=== PATIENT | female | born 1955 | race Caucasian/White ===

== ENCOUNTER 2018-02-01 06:46 | Inpatient (IN) ==
--- NOTE | 2018-02-01 07:13 | ED ---
HPI General Chief complaint: Respiratory Symptoms Stated complaint: Diff breathing, EVAC Time Seen by Provider: 02/01/18 07:00 History of Present Illness HPI narrative: Patient is a 62-year-old largely bedbound woman presents to the emergency department for evaluation of shortness of breath acute on chronic sudden onset this morning. Patient states that she was in the hospital and [place] about a month ago for pneumonia, she went to [facility] for her rehabilitation after hospitalization. She states she has not been on any blood thinners, no blood thinner injections either. States she also has a history of COPD. EMS reported that room air saturation of 88% prior to coming into the hospital, was given DuoNeb in route. No fevers, mild chest discomfort on left side of her chest. No abdominal pain no nausea no vomiting. Onset (ago): minute(s) Location: chest Radiation: non-radiation Severity: mild Pain Consistency: constant Relieving factors: none Exacerbating factors: none Associated symptoms: shortness of breath Treatments prior to arrival: other (DuoNeb per EMS) Related Data Home Medications Medication Instructions Recorded Confirmed Novolog U-100 Insulin aspart 1 unit SUB-Q ACHS 02/01/18 02/01/18 alum-mag hydroxide-simeth [Maalox 1 mg PO Q6H 02/01/18 02/01/18 Advanced] aspirin 81 mg PO DAILY 02/01/18 02/01/18 baclofen 10 mg PO HS 02/01/18 02/01/18 bupropion HCl [Wellbutrin SR] 150 mg PO DAILY 02/01/18 02/01/18 clopidogrel [Plavix] 75 mg PO DAILY 02/01/18 02/01/18 fexofenadine-pseudoephedrine 1 tab PO Q12H PRN 02/01/18 02/01/18 fluoxetine [Prozac] 40 mg PO DAILY 02/01/18 02/01/18 fluticasone 2 spray INTRANASAL DAILY 02/01/18 02/01/18 glimepiride 1 mg PO QAM 02/01/18 02/01/18 hydrocodone-acetaminophen [[place]] 1 tab PO Q4-6H PRN 02/01/18 02/01/18 ipratropium-albuterol 3 ml INHALATION Q6-8H PRN 02/01/18 02/01/18 lidocaine [Lidocaine Pain Relief] 1 patch TOPICAL Q8H 02/01/18 02/01/18 lisinopril 10 mg PO DAILY 02/01/18 02/01/18 melatonin 6 mg PO HS PRN 02/01/18 02/01/18 metformin 1,000 mg PO BID 02/01/18 02/01/18 nabumetone 500 mg PO BID 02/01/18 02/01/18 ondansetron [Zofran ODT] 4 mg PO Q6-8H PRN 02/01/18 02/01/18 pantoprazole [Protonix] 40 mg PO BID 02/01/18 02/01/18 pregabalin 300 mg PO BID 02/01/18 02/01/18 risperidone [Risperdal] 0.5 mg PO DAILY 02/01/18 02/01/18 ropinirole [Requip] 0.25 mg PO HS 02/01/18 02/01/18 tiotropium bromide 1 cap INHALATION DAILY 02/01/18 02/01/18 Allergies Allergy/AdvReac Type Severity Reaction Status Date / Time budesonide [From Pulmicort] Allergy Hives Verified 02/01/18 09:53 duloxetine [From Cymbalta] Allergy Hives Verified 02/01/18 09:53 gabapentin [From Neurontin] Allergy Hives Verified 02/01/18 09:53 nickel Allergy Hives Verified 02/01/18 09:53 Penicillins Allergy Hives Verified 02/01/18 09:53 prednisone Allergy Hives Verified 02/01/18 06:49 sulfacetamide Allergy Hives Verified 02/01/18 09:53 [From Sulfacet-R] sulfur [From Sulfacet-R] Allergy Hives Verified 02/01/18 09:53 Review of Systems Except as stated in HPI: all other systems reviewed are negative PMFSH Social History Social History Substance History: No History of Abuse Second Hand Smoke Exposure: No Smoking Status: Former smoker Tobacco Type: Cigarettes How Often Do You Have a Drink Containing Alcohol: Monthly or less Recent Travel in [facility] within the Last 8 Weeks: No Recent Out of Country Travel within the Last 8 Weeks: No Exam Narrative Exam Narrative: GENERAL: Well-developed well-nourished obese female, tachycardic and tachypneic. SKIN: Focused skin assessment warm/dry. HEAD: Atraumatic. Normocephalic. EYES: Pupils equal and round. No scleral icterus. No injection or drainage. ENT: No nasal bleeding or discharge. Mucous membranes pink and moist. NECK: Trachea midline. No JVD. CARDIOVASCULAR: Regular rhythm with tachycardia, left-sided systolic murmur peer. No murmur appreciated. 2+ bilateral equal pulses in all 4 extremity RESPIRATORY: No accessory muscle use. Clear to auscultation. Breath sounds equal bilaterally. GASTROINTESTINAL: Abdomen soft, non-tender, nondistended. Hepatic and splenic margins not palpable. MUSCULOSKELETAL: No obvious deformities. No clubbing. No cyanosis. No edema. NEUROLOGICAL: Awake and alert. No obvious cranial nerve deficits. Motor grossly within normal limits. Normal speech. PSYCHIATRIC: Appropriate mood and affect; insight and judgment normal. Course Initial Documented Vital Signs Pulse Rate 109 H 02/01/18 06:54 Blood Pressure 179/112 H 02/01/18 06:54 Pulse Oximetry 92 L 02/01/18 06:54 Last Documented Vital Signs Temperature 97.8 F 02/02/18 08:00 Pulse Rate 101 H 02/02/18 16:00 Respiratory Rate 14 02/02/18 15:22 Blood Pressure 139/63 02/02/18 08:00 Pulse Oximetry 93 L 02/02/18 08:00 Medical Decision Making MDM Narrative Medical decision making narrative: patient mostly bedridden, has need for CT PE protocol. negative for PE but does show evidence of multifocal pneumonia. Started on broad spectrum for HCAP. Discussed with patient for admission and she is agreeable. Differential Diagnosis Differential Diagnosis: Pneumonia, PE, Bronchitis, cough, congestion, hypoxia. Lab Data Result diagrams: 02/02/18 03:37 02/02/18 03:37 Lab Results 02/01/18 02/01/18 02/01/18 Range/Units 07:00 07:00 07:00 WBC 6.0 (4.0-11.0) th/mm3 RBC 3.28 L (4.00-5.30) mil/mm3 Hgb 10.0 L (11.6-15.3) gm/dL Hct 32.3 L (35.0-46.0) % MCV 98.2 (80.0-100.0) fL MCH 30.3 (27.0-34.0) pg MCHC 30.9 L (32.0-36.0) % RDW 13.9 (11.6-17.2) % Plt Count 152 (150-450) th/mm3 MPV 9.2 (7.0-11.0) fL Neut % (Auto) 82.6 H (16.0-70.0) % Lymph % (Auto) 7.8 L (9.0-44.0) % Clark % (Auto) 8.1 H (0.0-8.0) % Eos % (Auto) 1.3 (0.0-4.0) % Baso % (Auto) 0.2 (0.0-2.0) % Neut # (Auto) 5.0 (1.8-7.7) th/mm3 Lymph # (Auto) 0.5 L (1.0-4.8) th/mm3 Clark # (Auto) 0.5 (0.0-0.9) th/mm3 Eos # (Auto) 0.1 (0.0-0.4) th/mm3 Baso # (Auto) 0.0 (0.0-0.2) th/mm3 WBC Differential . Differential Comment Auto diff final PT 10.2 (9.8-11.6) sec INR 1.0 Ratio APTT 24.9 (24.3-30.1) sec Sodium 141 (136-145) meq/L Potassium 5.6 H (3.5-5.1) meq/L Chloride 104 (98-107) meq/L Carbon Dioxide 30.3 (21.0-32.0) meq/L Anion Gap 7 (5-15) meq/L BUN 23 H (7-18) mg/dL Creatinine 1.01 H (0.50-1.00) mg/dL Estimated GFR 56 L (>89) mL/min POC Glucose (68-110) mg/dl Random Glucose 131 H (74-106) mg/dL Lactic Acid (0.4-2.0) mmol/L Calcium 8.5 (8.5-10.1) mg/dL Magnesium 2.1 (1.5-2.5) mg/dL Total Bilirubin 0.4 (0.2-1.0) mg/dL AST 18 (15-37) U/L ALT 22 (10-53) U/L Alkaline Phosphatase 87 (45-117) U/L Total Creatine Kinase 35 (26-192) U/L Troponin I Less than 0.02 L (0.02-0.05) ng/mL B-Natriuretic Peptide (0-100) pg/mL Total Protein 6.5 (6.4-8.2) g/dL Albumin 3.5 (3.4-5.0) g/dL Urine Color (Yellw/Straw) Urine Clarity (Clear) Urine pH (5.0-8.5) Ur Specific [place] (1.002-1.035) Urine Protein (Neg-Trace) mg/dL Urine Glucose (UA) (Negative) mg/dL Urine Ketones (Negative) mg/dL Urine Occult Blood (Negative) Urine Nitrate (Negative) Urine Bilirubin (Negative) Urine Urobilinogen (Less than 2) mg/dL Ur Leukocyte Esterase (Negative) Urine WBC (0-5) /hpf Ur Squamous Epith Cells (0-5) /hpf Urine Bacteria (None) /hpf 02/01/18 02/01/18 02/01/18 Range/Units 07:00 09:40 17:30 WBC (4.0-11.0) th/mm3 RBC (4.00-5.30) mil/mm3 Hgb (11.6-15.3) gm/dL Hct (35.0-46.0) % MCV (80.0-100.0) fL MCH (27.0-34.0) pg MCHC (32.0-36.0) % RDW (11.6-17.2) % Plt Count (150-450) th/mm3 MPV (7.0-11.0) fL Neut % (Auto) (16.0-70.0) % Lymph % (Auto) (9.0-44.0) % Clark % (Auto) (0.0-8.0) % Eos % (Auto) (0.0-4.0) % Baso % (Auto) (0.0-2.0) % Neut # (Auto) (1.8-7.7) th/mm3 Lymph # (Auto) (1.0-4.8) th/mm3 [place] # (Auto) (0.0-0.9) th/mm3 Eos # (Auto) (0.0-0.4) th/mm3 Baso # (Auto) (0.0-0.2) th/mm3 WBC Differential Differential Comment PT (9.8-11.6) sec INR Ratio APTT (24.3-30.1) sec Sodium (136-145) meq/L Potassium (3.5-5.1) meq/L Chloride (98-107) meq/L Carbon Dioxide (21.0-32.0) meq/L Anion Gap (5-15) meq/L BUN (7-18) mg/dL Creatinine (0.50-1.00) mg/dL Estimated GFR (>89) mL/min POC Glucose 97 (68-110) mg/dl Random Glucose (74-106) mg/dL Lactic Acid 0.9 (0.4-2.0) mmol/L Calcium (8.5-10.1) mg/dL Magnesium (1.5-2.5) mg/dL Total Bilirubin (0.2-1.0) mg/dL AST (15-37) U/L ALT (10-53) U/L Alkaline Phosphatase (45-117) U/L Total Creatine Kinase (26-192) U/L Troponin I (0.02-0.05) ng/mL B-Natriuretic Peptide 214 H (0-100) pg/mL Total Protein (6.4-8.2) g/dL Albumin (3.4-5.0) g/dL Urine Color (Yellw/Straw) Urine Clarity (Clear) Urine pH (5.0-8.5) Ur Specific [place] (1.002-1.035) Urine Protein (Neg-Trace) mg/dL Urine Glucose (UA) (Negative) mg/dL Urine Ketones (Negative) mg/dL Urine Occult Blood (Negative) Urine Nitrate (Negative) Urine Bilirubin (Negative) Urine Urobilinogen (Less than 2) mg/dL Ur Leukocyte Esterase (Negative) Urine WBC (0-5) /hpf Ur Squamous Epith Cells (0-5) /hpf Urine Bacteria (None) /hpf 02/01/18 02/01/18 02/02/18 Range/Units 18:57 20:21 03:37 WBC 3.6 L (4.0-11.0) th/mm3 RBC 2.92 L (4.00-5.30) mil/mm3 Hgb 9.0 L (11.6-15.3) gm/dL Hct 28.7 L (35.0-46.0) % MCV 98.4 (80.0-100.0) fL MCH 30.9 (27.0-34.0) pg MCHC 31.4 L (32.0-36.0) % RDW 13.3 (11.6-17.2) % Plt Count 143 L (150-450) th/mm3 MPV 9.2 (7.0-11.0) fL Neut % (Auto) (16.0-70.0) % Lymph % (Auto) (9.0-44.0) % Clark % (Auto) (0.0-8.0) % Eos % (Auto) (0.0-4.0) % Baso % (Auto) (0.0-2.0) % Neut # (Auto) (1.8-7.7) th/mm3 Lymph # (Auto) (1.0-4.8) th/mm3 [place] # (Auto) (0.0-0.9) th/mm3 Eos # (Auto) (0.0-0.4) th/mm3 Baso # (Auto) (0.0-0.2) th/mm3 WBC Differential Differential Comment PT (9.8-11.6) sec INR Ratio APTT (24.3-30.1) sec Sodium 140 (136-145) meq/L Potassium 5.4 H (3.5-5.1) meq/L Chloride 101 (98-107) meq/L Carbon Dioxide 29.5 (21.0-32.0) meq/L Anion Gap 10 (5-15) meq/L BUN 22 H (7-18) mg/dL Creatinine 1.05 H (0.50-1.00) mg/dL Estimated GFR 53 L (>89) mL/min POC Glucose 151 H (68-110) mg/dl Random Glucose 85 (74-106) mg/dL Lactic Acid (0.4-2.0) mmol/L Calcium 8.9 (8.5-10.1) mg/dL Magnesium (1.5-2.5) mg/dL Total Bilirubin (0.2-1.0) mg/dL AST (15-37) U/L ALT (10-53) U/L Alkaline Phosphatase (45-117) U/L Total Creatine Kinase (26-192) U/L Troponin I (0.02-0.05) ng/mL B-Natriuretic Peptide (0-100) pg/mL Total Protein (6.4-8.2) g/dL Albumin (3.4-5.0) g/dL Urine Color (Yellw/Straw) Urine Clarity (Clear) Urine pH (5.0-8.5) Ur Specific [place] (1.002-1.035) Urine Protein (Neg-Trace) mg/dL Urine Glucose (UA) (Negative) mg/dL Urine Ketones (Negative) mg/dL Urine Occult Blood (Negative) Urine Nitrate (Negative) Urine Bilirubin (Negative) Urine Urobilinogen (Less than 2) mg/dL Ur Leukocyte Esterase (Negative) Urine WBC (0-5) /hpf Ur Squamous Epith Cells (0-5) /hpf Urine Bacteria (None) /hpf 02/02/18 02/02/18 02/02/18 Range/Units 03:37 03:37 04:15 WBC (4.0-11.0) th/mm3 RBC (4.00-5.30) mil/mm3 Hgb (11.6-15.3) gm/dL Hct (35.0-46.0) % MCV (80.0-100.0) fL MCH (27.0-34.0) pg MCHC (32.0-36.0) % RDW (11.6-17.2) % Plt Count (150-450) th/mm3 MPV (7.0-11.0) fL Neut % (Auto) (16.0-70.0) % Lymph % (Auto) (9.0-44.0) % [place] % (Auto) (0.0-8.0) % Eos % (Auto) (0.0-4.0) % Baso % (Auto) (0.0-2.0) % Neut # (Auto) (1.8-7.7) th/mm3 Lymph # (Auto) (1.0-4.8) th/mm3 [place] # (Auto) (0.0-0.9) th/mm3 Eos # (Auto) (0.0-0.4) th/mm3 Baso # (Auto) (0.0-0.2) th/mm3 WBC Differential Differential Comment PT (9.8-11.6) sec INR Ratio APTT (24.3-30.1) sec Sodium 141 (136-145) meq/L Potassium 5.5 H (3.5-5.1) meq/L Chloride 103 (98-107) meq/L Carbon Dioxide 32.1 H (21.0-32.0) meq/L Anion Gap 6 (5-15) meq/L BUN 24 H (7-18) mg/dL Creatinine 1.46 H (0.50-1.00) mg/dL Estimated GFR 36 L (>89) mL/min POC Glucose (68-110) mg/dl Random Glucose 114 H (74-106) mg/dL Lactic Acid (0.4-2.0) mmol/L Calcium 8.7 (8.5-10.1) mg/dL Magnesium (1.5-2.5) mg/dL Total Bilirubin (0.2-1.0) mg/dL AST (15-37) U/L ALT (10-53) U/L Alkaline Phosphatase (45-117) U/L Total Creatine Kinase (26-192) U/L Troponin I Less than 0.02 L (0.02-0.05) ng/mL B-Natriuretic Peptide (0-100) pg/mL Total Protein (6.4-8.2) g/dL Albumin (3.4-5.0) g/dL Urine Color Yellow (Yellw/Straw) Urine Clarity Clear (Clear) Urine pH 5.0 (5.0-8.5) Ur Specific [place] 1.019 (1.002-1.035) Urine Protein Negative (Neg-Trace) mg/dL Urine Glucose (UA) Negative (Negative) mg/dL Urine Ketones Negative (Negative) mg/dL Urine Occult Blood Negative (Negative) Urine Nitrate Negative (Negative) Urine Bilirubin Negative (Negative) Urine Urobilinogen Less than 2 (Less than 2) mg/dL Ur Leukocyte Esterase Negative (Negative) Urine WBC Less than 1 (0-5) /hpf Ur Squamous Epith Cells 1 (0-5) /hpf Urine Bacteria Rare H (None) /hpf 02/02/18 02/02/18 Range/Units 08:48 13:32 WBC (4.0-11.0) th/mm3 RBC (4.00-5.30) mil/mm3 Hgb (11.6-15.3) gm/dL Hct (35.0-46.0) % MCV (80.0-100.0) fL MCH (27.0-34.0) pg MCHC (32.0-36.0) % RDW (11.6-17.2) % Plt Count (150-450) th/mm3 MPV (7.0-11.0) fL Neut % (Auto) (16.0-70.0) % Lymph % (Auto) (9.0-44.0) % [place] % (Auto) (0.0-8.0) % Eos % (Auto) (0.0-4.0) % Baso % (Auto) (0.0-2.0) % Neut # (Auto) (1.8-7.7) th/mm3 Lymph # (Auto) (1.0-4.8) th/mm3 [place] # (Auto) (0.0-0.9) th/mm3 Eos # (Auto) (0.0-0.4) th/mm3 Baso # (Auto) (0.0-0.2) th/mm3 WBC Differential Differential Comment PT (9.8-11.6) sec INR Ratio APTT (24.3-30.1) sec Sodium (136-145) meq/L Potassium (3.5-5.1) meq/L Chloride (98-107) meq/L Carbon Dioxide (21.0-32.0) meq/L Anion Gap (5-15) meq/L BUN (7-18) mg/dL Creatinine (0.50-1.00) mg/dL Estimated GFR (>89) mL/min POC Glucose 145 H 139 H (68-110) mg/dl Random Glucose (74-106) mg/dL Lactic Acid (0.4-2.0) mmol/L Calcium (8.5-10.1) mg/dL Magnesium (1.5-2.5) mg/dL Total Bilirubin (0.2-1.0) mg/dL AST (15-37) U/L ALT (10-53) U/L Alkaline Phosphatase (45-117) U/L Total Creatine Kinase (26-192) U/L Troponin I (0.02-0.05) ng/mL B-Natriuretic Peptide (0-100) pg/mL Total Protein (6.4-8.2) g/dL Albumin (3.4-5.0) g/dL Urine Color (Yellw/Straw) Urine Clarity (Clear) Urine pH (5.0-8.5) Ur Specific [place] (1.002-1.035) Urine Protein (Neg-Trace) mg/dL Urine Glucose (UA) (Negative) mg/dL Urine Ketones (Negative) mg/dL Urine Occult Blood (Negative) Urine Nitrate (Negative) Urine Bilirubin (Negative) Urine Urobilinogen (Less than 2) mg/dL Ur Leukocyte Esterase (Negative) Urine WBC (0-5) /hpf Ur Squamous Epith Cells (0-5) /hpf Urine Bacteria (None) /hpf Imaging Data Radiologist's impression: Chest CTA 02/01/18 07:09 CONCLUSION: 1. No evidence of PE. 2. Bilateral pleural effusions and pericardial effusion. Patchy areas of groundglass opacity identified within the right and left lower lobes as well as the lingula and right middle lobe. This may reflect a multifocal infectious process. Chest X-Ray 02/01/18 07:09 CONCLUSION: Negative examination. Discharge Plan Discharge Disposition Patient Disposition: 30 Still Patient Discharge Details Diagnosis: HCAP (healthcare-associated pneumonia) Physicians Team ED Provider: Yimi Aparicio Primary Care Provider: UNKNOWN, Attending Provider: Radha Hinojosa Discharge Interventions Interventions: ED Discharge Assessment Last Done: 02/01/18 14:27 Vital Signs Last Done: 02/01/18 06:54 Status ED Status: Left Department Discharge Information Discharge Date/Time: 02/01/18 14:35
--- NOTE | 2018-02-01 07:35 | XR ---
EXAM DATE: 02/01/2018 7:26 AM EDT AGE/SEX: 62 years / Female INDICATIONS: Short of breath, chest pain. CLINICAL DATA: This is the patient's initial encounter. Patient reports that signs and symptoms have been present for 2 days and indicates a pain score of 3/10. MEDICAL/SURGICAL HISTORY: Chronic obstructive pulmonary disease. Diabetes mellitus type II. H ypertension. CAD. Myocardial infarction. Coronary artery stent. Hysterectomy. COMPARISON: No prior exams available for comparison. FINDINGS: A single AP view of the chest demonstrates the lungs to be symmetrically aerated without evidence of mass, infiltrate or effusion. The cardiomediastinal contours are unremarkable. Osseous structures a re intact. CONCLUSION: Negative examination. Electronically signed by: Bryanna Plaza MD 02/01/2018 7:34 AM EDT
[2018-02-01 07:45] LABS: Baso % (Auto) 0.2 % (0.0-2.0); Eos # (Auto) 0.1 th/mm3 (0.0-0.4); Eos % (Auto) 1.3 % (0.0-4.0); Hematocrit 32.3 % (35.0-46.0); Lymph # (Auto) 0.5 th/mm3 (1.0-4.8); Lymph % (Auto) 7.8 % (9.0-44.0); Mean Corpuscular Hemoglobin 30.3 pg (27.0-34.0); Mean Corpuscular Volume 98.2 fL (80.0-100.0); Mean Platelet Volume 9.2 fL (7.0-11.0); Mono # (Auto) 0.5 th/mm3 (0.0-0.9); Mono % (Auto) 8.1 % (0.0-8.0); Neut % (Auto) 82.6 % (16.0-70.0); Platelet Count 152 th/mm3 (150-450); Red Blood Count 3.28 mil/mm3 (4.00-5.30); Red Cell Distribution Width 13.9 % (11.6-17.2)
[2018-02-01 07:49] LABS: Mean Corpuscular HGB Conc 30.9 % (32.0-36.0)
[2018-02-01 07:56] LABS: Activated Partial Thrombo Time 24.9 sec (24.3-30.1); Prothrombin Time 10.2 sec (9.8-11.6)
[2018-02-01 07:58] LABS: Alanine Aminotransferase 22 U/L (10-53); Albumin 3.5 g/dL (3.4-5.0); Anion Gap 7 meq/L (5-15); Aspartate Aminotransferase 18 U/L (15-37); Blood Urea Nitrogen 23 mg/dL (7-18); Calcium 8.5 mg/dL (8.5-10.1); Carbon Dioxide 30.3 meq/L (21.0-32.0); Chloride 104 meq/L (98-107); Glomerular Filtration Rate 56 mL/min (>89); Glucose,Random 131 mg/dL (74-106); Magnesium 2.1 mg/dL (1.5-2.5); Potassium 5.6 meq/L (3.5-5.1); Sodium 141 meq/L (136-145)
[2018-02-01 08:02] LABS: Alkaline Phosphatase 87 U/L (45-117); Total Protein 6.5 g/dL (6.4-8.2)
[2018-02-01 08:06] LABS: Creatine Kinase 35 U/L (26-192)
--- NOTE | 2018-02-01 08:45 | ECG ---
Date Performed: 02/01/2018 Time Performed: 06:48:46 PTAGE: 62 years EKG: SINUS TACHYCARDIA LOW QRS VOLTAGE IN PRECORDIAL LEADS ABNORMAL RHYTHM ECG NO PREVIOUS TRACING DOCTOR: Cristian Bronson Interpretating Date/Time 02/01/2018 08:44:01
--- NOTE | 2018-02-01 09:32 | CT ---
EXAM DATE: 02/01/2018 9:24 AM EDT AGE/SEX: 62 years / Female INDICATIONS: Shortness of breath, mild left side chest discomfort. CLINICAL DATA: This is the patient's initial encounter. Patient reports that signs and symptoms have been present for 1 day and indicates a pain score of 3/10. MEDICAL/SURGICAL HISTORY: Chronic obstructive pulmonary disease. Cardiovascular disease. Hyperten yeni. Diabetes, myocardial infarction. Coronary artery stent. RADIATION DOSE: 10.79 CTDI (mGy) COMPARISON: C, CHEST 1V SINGLE AP, 02/01/2018. . TECHNIQUE: Volumetric scanning was performed using a multi-row detector CT scanner during bolus infu yeni of 83 ml Omnipaque 350 (iohexol) nonionic water-soluble contrast as a single exam dose. The nicole a was post processed with a variety of visualization algorithms including full volume maximum intensi ty projection and sliding thin slab reformation. Using automated exposure control and adjustment of t he mA and/or kV according to patient size, radiation dose was kept as low as reasonably achievable to obtain optimal diagnostic quality images. DICOM format image data is available electronically for r eview and comparison. FINDINGS: Pulmonary Arteries: No filling defects are seen in the pulmonary arteries out to the subsegmental ve ssels. The left and right pulmonary arteries are normal in diameter. Lung: There are patchy areas of airspace round glass opacity involving the secondary lobules of the lingula, right middle lobe right and left lower lobes.. Effusion: Bilateral pleural effusions, moderate on the right and small on the left. Mediastinum: The heart size is normal. There is a small pericardial effusion present. Other: The axilla is unremarkable. CONCLUSION: 1. No evidence of PE. 2. Bilateral pleural effusions and pericardial effusion. Patchy areas of groundglass opacity identif ied within the right and left lower lobes as well as the lingula and right middle lobe. This may refl ect a multifocal infectious process. Electronically signed by: Bryanna Plaza MD 02/01/2018 9:31 AM EDT
[2018-02-01] MEDS ORDERED: Piperacil/Tazo 4.5 GM Premix 4.5 GM/100 ML BAG IV.SIG ONE (09:39)
[2018-02-01] MEDS ORDERED: Vancomycin Inj 1 GM/200 ML PIGGYBACK IV.SIG ONE (09:39)
[2018-02-01] MEDS ORDERED: Vancomycin Inj 1,000 MG in Sodium Chlor 0.9% Inj 250 ML IV.SIG ONE (09:45)
--- NOTE | 2018-02-01 11:38 | P.HPFP ---
History of Present Illness Primary Care Physician: UNKNOWN <Radha Hinojosa - 02/02/18 06:59> UNKNOWN <Anneliese Marr - 02/01/18 11:38> Chief Complaint: shortness of breath <Anneliese Marr - 02/02/18 01:44> History of Present Illness: Ms. Baldwin is a 62-year-old white female with a past medical history of diabetes mellitus, hypertension, CHF, COPD presenting to the ED due to chest pain or shortness of breath over the past week. She was recently hospitalized in December and discharged to rehab for pneumonia, CHF, and COPD exacerbation. She states that while she was at rehab she has been short of breath, but has gotten worse the past few days. She is normally on 3 L nasal cannula but she could not catch her breath. She states that she could not breathe to talk. The rehab conducted a CXR on Saturday,a week ago, but it was normal. She started to cough on Saturday and described it as dry and nonproductive. She states that she could hear crackles/wheezes when she would cough, but nothing will come up. She describes her chest pain as a 8/10 heaviness, feeling like "a bunch of arms or squeezing around her," and 20 elephants are sitting on her. Her left chest feels like someone hit her there with a baseball, radiates to her left jaw and arm. She does have a history of 2 stents being placed but she states that this does not feel the same as her previous MIs. This pain feels better when she uses her inhaler, but is temporary. Worse with sitting up (makes her feel like she is squished). She also says that a week ago she was having migraines really bad with photophobia. She states that the headache was so bad that she was flailing about which caused her to "wrench" her neck. She describes her neck pain is going down the left side and down to her left arm. It is better with lifting her left shoulder and bending her neck to the right. PMH: fibromyalgia DM neuropathy HTN CAD CHF GERD MDD Gastritis COPD Raynaud's phenomenon Sjogren's syndrome PSH: 2 stents Cardiac cathx5 CS tubal ligation hemorrhoid removal pilondial cyst removal on tailbone FH: HTN and DM in mother and father mother- lung cancer father, siblings- raynauds, heart dz sister- heart dz SH: lives in [place] with son and daughter in law in a house Disability- for lungs and heart alcohol- occasional, 1x/week, beer tobacco- quit 12 yrs ago, smoked for 40 yrs Illicit- none <Anneliese Marr 02/02/18 01:12> - Diagnosis (1) Sepsis (2) Healthcare-associated pneumonia (3) Hyperkalemia (4) COPD (chronic obstructive pulmonary disease) (5) Chest pain (6) Fibromyalgia (7) Diabetes mellitus (8) Hypertension (9) Coronary artery disease (10) Major depressive disorder (11) Nutrition, metabolism, and development symptoms (12) DVT prophylaxis <KelsieRadha clark 02/02/18 06:59> (1) Sepsis (2) Healthcare-associated pneumonia (3) Hyperkalemia (4) COPD (chronic obstructive pulmonary disease) (5) Chest pain (6) Fibromyalgia (7) Diabetes mellitus (8) Hypertension (9) Coronary artery disease (10) Major depressive disorder (11) Nutrition, metabolism, and development symptoms (12) DVT prophylaxis <Silviano Marrin Rosa 02/02/18 03:56> Inpatient Certification: I certify that the inpatient services were ordered in accordance with Medicare regulations governing the order. This includes certification that hospital inpatient services are reasonable and necessary and in the case of services not specified as inpatient-only under 42 CFR 419.22(n), that they are appropriately provided as inpatient services in accordance to with the 2-midnight benchmark under 43 CFR 412.3(e) <Radha Hinojosa 02/02/18 06:59> I certify that the inpatient services were ordered in accordance with Medicare regulations governing the order. This includes certification that hospital inpatient services are reasonable and necessary and in the case of services not specified as inpatient-only under 42 CFR 419.22(n), that they are appropriately provided as inpatient services in accordance to with the 2-midnight benchmark under 43 CFR 412.3(e) <TejinderAnneliese G 02/01/18 11:38> Review of Systems Constitutional: Reports headache(s), Reports night sweats (2 weeks), Denies chills, Denies fever(s) <Anneliese Marr 02/01/18 11:38> Eyes: Reports blurry vision, Reports requires corrective lenses (worsened in last week) <Anneliese Marr 02/01/18 11:38> Ears, Nose, Mouth, and Throat: Reports nasal congestion <Anneliese Marr 11:38> Cardiovascular: Reports chest pain, Reports chest pain at rest, Reports chest pain with activity (use of arms, does not walk), Reports leg swelling (some), Reports rapid, pounding, or irregular heartbeat, Reports shortness of breath when lying down (sleeps with a lot pillows), Reports shortness of breath causing sudden awakening <Anneliese Marr 02/01/18 11:38> Respiratory: Reports cough, Reports pain on inspiration, Denies coughing up blood <Anneliese Marr 02/01/18 11:38> Gastrointestinal: Reports abdominal pain (diffuse, hx of ulcers), Reports constipation <Anneliese Marr 02/01/18 11:38> Genitourinary: Denies difficulty starting urination <Anneliese Marr 02/01/18 11:38> Musculoskeletal: Reports muscle weakness, Reports neck pain <Anneliese Marr 11:38> Skin/Breast: Denies rash <Anneliese Marr 02/01/18 11:38> Neurologic: Denies tingling/numbness/burning sensations <Anneliese Marr 11:38> PMFSH - History History Provided By: Patient, Exhaust And Muffler Fitter / EMT <Anneliese Marr 02/01/18 11:38> - Medical History Medical History: Medical History (Last Updated 02/01/18 @ 07:11 by Jessica Ohara) CAD (coronary artery disease) COPD (chronic obstructive pulmonary disease) Depression Diabetes GERD (gastroesophageal reflux disease) H/O: hysterectomy HTN (hypertension) Heart attack Hemorrhoids <Radha Hinojosa - 02/02/18 06:59> Medical History (Last Updated 02/01/18 @ 07:11 by Jessica Ohara) CAD (coronary artery disease) COPD (chronic obstructive pulmonary disease) Depression Diabetes GERD (gastroesophageal reflux disease) H/O: hysterectomy HTN (hypertension) Heart attack Hemorrhoids <TejinderAnneliese Lee 02/01/18 11:38> - Surgical History Surgical History: Surgical History (Last Updated 02/01/18 @ 07:11 by Jessica Ohara) H/O heart artery stent <Radha Hinojosa - 02/02/18 06:59> Surgical History (Last Updated 02/01/18 @ 07:11 by Jessica Ohara) H/O heart artery stent <Anneliese Marr 02/01/18 11:38> - Tobacco History Second Hand Smoke Exposure: No <Anneliese Marr 02/01/18 11:38> Tobacco Use In Past 30 Days: No <Anneliese Marr 02/01/18 11:38> Smoking Status: Former smoker <Anneliese Marr 02/01/18 11:38> Tobacco Type: Cigarettes <Anneliese Marr 02/01/18 11:38> - Alcohol History How Often Do You Have a Drink Containing Alcohol: Monthly or less <Anneliese Marr 02/01/18 11:38> - Substance Use History Substance History: No History of Abuse <Anneliese Marr 02/01/18 11:38> - Travel History [facility] Within the Last 8 Weeks: No <Anneliese Marr 02/01/18 11:38> Recent Travel Out of the Country Within the Last 8 Weeks: No <Anneliese Marr 02/01/18 11:38> - Immunization History Tetanus Immunization: <5 Years <Anneliese Marr 02/01/18 11:38> Hx Influenza Vaccine This Season: Yes <Anneliese Marr 02/01/18 11:38> Medications and Allergies Allergies Allergy/AdvReac Type Severity Reaction Status Date / Time budesonide [From Pulmicort] Allergy Hives Verified 02/01/18 09:53 duloxetine [From Cymbalta] Allergy Hives Verified 02/01/18 09:53 gabapentin [From Neurontin] Allergy Hives Verified 02/01/18 09:53 nickel Allergy Hives Verified 02/01/18 09:53 Penicillins Allergy Hives Verified 02/01/18 09:53 prednisone Allergy Hives Verified 02/01/18 06:49 sulfacetamide Allergy Hives Verified 02/01/18 09:53 [From Sulfacet-R] sulfur [From Sulfacet-R] Allergy Hives Verified 02/01/18 09:53 <Vey,Radha - 02/02/18 06:59> Home Medications Medication Instructions Recorded Confirmed Type Novolog U-100 Insulin aspart 1 unit SUB-Q ACHS 02/01/18 02/01/18 History alum-mag hydroxide-simeth [Maalox 1 mg PO Q6H 02/01/18 02/01/18 History Advanced] aspirin 81 mg PO DAILY 02/01/18 02/01/18 History baclofen 10 mg PO HS 02/01/18 02/01/18 History bupropion HCl [Wellbutrin SR] 150 mg PO DAILY 02/01/18 02/01/18 History clopidogrel [Plavix] 75 mg PO DAILY 02/01/18 02/01/18 History fexofenadine-pseudoephedrine 1 tab PO Q12H PRN 02/01/18 02/01/18 History fluoxetine [Prozac] 40 mg PO DAILY 02/01/18 02/01/18 History fluticasone 2 spray INTRANASAL DAILY 02/01/18 02/01/18 History glimepiride 1 mg PO QAM 02/01/18 02/01/18 History hydrocodone-acetaminophen [[place]] 1 tab PO Q4-6H PRN 02/01/18 02/01/18 History ipratropium-albuterol 3 ml INHALATION Q6-8H PRN 02/01/18 02/01/18 History lidocaine [Lidocaine Pain Relief] 1 patch TOPICAL Q8H 02/01/18 02/01/18 History lisinopril 10 mg PO DAILY 02/01/18 02/01/18 History melatonin 6 mg PO HS PRN 02/01/18 02/01/18 History metformin 1,000 mg PO BID 02/01/18 02/01/18 History nabumetone 500 mg PO BID 02/01/18 02/01/18 History ondansetron [Zofran ODT] 4 mg PO Q6-8H PRN 02/01/18 02/01/18 History pantoprazole [Protonix] 40 mg PO BID 02/01/18 02/01/18 History pregabalin 300 mg PO BID 02/01/18 02/01/18 History risperidone [Risperdal] 0.5 mg PO DAILY 02/01/18 02/01/18 History ropinirole [Requip] 0.25 mg PO HS 02/01/18 02/01/18 History tiotropium bromide 1 cap INHALATION DAILY 02/01/18 02/01/18 History <Radha Hinojosa - 02/02/18 06:59> Active Medications: Active Medications Hydrocodone Bitart/Acetaminophen ([place] 5/325) 1 tab PO Q6H PRN PRN Reason: PAIN SCALE 6 TO 10 Last Admin: 02/02/18 04:40 Dose: 1 tab Albuterol (Duoneb Neb ([facility])) 1 ampul NEB Q4HR NEB [facility] Last Admin: 02/02/18 04:48 Dose: 1 ampul Bupropion HCl (Wellbutrin Sr) 150 mg PO DAILY [facility] Clopidogrel Bisulfate (Plavix) 75 mg PO DAILY [facility] Last Admin: 02/01/18 13:37 Dose: 75 mg Dextrose (D50w Vial) 50 ml IV.PUSH UNSCH PRN PRN Reason: PER HYPOGLYCEMIA PROTOCOL Diphenhydramine HCl (Benadryl Inj) 50 mg IV.PUSH Q6H PRN PRN Reason: RASH Enoxaparin Sodium (Lovenox Inj) 40 mg SQ Q24H [facility] Fluoxetine HCl (Prozac) 40 mg PO DAILY [facility] Last Admin: 02/01/18 13:37 Dose: 40 mg Fluticasone Propionate (Flonase Nasal [place]) 2 spray EACH NARE DAILY [facility] Glucagon (Glucagon Inj) 1 mg OTHER UNSCH PRN PRN Reason: for Hypoglycemia Protocol Ciprofloxacin/Dextrose (Cipro 400 Mg/200 Ml Inj) 400 mg in 200 mls @ 200 mls/ hr IV.SIG Q8H [facility] Last Admin: 02/02/18 06:25 Dose: 400 mls/hr Pharmacy Profile Note (Vancomycin Consult Pharmacy) 0 mls @ 0 mls/hr OTHER UNSCH [facility] Vancomycin HCl 1,500 mg/ (Sodium Chloride) 515 mls @ 250 mls/hr IV.SIG Q12H [facility] Last Admin: 02/01/18 22:43 Dose: 250 mls/hr Piperacillin/Tazobactam/Dextrose (Zosyn 4.5 Gm Premix) 4.5 gm in 100 mls @ 200 mls/hr IV.SIG Q6H [facility] Last Admin: 02/02/18 04:43 Dose: 200 mls/hr Sodium Chloride (Ns Inj) 1,000 mls @ 42 mls/hr IV.CONT .[id number] [facility] Stop: 02/03/18 04:03 Last Admin: 02/02/18 05:24 Dose: 42 mls/hr Insulin Aspart (Novolog Insulin Suppl Scale Inj) 0 unit SQ ACHS [facility]; Protocol Last Admin: 02/02/18 05:10 Dose: Not Given Lactobacillus Acidophilus (Lactinex) 1 tab PO TID [facility] Last Admin: 02/02/18 06:50 Dose: Not Given Lisinopril (Prinivil) 10 mg PO DAILY [facility] Last Admin: 02/01/18 13:37 Dose: 10 mg Melatonin (Melatonin) 5 mg PO HS [facility] Last Admin: 02/01/18 22:33 Dose: 5 mg Miscellaneous Information ([facility] Ordered Lab Info) 0 each OTHER ONCE ONE Stop: 02/03/18 08:46 Pantoprazole Sodium (Protonix) 40 mg PO BID [facility] Last Admin: 02/01/18 20:53 Dose: 40 mg Pregabalin (Lyrica) 300 mg PO BID [facility] Last Admin: 02/01/18 20:51 Dose: 300 mg Risperidone (Risperdal) 0.5 mg PO DAILY [facility] Last Admin: 02/01/18 15:18 Dose: 0.5 mg Ropinirole HCl (Requip) 0.25 mg PO HS [facility] Last Admin: 02/01/18 20:51 Dose: 0.25 mg Sodium Chloride (Ns Flush) 2 ml IV.FLUSH UNSCH PRN PRN Reason: FLUSH AFTER USING IV ACCESS <Radha Hinojosa - 02/02/18 06:59> Active Medications Sodium Chloride (Ns Flush) 2 ml IV.FLUSH UNSCH PRN PRN Reason: FLUSH AFTER USING IV ACCESS <Anneliese Marr - 02/01/18 11:38> Exam Vital signs: Vital Signs 02/01/18 07:21 02/01/18 07:47 02/01/18 09:53 Temperature Pulse Rate 105 H 99 H Respiratory Rate 15 22 Blood Pressure 129/61 Pulse Oximetry 92 L 93 L 96 02/01/18 12:27 02/01/18 13:41 02/01/18 16:00 Temperature 98.8 F 97.8 F Pulse Rate 84 88 Respiratory Rate 22 22 18 Blood Pressure 126/56 L 126/60 Pulse Oximetry 98 93 L 02/01/18 16:04 02/01/18 20:00 02/01/18 20:05 Temperature 98.3 F Pulse Rate 77 91 H 89 Respiratory Rate 14 20 Blood Pressure 115/57 L Pulse Oximetry 97 96 02/01/18 20:46 02/01/18 23:45 02/02/18 00:00 Temperature 98.4 F Pulse Rate 84 76 Respiratory Rate 18 Blood Pressure 133/60 Pulse Oximetry 92 L 94 L 02/02/18 04:00 02/02/18 04:50 Temperature 97.6 F Pulse Rate 88 82 Respiratory Rate 18 16 Blood Pressure 146/63 H Pulse Oximetry 95 Intake & Output 02/01/18 02/01/18 02/02/18 06:59 18:59 06:59 Intake Total 650 / 650 300 / 300 Balance 650 / 650 300 / 300 Weight 99.79 kg 111.5 kg 110.9 kg Intake: IV 650 / 650 300 / 300 Cipro 400 MG/200 ML Inj 400 mg 200 / 200 200 / 200 In 200 ml @ 200 mls/hr IV.SIG Q8H [facility] Rx#:[id number] Zosyn 4.5 GM Premix 4.5 gm In 200 / 200 100 / 100 100 ml @ 200 mls/hr IV.SIG Q6H [facility] Rx#:[id number] Vancomycin Inj 1,000 MG In NS 250 / 250 Inj 250 ML @ 200 mls/hr IV.SIG ONCE ONE Rx#:[id number] Other: Weight On Admission 111.5 kg <Radha Hinojosa - 02/02/18 06:59> Vital Signs 02/01/18 06:54 02/01/18 07:21 02/01/18 07:47 Pulse Rate 109 H 105 H Respiratory Rate 15 Blood Pressure 179/112 H Pulse Oximetry 92 L 92 L 93 L 02/01/18 09:53 Pulse Rate 99 H Respiratory Rate 22 Blood Pressure 129/61 Pulse Oximetry 96 Intake & Output 01/31/18 02/01/18 02/01/18 18:59 06:59 18:59 Weight 99.79 kg <Anneliese Marr - 02/01/18 11:38> Narrative: GENERAL: Obese white female sitting up in bed speaking in complete sentences, sitting comfortably, in no acute distress SKIN: Warm and dry. Dry, flaky HEAD: Atraumatic. Normocephalic. EYES: No scleral icterus. No injection or drainage. ENT: No nasal bleeding or discharge. Mucous membranes pink and moist. NECK: Trachea midline. No JVD. CARDIOVASCULAR: Heart sounds distant. Regular rate and rhythm. RESPIRATORY: No accessory muscle use. Decreased air movement. Soft expiratory wheezes. Breath sounds equal bilaterally. GASTROINTESTINAL: Abdomen soft, tenderness of LUQ, distended. MUSCULOSKELETAL: Extremities without clubbing, cyanosis, or edema. No obvious deformities. NEUROLOGICAL: Awake and alert. No obvious cranial nerve deficits. Motor grossly within normal limits. Normal speech. <Anneliese Marr - 02/02/18 01:44> Results - Labs Result diagrams: 02/02/18 03:37 02/02/18 03:37 <KelsieYuliana clarke - 02/02/18 06:59> Abnormal lab results 02/01/18 02/01/18 02/01/18 Range/Units 07:00 07:00 07:00 WBC (4.0-11.0) th/mm3 RBC 3.28 L (4.00-5.30) mil/mm3 Hgb 10.0 L (11.6-15.3) gm/dL Hct 32.3 L (35.0-46.0) % MCHC 30.9 L (32.0-36.0) % Plt Count (150-450) th/mm3 Neut % (Auto) 82.6 H (16.0-70.0) % Lymph % (Auto) 7.8 L (9.0-44.0) % [place] % (Auto) 8.1 H (0.0-8.0) % Lymph # (Auto) 0.5 L (1.0-4.8) th/mm3 Potassium 5.6 H (3.5-5.1) meq/L Carbon Dioxide (21.0-32.0) meq/L BUN 23 H (7-18) mg/dL Creatinine 1.01 H (0.50-1.00) mg/dL Estimated GFR 56 L (>89) mL/min POC Glucose (68-110) mg/dl Random Glucose 131 H (74-106) mg/dL Troponin I Less than 0.02 L (0.02-0.05) ng/mL B-Natriuretic Peptide 214 H (0-100) pg/mL Urine Bacteria (None) /hpf 02/01/18 02/01/18 02/02/18 Range/Units 18:57 20:21 03:37 WBC 3.6 L (4.0-11.0) th/mm3 RBC 2.92 L (4.00-5.30) mil/mm3 Hgb 9.0 L (11.6-15.3) gm/dL Hct 28.7 L (35.0-46.0) % MCHC 31.4 L (32.0-36.0) % Plt Count 143 L (150-450) th/mm3 Neut % (Auto) (16.0-70.0) % Lymph % (Auto) (9.0-44.0) % [place] % (Auto) (0.0-8.0) % Lymph # (Auto) (1.0-4.8) th/mm3 Potassium 5.4 H (3.5-5.1) meq/L Carbon Dioxide (21.0-32.0) meq/L BUN 22 H (7-18) mg/dL Creatinine 1.05 H (0.50-1.00) mg/dL Estimated GFR 53 L (>89) mL/min POC Glucose 151 H (68-110) mg/dl Random Glucose (74-106) mg/dL Troponin I (0.02-0.05) ng/mL B-Natriuretic Peptide (0-100) pg/mL Urine Bacteria (None) /hpf 02/02/18 02/02/18 02/02/18 Range/Units 03:37 03:37 04:15 WBC (4.0-11.0) th/mm3 RBC (4.00-5.30) mil/mm3 Hgb (11.6-15.3) gm/dL Hct (35.0-46.0) % MCHC (32.0-36.0) % Plt Count (150-450) th/mm3 Neut % (Auto) (16.0-70.0) % Lymph % (Auto) (9.0-44.0) % [place] % (Auto) (0.0-8.0) % Lymph # (Auto) (1.0-4.8) th/mm3 Potassium 5.5 H (3.5-5.1) meq/L Carbon Dioxide 32.1 H (21.0-32.0) meq/L BUN 24 H (7-18) mg/dL Creatinine 1.46 H (0.50-1.00) mg/dL Estimated GFR 36 L (>89) mL/min POC Glucose (68-110) mg/dl Random Glucose 114 H (74-106) mg/dL Troponin I Less than 0.02 L (0.02-0.05) ng/mL B-Natriuretic Peptide (0-100) pg/mL Urine Bacteria Rare H (None) /hpf Short CBC 02/01/18 02/02/18 Range/Units 07:00 03:37 WBC 6.0 3.6 L (4.0-11.0) th/mm3 Hgb 10.0 L 9.0 L (11.6-15.3) gm/dL Hct 32.3 L 28.7 L (35.0-46.0) % Plt Count 152 143 L (150-450) th/mm3 BMP 02/01/18 02/01/18 02/02/18 07:00 18:57 03:37 Sodium 141 140 141 Potassium 5.6 H 5.4 H 5.5 H Chloride 104 101 103 Carbon Dioxide 30.3 29.5 32.1 H BUN 23 H 22 H 24 H Creatinine 1.01 H 1.05 H 1.46 H Calcium 8.5 8.9 8.7 Cardiac Enzymes 02/01/18 02/02/18 Range/Units 07:00 03:37 Total Creatine Kinase 35 (26-192) U/L Troponin I Less than 0.02 L Less than 0.02 L (0.02-0.05) ng/mL Liver Function 02/01/18 Range/Units 07:00 Total Bilirubin 0.4 (0.2-1.0) mg/dL AST 18 (15-37) U/L ALT 22 (10-53) U/L Alkaline Phosphatase 87 (45-117) U/L Albumin 3.5 (3.4-5.0) g/dL Urine 02/02/18 Range/Units 04:15 Urine Color Yellow (Yellw/Straw) Urine Clarity Clear (Clear) Urine pH 5.0 (5.0-8.5) Ur Specific [place] 1.019 (1.002-1.035) Urine Protein Negative (Neg-Trace) mg/dL Urine Glucose (UA) Negative (Negative) mg/dL <Radha Hinojosa - 02/02/18 06:59> Abnormal lab results 02/01/18 02/01/18 02/01/18 Range/Units 07:00 07:00 07:00 RBC 3.28 L (4.00-5.30) mil/mm3 Hgb 10.0 L (11.6-15.3) gm/dL Hct 32.3 L (35.0-46.0) % MCHC 30.9 L (32.0-36.0) % Neut % (Auto) 82.6 H (16.0-70.0) % Lymph % (Auto) 7.8 L (9.0-44.0) % [place] % (Auto) 8.1 H (0.0-8.0) % Lymph # (Auto) 0.5 L (1.0-4.8) th/mm3 Potassium 5.6 H (3.5-5.1) meq/L BUN 23 H (7-18) mg/dL Creatinine 1.01 H (0.50-1.00) mg/dL Estimated GFR 56 L (>89) mL/min Random Glucose 131 H (74-106) mg/dL Troponin I Less than 0.02 L (0.02-0.05) ng/mL B-Natriuretic Peptide 214 H (0-100) pg/mL Short CBC 02/01/18 Range/Units 07:00 WBC 6.0 (4.0-11.0) th/mm3 Hgb 10.0 L (11.6-15.3) gm/dL Hct 32.3 L (35.0-46.0) % Plt Count 152 (150-450) th/mm3 BMP 02/01/18 07:00 Sodium 141 Potassium 5.6 H Chloride 104 Carbon Dioxide 30.3 BUN 23 H Creatinine 1.01 H Calcium 8.5 Cardiac Enzymes 02/01/18 Range/Units 07:00 Total Creatine Kinase 35 (26-192) U/L Troponin I Less than 0.02 L (0.02-0.05) ng/mL Liver Function 02/01/18 Range/Units 07:00 Total Bilirubin 0.4 (0.2-1.0) mg/dL AST 18 (15-37) U/L ALT 22 (10-53) U/L Alkaline Phosphatase 87 (45-117) U/L Albumin 3.5 (3.4-5.0) g/dL <Silviano Marrcierra Lee - 02/01/18 11:38> - Imaging Impressions Chest CTA 02/01/18 07:09 CONCLUSION: 1. No evidence of PE. 2. Bilateral pleural effusions and pericardial effusion. Patchy areas of groundglass opacity identified within the right and left lower lobes as well as the lingula and right middle lobe. This may reflect a multifocal infectious process. Chest X-Ray 02/01/18 07:09 CONCLUSION: Negative examination. <Radha Hinojosa - 02/02/18 06:59> Impressions Chest CTA 02/01/18 07:09 CONCLUSION: 1. No evidence of PE. 2. Bilateral pleural effusions and pericardial effusion. Patchy areas of groundglass opacity identified within the right and left lower lobes as well as the lingula and right middle lobe. This may reflect a multifocal infectious process. Chest X-Ray 02/01/18 07:09 CONCLUSION: Negative examination. <Anneliese Marr - 02/01/18 11:38> Caprini VTE Risk Assessment Caprini VTE Risk Assessment: Moderate/High Risk (score >= 2) <Anneliese Marr - 02/02/18 01:44> Caprini Risk Assessment Model: Point Value = 1 Point Value = 2 Point Value = 3 Point Value = 5 Age 41-60 Minor surgery BMI > 25 kg/m2 Swollen legs Varicose veins or History of unexplained or recurrent spontaneous Oral contraceptives or hormone replacement Sepsis (< 1 month) Serious lung disease, including pneumonia (< 1 month) Abnormal pulmonary function Acute myocardial infarction Congestive heart failure (< 1 month) History of inflammatory bowel disease Medical patient at bed rest Age 61-74 Arthroscopic surgery Major open surgery (> 45 min) Laparoscopic surgery (> 45 min) Malignancy Confined to bed (> 72 hours) Immobilizing plaster cast Central venous access Age >= 75 History of VTE Family history of VTE Factor V Leiden Prothrombin [id number] Lupus anticoagulant Anticardiolipin antibodies Elevated serum homocysteine Heparin-induced thrombocytopenia Other congenital or acquired thrombophilia Stroke (< 1 month) Elective arthroplasty Hip, pelvis, or leg fracture Acute spinal cord injury (< 1 month) <Radha Hinojosa - 02/02/18 06:59> Point Value = 1 Point Value = 2 Point Value = 3 Point Value = 5 Age 41-60 Minor surgery BMI > 25 kg/m2 Swollen legs Varicose veins or History of unexplained or recurrent spontaneous Oral contraceptives or hormone replacement Sepsis (< 1 month) Serious lung disease, including pneumonia (< 1 month) Abnormal pulmonary function Acute myocardial infarction Congestive heart failure (< 1 month) History of inflammatory bowel disease Medical patient at bed rest Age 61-74 Arthroscopic surgery Major open surgery (> 45 min) Laparoscopic surgery (> 45 min) Malignancy Confined to bed (> 72 hours) Immobilizing plaster cast Central venous access Age >= 75 History of VTE Family history of VTE Factor V Leiden Prothrombin [id number] Lupus anticoagulant Anticardiolipin antibodies Elevated serum homocysteine Heparin-induced thrombocytopenia Other congenital or acquired thrombophilia Stroke (< 1 month) Elective arthroplasty Hip, pelvis, or leg fracture Acute spinal cord injury (< 1 month) <Anneliese Marr - 02/01/18 11:38> Prophylaxis Regimen: Total Risk Factor Score Risk Level Prophylaxis Regimen 0-1 Low Early ambulation 2 Moderate Order ONE of the following: *Sequential Compression Device (SCD) *Heparin 5000 units SQ BID 3-4 Higher Order ONE of the following medications: *Heparin 5000 units SQ TID *Enoxaparin/Lovenox 40 mg SQ daily (WT < 150 kg, CrCl > 30 mL/min) *Enoxaparin/Lovenox 30 mg SQ daily (WT < 150 kg, CrCl > 10-29 mL/min) *Enoxaparin/Lovenox 30 mg SQ BID (WT < 150 kg, CrCl > 30 mL/min) AND/OR *Sequential Compression Device (SCD) 5 or more Highest Order ONE of the following medications: *Heparin 5000 units SQ TID (Preferred with Epidurals) *Enoxaparin/Lovenox 40 mg SQ daily (WT < 150 kg, CrCl > 30 mL/min) *Enoxaparin/Lovenox 30 mg SQ daily (WT < 150 kg, CrCl > 10-29 mL/min) *Enoxaparin/Lovenox 30 mg SQ BID (WT < 150 kg, CrCl > 30 mL/min) AND *Sequential Compression Device (SCD) <Radha Hinojosa - 02/02/18 06:59> Total Risk Factor Score Risk Level Prophylaxis Regimen 0-1 Low Early ambulation 2 Moderate Order ONE of the following: *Sequential Compression Device (SCD) *Heparin 5000 units SQ BID 3-4 Higher Order ONE of the following medications: *Heparin 5000 units SQ TID *Enoxaparin/Lovenox 40 mg SQ daily (WT < 150 kg, CrCl > 30 mL/min) *Enoxaparin/Lovenox 30 mg SQ daily (WT < 150 kg, CrCl > 10-29 mL/min) *Enoxaparin/Lovenox 30 mg SQ BID (WT < 150 kg, CrCl > 30 mL/min) AND/OR *Sequential Compression Device (SCD) 5 or more Highest Order ONE of the following medications: *Heparin 5000 units SQ TID (Preferred with Epidurals) *Enoxaparin/Lovenox 40 mg SQ daily (WT < 150 kg, CrCl > 30 mL/min) *Enoxaparin/Lovenox 30 mg SQ daily (WT < 150 kg, CrCl > 10-29 mL/min) *Enoxaparin/Lovenox 30 mg SQ BID (WT < 150 kg, CrCl > 30 mL/min) AND *Sequential Compression Device (SCD) <Anneliese Marr - 02/01/18 11:38> Assessment and Plan - Assessment (1) Sepsis Code(s): A41.9 - Sepsis, unspecified organism Status: Acute (2) Healthcare-associated pneumonia Code(s): J18.9 - Pneumonia, unspecified organism Status: Acute (3) Hyperkalemia Code(s): E87.5 - Hyperkalemia Status: Acute (4) COPD (chronic obstructive pulmonary disease) Code(s): J44.9 - Chronic obstructive pulmonary disease, unspecified Status: Chronic (5) Chest pain Code(s): R07.9 - Chest pain, unspecified Status: Acute (6) Fibromyalgia Code(s): M79.7 - Fibromyalgia Status: Chronic (7) Diabetes mellitus Code(s): E11.9 - Type 2 diabetes mellitus without complications Status: Chronic (8) Hypertension Code(s): I10 - Essential (primary) hypertension Status: Chronic (9) Coronary artery disease Code(s): I25.10 - Atherosclerotic heart disease of [place] coronary artery without angina pectoris Status: Chronic (10) Major depressive disorder Code(s): F32.9 - Major depressive disorder, single episode, unspecified Status : Chronic (11) Nutrition, metabolism, and development symptoms Code(s): R63.8 - Other symptoms and signs concerning food and fluid intake Status: Acute (12) DVT prophylaxis Status: Acute <Radha Hinojosa - 02/02/18 06:59> (1) Sepsis Code(s): A41.9 - Sepsis, unspecified organism Status: Acute Plan: Patient met sepsis criteria upon admission due to tachycardia and tachypnea. Source of infection was pneumonia. See plan below (2) Healthcare-associated pneumonia Code(s): J18.9 - Pneumonia, unspecified organism Status: Acute Plan: Patient was recently discharged and sent to rehab for pneumonia. CBC on admission shows no leukocytosis. Chest CTA shows bilateral pleural effusions and pericardial effusion. Patchy areas of groundglass opacity identified within the right and left lower lobes as well as the lingula and right middle lobe. This may reflect a multifocal infectious process. Vancomycin 1000 mg IV given in ED Zosyn 4.5 g IV given in ED Will cover patient for healthcare acquired pneumonia -Vancomycin 1500 mg IV every 12 hours -Zosyn 4.5 g IV every 6 hours -Ciprofloxacin 400 mg IV every 8 hours -Legionella urine antigen pending -Strep pneumoniae urine antigen pending -Influenza panel pending (3) Hyperkalemia Code(s): E87.5 - Hyperkalemia Status: Acute Plan: Hyperkalemia noted on admission. BMP reveals potassium of 5.6. EKG shows peaked T waves -Continue to monitor (4) COPD (chronic obstructive pulmonary disease) Code(s): J44.9 - Chronic obstructive pulmonary disease, unspecified Status: Chronic Plan: Patient states that she initially felt like she was having a COPD exacerbation. On examination patient was not short of breath and was resting comfortably. -Will defer steroid treatment at this time -Patient given 1 DuoNeb treatment in the ED, will continue DuoNeb's every 4 hours scheduled -Incentive spirometry -Oxygen by NC as needed -Acapella (5) Chest pain Code(s): R07.9 - Chest pain, unspecified Status: Acute Plan: Patient with squeezing pressure-like chest pain upon admission. Has a history of CAD with 2 stents placed. Troponin on admission was negative. EKG showed sinus tachycardia with peaked T waves reflecting hyperkalemia. Will continue to monitor -Troponin pending (6) Fibromyalgia Code(s): M79.7 - Fibromyalgia Status: Chronic Plan: Patient on several different pain medications at home for her fibromyalgia -Will continue Lyrica 300 mg p.o. twice daily -K thermia patch (7) Diabetes mellitus Code(s): E11.9 - Type 2 diabetes mellitus without complications Status: Chronic Plan: Will hold patient's oral medications -NovoLog low-dose sliding scale insulin -Hypoglycemia protocol -Bedside glucose monitoring (8) Hypertension Code(s): I10 - Essential (primary) hypertension Status: Chronic Plan: Continue at home lisinopril 10 mg p.o. daily (9) Coronary artery disease Code(s): I25.10 - Atherosclerotic heart disease of [place] coronary artery without angina pectoris Status: Chronic Plan: Continue at home clopidogrel 75 mg p.o. daily (10) Major depressive disorder Code(s): F32.9 - Major depressive disorder, single episode, unspecified Status : Chronic Plan: -Continue at home fluoxetine 40 mg p.o. daily -Continue bupropion 150 mg p.o. daily (11) Nutrition, metabolism, and development symptoms Code(s): R63.8 - Other symptoms and signs concerning food and fluid intake Status: Acute Plan: Fluids: tolerating PO Electrolytes: Hyperkalemia noted as above Nutrition: heart-healthy, diabetic diet GI Prophylaxis: Pantoprazole 40 mg p.o. twice daily (12) DVT prophylaxis Status: Acute Plan: DVT Prophylaxis: Early ambulation. Lovenox 40mg subQ q24hr/bilateral SCDs <Anneliese Marr 02/02/18 03:56> - Assessment and Plan 62-year-old female with PMH of DM, HTN, CHF, COPD presenting with chest pain and shortness of breath. Admitted to our inpatient service for pneumonia. <Anneliese Marr 02/02/18 01:44> Discussed Condition With: Dr. Magallanes, Dr. Hinojosa <Anneliese Marr 02/02/18 01:44> Discharge Planning: Case management consulted. Likely discharge back to rehab. <Anneliese Marr - 02/02/18 01:44> - Attending Attestation Patient seen and examined on 02/01/18, discussed with resident team. I agree with assessment and management as documented and discussed with me. Sue Baldwin is a 62yo lady with COPD and recent hospitalization at [facility] for pneumonia admitted from her SNF for worsening SOB over the last 2 weeks, which became acutely worse around 4AM yesterday morning. For further details, please see resident H&P. At the time of my interview / exam (around 1630), pt reports she still feels badly but is breathing better than when she came in. She is requesting to increase her lyrica above the "max dose" due to neck pain, which is chronic in nature. I reviewed with patient that she is actually taking the maximum dose of lyrica and that increasing any of her other sedating medications she is already taking could worsen her respiratory drive. Pt reports a h/o COPD, for which she has been oxygen-dependent on 2lpm for years. However, she moved a few years ago and could not find her concentrator, leaving her without oxygen for roughly 2 years, until recent admission. Since her admission for pneumonia at the outside hospital, she has remained on 3lpm by nasal cannula. Anticipate discharge back to SNF in 2-3 days, once stabilized from a HCAP / sepsis perspective. <Radha Hinojosa - 02/02/18 06:59> <Anneliese Marr - Last Filed: 02/02/18 03:56> (7) Diabetes mellitus Qualifiers: Diabetes mellitus type: type 2 <Radha Hinojosa - Last Filed: 02/02/18 06:59> (7) Diabetes mellitus Qualifiers: Diabetes mellitus type: type 2 <Anneliese Marr - Last Filed: 02/02/18 03:56> (7) Diabetes mellitus Qualifiers: Diabetes mellitus type: type 2 <Radha Hinojosa - Crow Filed: 02/02/18 06:59> (7) Diabetes mellitus Qualifiers: Diabetes mellitus type: type 2
[2018-02-01] MEDS ORDERED: Dextrose 50% in Water 50 ML Vial IV.PUSH PRN (12:05)
[2018-02-01] MEDS ORDERED: Vancomycin Consult Pharmacy 1 EACH OTHER SCH (12:15)
[2018-02-01] MEDS: Ciprofloxacin 400 MG/200 ML 400 MG/200 ML PIGGYBACK IV.SIG SCH ×2 (13:36→21:32)
[2018-02-01] MEDS: FLUoxetine 20 MG Capsule PO SCH (13:37)
[2018-02-01] MEDS: Lisinopril 10 MG Tablet PO SCH (13:37)
[2018-02-01] MEDS ORDERED: Pregabalin 300 MG Capsule PO SCH ×2 (14:00→21:00)
[2018-02-01] MEDS: Piperacil/Tazo 4.5 GM Premix 4.5 GM/100 ML BAG IV.SIG SCH (17:29)
[2018-02-01] MEDS: Insulin NovoLOG Aspart Correctional Sugar Inj SQ SCH (17:30)
[2018-02-01 19:55] LABS: Calcium 8.9 mg/dL (8.5-10.1); Carbon Dioxide 29.5 meq/L (21.0-32.0); Potassium 5.4 meq/L (3.5-5.1)
[2018-02-01] MEDS: Melatonin 5 MG Tablet PO SCH (22:33)
[2018-02-01] MEDS: Vancomycin Inj 1,500 MG in Sodium Chlor 0.9% Inj 500 ML IV.SIG SCH (22:43)
[2018-02-02] MEDS ORDERED: Sod Chloride 0.9% Inj 1,000 ML IV.CONT SCH (04:15)
[2018-02-02] MEDS: Piperacil/Tazo 4.5 GM Premix 4.5 GM/100 ML BAG IV.SIG SCH ×5 (04:41→23:57)
[2018-02-02 04:56] LABS: Bacteria,Urine Rare /hpf; Bilirubin,Urine Negative (Negative); Clarity,Urine Clear (Clear); Color,Urine Yellow (Yellw/Straw); Glucose,Urine (UA) Negative (Negative); Leukocyte Esterase,Urine Negative (Negative); Nitrite,Urine Negative (Negative); Specific Gravity,Urine 1.019 (1.002-1.035); Squamous Epithelial Cell,Urine 1 /hpf (0-5)
[2018-02-02] MEDS: Insulin NovoLOG Aspart Correctional Sugar Inj SQ SCH ×5 (05:10→21:36)
[2018-02-02 05:43] LABS: Hematocrit 28.7 % (35.0-46.0); Mean Corpuscular HGB Conc 31.4 % (32.0-36.0); Mean Corpuscular Hemoglobin 30.9 pg (27.0-34.0); Mean Corpuscular Volume 98.4 fL (80.0-100.0); Mean Platelet Volume 9.2 fL (7.0-11.0); Platelet Count 143 th/mm3 (150-450); Red Blood Count 2.92 mil/mm3 (4.00-5.30); Red Cell Distribution Width 13.3 % (11.6-17.2); White Blood Count 3.6 th/mm3 (4.0-11.0)
[2018-02-02 06:03] LABS: Calcium 8.7 mg/dL (8.5-10.1); Carbon Dioxide 32.1 meq/L (21.0-32.0); Potassium 5.5 meq/L (3.5-5.1)
[2018-02-02] MEDS: Ciprofloxacin 400 MG/200 ML 400 MG/200 ML PIGGYBACK IV.SIG SCH ×3 (06:25→21:37)
[2018-02-02] MEDS: Lactobacillus Acidophilus/L. Spores Tablet PO SCH ×4 (06:50→18:29)
[2018-02-02] MEDS: Enoxaparin Inj 40 MG/0.4 ML Syringe SQ SCH (08:42)
[2018-02-02] MEDS: Vancomycin Inj 1,500 MG in Sodium Chlor 0.9% Inj 500 ML IV.SIG SCH (08:42)
[2018-02-02] MEDS: Lisinopril 10 MG Tablet PO SCH (08:43)
[2018-02-02] MEDS: FLUoxetine 20 MG Capsule PO SCH (08:43)
[2018-02-02] MEDS: buPROPion 150 MG 12 HR Tablet PO SCH (08:44)
--- NOTE | 2018-02-02 12:32 | P.PNFP ---
Subjective Interval history: Patient seen and examined. Patient complains on continued shortness of breath and trouble taking a deep breath while on 3L of nasal cannula, her O2 sats overnight have been stable overnight. She is normally on 3L NC at home. She also continues to note chest pressure as if "twenty pairs of arms are hugging her chest and squeezing the air out of her". Patient also admits to continued, but less frequent dry cough since her admission and is unable to bring anything up. She believes that the nebulized breathing treatments have helped her breathing significantly. She notes that she woke up about 3 times last night gasping for air, which she admits usually occurs 1-2 times a week at home. She sleeps with her head elevated on multiple pillows at home. She also complains of left arm and neck pain, which she has had for the past couple of weeks after straining her neck. Denies nausea, vomiting, abdominal pain, or leg pain. <Pricila Magallanes - 02/02/18 13:16> Results - Labs Result diagrams: 02/02/18 03:37 02/02/18 03:37 <Radha Hinojosa - 02/02/18 21:03> Abnormal lab results 02/02/18 02/02/18 02/02/18 Range/Units 03:37 03:37 03:37 WBC 3.6 L (4.0-11.0) th/mm3 RBC 2.92 L (4.00-5.30) mil/mm3 Hgb 9.0 L (11.6-15.3) gm/dL Hct 28.7 L (35.0-46.0) % MCHC 31.4 L (32.0-36.0) % Plt Count 143 L (150-450) th/mm3 Potassium 5.5 H (3.5-5.1) meq/L Carbon Dioxide 32.1 H (21.0-32.0) meq/L BUN 24 H (7-18) mg/dL Creatinine 1.46 H (0.50-1.00) mg/dL Estimated GFR 36 L (>89) mL/min POC Glucose (68-110) mg/dl Random Glucose 114 H (74-106) mg/dL Troponin I Less than 0.02 L (0.02-0.05) ng/mL Urine Bacteria (None) /hpf 02/02/18 02/02/18 02/02/18 Range/Units 04:15 08:48 13:32 WBC (4.0-11.0) th/mm3 RBC (4.00-5.30) mil/mm3 Hgb (11.6-15.3) gm/dL Hct (35.0-46.0) % MCHC (32.0-36.0) % Plt Count (150-450) th/mm3 Potassium (3.5-5.1) meq/L Carbon Dioxide (21.0-32.0) meq/L BUN (7-18) mg/dL Creatinine (0.50-1.00) mg/dL Estimated GFR (>89) mL/min POC Glucose 145 H 139 H (68-110) mg/dl Random Glucose (74-106) mg/dL Troponin I (0.02-0.05) ng/mL Urine Bacteria Rare H (None) /hpf 02/02/18 Range/Units 18:34 WBC (4.0-11.0) th/mm3 RBC (4.00-5.30) mil/mm3 Hgb (11.6-15.3) gm/dL Hct (35.0-46.0) % MCHC (32.0-36.0) % Plt Count (150-450) th/mm3 Potassium (3.5-5.1) meq/L Carbon Dioxide (21.0-32.0) meq/L BUN (7-18) mg/dL Creatinine (0.50-1.00) mg/dL Estimated GFR (>89) mL/min POC Glucose 129 H (68-110) mg/dl Random Glucose (74-106) mg/dL Troponin I (0.02-0.05) ng/mL Urine Bacteria (None) /hpf Short CBC 02/02/18 Range/Units 03:37 WBC 3.6 L (4.0-11.0) th/mm3 Hgb 9.0 L (11.6-15.3) gm/dL Hct 28.7 L (35.0-46.0) % Plt Count 143 L (150-450) th/mm3 BMP 02/02/18 03:37 Sodium 141 Potassium 5.5 H Chloride 103 Carbon Dioxide 32.1 H BUN 24 H Creatinine 1.46 H Calcium 8.7 Cardiac Enzymes 02/02/18 Range/Units 03:37 Troponin I Less than 0.02 L (0.02-0.05) ng/mL Urine 02/02/18 Range/Units 04:15 Urine Color Yellow (Yellw/Straw) Urine Clarity Clear (Clear) Urine pH 5.0 (5.0-8.5) Ur Specific [place] 1.019 (1.002-1.035) Urine Protein Negative (Neg-Trace) mg/dL Urine Glucose (UA) Negative (Negative) mg/dL <Radha Hinojosa - 02/02/18 21:03> Abnormal lab results 02/01/18 02/01/18 02/02/18 Range/Units 18:57 20:21 03:37 WBC 3.6 L (4.0-11.0) th/mm3 RBC 2.92 L (4.00-5.30) mil/mm3 Hgb 9.0 L (11.6-15.3) gm/dL Hct 28.7 L (35.0-46.0) % MCHC 31.4 L (32.0-36.0) % Plt Count 143 L (150-450) th/mm3 Potassium 5.4 H (3.5-5.1) meq/L Carbon Dioxide (21.0-32.0) meq/L BUN 22 H (7-18) mg/dL Creatinine 1.05 H (0.50-1.00) mg/dL Estimated GFR 53 L (>89) mL/min POC Glucose 151 H (68-110) mg/dl Random Glucose (74-106) mg/dL Troponin I (0.02-0.05) ng/mL Urine Bacteria (None) /hpf 02/02/18 02/02/18 02/02/18 Range/Units 03:37 03:37 04:15 WBC (4.0-11.0) th/mm3 RBC (4.00-5.30) mil/mm3 Hgb (11.6-15.3) gm/dL Hct (35.0-46.0) % MCHC (32.0-36.0) % Plt Count (150-450) th/mm3 Potassium 5.5 H (3.5-5.1) meq/L Carbon Dioxide 32.1 H (21.0-32.0) meq/L BUN 24 H (7-18) mg/dL Creatinine 1.46 H (0.50-1.00) mg/dL Estimated GFR 36 L (>89) mL/min POC Glucose (68-110) mg/dl Random Glucose 114 H (74-106) mg/dL Troponin I Less than 0.02 L (0.02-0.05) ng/mL Urine Bacteria Rare H (None) /hpf 02/02/18 Range/Units 08:48 WBC (4.0-11.0) th/mm3 RBC (4.00-5.30) mil/mm3 Hgb (11.6-15.3) gm/dL Hct (35.0-46.0) % MCHC (32.0-36.0) % Plt Count (150-450) th/mm3 Potassium (3.5-5.1) meq/L Carbon Dioxide (21.0-32.0) meq/L BUN (7-18) mg/dL Creatinine (0.50-1.00) mg/dL Estimated GFR (>89) mL/min POC Glucose 145 H (68-110) mg/dl Random Glucose (74-106) mg/dL Troponin I (0.02-0.05) ng/mL Urine Bacteria (None) /hpf Short CBC 02/02/18 Range/Units 03:37 WBC 3.6 L (4.0-11.0) th/mm3 Hgb 9.0 L (11.6-15.3) gm/dL Hct 28.7 L (35.0-46.0) % Plt Count 143 L (150-450) th/mm3 BMP 02/01/18 02/02/18 18:57 03:37 Sodium 140 141 Potassium 5.4 H 5.5 H Chloride 101 103 Carbon Dioxide 29.5 32.1 H BUN 22 H 24 H Creatinine 1.05 H 1.46 H Calcium 8.9 8.7 Cardiac Enzymes 02/02/18 Range/Units 03:37 Troponin I Less than 0.02 L (0.02-0.05) ng/mL Urine 02/02/18 Range/Units 04:15 Urine Color Yellow (Yellw/Straw) Urine Clarity Clear (Clear) Urine pH 5.0 (5.0-8.5) Ur Specific [place] 1.019 (1.002-1.035) Urine Protein Negative (Neg-Trace) mg/dL Urine Glucose (UA) Negative (Negative) mg/dL <ElpidioPricila Rosas - 02/02/18 12:32> Physical Exam Vital signs: Vital Signs 02/01/18 23:45 02/02/18 00:00 02/02/18 04:00 Temperature 98.4 F 97.6 F Pulse Rate 84 76 88 Respiratory Rate 18 18 Blood Pressure 133/60 146/63 H Pulse Oximetry 94 L 95 02/02/18 04:50 02/02/18 07:00 02/02/18 07:57 Temperature Pulse Rate 82 83 Respiratory Rate 16 14 Blood Pressure Pulse Oximetry 97 02/02/18 08:00 02/02/18 11:26 02/02/18 12:00 Temperature 97.8 F 97.8 F Pulse Rate 86 87 86 Respiratory Rate 20 14 20 Blood Pressure 139/63 148/66 H Pulse Oximetry 93 L 96 02/02/18 15:22 02/02/18 16:00 02/02/18 18:12 Temperature Pulse Rate 97 H 101 H Respiratory Rate 14 Blood Pressure Pulse Oximetry 98 02/02/18 19:55 02/02/18 19:57 02/02/18 20:05 Temperature Pulse Rate 102 H Respiratory Rate 19 Blood Pressure Pulse Oximetry 98 97 Intake & Output 02/02/18 02/02/18 02/03/18 06:59 18:59 06:59 Intake Total 1355 / 1355 815 / 815 Output Total 800 / 800 Balance 555 / 555 815 / 815 Weight 110.9 kg Intake: IV 1115 / 1115 815 / 815 Cipro 400 MG/200 ML Inj 400 mg 400 / 400 200 / 200 In 200 ml @ 200 mls/hr IV.SIG Q8H [facility] Rx#:[id number] Zosyn 4.5 GM Premix 4.5 gm In 200 / 200 100 / 100 100 ml @ 200 mls/hr IV.SIG Q6H [facility] Rx#:[id number] Vancomycin Inj 1,500 MG In NS 515 / 515 Inj 500 ML @ 250 mls/hr IV.SIG Q12H [facility] Rx#:[id number] Oral 240 / 240 Output: Urine 800 / 800 Other: # Bowel Movements 0 <Radha Hinojosa - 02/02/18 21:03> Vital Signs 02/01/18 13:41 02/01/18 16:00 02/01/18 16:04 Temperature 98.8 F 97.8 F Pulse Rate 84 88 77 Respiratory Rate 22 18 14 Blood Pressure 126/56 L 126/60 Pulse Oximetry 98 93 L 97 02/01/18 20:00 02/01/18 20:05 02/01/18 20:46 Temperature 98.3 F Pulse Rate 91 H 89 Respiratory Rate 20 Blood Pressure 115/57 L Pulse Oximetry 96 92 L 02/01/18 23:45 02/02/18 00:00 02/02/18 04:00 Temperature 98.4 F 97.6 F Pulse Rate 84 76 88 Respiratory Rate 18 18 Blood Pressure 133/60 146/63 H Pulse Oximetry 94 L 95 02/02/18 04:50 02/02/18 07:00 02/02/18 07:57 Temperature Pulse Rate 82 83 Respiratory Rate 16 14 Blood Pressure Pulse Oximetry 97 02/02/18 08:00 02/02/18 11:26 Temperature Pulse Rate 81 87 Respiratory Rate 14 Blood Pressure Pulse Oximetry Intake & Output 02/01/18 02/02/18 02/02/18 18:59 06:59 18:59 Intake Total 650 / 650 1155 / 1155 615 / 615 Output Total 800 / 800 Balance 650 / 650 355 / 355 615 / 615 Weight 111.5 kg 110.9 kg Intake: IV 650 / 650 915 / 915 615 / 615 Cipro 400 MG/200 ML Inj 400 mg 200 / 200 200 / 200 In 200 ml @ 200 mls/hr IV.SIG Q8H [facility] Rx#:[id number] Zosyn 4.5 GM Premix 4.5 gm In 200 / 200 200 / 200 100 / 100 100 ml @ 200 mls/hr IV.SIG Q6H [facility] Rx#:[id number] Vancomycin Inj 1,000 MG In NS 250 / 250 Inj 250 ML @ 200 mls/hr IV.SIG ONCE ONE Rx#:[id number] Vancomycin Inj 1,500 MG In NS 515 / 515 Inj 500 ML @ 250 mls/hr IV.SIG Q12H [facility] Rx#:[id number] Oral 240 / 240 Output: Urine 800 / 800 Other: # Bowel Movements 0 Weight On Admission 111.5 kg <Pricila Magallanes - 02/02/18 12:32> Narrative: Narrative: GENERAL: Obese white female sitting up in bed speaking in complete sentences while on 3L NC, sitting comfortably, in no acute distress SKIN: Warm and dry. Dry, flaky. Lidocaine patch on posterior left shoulder, place a couple of days ago. HEAD: Atraumatic. Normocephalic. EYES: No scleral icterus. No injection or drainage. ENT: No nasal bleeding or discharge. Mucous membranes pink and moist. NECK: Trachea midline. No JVD. CARDIOVASCULAR: Heart sounds distant, possible 1/6 murmur. Regular rate and rhythm. RESPIRATORY: No accessory muscle use. Decreased air movement with soft expiratory wheezes, improved from admission. Breath sounds equal bilaterally. GASTROINTESTINAL: Abdomen soft, tenderness of LUQ, mild distension. MUSCULOSKELETAL: Extremities without clubbing, cyanosis, or edema. No obvious splinter hemorrhage or petechiae. No obvious deformities. NEUROLOGICAL: Awake and alert. No obvious cranial nerve deficits. Motor grossly within normal limits. Normal speech. <Pricila Magallanes Alison - 02/02/18 13:16> Assessment and Plan - Assessment (1) Sepsis Code(s): A41.9 - Sepsis, unspecified organism Status: Acute (2) Healthcare-associated pneumonia Code(s): J18.9 - Pneumonia, unspecified organism Status: Acute (3) COPD (chronic obstructive pulmonary disease) Code(s): J44.9 - Chronic obstructive pulmonary disease, unspecified Status: Chronic (4) Hyperkalemia Code(s): E87.5 - Hyperkalemia Status: Acute (5) Chest pain Code(s): R07.9 - Chest pain, unspecified Status: Acute (6) Fibromyalgia Code(s): M79.7 - Fibromyalgia Status: Chronic (7) Diabetes mellitus Code(s): E11.9 - Type 2 diabetes mellitus without complications Status: Chronic (8) Hypertension Code(s): I10 - Essential (primary) hypertension Status: Chronic (9) Coronary artery disease Code(s): I25.10 - Atherosclerotic heart disease of [place] coronary artery without angina pectoris Status: Chronic (10) Major depressive disorder Code(s): F32.9 - Major depressive disorder, single episode, unspecified Status : Chronic (11) Nutrition, metabolism, and development symptoms Code(s): R63.8 - Other symptoms and signs concerning food and fluid intake Status: Acute (12) DVT prophylaxis Status: Acute <Radha Hinojosa - 02/02/18 21:03> (1) Sepsis Code(s): A41.9 - Sepsis, unspecified organism Status: Acute Plan: Patient met sepsis criteria upon admission due to tachycardia and tachypnea. Source of infection was pneumonia. See plan below (2) Healthcare-associated pneumonia Code(s): J18.9 - Pneumonia, unspecified organism Status: Acute Plan: Patient was recently discharged and sent to rehab for pneumonia. CBC on admission shows no leukocytosis. Chest CTA shows bilateral pleural effusions and pericardial effusion. Patchy areas of groundglass opacity identified within the right and left lower lobes as well as the lingula and right middle lobe which may reflect a multifocal infectious process. Vancomycin 1000 mg IV given in ED Zosyn 4.5 g IV given in ED Currently covering patient for healthcare acquired pneumonia -Day 2 of Vancomycin 1500 mg IV every 12 hours -Day 2 of Zosyn 4.5 g IV every 6 hours -Day 2 of Ciprofloxacin 400 mg IV every 8 hours -Lactobacillus 1 tab PO TID -Legionella urine antigen, Strep pneumoniae urine antigen and Influenza panel negative (3) COPD (chronic obstructive pulmonary disease) Code(s): J44.9 - Chronic obstructive pulmonary disease, unspecified Status: Chronic Plan: Patient states that she initially felt like she was having a COPD exacerbation. On examination patient was not short of breath and was resting comfortably, able to speak in full sentences. -Will defer steroid treatment at this time due to allergy profile -Will continue DuoNeb's every 4 hours scheduled -Incentive spirometry and acapella ordered -Oxygen by NC as needed, currently on 3L NC with O2 sat between 93-98% (4) Hyperkalemia Code(s): E87.5 - Hyperkalemia Status: Acute Plan: Hyperkalemia noted on admission. BMP reveals potassium of 5.6. EKG shows mildly peaked T waves -Patient receiving albuterol nebulizer treatments for COPD exacerbation and insulin for diabetes, which as a side effect decreased the serum potassium level. Will continue to monitor (5) Chest pain Code(s): R07.9 - Chest pain, unspecified Status: Acute Plan: Patient with squeezing pressure-like chest pain upon admission. Has a history of CAD with 2 stents placed. Troponin on admission was negative. EKG showed sinus tachycardia with peaked T waves reflecting hyperkalemia. ACS rule out with negative Troponin I and CKMB. EKG showed sinus tachycardia with peaked T waves reflecting hyperkalemia. CTA Chest showed no evidence of PE, but showed bilateral pleural effusions and pericardial effusion and Patchy areas of groundglass opacity identified within the right and left lower lobes as well as the lingula and right middle lobe. 1/6 murmur noted on cardiac exam today. Patient also has a history of CHF. -Will order echocardiogram. (6) Fibromyalgia Code(s): M79.7 - Fibromyalgia Status: Chronic Plan: Patient on several different pain medications at home for her fibromyalgia -Will continue Lyrica 300 mg p.o. twice daily -K thermia patch (7) Diabetes mellitus Code(s): E11.9 - Type 2 diabetes mellitus without complications Status: Chronic Plan: Will hold patient's oral medications -NovoLog low-dose sliding scale insulin -Hypoglycemia protocol -Bedside glucose monitoring (8) Hypertension Code(s): I10 - Essential (primary) hypertension Status: Chronic Plan: Continue at home lisinopril 10 mg p.o. daily (9) Coronary artery disease Code(s): I25.10 - Atherosclerotic heart disease of [place] coronary artery without angina pectoris Status: Chronic Plan: Continue at home clopidogrel 75 mg p.o. daily (10) Major depressive disorder Code(s): F32.9 - Major depressive disorder, single episode, unspecified Status : Chronic Plan: -Continue at home fluoxetine 40 mg p.o. daily -Continue bupropion 150 mg p.o. daily (11) Nutrition, metabolism, and development symptoms Code(s): R63.8 - Other symptoms and signs concerning food and fluid intake Status: Acute Plan: Fluids: tolerating PO Electrolytes: Hyperkalemia noted as above Nutrition: heart-healthy, diabetic diet GI Prophylaxis: Pantoprazole 40 mg p.o. twice daily. (12) DVT prophylaxis Status: Acute Plan: DVT Prophylaxis: Early ambulation. Lovenox 40mg subQ q24hr/bilateral SCDs <Pricila Magallanes - 02/02/18 12:50> - Assessment and Plan 62-year-old female with PMH of DM, HTN, CHF, COPD presenting with chest pain and shortness of breath. Admitted to our inpatient service for pneumonia. <Pricila Magallanes - 02/02/18 12:32> - Attending Attestation Patient seen, examined, and discussed with resident team this morning on rounds. I agree with assessment and management as documented and discussed with me. Pt continues to require 3lpm by nasal cannula. Continue IV antibiotics. Given 1/6 heart murmur and multifocal infectious process seen on CTA, will check echo. <Radha Hinojosa - 02/02/18 21:03> <Pricila Magallanes - Last Filed: 02/02/18 12:50> (7) Diabetes mellitus Qualifiers: Diabetes mellitus type: type 2 <Radha Hinojosa - Last Filed: 02/02/18 21:03> (7) Diabetes mellitus Qualifiers: Diabetes mellitus type: type 2 <Pricila Magallanes - Last Filed: 02/02/18 12:50> (7) Diabetes mellitus Qualifiers: Diabetes mellitus type: type 2 <Radha Hinojosa - Last Filed: 02/02/18 21:03> (7) Diabetes mellitus Qualifiers: Diabetes mellitus type: type 2
[2018-02-02] MEDS: Melatonin 5 MG Tablet PO SCH (20:44)
[2018-02-02 21:02] LABS: ABG Base Excess 5.8 mmol/L (-2-2); ABG PCO2 85 mmHg (38-42); ABG PO2 176 mmHg (61-120)
--- NOTE | 2018-02-02 21:13 | XR ---
EXAM DATE: 02/02/2018 8:44 PM EDT AGE/SEX: 62 years / Female INDICATIONS: Chest tightness, shortness of breath, and chest pain bilaterally. CLINICAL DATA: This is the patient's subsequent encounter. Patient reports that signs and symptoms h ave been present for 1 week and indicates a pain score of 5/10. MEDICAL/SURGICAL HISTORY: Congestive heart failure. Chronic obstructive pulmonary disease. Hy pertension. Coronary artery disease. . Cardiac stents. COMPARISON: [facility] [place], CHEST 1V SINGLE AP, 02/01/2018. . FINDINGS: The heart size is within normal limits. This increased density at the bases bilaterally. The mid and upper lungs are clear. CONCLUSION: Bibasilar areas of consolidation or atelectasis. Electronically signed by: Aryan Frias MD 02/02/2018 9:12 PM EDT
[2018-02-02] MEDS ORDERED: Furosemide 40 MG Tablet PO ONE (22:00)
[2018-02-02 22:21] LABS: Calcium 8.6 mg/dL (8.5-10.1); Carbon Dioxide 31.3 meq/L (21.0-32.0); Potassium 5.4 meq/L (3.5-5.1)
[2018-02-02 22:28] LABS: Creatine Kinase 32 U/L (26-192)
--- NOTE | 2018-02-02 23:04 | P.PNADD ---
Addendum to Inpatient Note Reason for Addendum: Additional Documentation Additional information: S: Called from nursing around 8pm for patient requiring more oxygen therapy after seen by respiratory therapy. Was increased from 3L NC to 10 L mask and then down to 6L. The staff reported she did not complain of increasing shortness of breath at this time but did complain of nasal congestion. Was reported to have received Flonase and scheduled DuoNeb. Was called by nursing about 30 min later that patient had SOB and had not improved after DuoNeb. Now patient was requiring mask 7L. Ordered stat chest x-ray and went to assess patient Patient sitting comfortably in bed. Not complaining of shortness of breath but some chest tightness which had been present during the morning. Said she felt improved from this morning. Insisted that she could not go to nasal canula because of congestion. She reports pain in her left jaw and shoulder, that has been present since admission with no significant change. She endorsed light headedness, present since admission. Denies nausea, vomiting, difficulty urinating, changes in vision. O: VS RR 10 O2 98% Vitals from EMR T 98.0 F HR 99 (lower on exam) BP 133/61 GENERAL: anxious appearing, otherwise no acute distress SKIN: Warm and dry. HEAD: Atraumatic. Normocephalic. CARDIOVASCULAR: Regular rate and rhythm. RESPIRATORY: No accessory muscle use. Decreased air movement bilaterally especially right lower lobe, no crackles or wheezes, low resting respiratory rate NEUROLOGICAL: Awake and alert LAB: 02/02/18 20:44 ABG pH 7.22 L* ABG pCO2 85 H* ABG pO2 176 H ABG HCO3 33 H ABG O2 Content 12.9 ABG Base Excess 5.8 H ABG Methemoglobin 1.4 IMAGING: Chest xray wet read: some right lower lobe changes concerning for consolidation vs effusion. Official CXR: "Bibasilar areas of consolidation or atelectasis." A/P: 62 year old female PMH DM, HTN, CHF, COPD complaining of worsening shortness of breath. Admitted for sepsis and treatment of HAP. Found to have respiratory acidosis, likely from decreased respiratory drive secondary to acute O2 saturation increase in a COPD patient. SOB likely due to COPD and possibly secondary to fluid overload (receiving fluids for elevated Cr and ABX for HAP) with underlying CHF as well as anxiety. DDx panic attack, PE, worsening pneumonia. ND unlikely. Troponins during day (-)X2 -Transitioned to 4L NC, with goal of increased respiratory drive, decreasing CO2 -Lasix once 40mg PO -Gave home Zyrtec 10mg once PO to help relieve patients concern about congestion impacting her ability to tolerate NC -Repeat ABG -Third troponin pending -Can consider positive pressure ventilation if continued or worsening SOB
[2018-02-03] MEDS: Piperacil/Tazo 4.5 GM Premix 4.5 GM/100 ML BAG IV.SIG SCH ×4 (04:15→21:57)
[2018-02-03] MEDS: Ciprofloxacin 400 MG/200 ML 400 MG/200 ML PIGGYBACK IV.SIG SCH ×3 (05:10→21:57)
[2018-02-03 06:15] LABS: ABG Base Excess 7.4 mmol/L (-2-2); ABG PCO2 81 mmHg (38-42); ABG PO2 100 mmHg (61-120)
[2018-02-03] MEDS ORDERED: Pharmacy Ordered Lab Info OTHER ONE (08:45)
[2018-02-03] MEDS: Insulin NovoLOG Aspart Correctional Sugar Inj SQ SCH ×4 (08:50→21:52)
[2018-02-03] MEDS: Lisinopril 10 MG Tablet PO SCH (09:21)
[2018-02-03] MEDS: buPROPion 150 MG 12 HR Tablet PO SCH (09:21)
[2018-02-03] MEDS: Lactobacillus Acidophilus/L. Spores Tablet PO SCH ×3 (09:21→17:18)
[2018-02-03] MEDS: FLUoxetine 20 MG Capsule PO SCH (09:21)
[2018-02-03] MEDS: Enoxaparin Inj 40 MG/0.4 ML Syringe SQ SCH (09:22)
[2018-02-03 11:21] LABS: ABG Base Excess 8.1 mmol/L (-2-2); ABG PCO2 68 mmHg (38-42); ABG PO2 71 mmHG (61-120)
--- NOTE | 2018-02-03 12:06 | ECG ---
Date Performed: 02/02/2018 Time Performed: 07:14:20 PTAGE: 62 years EKG: Sinus rhythm LOW QRS VOLTAGE IN PRECORDIAL LEADS BORDERLINE ECG PREVIOUS TRACING : 02/01/2018 06.48 DOCTOR: Cristian Bronson Interpretating Date/Time 02/03/2018 12:02:37
--- NOTE | 2018-02-03 12:17 | P.PNFP ---
Subjective Interval history: Patient seen and examined this morning. Patient is now on BiPAP after increasing shortness of breath last night, despite O2 saturation in mid 90s. She was originally placed on an 10 L O2 face mask and titrated this morning down to 4L NC, however, her ABG showed severe retention of CO2 and patient was placed on BiPAP and transferred to the step-down unit. She states that is felt like she couldn't catch her breath and that she was unable to take a deep breath. She now states that she "feels like she is in heaven" with the pressure from the BiPAP and that she is breathing much easier now. She admits to continued squeezing chest pressure throughout her entire, which is similar to admission, but denies any acute changes. Denies nausea, vomiting, headache, dizziness, problems urinating and swelling or pain in her lower extremities. She admits to mild lower abdominal pain and diffuse distention, but states she has been experiencing it prior to admission and notes that she has not had a bowel movement in a couple of days. She also complains of continued left neck and arm pain, for which the Moody, Lyrica, Baclofen and K-thermia patch are not resolving with this pain regiment. Patient continues to ask for her Lyrica dosage to increased though she currently on the maximum recommended dose. <Pricila Magallanes - 02/03/18 16:09> Results - Labs Result diagrams: 02/04/18 04:41 02/04/18 04:41 <Radha Hinojosa - 02/04/18 07:16> Abnormal lab results 02/03/18 02/03/18 02/03/18 Range/Units 07:38 11:15 11:46 WBC 3.6 L (4.0-11.0) th/mm3 RBC 2.72 L (4.00-5.30) mil/mm3 Hgb 8.5 L (11.6-15.3) gm/dL Hct 26.4 L (35.0-46.0) % Plt Count 144 L (150-450) th/mm3 ABG pH 7.32 L (7.380-7.420) ABG pCO2 68 H* (38-42) mmHg ABG HCO3 34 H (22-26) mmol/L ABG O2 Content 11.1 L (12.0-20.0) Vol % ABG Base Excess 8.1 H (-2-2) mmol/L Hemoglobin 8.6 L (12.0-16.0) G/DL Carbon Dioxide (21.0-32.0) meq/L Creatinine (0.50-1.00) mg/dL Estimated GFR (>89) mL/min POC Glucose 119 H (68-110) mg/dl Calcium (8.5-10.1) mg/dL B-Natriuretic Peptide (0-100) pg/mL 02/03/18 02/04/18 02/04/18 Range/Units 11:46 04:41 04:41 WBC 3.6 L (4.0-11.0) th/mm3 RBC 2.83 L (4.00-5.30) mil/mm3 Hgb 8.9 L (11.6-15.3) gm/dL Hct 27.4 L (35.0-46.0) % Plt Count 144 L (150-450) th/mm3 ABG pH (7.380-7.420) ABG pCO2 (38-42) mmHg ABG HCO3 (22-26) mmol/L ABG O2 Content (12.0-20.0) Vol % ABG Base Excess (-2-2) mmol/L Hemoglobin (12.0-16.0) G/DL Carbon Dioxide 32.5 H 34.2 H (21.0-32.0) meq/L Creatinine 1.15 H 1.17 H (0.50-1.00) mg/dL Estimated GFR 48 L 47 L (>89) mL/min POC Glucose (68-110) mg/dl Calcium 8.4 L (8.5-10.1) mg/dL B-Natriuretic Peptide (0-100) pg/mL 02/04/18 Range/Units 04:41 WBC (4.0-11.0) th/mm3 RBC (4.00-5.30) mil/mm3 Hgb (11.6-15.3) gm/dL Hct (35.0-46.0) % Plt Count (150-450) th/mm3 ABG pH (7.380-7.420) ABG pCO2 (38-42) mmHg ABG HCO3 (22-26) mmol/L ABG O2 Content (12.0-20.0) Vol % ABG Base Excess (-2-2) mmol/L Hemoglobin (12.0-16.0) G/DL Carbon Dioxide (21.0-32.0) meq/L Creatinine (0.50-1.00) mg/dL Estimated GFR (>89) mL/min POC Glucose (68-110) mg/dl Calcium (8.5-10.1) mg/dL B-Natriuretic Peptide 201 H (0-100) pg/mL Short CBC 02/03/18 02/04/18 Range/Units 11:46 04:41 WBC 3.6 L 3.6 L (4.0-11.0) th/mm3 Hgb 8.5 L 8.9 L (11.6-15.3) gm/dL Hct 26.4 L 27.4 L (35.0-46.0) % Plt Count 144 L 144 L (150-450) th/mm3 BMP 02/03/18 02/04/18 11:46 04:41 Sodium 142 142 Potassium 4.8 4.5 Chloride 102 100 Carbon Dioxide 32.5 H 34.2 H BUN 18 18 Creatinine 1.15 H 1.17 H Calcium 8.4 L 8.9 <MicaelaRadha - 02/04/18 07:16> Abnormal lab results 02/02/18 02/02/18 02/02/18 Range/Units 13:32 18:34 20:44 ABG pH 7.22 L* (7.380-7.420) ABG pCO2 85 H* (38-42) mmHg ABG pO2 176 H (61-120) mmHg ABG HCO3 33 H (22-26) mmol/L ABG O2 Content (12.0-20.0) Vol % ABG Base Excess 5.8 H (-2-2) mmol/L Hemoglobin 9.3 L (12.0-16.0) G/DL Potassium (3.5-5.1) meq/L BUN (7-18) mg/dL Creatinine (0.50-1.00) mg/dL Estimated GFR (>89) mL/min POC Glucose 139 H 129 H (68-110) mg/dl Random Glucose (74-106) mg/dL Troponin I (0.02-0.05) ng/mL 02/02/18 02/02/1818 Range/Units 21:11 21:11 21:34 ABG pH (7.380-7.420) ABG pCO2 (38-42) mmHg ABG pO2 (61-120) mmHg ABG HCO3 (22-26) mmol/L ABG O2 Content (12.0-20.0) Vol % ABG Base Excess (-2-2) mmol/L Hemoglobin (12.0-16.0) G/DL Potassium 5.4 H (3.5-5.1) meq/L BUN 20 H (7-18) mg/dL Creatinine 1.20 H (0.50-1.00) mg/dL Estimated GFR 46 L (>89) mL/min POC Glucose 142 H (68-110) mg/dl Random Glucose 132 H (74-106) mg/dL Troponin I Less than 0.02 L (0.02-0.05) ng/mL 02/03/18 02/03/18 02/03/18 Range/Units 06:00 07:38 11:15 ABG pH 7.25 L* 7.32 L (7.380-7.420) ABG pCO2 81 H* 68 H* (38-42) mmHg ABG pO2 (61-120) mmHg ABG HCO3 34 H 34 H (22-26) mmol/L ABG O2 Content 11.7 L 11.1 L (12.0-20.0) Vol % ABG Base Excess 7.4 H 8.1 H (-2-2) mmol/L Hemoglobin 8.6 L 8.6 L (12.0-16.0) G/DL Potassium (3.5-5.1) meq/L BUN (7-18) mg/dL Creatinine (0.50-1.00) mg/dL Estimated GFR (>89) mL/min POC Glucose 119 H (68-110) mg/dl Random Glucose (74-106) mg/dL Troponin I (0.02-0.05) ng/mL BMP 02/02/18 21:11 Sodium 143 Potassium 5.4 H Chloride 105 Carbon Dioxide 31.3 BUN 20 H Creatinine 1.20 H Calcium 8.6 Cardiac Enzymes 02/02/18 Range/Units 21:11 Total Creatine Kinase 32 (26-192) U/L Troponin I Less than 0.02 L (0.02-0.05) ng/mL <Pricila Magallanes Alison - 02/03/18 12:17> - Imaging Impressions Chest X-Ray 02/02/18 20:19 CONCLUSION: Bibasilar areas of consolidation or atelectasis. <Pricila Magallanes Alison - 02/03/18 12:17> Physical Exam Vital signs: Vital Signs 02/03/18 07:34 02/03/18 08:00 02/03/18 08:20 Temperature 97.8 F Pulse Rate 80 78 Respiratory Rate 17 16 Blood Pressure 156/81 H Pulse Oximetry 98 94 L 94 L 02/03/18 11:21 02/03/18 11:34 02/03/18 12:00 Temperature 98.3 F Pulse Rate 78 75 Respiratory Rate 16 13 Blood Pressure 114/56 L Pulse Oximetry 97 02/03/18 15:40 02/03/18 16:00 02/03/18 16:20 Temperature 98.6 F Pulse Rate 82 76 Respiratory Rate 20 18 Blood Pressure 136/57 L Pulse Oximetry 99 97 02/03/18 17:19 02/03/18 18:11 02/03/18 20:00 Temperature Pulse Rate 89 Respiratory Rate 15 Blood Pressure Pulse Oximetry 95 02/03/18 20:17 02/03/18 20:31 02/03/18 21:53 Temperature 98.8 F Pulse Rate 89 86 Respiratory Rate 20 24 Blood Pressure 142/68 H Pulse Oximetry 98 92 L 95 02/03/18 22:44 02/03/18 23:30 02/03/18 23:39 Temperature Pulse Rate 93 H Respiratory Rate 18 Blood Pressure Pulse Oximetry 94 L 02/03/18 23:44 02/04/18 00:17 02/04/18 00:19 Temperature Pulse Rate 93 H 82 Respiratory Rate 16 14 Blood Pressure Pulse Oximetry 98 02/04/18 00:21 02/04/18 03:22 02/04/18 03:57 Temperature 98.5 F Pulse Rate 82 79 78 Respiratory Rate 20 12 Blood Pressure 144/86 H Pulse Oximetry 99 96 02/04/18 04:00 Temperature Pulse Rate 78 Respiratory Rate 18 Blood Pressure 148/68 H Pulse Oximetry 96 Intake & Output 02/03/18 02/04/18 02/04/18 18:59 06:59 18:59 Intake Total 2722.5 / 2722.5 621 / 621 Output Total 1550 / 1550 1400 / 1400 Balance 1172.5 / 1172.5 -779 / -779 Intake: IV 1762.5 / 1762.5 371 / 371 NS Inj 1,000 ML @ 42 mls/hr IV. 800 / 800 CONT .[id number] [facility] Rx#:[id number] Cipro 400 MG/200 ML Inj 400 mg 400 / 400 186 / 186 In 200 ml @ 200 mls/hr IV.SIG Q8H [facility] Rx#:[id number] Zosyn 4.5 GM Premix 4.5 gm In 300 / 300 185 / 185 100 ml @ 200 mls/hr IV.SIG Q6H [facility] Rx#:[id number] Vancomycin Inj 1,250 MG In NS 262.5 / 262.5 Inj 250 ML @ 250 mls/hr IV.SIG Q24H [facility] Rx#:[id number] Oral 960 / 960 250 / 250 Output: Urine 1550 / 1550 Urine Amount (Catheter) 1400 / 1400 Female External 1400 / 1400 Other: Date of Last Bowel Movement 01/29/18 # Bowel Movements 0 <Radha Hinojosa - 02/04/18 07:16> Vital Signs 02/02/18 12:00 02/02/18 15:22 02/02/18 16:00 Temperature 97.8 F 98.4 F Pulse Rate 86 97 H 108 H Respiratory Rate 20 14 20 Blood Pressure 148/66 H 137/76 Pulse Oximetry 96 98 02/02/18 18:12 02/02/18 19:55 02/02/18 19:57 Temperature Pulse Rate 102 H Respiratory Rate 19 Blood Pressure Pulse Oximetry 98 98 02/02/18 20:00 02/02/18 20:05 02/02/18 21:29 Temperature 98.0 F Pulse Rate 102 H Respiratory Rate 20 Blood Pressure 133/61 Pulse Oximetry 94 L 97 97 02/03/18 00:00 02/03/18 00:58 02/03/18 04:00 Temperature 97.7 F 97.2 F L Pulse Rate 88 82 86 Respiratory Rate 18 20 20 Blood Pressure 150/67 H 132/60 Pulse Oximetry 94 L 96 02/03/18 04:33 02/03/18 07:34 02/03/18 08:00 Temperature 97.8 F Pulse Rate 82 80 78 Respiratory Rate 20 17 16 Blood Pressure 156/81 H Pulse Oximetry 98 94 L 02/03/18 08:20 02/03/18 11:21 02/03/18 11:34 Temperature Pulse Rate 78 Respiratory Rate 16 Blood Pressure Pulse Oximetry 94 L Intake & Output 02/02/18 02/03/18 02/03/18 18:59 06:59 18:59 Intake Total 935 / 935 400 / 400 1100 / 1100 Output Total 700 / 700 500 / 500 Balance 235 / 235 -100 / -100 1100 / 1100 Weight 113.5 kg Intake: IV 815 / 815 400 / 400 1100 / 1100 NS Inj 1,000 ML @ 42 mls/hr IV. 800 / 800 CONT .[id number] [facility] Rx#:[id number] Cipro 400 MG/200 ML Inj 400 mg 200 / 200 200 / 200 200 / 200 In 200 ml @ 200 mls/hr IV.SIG Q8H [facility] Rx#:[id number] Zosyn 4.5 GM Premix 4.5 gm In 100 / 100 200 / 200 100 / 100 100 ml @ 200 mls/hr IV.SIG Q6H [facility] Rx#:[id number] Oral 120 / 120 Output: Urine 700 / 700 500 / 500 Stool 0 / 0 Other: # Voids 1 <Pricila Magallanes - 02/03/18 12:17> Narrative: GENERAL: Obese white female sitting up in bed on BiPAP, mild distress SKIN: Warm and dry. Dry, flaky. Lidocaine patch on posterior left shoulder, placed a couple of days ago. HEAD: Atraumatic. Normocephalic. EYES: No scleral icterus. No injection or drainage. ENT: No nasal bleeding or discharge. Unable to NECK: Trachea midline. No JVD. CARDIOVASCULAR: Heart sounds distant, possible 1/6 murmur. Regular rate and rhythm. RESPIRATORY: No accessory muscle use. Mild tachypnea. Breath sounds equal bilaterally. on BiPAP. GASTROINTESTINAL: Abdomen soft, tenderness of LUQ, mild distension. MUSCULOSKELETAL: Extremities without clubbing, cyanosis, or edema. No obvious splinter hemorrhage or petechiae. No obvious deformities. NEUROLOGICAL: Awake and alert. No obvious cranial nerve deficits. Motor grossly within normal limits. Normal speech. <Pricila Magallanes - 02/03/18 16:09> - Urinary Catheter Management Female External Cath placed during this visit: no <Radha Hinojosa - 02/04/18 07:16> no <Pricila Magallanes Alison - 02/04/18 06:27> Assessment and Plan - Assessment (1) Shortness of breath Code(s): R06.02 - Shortness of breath Status: Acute (2) Sepsis Code(s): A41.9 - Sepsis, unspecified organism Status: Acute (3) Healthcare-associated pneumonia Code(s): J18.9 - Pneumonia, unspecified organism Status: Acute (4) COPD (chronic obstructive pulmonary disease) Code(s): J44.9 - Chronic obstructive pulmonary disease, unspecified Status: Chronic (5) Hyperkalemia Code(s): E87.5 - Hyperkalemia Status: Acute (6) Chest pain Code(s): R07.9 - Chest pain, unspecified Status: Acute (7) Fibromyalgia Code(s): M79.7 - Fibromyalgia Status: Chronic (8) Diabetes mellitus Code(s): E11.9 - Type 2 diabetes mellitus without complications Status: Chronic (9) Hypertension Code(s): I10 - Essential (primary) hypertension Status: Chronic (10) Coronary artery disease Code(s): I25.10 - Atherosclerotic heart disease of [place] coronary artery without angina pectoris Status: Chronic (11) Major depressive disorder Code(s): F32.9 - Major depressive disorder, single episode, unspecified Status : Chronic (12) Nutrition, metabolism, and development symptoms Code(s): R63.8 - Other symptoms and signs concerning food and fluid intake Status: Acute (13) DVT prophylaxis Status: Acute <Radha Hinojosa - 02/04/18 07:16> (1) Shortness of breath Code(s): R06.02 - Shortness of breath Status: Acute Plan: Patient seen by overnight team at 8PM for increased shortness of breath and increased oxygen requirement, despite oxygen saturations in mid-90s. Patient placed on 10L mask and titrated down to 4L NC by mobile sales expert today. ABG this morning showed pH 7.25, pCO2 81 and HCO3 34, due to hx of COPD patient likely has chronic CO2 retention, but with lack of compensation, this is most likely an acute exacerbation. CXR showed possible increased consolidation vs. pulmonary edema in left lower lobe. Currently on Vanco, Zosyn and Cipro for HAP. Patient also given 40mg PO Lasix. Patient placed on BiPAP this morning due to continued shortness of breath and transferred to step down unit this morning. -Continue BiPAP, attempt to wean as tolerated -Will repeat ABG at 11 am -Awaiting AM labs, CBC & BMP (2) Sepsis Code(s): A41.9 - Sepsis, unspecified organism Status: Acute Plan: Patient met sepsis criteria upon admission due to tachycardia and tachypnea. Source of infection was pneumonia. See plan below (3) Healthcare-associated pneumonia Code(s): J18.9 - Pneumonia, unspecified organism Status: Acute Plan: Patient was recently discharged and sent to rehab for pneumonia. CBC on admission shows no leukocytosis. Chest CTA shows bilateral pleural effusions and pericardial effusion. Patchy areas of groundglass opacity identified within the right and left lower lobes as well as the lingula and right middle lobe which may reflect a multifocal infectious process. Vancomycin 1000 mg IV given in ED Zosyn 4.5 g IV given in ED Currently covering patient for healthcare acquired pneumonia -Day 3 of Vancomycin 1500 mg IV every 12 hours, trough per pharmacy consult -Day 3 of Zosyn 4.5 g IV every 6 hours -Day 3 of Ciprofloxacin 400 mg IV every 8 hours -Lactobacillus 1 tab PO TID -Legionella urine antigen, Strep pneumoniae urine antigen and Influenza panel negative (4) COPD (chronic obstructive pulmonary disease) Code(s): J44.9 - Chronic obstructive pulmonary disease, unspecified Status: Chronic Plan: Patient states that she initially felt like she was having a COPD exacerbation. On examination patient was not short of breath and was resting comfortably, able to speak in full sentences. -Will defer steroid treatment at this time due to allergy profile -Will continue DuoNeb's every 4 hours scheduled -Unable to give steroids due to allergy profile -Incentive spirometry and acapella ordered -On BiPAP, plan to wean as tolerated (5) Hyperkalemia Code(s): E87.5 - Hyperkalemia Status: Acute Plan: Hyperkalemia noted on admission. BMP reveals potassium of 5.6. EKG shows mildly peaked T waves -Patient receiving albuterol nebulizer treatments for COPD exacerbation and insulin for diabetes, which as a side effect decreased the serum potassium level. Will continue to monitor (6) Chest pain Code(s): R07.9 - Chest pain, unspecified Status: Acute Plan: Patient with squeezing pressure-like chest pain upon admission. Has a history of CAD with 2 stents placed. Troponin on admission was negative. EKG showed sinus tachycardia with peaked T waves reflecting hyperkalemia. ACS rule out with negative Troponin I and CKMB. EKG showed sinus tachycardia with peaked T waves reflecting hyperkalemia. CTA Chest showed no evidence of PE, but showed bilateral pleural effusions and pericardial effusion and Patchy areas of groundglass opacity identified within the right and left lower lobes as well as the lingula and right middle lobe. 1/6 murmur noted on cardiac exam yesterday. Patient also has a history of CHF. -Echocardiogram pending -Troponin I x3 negative (7) Fibromyalgia Code(s): M79.7 - Fibromyalgia Status: Chronic Plan: Patient on several different pain medications at home for her fibromyalgia -Will continue Lyrica 300 mg p.o. twice daily -K thermia patch (8) Diabetes mellitus Code(s): E11.9 - Type 2 diabetes mellitus without complications Status: Chronic Plan: Will hold patient's oral medications -NovoLog low-dose sliding scale insulin -Hypoglycemia protocol -Bedside glucose monitoring (9) Hypertension Code(s): I10 - Essential (primary) hypertension Status: Chronic Plan: Continue at home lisinopril 10 mg p.o. daily (10) Coronary artery disease Code(s): I25.10 - Atherosclerotic heart disease of [place] coronary artery without angina pectoris Status: Chronic Plan: Continue at home clopidogrel 75 mg p.o. daily (11) Major depressive disorder Code(s): F32.9 - Major depressive disorder, single episode, unspecified Status : Chronic Plan: -Continue at home fluoxetine 40 mg p.o. daily -Continue bupropion 150 mg p.o. daily (12) Nutrition, metabolism, and development symptoms Code(s): R63.8 - Other symptoms and signs concerning food and fluid intake Status: Acute Plan: Fluids: tolerating PO Electrolytes: Hyperkalemia noted as above, trending down Nutrition: heart-healthy, diabetic diet GI Prophylaxis: Pantoprazole 40 mg p.o. twice daily. (13) DVT prophylaxis Status: Acute Plan: DVT Prophylaxis: Early ambulation. Lovenox 40mg subQ q24hr/bilateral SCDs <Pricila Magallanes - 02/04/18 06:27> - Assessment and Plan 62-year-old female with PMH of DM, HTN, CHF, COPD presenting with chest pain and shortness of breath. Admitted to our inpatient service for pneumonia. <Pricila Magallanes - 02/03/18 12:17> - Attending Attestation Patient seen and examined in the morning of 02/03/2018. I agree with assessment and management as documented and discussed with me. Pt with acute worsening of SOB overnight, requiring transfer to step-down unit and administration of BiPAP. She describes BiPAP as "heaven". Continue BiPAP for now and wean as tolerated. Continue antibiotics, current treatment for COPD. Pt has allergy to prednisone. Echo ordered and is pending. <Radha Hinojosa - 02/04/18 07:16> <Pricila Magallanes - Last Filed: 02/04/18 06:27> (8) Diabetes mellitus Qualifiers: Diabetes mellitus type: type 2 <Radha Hinojosa - Last Filed: 02/04/18 07:16> (8) Diabetes mellitus Qualifiers: Diabetes mellitus type: type 2 <Pricila Magallanes - Last Filed: 02/04/18 06:27> (8) Diabetes mellitus Qualifiers: Diabetes mellitus type: type 2 <Radha Hinojosa - Last Filed: 02/04/18 07:16> (8) Diabetes mellitus Qualifiers: Diabetes mellitus type: type 2
[2018-02-03 12:31] LABS: Hematocrit 26.4 % (35.0-46.0); Hemoglobin 8.5 gm/dL (11.6-15.3); Mean Corpuscular HGB Conc 32.1 % (32.0-36.0); Mean Corpuscular Hemoglobin 31.1 pg (27.0-34.0); Mean Corpuscular Volume 96.8 fL (80.0-100.0); Platelet Count 144 th/mm3 (150-450); Red Blood Count 2.72 mil/mm3 (4.00-5.30); Red Cell Distribution Width 13.3 % (11.6-17.2); White Blood Count 3.6 th/mm3 (4.0-11.0)
[2018-02-03 12:58] LABS: Calcium 8.4 mg/dL (8.5-10.1); Carbon Dioxide 32.5 meq/L (21.0-32.0); Potassium 4.8 meq/L (3.5-5.1)
[2018-02-03 13:01] LABS: Vancomycin,Random 14.9 Comment
[2018-02-03] MEDS: Vancomycin Inj 1,250 MG in Sodium Chlor 0.9% Inj 250 ML IV.SIG SCH (15:53)
[2018-02-03] MEDS: Melatonin 5 MG Tablet PO SCH (21:51)
[2018-02-04] MEDS: Piperacil/Tazo 4.5 GM Premix 4.5 GM/100 ML BAG IV.SIG SCH ×4 (04:03→22:29)
[2018-02-04 05:42] LABS: Hematocrit 27.4 % (35.0-46.0); Hemoglobin 8.9 gm/dL (11.6-15.3); Mean Corpuscular HGB Conc 32.4 % (32.0-36.0); Mean Corpuscular Hemoglobin 31.4 pg (27.0-34.0); Mean Corpuscular Volume 96.8 fL (80.0-100.0); Mean Platelet Volume 9.1 fL (7.0-11.0); Platelet Count 144 th/mm3 (150-450); Red Blood Count 2.83 mil/mm3 (4.00-5.30); Red Cell Distribution Width 13.1 % (11.6-17.2); White Blood Count 3.6 th/mm3 (4.0-11.0)
[2018-02-04 05:56] LABS: Calcium 8.9 mg/dL (8.5-10.1); Carbon Dioxide 34.2 meq/L (21.0-32.0); Potassium 4.5 meq/L (3.5-5.1)
[2018-02-04] MEDS: Ciprofloxacin 400 MG/200 ML 400 MG/200 ML PIGGYBACK IV.SIG SCH ×3 (06:20→22:29)
[2018-02-04] MEDS: Insulin NovoLOG Aspart Correctional Sugar Inj SQ SCH ×4 (08:10→20:48)
[2018-02-04] MEDS: Enoxaparin Inj 40 MG/0.4 ML Syringe SQ SCH (09:07)
[2018-02-04] MEDS: Lactobacillus Acidophilus/L. Spores Tablet PO SCH ×3 (09:07→17:42)
[2018-02-04] MEDS: Lisinopril 10 MG Tablet PO SCH (09:07)
[2018-02-04] MEDS: FLUoxetine 20 MG Capsule PO SCH (09:07)
[2018-02-04] MEDS: buPROPion 150 MG 12 HR Tablet PO SCH (09:08)
--- NOTE | 2018-02-04 11:52 | P.PNFP ---
Subjective Interval history: Patient seen an examined this morning. Patient was in the midst of receiving a nebulizer breathing treatment during interview. Patient has been on BiPAP since yesterday morning and states that she is breathing much for comfortably on it. She states that she continues to have trouble taking a deep breath, also noting that she is experiencing nasal congestion that makes it tough for her to breath through the nasal cannula during the breathing treatment. Prior to hospital admission she was experiencing shortness of breath , even on minimal exertion, like moving to a sitting position, or moving her arms. She states that PT is exerting her too much at the rehab facility and that is why she is in the hospital, short of breath now. At home, patient has been too weak to walk for at least the past couple of weeks. She also has a non- productive cough. She also has continued squeezing chest pressure. She has never had any pulmonary rehab and is agreeable to continued PT and pulmonary rehab while in the hospital. Denies nausea, vomiting, headache, dizziness, problems urinating and swelling or pain in her lower extremities. <Pricila Magallanes - 02/04/18 16:49> Results - Labs Result diagrams: 02/04/18 04:41 02/04/18 04:41 <Radha Hinojosa - 02/04/18 21:05> Abnormal lab results 02/04/18 02/04/18 02/04/18 Range/Units 04:41 04:41 04:41 WBC 3.6 L (4.0-11.0) th/mm3 RBC 2.83 L (4.00-5.30) mil/mm3 Hgb 8.9 L (11.6-15.3) gm/dL Hct 27.4 L (35.0-46.0) % Plt Count 144 L (150-450) th/mm3 Carbon Dioxide 34.2 H (21.0-32.0) meq/L Creatinine 1.17 H (0.50-1.00) mg/dL Estimated GFR 47 L (>89) mL/min POC Glucose (68-110) mg/dl B-Natriuretic Peptide 201 H (0-100) pg/mL 02/04/18 Range/Units 20:36 WBC (4.0-11.0) th/mm3 RBC (4.00-5.30) mil/mm3 Hgb (11.6-15.3) gm/dL Hct (35.0-46.0) % Plt Count (150-450) th/mm3 Carbon Dioxide (21.0-32.0) meq/L Creatinine (0.50-1.00) mg/dL Estimated GFR (>89) mL/min POC Glucose 231 H (68-110) mg/dl B-Natriuretic Peptide (0-100) pg/mL Short CBC 02/04/18 Range/Units 04:41 WBC 3.6 L (4.0-11.0) th/mm3 Hgb 8.9 L (11.6-15.3) gm/dL Hct 27.4 L (35.0-46.0) % Plt Count 144 L (150-450) th/mm3 BMP 02/04/18 04:41 Sodium 142 Potassium 4.5 Chloride 100 Carbon Dioxide 34.2 H BUN 18 Creatinine 1.17 H Calcium 8.9 <Radha iHnojosa - 02/04/18 21:05> Abnormal lab results 02/03/18 02/03/18 02/04/18 Range/Units 11:46 11:46 04:41 WBC 3.6 L 3.6 L (4.0-11.0) th/mm3 RBC 2.72 L 2.83 L (4.00-5.30) mil/mm3 Hgb 8.5 L 8.9 L (11.6-15.3) gm/dL Hct 26.4 L 27.4 L (35.0-46.0) % Plt Count 144 L 144 L (150-450) th/mm3 Carbon Dioxide 32.5 H (21.0-32.0) meq/L Creatinine 1.15 H (0.50-1.00) mg/dL Estimated GFR 48 L (>89) mL/min Calcium 8.4 L (8.5-10.1) mg/dL B-Natriuretic Peptide (0-100) pg/mL 02/04/18 02/04/18 Range/Units 04:41 04:41 WBC (4.0-11.0) th/mm3 RBC (4.00-5.30) mil/mm3 Hgb (11.6-15.3) gm/dL Hct (35.0-46.0) % Plt Count (150-450) th/mm3 Carbon Dioxide 34.2 H (21.0-32.0) meq/L Creatinine 1.17 H (0.50-1.00) mg/dL Estimated GFR 47 L (>89) mL/min Calcium (8.5-10.1) mg/dL B-Natriuretic Peptide 201 H (0-100) pg/mL Short CBC 02/03/18 02/04/18 Range/Units 11:46 04:41 WBC 3.6 L 3.6 L (4.0-11.0) th/mm3 Hgb 8.5 L 8.9 L (11.6-15.3) gm/dL Hct 26.4 L 27.4 L (35.0-46.0) % Plt Count 144 L 144 L (150-450) th/mm3 BMP 02/03/18 02/04/18 11:46 04:41 Sodium 142 142 Potassium 4.8 4.5 Chloride 102 100 Carbon Dioxide 32.5 H 34.2 H BUN 18 18 Creatinine 1.15 H 1.17 H Calcium 8.4 L 8.9 <Pricila Magallanes B - 02/04/18 11:52> Physical Exam Vital signs: Vital Signs 02/03/18 21:53 02/03/18 22:44 02/03/18 23:30 Temperature Pulse Rate 86 Respiratory Rate 24 18 Blood Pressure Pulse Oximetry 95 94 L 02/03/18 23:39 02/03/18 23:44 02/04/18 00:17 Temperature Pulse Rate 93 H 93 H Respiratory Rate 16 Blood Pressure Pulse Oximetry 98 02/04/18 00:19 02/04/18 00:21 02/04/18 03:22 Temperature 98.5 F Pulse Rate 82 82 79 Respiratory Rate 14 20 Blood Pressure 144/86 H Pulse Oximetry 99 02/04/18 03:57 02/04/18 04:00 02/04/18 07:58 Temperature Pulse Rate 78 78 90 Respiratory Rate 12 18 Blood Pressure 148/68 H Pulse Oximetry 96 96 02/04/18 08:00 02/04/18 08:34 02/04/18 09:04 Temperature 98.5 F Pulse Rate 81 91 H Respiratory Rate 18 20 Blood Pressure 151/92 H Pulse Oximetry 94 L 94 L 02/04/18 11:31 02/04/18 11:33 02/04/18 11:34 Temperature 98.6 F Pulse Rate 92 H 87 Respiratory Rate 18 18 Blood Pressure 129/58 L Pulse Oximetry 95 95 02/04/18 14:19 02/04/18 14:20 02/04/18 15:42 Temperature Pulse Rate 91 H Respiratory Rate 18 Blood Pressure Pulse Oximetry 94 L 96 02/04/18 15:43 02/04/18 16:00 02/04/18 16:38 Temperature 98.6 F Pulse Rate 90 84 Respiratory Rate 20 20 22 Blood Pressure 152/73 H Pulse Oximetry 95 02/04/18 20:46 Temperature Pulse Rate 100 H Respiratory Rate 18 Blood Pressure Pulse Oximetry 94 L Intake & Output 02/04/18 02/04/18 02/05/18 06:59 18:59 06:59 Intake Total 621 / 621 1462.5 / 1462.5 Output Total 1400 / 1400 1900 / 1900 Balance -779 / -779 -437.5 / -437.5 Intake: IV 371 / 371 862.5 / 862.5 Cipro 400 MG/200 ML Inj 400 mg 186 / 186 400 / 400 In 200 ml @ 200 mls/hr IV.SIG Q8H [facility] Rx#:[id number] Zosyn 4.5 GM Premix 4.5 gm In 185 / 185 200 / 200 100 ml @ 200 mls/hr IV.SIG Q6H [facility] Rx#:[id number] Vancomycin Inj 1,250 MG In NS 262.5 / 262.5 Inj 250 ML @ 250 mls/hr IV.SIG Q24H [facility] Rx#:[id number] Oral 250 / 250 600 / 600 Output: Urine Amount (Catheter) 1400 / 1400 1899 / 1900 Female External 1400 / 1400 190 / 190 Other: Date of Last Bowel Movement 01/29/18 01/29/18 # Bowel Movements 0 <Vey,Radha - 02/04/18 21:05> Vital Signs 02/03/18 12:00 02/03/18 15:40 02/03/18 16:00 Temperature 98.3 F 98.6 F Pulse Rate 75 82 76 Respiratory Rate 13 20 18 Blood Pressure 114/56 L 136/57 L Pulse Oximetry 97 99 02/03/18 16:20 02/03/18 17:19 02/03/18 18:11 Temperature Pulse Rate Respiratory Rate 15 Blood Pressure Pulse Oximetry 97 95 02/03/18 20:00 02/03/18 20:17 02/03/18 20:31 Temperature 98.8 F Pulse Rate 89 89 Respiratory Rate 20 Blood Pressure 142/68 H Pulse Oximetry 98 92 L 02/03/18 21:53 02/03/18 22:44 02/03/18 23:30 Temperature Pulse Rate 86 Respiratory Rate 24 18 Blood Pressure Pulse Oximetry 95 94 L 02/03/18 23:39 02/03/18 23:44 02/04/18 00:17 Temperature Pulse Rate 93 H 93 H Respiratory Rate 16 Blood Pressure Pulse Oximetry 98 02/04/18 00:19 02/04/18 00:21 02/04/18 03:22 Temperature 98.5 F Pulse Rate 82 82 79 Respiratory Rate 14 20 Blood Pressure 144/86 H Pulse Oximetry 99 02/04/18 03:57 02/04/18 04:00 02/04/18 07:58 Temperature Pulse Rate 78 78 90 Respiratory Rate 12 18 Blood Pressure 148/68 H Pulse Oximetry 96 96 02/04/18 08:00 02/04/18 08:34 02/04/18 09:04 Temperature 98.5 F Pulse Rate 81 91 H Respiratory Rate 18 20 Blood Pressure 151/92 H Pulse Oximetry 94 L 94 L 02/04/18 11:31 02/04/18 11:33 02/04/18 11:34 Temperature 98.6 F Pulse Rate 92 H 87 Respiratory Rate 18 18 Blood Pressure 129/58 L Pulse Oximetry 95 95 Intake & Output 02/03/18 02/04/18 02/04/18 18:59 06:59 18:59 Intake Total 2722.5 / 2722.5 621 / 621 300 / 300 Output Total 1550 / 1550 1400 / 1400 Balance 1172.5 / 1172.5 -779 / -779 300 / 300 Intake: IV 1762.5 / 1762.5 371 / 371 300 / 300 NS Inj 1,000 ML @ 42 mls/hr IV. 800 / 800 CONT .[id number] [facility] Rx#:[id number] Cipro 400 MG/200 ML Inj 400 mg 400 / 400 186 / 186 200 / 200 In 200 ml @ 200 mls/hr IV.SIG Q8H [facility] Rx#:[id number] Zosyn 4.5 GM Premix 4.5 gm In 300 / 300 185 / 185 100 / 100 100 ml @ 200 mls/hr IV.SIG Q6H [facility] Rx#:[id number] Vancomycin Inj 1,250 MG In NS 262.5 / 262.5 Inj 250 ML @ 250 mls/hr IV.SIG Q24H [facility] Rx#:[id number] Oral 960 / 960 250 / 250 Output: Urine 1550 / 1550 Urine Amount (Catheter) 1400 / 1400 Female External 1400 / 1400 Other: Date of Last Bowel Movement 01/29/18 01/29/18 # Bowel Movements 0 <Pricila Magallanes - 02/04/18 11:52> Narrative: GENERAL: Obese white female laying comfortable on side while receiving breathing treatment during exam, no acute distress SKIN: Warm and dry. Dry, flaky. HEAD: Atraumatic. Normocephalic. EYES: No scleral icterus. No injection or drainage. ENT: No nasal bleeding or discharge. Unable to NECK: Trachea midline. No JVD. CARDIOVASCULAR: Heart sounds distant, possible 1/6 murmur. Regular rate and rhythm. RESPIRATORY: No accessory muscle use. Decreased air movement in all lung meyer. Breath sounds equal bilaterally. No wheezing, rales or ronchi. GASTROINTESTINAL: Abdomen soft, tenderness of LUQ, mild distension. MUSCULOSKELETAL: Extremities without clubbing, cyanosis, or edema. No obvious splinter hemorrhage or petechiae. No obvious deformities. NEUROLOGICAL: Awake and alert. No obvious cranial nerve deficits. Motor grossly within normal limits. Normal speech. <Pricila Magallanes - 02/04/18 16:49> - Urinary Catheter Management Female External Cath placed during this visit: no <Radha Hinojosa - 02/04/18 21:05> no <Pricila Magallanes - 02/04/18 17:56> Reason for continuing: Not indwelling catheter <Pricila Magallanes 02/04/18 11: 52> Assessment and Plan - Assessment (1) Shortness of breath Code(s): R06.02 - Shortness of breath Status: Acute (2) Sepsis Code(s): A41.9 - Sepsis, unspecified organism Status: Acute (3) Healthcare-associated pneumonia Code(s): J18.9 - Pneumonia, unspecified organism Status: Acute (4) COPD (chronic obstructive pulmonary disease) Code(s): J44.9 - Chronic obstructive pulmonary disease, unspecified Status: Chronic (5) Hyperkalemia Code(s): E87.5 - Hyperkalemia Status: Acute (6) Chest pain Code(s): R07.9 - Chest pain, unspecified Status: Acute (7) Fibromyalgia Code(s): M79.7 - Fibromyalgia Status: Chronic (8) Diabetes mellitus Code(s): E11.9 - Type 2 diabetes mellitus without complications Status: Chronic (9) Hypertension Code(s): I10 - Essential (primary) hypertension Status: Chronic (10) Coronary artery disease Code(s): I25.10 - Atherosclerotic heart disease of [place] coronary artery without angina pectoris Status: Chronic (11) Major depressive disorder Code(s): F32.9 - Major depressive disorder, single episode, unspecified Status : Chronic (12) Nutrition, metabolism, and development symptoms Code(s): R63.8 - Other symptoms and signs concerning food and fluid intake Status: Acute (13) DVT prophylaxis Status: Acute <Radha Hinojosa - 02/04/18 21:05> (1) Shortness of breath Code(s): R06.02 - Shortness of breath Status: Acute Plan: Patient seen for increased shortness of breath and increased oxygen requirement , despite oxygen saturations in mid-90s on 02/02. Patient placed on 10L mask and titrated down to 4L NC by sorter operator 02/03. ABG this morning showed pH 7.25, pCO2 81 and HCO3 34, due to hx of COPD patient likely has chronic CO2 retention , but with lack of compensation, this is most likely an acute exacerbation. CXR showed possible increased consolidation vs. pulmonary edema in left lower lobe. Currently on Vanco, Zosyn and Cipro for HAP. Patient also given 40mg PO Lasix. Patient placed on BiPAP due to continued shortness of breath and transferred to step down unit on 02/03. -Continue BiPAP, attempt to wean as tolerated -Albuterol nebulizer treatments q4h -Will add dexamethasone 4mg q12h, due to patient's allergy to prednisone. Epi- pen PRN for anaphylaxis. -Zyrtec 10mg PO added for nasal congestion (2) Sepsis Code(s): A41.9 - Sepsis, unspecified organism Status: Acute Plan: Patient met sepsis criteria upon admission due to tachycardia and tachypnea. Source of infection was pneumonia. See plan below (3) Healthcare-associated pneumonia Code(s): J18.9 - Pneumonia, unspecified organism Status: Acute Plan: Patient was recently discharged and sent to rehab for pneumonia. CBC on admission shows no leukocytosis. Chest CTA shows bilateral pleural effusions and pericardial effusion. Patchy areas of groundglass opacity identified within the right and left lower lobes as well as the lingula and right middle lobe which may reflect a multifocal infectious process. Currently covering patient for healthcare acquired pneumonia -Day 4 of Vancomycin 1500 mg IV every 12 hours, trough per pharmacy consult -Day 4 of Zosyn 4.5 g IV every 6 hours -Day 4 of Ciprofloxacin 400 mg IV every 8 hours -Lactobacillus 1 tab PO TID -Legionella urine antigen, Strep pneumoniae urine antigen and Influenza panel negative (4) COPD (chronic obstructive pulmonary disease) Code(s): J44.9 - Chronic obstructive pulmonary disease, unspecified Status: Chronic Plan: Patient states that she initially felt like she was having a COPD exacerbation. On examination patient was not short of breath and was resting comfortably, able to speak in full sentences. -Will continue DuoNeb's every 4 hours scheduled -Incentive spirometry and acapella ordered -On BiPAP, plan to wean as tolerated -Started patient on low dose of Dexamethasone 4mg PO q12h, due to patient's history of hive-like reaction to prednisone in the past. Order Epi-pen PRN for anaphylaxis. (5) Hyperkalemia Code(s): E87.5 - Hyperkalemia Status: Acute Plan: Hyperkalemia noted on admission, now resolved. EKG showed mildly peaked T waves on admission. -Patient receiving albuterol nebulizer treatments for COPD exacerbation and insulin for diabetes, which as a side effect decreased the serum potassium level. Will continue to monitor (6) Chest pain Code(s): R07.9 - Chest pain, unspecified Status: Acute Plan: Patient with squeezing pressure-like chest pain upon admission. Has a history of CAD with 2 stents placed. Troponin on admission was negative. EKG showed sinus tachycardia with peaked T waves reflecting hyperkalemia. ACS rule out with negative Troponin I and CKMB. EKG showed sinus tachycardia with peaked T waves reflecting hyperkalemia. CTA Chest showed no evidence of PE, but showed bilateral pleural effusions and pericardial effusion and Patchy areas of groundglass opacity identified within the right and left lower lobes as well as the lingula and right middle lobe. 1/6 murmur noted on cardiac exam yesterday. Patient also has a history of CHF. -Echocardiogram shows EF 50-55% with trace mitral regurg, but not change in size of the atria or ventricles, and no pericardial effusion -Troponin I x3 negative (7) Fibromyalgia Code(s): M79.7 - Fibromyalgia Status: Chronic Plan: Patient on several different pain medications at home for her fibromyalgia -Will continue Lyrica 300 mg p.o. twice daily -K thermia patch (8) Diabetes mellitus Code(s): E11.9 - Type 2 diabetes mellitus without complications Status: Chronic Plan: Will hold patient's oral medications -NovoLog low-dose sliding scale insulin -Hypoglycemia protocol -Bedside glucose monitoring (9) Hypertension Code(s): I10 - Essential (primary) hypertension Status: Chronic Plan: Continue at home lisinopril 10 mg p.o. daily (10) Coronary artery disease Code(s): I25.10 - Atherosclerotic heart disease of [place] coronary artery without angina pectoris Status: Chronic Plan: Continue at home clopidogrel 75 mg p.o. daily (11) Major depressive disorder Code(s): F32.9 - Major depressive disorder, single episode, unspecified Status : Chronic Plan: -Continue at home fluoxetine 40 mg p.o. daily -Continue bupropion 150 mg p.o. daily (12) Nutrition, metabolism, and development symptoms Code(s): R63.8 - Other symptoms and signs concerning food and fluid intake Status: Acute Plan: Fluids: tolerating PO Electrolytes: Hyperkalemia resovled, will continue to monitor and replete as needed. Nutrition: heart-healthy, diabetic diet GI Prophylaxis: Pantoprazole 40 mg p.o. twice daily. (13) DVT prophylaxis Status: Acute Plan: DVT Prophylaxis: Early ambulation. Lovenox 40mg subQ q24hr/bilateral SCDs <Pricila Magallanes - 02/04/18 17:51> - Assessment and Plan 62-year-old female with PMH of DM, HTN, CHF, COPD presenting with chest pain and shortness of breath. Admitted to our inpatient service for pneumonia. <Pricila Magallanes - 02/04/18 11:52> - Attending Attestation Patient seen and examined, discussed with resident team this morning. I agree with assessment and management as documented with me. Pt reports continued SOB, although improved with BiPAP yesterday. Currently on 5lpm by nasal cannula at the time of my exam. Pt continues to request increase in pain medication; resp therapist and I discussed the risk of increasing pain medication and decreasing respiratory drive. Encouraged pt to sit up in bed and work with PT, in order to prevent atelectasis and deconditioning. <Radha Hinojosa - 02/04/18 21:05> <Pricila Magallanes - Last Filed: 02/04/18 17:51> (8) Diabetes mellitus Qualifiers: Diabetes mellitus type: type 2 <Radha Hinojosa - Last Filed: 02/04/18 21:05> (8) Diabetes mellitus Qualifiers: Diabetes mellitus type: type 2 <Pricila Magallanes - Last Filed: 02/04/18 17:51> (8) Diabetes mellitus Qualifiers: Diabetes mellitus type: type 2 <Radha Hinojosa - Last Filed: 02/04/18 21:05> (8) Diabetes mellitus Qualifiers: Diabetes mellitus type: type 2
--- NOTE | 2018-02-04 16:19 | ECHRPT ---
Indication: CHEST PAIN CONCLUSIONS The left ventricular systolic function is low normal with an estimated ejection fraction in the rang e of 50- 55%. Normal left ventricular size. Wall thickness is normal. No regional wall motion abnormalities are present. Trace mitral valve regurgitation. The pulmonary valve is not well visualized. BP: / HR: Rhythm: Sinus MEASUREMENTS (Male / Female) Normal Values Technical Quality:Technically difficult study 2D ECHO LV Diastolic Diameter PLAX 4.8 cm 4.2 - 5.9 / 3.9 - 5.3 cm LV Systolic Diameter PLAX 3.7 cm IVS Diastolic Thickness 1.0 cm 0.6 - 1.0 / 0.6 - 0.9 cm LVPW Diastolic Thickness 1.1 cm 0.6 - 1.0 / 0.6 - 0.9 cm LV Relative Wall Thickness 0.4 RV Internal Dim ED PLAX 2.8 cm LVOT Diameter 1.9 cm LA Systolic Diameter LX 4.0 cm 3.0 - 4.0 / 2.7 - 3.8 cm M-MODE LV Diastolic Diameter MM 7.8 cm 4.2 - 5.9 / 3.9 - 5.3 cm LV Systolic Diameter MM 6.1 cm LV Ejection Fraction MM Teich 43.4 % IVS Diastolic Thickness MM 1.1 cm 0.6 - 1.0 / 0.6 - 0.9 cm LVPW Diastolic Thickness MM 1.1 cm 0.6 - 1.0 / 0.6 - 0.9 cm LV Relative Wall Thickness MM 0.3 0.24 - 0.42 / 0.22 - 0.42 Aortic Root Diameter MM 1.8 cm LA Systolic Diameter MM 4.0 cm LA Ao Ratio MM 2.2 AV Cusp Separation MM 1.8 cm DOPPLER AV Peak Velocity 155.0 cm/s AV Peak Gradient 9.6 mmHg LVOT Peak Velocity 96.3 cm/s LVOT Peak Gradient 3.7 mmHg AV Area Cont Eq pk 1.8 cm MV Area PHT 4.2 cm Mitral E Point Velocity 124.0 cm/s Mitral A Point Velocity 108.0 cm/s Mitral E to A Ratio 1.1 LV E' Lateral Velocity 8.2 cm/s Mitral E to LV E' Lateral Ratio 15.1 LV E' Septal Velocity 5.2 cm/s Mitral E to LV E' Septal Ratio 24.0 PV Peak Velocity 128.0 cm/s PV Peak Gradient 6.6 mmHg FINDINGS LEFT VENTRICLE The left ventricular systolic function is low normal with an estimated ejection fraction in the rang e of 50- 55%. Normal left ventricular size. Wall thickness is normal. No regional wall motion abnormalities are present. RIGHT VENTRICLE Normal right ventricular size and systolic function. LEFT ATRIUM The left atrial size is normal. RIGHT ATRIUM The right atrial size is normal. ATRIAL SEPTUM Normal atrial septal thickness without atrial level shunting by limited color doppler interrogation. AORTA The aortic root and proximal ascending aorta are normal in size on limited imaging. MITRAL VALVE Structurally normal mitral valve. Trace mitral valve regurgitation. AORTIC VALVE Trileaflet aortic valve. No aortic valve stenosis or regurgitation. TRICUSPID VALVE Structurally normal tricuspid valve. No tricuspid valve stenosis or regurgitation. PULMONARY VALVE The pulmonary valve is not well visualized. VESSELS The inferior vena cava is normal in size. PERICARDIUM No pericardial effusion. Sravan Frank MD, FACC, FSCAI (Electronically Signed) Final Date:04 February 2018 16:18
[2018-02-04] MEDS: Vancomycin Inj 1,250 MG in Sodium Chlor 0.9% Inj 250 ML IV.SIG SCH (16:25)
[2018-02-04] MEDS: Melatonin 5 MG Tablet PO SCH (20:28)
[2018-02-05] MEDS: Piperacil/Tazo 4.5 GM Premix 4.5 GM/100 ML BAG IV.SIG SCH ×3 (05:03→17:49)
[2018-02-05] MEDS: Ciprofloxacin 400 MG/200 ML 400 MG/200 ML PIGGYBACK IV.SIG SCH ×2 (06:13→13:36)
[2018-02-05] MEDS: Insulin NovoLOG Aspart Correctional Sugar Inj SQ SCH ×3 (08:41→17:49)
[2018-02-05] MEDS: Enoxaparin Inj 40 MG/0.4 ML Syringe SQ SCH (08:56)
[2018-02-05] MEDS: Lactobacillus Acidophilus/L. Spores Tablet PO SCH ×3 (08:56→17:49)
[2018-02-05] MEDS: Lisinopril 10 MG Tablet PO SCH (08:56)
[2018-02-05] MEDS: buPROPion 150 MG 12 HR Tablet PO SCH (08:57)
[2018-02-05] MEDS: FLUoxetine 20 MG Capsule PO SCH (08:57)
[2018-02-05 09:40] LABS: Hematocrit 28.2 % (35.0-46.0); Mean Corpuscular HGB Conc 31.9 % (32.0-36.0); Mean Corpuscular Hemoglobin 30.6 pg (27.0-34.0); Platelet Count 148 th/mm3 (150-450); Red Blood Count 2.94 mil/mm3 (4.00-5.30); Red Cell Distribution Width 13.1 % (11.6-17.2); White Blood Count 3.5 th/mm3 (4.0-11.0)
[2018-02-05 09:48] LABS: Calcium 8.9 mg/dL (8.5-10.1); Carbon Dioxide 33.4 meq/L (21.0-32.0); Potassium 4.4 meq/L (3.5-5.1)
--- NOTE | 2018-02-05 11:45 | P.PNFP ---
Subjective Interval history: Patient seen and examined. Patient states that she is having an easier time breathing today. She was taken off BiPAP last night, because the mask was making her feel claustrophobic and overheated. She states that she has been tolerating 3-4 L on nasal cannula well since. After receiving Zyrtec, she no longer has trouble with nasal congestion. She states that she has not been able to get out of bed with physical therapy, but they have been working on breathing exercises with her. She still complains of mild squeezing pressure and shortness of breath with minimal exertion, like sitting up or moving her arms, but states she feels much improved from admission. Discussed plan for discharge back to rehab tomorrow and patient notes that she thought that the reason she was in the hospital in the first place was because the physical therapist there "pushed her too hard". Notes mild abdominal distension without pain and admits that she has not yet had a bowel movement while in the hospital , but states that she normally has bowel movements once every couple of days. Denies nausea, vomiting, abdominal pain, leg swelling or pain in her legs. Spoke to case management who stated that they will call [facility] today to confirm placement. <Pricila Magallanes - 02/05/18 11:44> Results - Labs Result diagrams: 02/05/18 08:56 02/05/18 08:56 <Radha Hinojosa - 02/05/18 21:01> Abnormal lab results 02/05/18 02/05/18 02/05/18 Range/Units 08:56 08:56 11:21 WBC 3.5 L (4.0-11.0) th/mm3 RBC 2.94 L (4.00-5.30) mil/mm3 Hgb 9.0 L (11.6-15.3) gm/dL Hct 28.2 L (35.0-46.0) % MCHC 31.9 L (32.0-36.0) % Plt Count 148 L (150-450) th/mm3 Carbon Dioxide 33.4 H (21.0-32.0) meq/L Creatinine 1.01 H (0.50-1.00) mg/dL Estimated GFR 56 L (>89) mL/min POC Glucose 173 H (68-110) mg/dl Random Glucose 141 H (74-106) mg/dL 02/05/18 Range/Units 17:09 WBC (4.0-11.0) th/mm3 RBC (4.00-5.30) mil/mm3 Hgb (11.6-15.3) gm/dL Hct (35.0-46.0) % MCHC (32.0-36.0) % Plt Count (150-450) th/mm3 Carbon Dioxide (21.0-32.0) meq/L Creatinine (0.50-1.00) mg/dL Estimated GFR (>89) mL/min POC Glucose 188 H (68-110) mg/dl Random Glucose (74-106) mg/dL Short CBC 02/05/18 Range/Units 08:56 WBC 3.5 L (4.0-11.0) th/mm3 Hgb 9.0 L (11.6-15.3) gm/dL Hct 28.2 L (35.0-46.0) % Plt Count 148 L (150-450) th/mm3 BMP 02/05/18 08:56 Sodium 142 Potassium 4.4 Chloride 102 Carbon Dioxide 33.4 H BUN 15 Creatinine 1.01 H Calcium 8.9 <Radha Hinojosa - 02/05/18 21:01> Abnormal lab results 02/04/18 02/05/18 02/05/18 Range/Units 20:36 08:56 08:56 WBC 3.5 L (4.0-11.0) th/mm3 RBC 2.94 L (4.00-5.30) mil/mm3 Hgb 9.0 L (11.6-15.3) gm/dL Hct 28.2 L (35.0-46.0) % MCHC 31.9 L (32.0-36.0) % Plt Count 148 L (150-450) th/mm3 Carbon Dioxide 33.4 H (21.0-32.0) meq/L Creatinine 1.01 H (0.50-1.00) mg/dL Estimated GFR 56 L (>89) mL/min POC Glucose 231 H (68-110) mg/dl Random Glucose 141 H (74-106) mg/dL Short CBC 02/05/18 Range/Units 08:56 WBC 3.5 L (4.0-11.0) th/mm3 Hgb 9.0 L (11.6-15.3) gm/dL Hct 28.2 L (35.0-46.0) % Plt Count 148 L (150-450) th/mm3 BMP 02/05/18 08:56 Sodium 142 Potassium 4.4 Chloride 102 Carbon Dioxide 33.4 H BUN 15 Creatinine 1.01 H Calcium 8.9 <Pricila Magallanes B - 02/05/18 11:44> Physical Exam Vital signs: Vital Signs 02/04/18 22:53 02/04/18 23:00 02/04/18 23:34 Temperature 98.4 F Pulse Rate 80 75 Respiratory Rate 24 15 Blood Pressure 155/72 H Pulse Oximetry 96 95 02/05/18 00:00 02/05/18 01:00 02/05/18 03:00 Temperature Pulse Rate 83 Respiratory Rate 22 Blood Pressure Pulse Oximetry 95 95 02/05/18 04:00 02/05/18 04:18 02/05/18 07:00 Temperature 98.5 F Pulse Rate 78 79 Respiratory Rate 24 20 20 Blood Pressure 150/64 H Pulse Oximetry 94 L 96 02/05/18 07:23 02/05/18 07:26 02/05/18 07:36 Temperature Pulse Rate 75 Respiratory Rate 20 12 Blood Pressure Pulse Oximetry 98 98 02/05/18 10:00 02/05/18 10:53 02/05/18 10:59 Temperature 98.7 F Pulse Rate 90 91 H 76 Respiratory Rate 20 Blood Pressure 146/68 H Pulse Oximetry 96 02/05/18 11:01 02/05/18 11:53 02/05/18 12:00 Temperature Pulse Rate 98 H 105 H Respiratory Rate Blood Pressure Pulse Oximetry 96 02/05/18 13:00 02/05/18 13:10 02/05/18 14:00 Temperature Pulse Rate 97 H 94 H 92 H Respiratory Rate 20 Blood Pressure Pulse Oximetry 91 L 02/05/18 15:00 02/05/18 15:57 02/05/18 16:00 Temperature 98.7 F Pulse Rate 100 H 92 H 98 H Respiratory Rate 20 17 Blood Pressure 156/66 H Pulse Oximetry 95 95 02/05/18 17:00 02/05/18 18:00 02/05/18 19:38 Temperature Pulse Rate 92 H 114 H Respiratory Rate Blood Pressure Pulse Oximetry 97 Intake & Output 02/05/18 02/05/18 02/06/18 06:59 18:59 06:59 Intake Total 540 / 540 1220 / 1220 362.5 / 362.5 Output Total 600 / 600 700 / 700 Balance -60 / -60 520 / 520 362.5 / 362.5 Weight 110 kg Intake: IV 300 / 300 600 / 600 362.5 / 362.5 Cipro 400 MG/200 ML Inj 400 mg 200 / 200 400 / 400 In 200 ml @ 200 mls/hr IV.SIG Q8H [facility] Rx#:[id number] Zosyn 4.5 GM Premix 4.5 gm In 100 / 100 200 / 200 100 / 100 100 ml @ 200 mls/hr IV.SIG Q6H [facility] Rx#:[id number] Vancomycin Inj 1,250 MG In NS 262.5 / 262.5 Inj 250 ML @ 250 mls/hr IV.SIG Q24H [facility] Rx#:[id number] Oral 240 / 240 620 / 620 Output: Urine 700 / 700 Urine Amount (Catheter) 600 / 600 Female External 600 / 600 Other: Date of Last Bowel Movement 01/29/18 01/29/18 # Bowel Movements 0 <Radha Hinojosa - 02/05/18 21:01> Vital Signs 02/04/18 11:31 02/04/18 11:33 02/04/18 11:34 Temperature 98.6 F Pulse Rate 92 H 87 Respiratory Rate 18 18 Blood Pressure 129/58 L Pulse Oximetry 95 95 02/04/18 14:19 02/04/18 14:20 02/04/18 15:42 Temperature Pulse Rate 91 H Respiratory Rate 18 Blood Pressure Pulse Oximetry 94 L 96 02/04/18 15:43 02/04/18 16:00 02/04/18 16:38 Temperature 98.6 F Pulse Rate 90 84 Respiratory Rate 20 20 22 Blood Pressure 152/73 H Pulse Oximetry 95 02/04/18 19:00 02/04/18 20:46 02/04/18 22:53 Temperature 98.4 F Pulse Rate 101 H 100 H Respiratory Rate 24 18 Blood Pressure 157/73 H Pulse Oximetry 95 94 L 96 02/04/18 23:00 02/04/18 23:34 02/05/18 00:00 Temperature 98.4 F Pulse Rate 80 75 Respiratory Rate 24 15 22 Blood Pressure 155/72 H Pulse Oximetry 95 95 02/05/18 01:00 02/05/18 03:00 02/05/18 04:00 Temperature Pulse Rate 83 Respiratory Rate 24 Blood Pressure Pulse Oximetry 95 94 L 02/05/18 04:18 02/05/18 07:00 02/05/18 07:23 Temperature 98.5 F Pulse Rate 78 79 Respiratory Rate 20 20 20 Blood Pressure 150/64 H Pulse Oximetry 96 02/05/18 07:26 02/05/18 07:36 02/05/18 10:00 Temperature Pulse Rate 75 90 Respiratory Rate 12 Blood Pressure Pulse Oximetry 98 98 02/05/18 10:53 02/05/18 10:59 02/05/18 11:01 Temperature 98.7 F Pulse Rate 91 H 76 Respiratory Rate 20 Blood Pressure 146/68 H Pulse Oximetry 96 96 Intake & Output 02/04/18 02/05/18 02/05/18 18:59 06:59 18:59 Intake Total 1462.5 / 1462.5 540 / 540 300 / 300 Output Total 1900 / 1900 600 / 600 Balance -437.5 / -437.5 -60 / -60 300 / 300 Weight 110 kg Intake: IV 862.5 / 862.5 300 / 300 300 / 300 Cipro 400 MG/200 ML Inj 400 mg 400 / 400 200 / 200 200 / 200 In 200 ml @ 200 mls/hr IV.SIG Q8H [facility] Rx#:[id number] Zosyn 4.5 GM Premix 4.5 gm In 200 / 200 100 / 100 100 / 100 100 ml @ 200 mls/hr IV.SIG Q6H [facility] Rx#:[id number] Vancomycin Inj 1,250 MG In NS 262.5 / 262.5 Inj 250 ML @ 250 mls/hr IV.SIG Q24H [facility] Rx#:[id number] Oral 600 / 600 240 / 240 Output: Urine Amount (Catheter) 0 / 0 600 / 600 Female External 1900 / 1900 600 / 600 Other: Date of Last Bowel Movement 01/29/18 01/29/18 01/29/18 <Pricila Magallanes - 02/05/18 11:44> Narrative: GENERAL: Obese white female laying comfortably in bed on 3L NC, no acute distress. Patient able to speak full sentences without running out of breath. SKIN: Warm and dry. Dry, flaky. HEAD: Atraumatic. Normocephalic. EYES: No scleral icterus. No injection or drainage. ENT: No nasal bleeding or discharge. Unable to NECK: Trachea midline. No JVD. CARDIOVASCULAR: Heart sounds distant, possible 1/6 murmur. Regular rate and rhythm. RESPIRATORY: No accessory muscle use. Breath sounds equal bilaterally. Decreased are movement. No obvious wheezing or crackles on auscultation. GASTROINTESTINAL: Abdomen soft, tenderness of LUQ, mild distension. MUSCULOSKELETAL: Extremities without clubbing, cyanosis, or edema. No obvious splinter hemorrhage or petechiae. No obvious deformities. NEUROLOGICAL: Awake and alert. No obvious cranial nerve deficits. Motor grossly within normal limits. Normal speech. <Pricila Magallanes 02/05/18 11:44> - Urinary Catheter Management Female External Cath placed during this visit: no <Radha Hinojosa - 02/05/18 21:01> no <Pricila Magallanes 02/05/18 11:44> Reason for continuing: Not indwelling catheter <Pricila Magallanes 02/05/18 11: 44> Assessment and Plan - Assessment (1) Shortness of breath Code(s): R06.02 - Shortness of breath Status: Acute (2) COPD (chronic obstructive pulmonary disease) Code(s): J44.9 - Chronic obstructive pulmonary disease, unspecified Status: Chronic (3) Sepsis Code(s): A41.9 - Sepsis, unspecified organism Status: Acute (4) Healthcare-associated pneumonia Code(s): J18.9 - Pneumonia, unspecified organism Status: Acute (5) Hyperkalemia Code(s): E87.5 - Hyperkalemia Status: Resolved (6) Chest pain Code(s): R07.9 - Chest pain, unspecified Status: Acute (7) Fibromyalgia Code(s): M79.7 - Fibromyalgia Status: Chronic (8) Diabetes mellitus Code(s): E11.9 - Type 2 diabetes mellitus without complications Status: Chronic (9) Hypertension Code(s): I10 - Essential (primary) hypertension Status: Chronic (10) Coronary artery disease Code(s): I25.10 - Atherosclerotic heart disease of beaver coronary artery without angina pectoris Status: Chronic (11) Major depressive disorder Code(s): F32.9 - Major depressive disorder, single episode, unspecified Status : Chronic (12) Nutrition, metabolism, and development symptoms Code(s): R63.8 - Other symptoms and signs concerning food and fluid intake Status: Acute (13) DVT prophylaxis Status: Acute <Radha Hinojosa - 02/05/18 21:01> (1) Shortness of breath Code(s): R06.02 - Shortness of breath Status: Acute Plan: Patient seen for increased shortness of breath and increased oxygen requirement , despite oxygen saturations in mid-90s on 02/02. Patient placed on 10L mask and titrated down to 4L NC by puncher and fastener 02/03. ABG this morning showed pH 7.25, pCO2 81 and HCO3 34, due to hx of COPD patient likely has chronic CO2 retention , but with lack of compensation, this is most likely an acute exacerbation. CXR showed possible increased consolidation vs. pulmonary edema in left lower lobe. Currently on Vanco, Zosyn and Cipro for HAP. Patient also given 40mg PO Lasix. Patient placed on BiPAP due to continued shortness of breath and transferred to step down unit on 02/03. Today patient states that her breathing is much improved from admission. Patient comfortably on O2, 3L NC, which she is on at home. -Albuterol nebulizer treatments q4h -Day 2 dexamethasone 4mg q12h, due to patient's allergy to prednisone. Epi-pen PRN for anaphylaxis. -Zyrtec 10mg PO added for nasal congestion (2) COPD (chronic obstructive pulmonary disease) Code(s): J44.9 - Chronic obstructive pulmonary disease, unspecified Status: Chronic Plan: Patient states that she initially felt like she was having a COPD exacerbation. On examination patient was not short of breath and was resting comfortably, able to speak in full sentences. Patient states that her shortness of breath is much improved compared to admission. -Will continue DuoNeb's every 4 hours scheduled -Incentive spirometry and acapella ordered -Started patient on low dose of Dexamethasone 4mg PO q12h (3) Sepsis Code(s): A41.9 - Sepsis, unspecified organism Status: Acute Plan: Patient met sepsis criteria upon admission due to tachycardia and tachypnea. Source of infection was pneumonia. See plan below (4) Healthcare-associated pneumonia Code(s): J18.9 - Pneumonia, unspecified organism Status: Acute Plan: Patient was recently discharged and sent to rehab for pneumonia. CBC on admission shows no leukocytosis. Legionella urine antigen, Strep pneumoniae urine antigen and Influenza panel negative Chest CTA shows bilateral pleural effusions and pericardial effusion. Patchy areas of groundglass opacity identified within the right and left lower lobes as well as the lingula and right middle lobe which may reflect a multifocal infectious process. Currently covering patient for healthcare acquired pneumonia -Day 5 of Vancomycin 1500 mg IV every 12 hours, trough per pharmacy consult -Day 5 of Zosyn 4.5 g IV every 6 hours -Day 5 of Ciprofloxacin 400 mg IV every 8 hours -Lactobacillus 1 tab PO TID (5) Hyperkalemia Code(s): E87.5 - Hyperkalemia Status: Resolved Plan: Hyperkalemia noted on admission, now resolved. EKG showed mildly peaked T waves on admission. Currently resolved. -Patient receiving albuterol nebulizer treatments for COPD exacerbation and insulin for diabetes, which as a side effect decreased the serum potassium level. Will continue to monitor (6) Chest pain Code(s): R07.9 - Chest pain, unspecified Status: Acute Plan: Patient with squeezing pressure-like chest pain upon admission. Has a history of CAD with 2 stents placed. Troponin on admission was negative. EKG showed sinus tachycardia with peaked T waves reflecting hyperkalemia. ACS rule out with negative Troponin I and CKMB. EKG showed sinus tachycardia with peaked T waves reflecting hyperkalemia. CTA Chest showed no evidence of PE, but showed bilateral pleural effusions and pericardial effusion and Patchy areas of groundglass opacity identified within the right and left lower lobes as well as the lingula and right middle lobe. 1/6 murmur noted on cardiac exam yesterday. Patient also states that she has history of CHF. -Echocardiogram shows EF 50-55% with trace mitral regurg, but not change in size of the atria or ventricles, and no pericardial effusion -Troponin I x3 negative (7) Fibromyalgia Code(s): M79.7 - Fibromyalgia Status: Chronic Plan: Patient on several different pain medications at home for her fibromyalgia -Will continue Lyrica 300 mg p.o. twice daily -K thermia patch (8) Diabetes mellitus Code(s): E11.9 - Type 2 diabetes mellitus without complications Status: Chronic Plan: Will hold patient's oral medications -NovoLog low-dose sliding scale insulin -Hypoglycemia protocol -Bedside glucose monitoring (9) Hypertension Code(s): I10 - Essential (primary) hypertension Status: Chronic Plan: Continue at home lisinopril 10 mg p.o. daily (10) Coronary artery disease Code(s): I25.10 - Atherosclerotic heart disease of beaver coronary artery without angina pectoris Status: Chronic Plan: Continue at home clopidogrel 75 mg p.o. daily (11) Major depressive disorder Code(s): F32.9 - Major depressive disorder, single episode, unspecified Status : Chronic Plan: -Continue at home fluoxetine 40 mg p.o. daily -Continue bupropion 150 mg p.o. daily (12) Nutrition, metabolism, and development symptoms Code(s): R63.8 - Other symptoms and signs concerning food and fluid intake Status: Acute Plan: Fluids: tolerating PO Electrolytes: Hyperkalemia resovled, will continue to monitor and replete as needed. Nutrition: heart-healthy, diabetic diet GI Prophylaxis: Pantoprazole 40 mg p.o. twice daily. (13) DVT prophylaxis Status: Acute Plan: DVT Prophylaxis: Early ambulation. Lovenox 40mg subQ q24hr/bilateral SCDs <Pricila Magallanes - 02/05/18 11:19> - Assessment and Plan 62-year-old female with PMH of DM, HTN, CHF, COPD presenting with chest pain and shortness of breath. Patient arrived from [facility]. Admitted to our inpatient service for pneumonia. Plan for discharge tomorrow pending placement per . <Pricila Magallanes - 02/05/18 11:44> - Attending Attestation Patient seen and examined, and discussed with resident team this morning. I agree with assessment and management as documented and discussed with me. Pt reports breathing is much improved. She is amenable to going back to rehab tomorrow. <Radha Hinojosa - 02/05/18 21:01> <Elpidio,Pricila B - Last Filed: 02/05/18 11:19> (8) Diabetes mellitus Qualifiers: Diabetes mellitus type: type 2 <Radha Hinojosa - Last Filed: 02/05/18 21:01> (8) Diabetes mellitus Qualifiers: Diabetes mellitus type: type 2 <ElpidioPricila B - Last Filed: 02/05/18 11:19> (8) Diabetes mellitus Qualifiers: Diabetes mellitus type: type 2 <Yuliana Hinojosae - Last Filed: 02/05/18 21:01> (8) Diabetes mellitus Qualifiers: Diabetes mellitus type: type 2
[2018-02-05] MEDS: Vancomycin Inj 1,250 MG in Sodium Chlor 0.9% Inj 250 ML IV.SIG SCH (16:12)
[2018-02-06] MEDS: Melatonin 5 MG Tablet PO SCH ×2 (02:05→21:20)
[2018-02-06] MEDS: Insulin NovoLOG Aspart Correctional Sugar Inj SQ SCH ×5 (02:05→21:27)
[2018-02-06] MEDS: Piperacil/Tazo 4.5 GM Premix 4.5 GM/100 ML BAG IV.SIG SCH ×5 (02:06→21:18)
[2018-02-06] MEDS: Ciprofloxacin 400 MG/200 ML 400 MG/200 ML PIGGYBACK IV.SIG SCH ×4 (02:06→21:18)
[2018-02-06] MEDS ORDERED: Metoprolol Inj 5 MG/5 ML Vial IV.PUSH ONE (03:42)
[2018-02-06] MEDS ORDERED: hydrALAZINE HCl Inj 20 MG/ML Vial IV.PUSH PRN (04:16)
--- NOTE | 2018-02-06 04:19 | P.PNADD ---
Addendum to Inpatient Note Reason for Addendum: Additional Documentation Additional information: S: Medical team saturation diver paged by nursing staff for oxygen desaturation. Patient placed on BiPAP by respiratory therapy, however per report has been "fighting" to breathe throughout the night. Per report patient's blood pressure is now on the 200s systolics with tachycardia to the 120s while on the BiPAP machine. Medical team to assess patient. Upon arriving to the room patient appears to be in respiratory distress, however patient appears anxious writhing and gripping her bed in order to set up. She is asking for medications to "help her." She denies any new chest pain at this time but does endorse shortness of breath. O: Vitals: Afebrile per report, patient currently on BiPAP with oxygen saturation of 100%, sinus tachycardia on telemetry up to 122, blood pressure 212/111 GENERAL: Elderly female lying in bed appearing very anxious and discomfort from BiPAP machine. Patient does not appear lethargic, diaphoretic, or septic at this time. SKIN: Warm and dry. No rash. EYES: No scleral icterus. No injection or drainage. PERRLA. EOMI. HENT: Normocephalic. Atraumatic. MMM. NECK: No visible JVD or lymphadenopathy. CARDIOVASCULAR: Tachycardic rate with regular rhythm. No MGR appreciated. RESPIRATORY: Clear to auscultation bilaterally without any obvious CRW. Patient currently on BiPAP. Patient able to communicate through BiPAP and short sentences. GASTROINTESTINAL: Abdomen nondistended. MUSCULOSKELETAL: Patient moves all 4 extremities spontaneously against gravity. NEURO/PSYCH: Afocal. Awake, alert, and oriented x3. A/P: Ms. Baldwin is a 62-year-old female admitted for HCAP presenting with an episode of anxiety likely related to BiPAP. -Patient with elevated blood pressure, tachycardia, and shortness of breath likely due to episode of anxiety. Patient has had similar episodes this week when related to her BiPAP machine. -Discussed with respiratory therapy will attempt to wean BiPAP to make patient is tolerable as possible -Ativan 1 mg ordered to assist with anxiety -Lopressor 2.5 mg IV ordered to assist with tachycardia and hypertension -Standing order for hydralazine 10 mg IV push every 6 hours as needed for blood pressure greater than 180/110
[2018-02-06 05:22] LABS: Hematocrit 33.2 % (35.0-46.0); Hemoglobin 10.7 gm/dL (11.6-15.3); Mean Corpuscular HGB Conc 32.3 % (32.0-36.0); Mean Platelet Volume 8.6 fL (7.0-11.0); Platelet Count 172 th/mm3 (150-450); Red Blood Count 3.46 mil/mm3 (4.00-5.30); Red Cell Distribution Width 13.2 % (11.6-17.2); White Blood Count 6.6 th/mm3 (4.0-11.0)
[2018-02-06 05:34] LABS: Calcium 8.7 mg/dL (8.5-10.1); Carbon Dioxide 36.1 meq/L (21.0-32.0); Potassium 4.5 meq/L (3.5-5.1)
[2018-02-06] MEDS: Lactobacillus Acidophilus/L. Spores Tablet PO SCH ×3 (09:38→17:05)
[2018-02-06] MEDS: Enoxaparin Inj 40 MG/0.4 ML Syringe SQ SCH (09:38)
[2018-02-06] MEDS: Lisinopril 10 MG Tablet PO SCH (09:39)
[2018-02-06] MEDS: buPROPion 150 MG 12 HR Tablet PO SCH (09:39)
[2018-02-06] MEDS: FLUoxetine 20 MG Capsule PO SCH (09:39)
--- NOTE | 2018-02-06 12:15 | P.PNFP ---
Subjective Interval history: Patient seen and examined this morning. When asked about events overnight she states that she did not feel like she was getting an air from the BiPAP. She stated that the mask was fogging up and she felt like it was taking away air instead of giving it. This caused her much anxiety. It resolved after she received the Ativan. Otherwise, no fever/chills, no chest pain, no abdominal pain, she is urinating and stooling well. <Anneliese Marr - 02/06/18 16:37> Results - Labs Result diagrams: 02/06/18 04:13 02/06/18 04:13 <Radha Hinojosa - 02/06/18 20:31> Abnormal lab results 02/06/18 02/06/18 02/06/18 Range/Units 04:13 04:13 09:37 RBC 3.46 L (4.00-5.30) mil/mm3 Hgb 10.7 L (11.6-15.3) gm/dL Hct 33.2 L (35.0-46.0) % Carbon Dioxide 36.1 H (21.0-32.0) meq/L Anion Gap 3 L (5-15) meq/L BUN 19 H (7-18) mg/dL Creatinine 1.18 H (0.50-1.00) mg/dL Estimated GFR 46 L (>89) mL/min POC Glucose 124 H (68-110) mg/dl Random Glucose 201 H (74-106) mg/dL 02/06/18 02/06/18 Range/Units 11:31 16:31 RBC (4.00-5.30) mil/mm3 Hgb (11.6-15.3) gm/dL Hct (35.0-46.0) % Carbon Dioxide (21.0-32.0) meq/L Anion Gap (5-15) meq/L BUN (7-18) mg/dL Creatinine (0.50-1.00) mg/dL Estimated GFR (>89) mL/min POC Glucose 122 H 198 H (68-110) mg/dl Random Glucose (74-106) mg/dL Short CBC 02/06/18 Range/Units 04:13 WBC 6.6 D (4.0-11.0) th/mm3 Hgb 10.7 L (11.6-15.3) gm/dL Hct 33.2 L (35.0-46.0) % Plt Count 172 (150-450) th/mm3 [facility] 02/06/18 04:13 Sodium 140 Potassium 4.5 Chloride 101 Carbon Dioxide 36.1 H BUN 19 H Creatinine 1.18 H Calcium 8.7 <Radha Hinojosa - 02/06/18 20:31> Abnormal lab results 02/05/18 02/06/18 02/06/18 Range/Units 17:09 04:13 04:13 RBC 3.46 L (4.00-5.30) mil/mm3 Hgb 10.7 L (11.6-15.3) gm/dL Hct 33.2 L (35.0-46.0) % Carbon Dioxide 36.1 H (21.0-32.0) meq/L Anion Gap 3 L (5-15) meq/L BUN 19 H (7-18) mg/dL Creatinine 1.18 H (0.50-1.00) mg/dL Estimated GFR 46 L (>89) mL/min POC Glucose 188 H (68-110) mg/dl Random Glucose 201 H (74-106) mg/dL 02/06/18 02/06/18 Range/Units 09:37 11:31 RBC (4.00-5.30) mil/mm3 Hgb (11.6-15.3) gm/dL Hct (35.0-46.0) % Carbon Dioxide (21.0-32.0) meq/L Anion Gap (5-15) meq/L BUN (7-18) mg/dL Creatinine (0.50-1.00) mg/dL Estimated GFR (>89) mL/min POC Glucose 124 H 122 H (68-110) mg/dl Random Glucose (74-106) mg/dL Short CBC 02/06/18 Range/Units 04:13 WBC 6.6 D (4.0-11.0) th/mm3 Hgb 10.7 L (11.6-15.3) gm/dL Hct 33.2 L (35.0-46.0) % Plt Count 172 (150-450) th/mm3 [facility] 02/06/18 04:13 Sodium 140 Potassium 4.5 Chloride 101 Carbon Dioxide 36.1 H BUN 19 H Creatinine 1.18 H Calcium 8.7 <Anneliese Marr G - 02/06/18 12:15> Physical Exam Vital signs: Vital Signs 02/05/18 21:00 02/05/18 22:00 02/05/18 23:00 Temperature Pulse Rate 86 88 86 Respiratory Rate Blood Pressure Pulse Oximetry 02/06/18 00:00 02/06/18 00:25 02/06/18 01:00 Temperature 98.7 F Pulse Rate 90 88 Respiratory Rate 18 Blood Pressure 167/75 H Pulse Oximetry 96 93 L 02/06/18 01:19 02/06/18 02:00 02/06/18 02:01 Temperature Pulse Rate 88 Respiratory Rate 16 Blood Pressure Pulse Oximetry 96 02/06/18 03:00 02/06/18 03:23 02/06/18 04:00 Temperature 98.7 F Pulse Rate 96 H 118 H Respiratory Rate 18 Blood Pressure 164/70 H Pulse Oximetry 96 93 L 02/06/18 05:00 02/06/18 06:00 02/06/18 07:00 Temperature 98.5 F Pulse Rate 104 H 80 80 Respiratory Rate 20 Blood Pressure 152/91 H Pulse Oximetry 92 L 02/06/18 07:45 02/06/18 07:48 02/06/18 08:00 Temperature Pulse Rate 78 Respiratory Rate Blood Pressure Pulse Oximetry 100 92 L 91 L 02/06/18 09:00 02/06/18 10:00 02/06/18 11:00 Temperature 98.2 F Pulse Rate 78 78 88 Respiratory Rate 18 Blood Pressure 140/64 Pulse Oximetry 99 02/06/18 12:00 02/06/18 13:00 02/06/18 13:56 Temperature Pulse Rate 92 H 87 85 Respiratory Rate Blood Pressure Pulse Oximetry 02/06/18 14:22 02/06/18 15:00 02/06/18 16:00 Temperature 97.8 F Pulse Rate 83 82 77 Respiratory Rate 16 18 Blood Pressure 126/61 Pulse Oximetry 98 94 L 02/06/18 16:01 02/06/18 16:05 02/06/18 17:00 Temperature Pulse Rate 75 75 Respiratory Rate 16 Blood Pressure Pulse Oximetry 94 L 02/06/18 17:26 02/06/18 19:00 02/06/18 20:07 Temperature Pulse Rate 72 83 83 Respiratory Rate 18 Blood Pressure Pulse Oximetry 98 Intake & Output 02/06/18 02/06/18 02/07/18 06:59 18:59 06:59 Intake Total 902.5 / 902.5 1442.5 / 1442.5 Output Total 900 / 900 500 / 500 Balance 2.5 / 2.5 942.5 / 942.5 Weight 110 kg Intake: IV 662.5 / 662.5 962.5 / 962.5 Cipro 400 MG/200 ML Inj 400 mg 200 / 200 400 / 400 In 200 ml @ 200 mls/hr IV.SIG Q8H [facility] Rx#:[id number] Zosyn 4.5 GM Premix 4.5 gm In 200 / 200 300 / 300 100 ml @ 200 mls/hr IV.SIG Q6H [facility] Rx#:[id number] Vancomycin Inj 1,250 MG In NS 262.5 / 262.5 262.5 / 262.5 Inj 250 ML @ 250 mls/hr IV.SIG Q24H [facility] Rx#:[id number] Oral 240 / 240 480 / 480 Output: Urine 900 / 900 500 / 500 Other: Date of Last Bowel Movement 01/29/18 02/06/18 # Bowel Movements 1 <Radha Hinojosa - 02/06/18 20:31> Vital Signs 02/05/18 13:00 02/05/18 13:10 02/05/18 14:00 Temperature Pulse Rate 97 H 94 H 92 H Respiratory Rate 20 Blood Pressure Pulse Oximetry 91 L 02/05/18 15:00 02/05/18 15:57 02/05/18 16:00 Temperature 98.7 F Pulse Rate 100 H 92 H 98 H Respiratory Rate 20 17 Blood Pressure 156/66 H Pulse Oximetry 95 95 02/05/18 17:00 02/05/18 18:00 02/05/18 19:00 Temperature Pulse Rate 92 H 114 H 90 Respiratory Rate Blood Pressure Pulse Oximetry 02/05/18 19:38 02/05/18 20:00 02/05/18 21:00 Temperature 98.7 F Pulse Rate 96 H 86 Respiratory Rate 18 Blood Pressure 148/67 H Pulse Oximetry 97 97 02/05/18 22:00 02/05/18 23:00 02/06/18 00:00 Temperature 98.7 F Pulse Rate 88 86 90 Respiratory Rate 18 Blood Pressure 167/75 H Pulse Oximetry 96 02/06/18 00:25 02/06/18 01:00 02/06/18 01:19 Temperature Pulse Rate 88 Respiratory Rate Blood Pressure Pulse Oximetry 93 L 96 02/06/18 02:00 02/06/18 02:01 02/06/18 03:00 Temperature Pulse Rate 88 96 H Respiratory Rate 16 Blood Pressure Pulse Oximetry 02/06/18 03:23 02/06/18 04:00 02/06/18 05:00 Temperature 98.7 F Pulse Rate 118 H 104 H Respiratory Rate 18 Blood Pressure 164/70 H Pulse Oximetry 96 93 L 02/06/18 06:00 02/06/18 07:00 02/06/18 07:45 Temperature 98.5 F Pulse Rate 80 80 Respiratory Rate 20 Blood Pressure 152/91 H Pulse Oximetry 92 L 100 02/06/18 07:48 02/06/18 08:00 02/06/18 09:00 Temperature Pulse Rate 78 78 Respiratory Rate Blood Pressure Pulse Oximetry 92 L 91 L 02/06/18 10:00 Temperature Pulse Rate 78 Respiratory Rate Blood Pressure Pulse Oximetry Intake & Output 02/05/18 02/06/18 02/06/18 18:59 06:59 18:59 Intake Total 1220 / 1220 902.5 / 902.5 400 / 400 Output Total 700 / 700 900 / 900 Balance 520 / 520 2.5 / 2.5 400 / 400 Weight 110 kg Intake: IV 600 / 600 662.5 / 662.5 400 / 400 Cipro 400 MG/200 ML Inj 400 mg 400 / 400 200 / 200 200 / 200 In 200 ml @ 200 mls/hr IV.SIG Q8H [facility] Rx#:[id number] Zosyn 4.5 GM Premix 4.5 gm In 200 / 200 200 / 200 200 / 200 100 ml @ 200 mls/hr IV.SIG Q6H [facility] Rx#:[id number] Vancomycin Inj 1,250 MG In NS 262.5 / 262.5 Inj 250 ML @ 250 mls/hr IV.SIG Q24H [facility] Rx#:[id number] Oral 620 / 620 240 / 240 Output: Urine 700 / 700 900 / 900 Other: Date of Last Bowel Movement 01/29/18 01/29/18 # Bowel Movements 0 <Tejinder,Anneliese G - 02/06/18 12:15> Narrative: GENERAL: Obese white female sitting in chair on 3L NC, no acute distress. SKIN: Warm and dry. Dry, flaky. HEAD: Atraumatic. Normocephalic. EYES: No scleral icterus. No injection or drainage. ENT: No nasal bleeding or discharge. Unable to NECK: Trachea midline. No JVD. CARDIOVASCULAR: Heart sounds distant, no murmurs detected. Regular rate and rhythm. RESPIRATORY: No accessory muscle use. Breath sounds equal bilaterally. Decreased air movement. No obvious wheezing or crackles on auscultation. GASTROINTESTINAL: Abdomen soft, nontender, mild distension. MUSCULOSKELETAL: Extremities without clubbing, cyanosis, or edema. No obvious splinter hemorrhage or petechiae. No obvious deformities. NEUROLOGICAL: Awake and alert. No obvious cranial nerve deficits. Motor grossly within normal limits. Normal speech. <Anneliese Marr - 02/06/18 16:37> - Urinary Catheter Management Female External Cath placed during this visit: no <Radha Hinojosa - 02/06/18 20:31> no <Anneliese Marr - 02/06/18 16:37> Reason for continuing: Not indwelling catheter <Anneliese Marr - 02/06/18 12:15> Assessment and Plan - Assessment (1) Shortness of breath Code(s): R06.02 - Shortness of breath Status: Acute (2) COPD (chronic obstructive pulmonary disease) Code(s): J44.9 - Chronic obstructive pulmonary disease, unspecified Status: Chronic (3) Sepsis Code(s): A41.9 - Sepsis, unspecified organism Status: Acute (4) Healthcare-associated pneumonia Code(s): J18.9 - Pneumonia, unspecified organism Status: Acute (5) Hyperkalemia Code(s): E87.5 - Hyperkalemia Status: Resolved (6) Chest pain Code(s): R07.9 - Chest pain, unspecified Status: Acute (7) Fibromyalgia Code(s): M79.7 - Fibromyalgia Status: Chronic (8) Diabetes mellitus Code(s): E11.9 - Type 2 diabetes mellitus without complications Status: Chronic (9) Hypertension Code(s): I10 - Essential (primary) hypertension Status: Chronic (10) Coronary artery disease Code(s): I25.10 - Atherosclerotic heart disease of [place] coronary artery without angina pectoris Status: Chronic (11) Major depressive disorder Code(s): F32.9 - Major depressive disorder, single episode, unspecified Status : Chronic (12) Nutrition, metabolism, and development symptoms Code(s): R63.8 - Other symptoms and signs concerning food and fluid intake Status: Acute (13) DVT prophylaxis Status: Acute <Radha Hinojosa - 02/06/18 20:31> (1) Shortness of breath Code(s): R06.02 - Shortness of breath Status: Acute Plan: Patient seen for increased shortness of breath and increased oxygen requirement , despite oxygen saturations in mid-90s on 02/02. Patient placed on 10L mask and titrated down to 4L NC by event av operator 02/03. ABG this morning showed pH 7.25, pCO2 81 and HCO3 34, due to hx of COPD patient likely has chronic CO2 retention , but with lack of compensation, this is most likely an acute exacerbation. CXR showed possible increased consolidation vs. pulmonary edema in left lower lobe. Currently on Vanco, Zosyn and Cipro for HAP. Patient also given 40mg PO Lasix. Patient placed on BiPAP due to continued shortness of breath and transferred to step down unit on 02/03. Experienced shortness of breath and anxiety overnight. Symptoms resolved after Ativan was given. -Albuterol nebulizer treatments q4h -Dexamethasone 4mg q12h (02/04- ), due to patient's allergy to prednisone. Epi- pen PRN for anaphylaxis. -Zyrtec 10mg PO added for nasal congestion -DC BiPAP -Restoril as needed at bedtime -Ativan PRN for anxiety (2) COPD (chronic obstructive pulmonary disease) Code(s): J44.9 - Chronic obstructive pulmonary disease, unspecified Status: Chronic Plan: Patient states that she initially felt like she was having a COPD exacerbation. On admission patient was not short of breath and was resting comfortably, able to speak in full sentences. . -Will continue DuoNeb's every 4 hours scheduled -Incentive spirometry and acapella ordered -Started patient on low dose of Dexamethasone 4mg PO q12h as above (3) Sepsis Code(s): A41.9 - Sepsis, unspecified organism Status: Acute Plan: Patient met sepsis criteria upon admission due to tachycardia and tachypnea. Source of infection was pneumonia. See plan below (4) Healthcare-associated pneumonia Code(s): J18.9 - Pneumonia, unspecified organism Status: Acute Plan: Patient was recently discharged and sent to rehab for pneumonia. CBC on admission shows no leukocytosis. Legionella urine antigen, Strep pneumoniae urine antigen and Influenza panel negative Chest CTA shows bilateral pleural effusions and pericardial effusion. Patchy areas of groundglass opacity identified within the right and left lower lobes as well as the lingula and right middle lobe which may reflect a multifocal infectious process. Currently covering patient for healthcare acquired pneumonia -Vancomycin 1500 mg IV every 12 hours, trough per pharmacy consult (02/01- ) -Zosyn 4.5 g IV every 6 hours (02/01- ) -Ciprofloxacin 400 mg IV every 8 hours (02/01- ) -Lactobacillus 1 tab PO TID (5) Hyperkalemia Code(s): E87.5 - Hyperkalemia Status: Resolved Plan: Hyperkalemia noted on admission, now resolved. EKG showed mildly peaked T waves on admission. Currently resolved. -Patient receiving albuterol nebulizer treatments for COPD exacerbation and insulin for diabetes, which as a side effect decreased the serum potassium level. Will continue to monitor (6) Chest pain Code(s): R07.9 - Chest pain, unspecified Status: Acute Plan: Patient with squeezing pressure-like chest pain upon admission. Has a history of CAD with 2 stents placed. Troponin on admission was negative. EKG showed sinus tachycardia with peaked T waves reflecting hyperkalemia. ACS rule out with negative Troponin I and CKMB. EKG showed sinus tachycardia with peaked T waves reflecting hyperkalemia. CTA Chest showed no evidence of PE, but showed bilateral pleural effusions and pericardial effusion and Patchy areas of groundglass opacity identified within the right and left lower lobes as well as the lingula and right middle lobe. 1/6 murmur noted on cardiac exam yesterday. Patient also states that she has history of CHF. -Echocardiogram shows EF 50-55% with trace mitral regurg, but not change in size of the atria or ventricles, and no pericardial effusion -Troponin I x3 negative (7) Fibromyalgia Code(s): M79.7 - Fibromyalgia Status: Chronic Plan: Patient on several different pain medications at home for her fibromyalgia -Will continue Lyrica 300 mg p.o. twice daily -K thermia patch (8) Diabetes mellitus Code(s): E11.9 - Type 2 diabetes mellitus without complications Status: Chronic Plan: Will hold patient's oral medications -NovoLog low-dose sliding scale insulin -Hypoglycemia protocol -Bedside glucose monitoring (9) Hypertension Code(s): I10 - Essential (primary) hypertension Status: Chronic Plan: Continue at home lisinopril 10 mg p.o. daily (10) Coronary artery disease Code(s): I25.10 - Atherosclerotic heart disease of [place] coronary artery without angina pectoris Status: Chronic Plan: Continue at home clopidogrel 75 mg p.o. daily (11) Major depressive disorder Code(s): F32.9 - Major depressive disorder, single episode, unspecified Status : Chronic Plan: -Continue at home fluoxetine 40 mg p.o. daily -Continue bupropion 150 mg p.o. daily (12) Nutrition, metabolism, and development symptoms Code(s): R63.8 - Other symptoms and signs concerning food and fluid intake Status: Acute Plan: Fluids: tolerating PO Electrolytes: Hyperkalemia resovled, will continue to monitor and replete as needed. Nutrition: heart-healthy, diabetic diet GI Prophylaxis: Pantoprazole 40 mg p.o. twice daily. (13) DVT prophylaxis Status: Acute Plan: DVT Prophylaxis: Early ambulation. Lovenox 40mg subQ q24hr/bilateral SCDs <Anneliese Marr - 02/06/18 16:21> - Assessment and Plan 62-year-old female with PMH of DM, HTN, CHF, COPD presenting with chest pain and shortness of breath. Patient arrived from [facility]. Admitted to our inpatient service for pneumonia. Plan for discharge tomorrow pending placement per CM. <Anneliese Marr - 02/06/18 12:15> Discussed Condition With: Dr. Hinojosa <Anneliese Marr - 02/06/18 16:37> Discharge Planning: Case management consulted. Likely discharge back to rehab. <Anneliese Marr - 02/06/18 12:15> - Attending Attestation Patient seen and examined, discussed with resident team. I agree with assessment and management as documented and discussed with me. Anticipate discharge to SNF tomorrow, if pt is stable overnight. <Radha Hinojosa - 02/06/18 20:31> <Silviano Marrin G - Last Filed: 02/06/18 16:21> (8) Diabetes mellitus Qualifiers: Diabetes mellitus type: type 2 <Radha Hinojosa - Last Filed: 02/06/18 20:31> (8) Diabetes mellitus Qualifiers: Diabetes mellitus type: type 2 <Anneliese Marr G - Last Filed: 02/06/18 16:21> (8) Diabetes mellitus Qualifiers: Diabetes mellitus type: type 2 <Radha Hinojosa - Crow Filed: 02/06/18 20:31> (8) Diabetes mellitus Qualifiers: Diabetes mellitus type: type 2
[2018-02-06] MEDS ORDERED: Pharmacy Ordered Lab Info OTHER ONE (15:45)
[2018-02-06] MEDS: Vancomycin Inj 1,250 MG in Sodium Chlor 0.9% Inj 250 ML IV.SIG SCH (16:21)
[2018-02-06] MEDS ORDERED: Temazepam 15 MG Capsule PO PRN (21:00)
[2018-02-07] MEDS: LORazepam 1 MG Tablet PO PRN ×2 (00:46→11:06)
[2018-02-07] MEDS: Piperacil/Tazo 4.5 GM Premix 4.5 GM/100 ML BAG IV.SIG SCH (04:32)
[2018-02-07] MEDS: Ciprofloxacin 400 MG/200 ML 400 MG/200 ML PIGGYBACK IV.SIG SCH (07:23)
--- NOTE | 2018-02-07 09:09 | P.PNFP ---
Subjective Interval history: Patient seen and examined this morning. She states that she is doing well. She rested well last night. No chest pain, no shortness of breath currently, no abdominal pain, no fevers or chills, urinating and stooling well. <Anneliese Marr - 02/07/18 09:09> Results - Labs Result diagrams: 02/06/18 04:13 02/07/18 04:15 <Radha Hinojosa - 02/07/18 20:51> Abnormal lab results 02/06/18 02/07/18 02/07/18 Range/Units 21:26 04:15 08:12 Creatinine 1.24 H (0.50-1.00) mg/dL Estimated GFR 44 L (>89) mL/min POC Glucose 174 H 129 H (68-110) mg/dl [facility] 02/07/18 04:15 Creatinine 1.24 H <Radha Hinojosa - 02/07/18 20:51> Abnormal lab results 02/06/18 02/06/18 02/06/18 Range/Units 09:37 11:31 16:31 Creatinine (0.50-1.00) mg/dL Estimated GFR (>89) mL/min POC Glucose 124 H 122 H 198 H (68-110) mg/dl 02/06/18 02/07/18 02/07/18 Range/Units 21:26 04:15 08:12 Creatinine 1.24 H (0.50-1.00) mg/dL Estimated GFR 44 L (>89) mL/min POC Glucose 174 H 129 H (68-110) mg/dl [facility] 02/07/18 04:15 Creatinine 1.24 H <Anneliese Marr - 02/07/18 09:09> Physical Exam Vital signs: Vital Signs 02/06/18 21:00 02/06/18 22:00 02/06/18 23:00 Temperature Pulse Rate 72 78 78 Respiratory Rate 16 16 Blood Pressure Pulse Oximetry 96 02/07/18 00:00 02/07/18 00:05 02/07/18 00:08 Temperature 98.2 F Pulse Rate 86 78 79 Respiratory Rate 16 16 Blood Pressure 133/60 Pulse Oximetry 100 02/07/18 01:00 02/07/18 02:00 02/07/18 03:00 Temperature 97.1 F L Pulse Rate 76 76 82 Respiratory Rate 16 Blood Pressure 135/63 Pulse Oximetry 98 02/07/18 03:51 02/07/18 04:00 02/07/18 05:00 Temperature Pulse Rate 78 78 78 Respiratory Rate 14 Blood Pressure Pulse Oximetry 02/07/18 07:00 02/07/18 08:00 02/07/18 09:20 Temperature 98.1 F Pulse Rate 85 73 88 Respiratory Rate 16 20 Blood Pressure Pulse Oximetry 97 92 L 02/07/18 11:00 02/07/18 12:00 02/07/18 13:00 Temperature 98.6 F Pulse Rate 89 89 89 Respiratory Rate 16 Blood Pressure 120/55 L Pulse Oximetry 99 02/07/18 14:00 02/07/18 15:00 02/07/18 15:04 Temperature 98.5 F Pulse Rate 88 89 92 H Respiratory Rate 16 20 Blood Pressure 120/65 Pulse Oximetry 99 Intake & Output 02/07/18 02/07/18 02/08/18 06:59 18:59 06:59 Intake Total 300 / 300 Balance 300 / 300 Weight 111 kg Intake: IV 300 / 300 Cipro 400 MG/200 ML Inj 400 mg 200 / 200 In 200 ml @ 200 mls/hr IV.SIG Q8H [facility] Rx#:[id number] Zosyn 4.5 GM Premix 4.5 gm In 100 / 100 100 ml @ 200 mls/hr IV.SIG Q6H [facility] Rx#:[id number] Other: Date of Last Bowel Movement 02/06/18 02/06/18 <MicaelaRadha - 02/07/18 20:51> Vital Signs 02/06/18 09:00 02/06/18 10:00 02/06/18 11:00 Temperature 98.2 F Pulse Rate 78 78 88 Respiratory Rate 18 Blood Pressure 140/64 Pulse Oximetry 99 02/06/18 12:00 02/06/18 13:00 02/06/18 13:56 Temperature Pulse Rate 92 H 87 85 Respiratory Rate Blood Pressure Pulse Oximetry 02/06/18 14:22 02/06/18 15:00 02/06/18 16:00 Temperature 97.8 F Pulse Rate 83 82 77 Respiratory Rate 16 18 Blood Pressure 126/61 Pulse Oximetry 98 94 L 02/06/18 16:01 02/06/18 16:05 02/06/18 17:00 Temperature Pulse Rate 75 75 Respiratory Rate 16 Blood Pressure Pulse Oximetry 94 L 02/06/18 17:26 02/06/18 19:00 02/06/18 20:00 Temperature 98.2 F Pulse Rate 72 83 76 Respiratory Rate 16 Blood Pressure 147/67 H Pulse Oximetry 98 96 02/06/18 20:07 02/06/18 21:00 02/06/18 22:00 Temperature Pulse Rate 83 72 78 Respiratory Rate 18 16 Blood Pressure Pulse Oximetry 02/06/18 23:00 02/07/18 00:00 02/07/18 00:05 Temperature Pulse Rate 78 86 78 Respiratory Rate 16 16 Blood Pressure Pulse Oximetry 96 02/07/18 00:08 02/07/18 01:00 02/07/18 02:00 Temperature 98.2 F Pulse Rate 79 76 76 Respiratory Rate 16 Blood Pressure 133/60 Pulse Oximetry 100 02/07/18 03:00 02/07/18 03:51 02/07/18 04:00 Temperature 97.1 F L Pulse Rate 82 78 78 Respiratory Rate 16 14 Blood Pressure 135/63 Pulse Oximetry 98 02/07/18 05:00 Temperature Pulse Rate 78 Respiratory Rate Blood Pressure Pulse Oximetry Intake & Output 02/06/18 02/07/18 02/07/18 18:59 06:59 18:59 Intake Total 1442.5 / 1442.5 300 / 300 Output Total 500 / 500 Balance 942.5 / 942.5 300 / 300 Weight 111 kg Intake: IV 962.5 / 962.5 300 / 300 Cipro 400 MG/200 ML Inj 400 mg 400 / 400 200 / 200 In 200 ml @ 200 mls/hr IV.SIG Q8H [facility] Rx#:[id number] Zosyn 4.5 GM Premix 4.5 gm In 300 / 300 100 / 100 100 ml @ 200 mls/hr IV.SIG Q6H [facility] Rx#:[id number] Vancomycin Inj 1,250 MG In NS 262.5 / 262.5 Inj 250 ML @ 250 mls/hr IV.SIG Q24H [facility] Rx#:[id number] Oral 480 / 480 Output: Urine 500 / 500 Other: Date of Last Bowel Movement 02/06/18 02/06/18 # Bowel Movements 1 <Tejinder,Anneliese G - 02/07/18 09:09> Narrative: GENERAL: Obese white female laying in bed on 2L NC, no acute distress. SKIN: Warm and dry. Dry, flaky. HEAD: Atraumatic. Normocephalic. EYES: No scleral icterus. No injection or drainage. ENT: No nasal bleeding or discharge. NECK: Trachea midline. No JVD. CARDIOVASCULAR: Heart sounds distant, no murmurs detected. Regular rate and rhythm. RESPIRATORY: No accessory muscle use. Breath sounds equal bilaterally. Improved air movement. No obvious wheezing or crackles on auscultation. GASTROINTESTINAL: Abdomen soft, nontender, mild distension. MUSCULOSKELETAL: Extremities without clubbing, cyanosis, or edema. No obvious deformities. NEUROLOGICAL: Awake and alert. No obvious cranial nerve deficits. Motor grossly within normal limits. Normal speech. <Anneliese Marr - 02/07/18 09:09> - Urinary Catheter Management Female External Cath placed during this visit: no <Yuliana Hinojosae - 02/07/18 20:51> no <Anneliese Marr - 02/07/18 13:31> Reason for continuing: Not indwelling catheter <TejinderAnneliese G - 02/07/18 09:09> Assessment and Plan - Assessment (1) Shortness of breath Code(s): R06.02 - Shortness of breath Status: Acute (2) COPD (chronic obstructive pulmonary disease) Code(s): J44.9 - Chronic obstructive pulmonary disease, unspecified Status: Chronic (3) Sepsis Code(s): A41.9 - Sepsis, unspecified organism Status: Resolved (4) Healthcare-associated pneumonia Code(s): J18.9 - Pneumonia, unspecified organism Status: Acute (5) Chest pain Code(s): R07.9 - Chest pain, unspecified Status: Acute (6) Fibromyalgia Code(s): M79.7 - Fibromyalgia Status: Chronic (7) Diabetes mellitus Code(s): E11.9 - Type 2 diabetes mellitus without complications Status: Chronic (8) Hypertension Code(s): I10 - Essential (primary) hypertension Status: Chronic (9) Coronary artery disease Code(s): I25.10 - Atherosclerotic heart disease of [place] coronary artery without angina pectoris Status: Chronic (10) Major depressive disorder Code(s): F32.9 - Major depressive disorder, single episode, unspecified Status : Chronic (11) Nutrition, metabolism, and development symptoms Code(s): R63.8 - Other symptoms and signs concerning food and fluid intake Status: Acute (12) DVT prophylaxis Status: Acute <Radha Hinojosa - 02/07/18 20:51> (1) Shortness of breath Code(s): R06.02 - Shortness of breath Status: Acute Plan: Patient seen for increased shortness of breath and increased oxygen requirement , despite oxygen saturations in mid-90s on 02/02. Patient placed on 10L mask and titrated down to 4L NC by track layer 02/03. ABG this morning showed pH 7.25, pCO2 81 and HCO3 34, due to hx of COPD patient likely has chronic CO2 retention , but with lack of compensation, this is most likely an acute exacerbation. CXR showed possible increased consolidation vs. pulmonary edema in left lower lobe. Currently on Vanco, Zosyn and Cipro for HAP. Patient also given 40mg PO Lasix. Patient placed on BiPAP due to continued shortness of breath and transferred to step down unit on 02/03. Experienced shortness of breath and anxiety overnight. Symptoms resolved after Ativan was given. 02/07 Patient is stable this morning. Breathing and satting well on 2 L NC. -Albuterol nebulizer treatments q4h -Dexamethasone 4mg q12h (02/04-02/06), due to patient's allergy to prednisone. Epi -pen PRN for anaphylaxis. -Zyrtec 10mg PO added for nasal congestion -DC BiPAP -Restoril as needed at bedtime -Ativan PRN for anxiety (2) COPD (chronic obstructive pulmonary disease) Code(s): J44.9 - Chronic obstructive pulmonary disease, unspecified Status: Chronic Plan: Patient states that she initially felt like she was having a COPD exacerbation. On admission patient was not short of breath and was resting comfortably, able to speak in full sentences. . -Will continue DuoNeb's every 4 hours scheduled -Incentive spirometry and acapella ordered -Started patient on low dose of Dexamethasone 4mg PO q12h as above (3) Sepsis Code(s): A41.9 - Sepsis, unspecified organism Status: Resolved Plan: Patient met sepsis criteria upon admission due to tachycardia and tachypnea. Source of infection was pneumonia. See plan below (4) Healthcare-associated pneumonia Code(s): J18.9 - Pneumonia, unspecified organism Status: Acute Plan: Patient was recently discharged and sent to rehab for pneumonia. CBC on admission shows no leukocytosis. Legionella urine antigen, Strep pneumoniae urine antigen and Influenza panel negative Chest CTA shows bilateral pleural effusions and pericardial effusion. Patchy areas of groundglass opacity identified within the right and left lower lobes as well as the lingula and right middle lobe which may reflect a multifocal infectious process. Currently covering patient for healthcare acquired pneumonia, will transition patient to p.o. medications today to prepare for discharge -DC on Clindamycin 600mg po TID and Ciprofloxacin 750mg po q12h -Vancomycin 1500 mg IV every 12 hours, trough per pharmacy consult (02/01-02/06) -Zosyn 4.5 g IV every 6 hours (02/01-02/07) -Ciprofloxacin 400 mg IV every 8 hours (02/01-02/07 ) -Lactobacillus 1 tab PO TID (5) Chest pain Code(s): R07.9 - Chest pain, unspecified Status: Acute Plan: Patient with squeezing pressure-like chest pain upon admission. Has a history of CAD with 2 stents placed. Troponin on admission was negative. EKG showed sinus tachycardia with peaked T waves reflecting hyperkalemia. ACS rule out with negative Troponin I and CKMB. EKG showed sinus tachycardia with peaked T waves reflecting hyperkalemia. CTA Chest showed no evidence of PE, but showed bilateral pleural effusions and pericardial effusion and Patchy areas of groundglass opacity identified within the right and left lower lobes as well as the lingula and right middle lobe. 1/6 murmur noted on cardiac exam yesterday. Patient also states that she has history of CHF. -Echocardiogram shows EF 50-55% with trace mitral regurg, but not change in size of the atria or ventricles, and no pericardial effusion -Troponin I x3 negative (6) Fibromyalgia Code(s): M79.7 - Fibromyalgia Status: Chronic Plan: Patient on several different pain medications at home for her fibromyalgia -Will continue Lyrica 300 mg p.o. twice daily -K thermia patch (7) Diabetes mellitus Code(s): E11.9 - Type 2 diabetes mellitus without complications Status: Chronic Plan: Will hold patient's oral medications -NovoLog low-dose sliding scale insulin -Hypoglycemia protocol -Bedside glucose monitoring (8) Hypertension Code(s): I10 - Essential (primary) hypertension Status: Chronic Plan: Continue at home lisinopril 10 mg p.o. daily (9) Coronary artery disease Code(s): I25.10 - Atherosclerotic heart disease of [place] coronary artery without angina pectoris Status: Chronic Plan: Continue at home clopidogrel 75 mg p.o. daily (10) Major depressive disorder Code(s): F32.9 - Major depressive disorder, single episode, unspecified Status : Chronic Plan: -Continue at home fluoxetine 40 mg p.o. daily -Continue bupropion 150 mg p.o. daily (11) Nutrition, metabolism, and development symptoms Code(s): R63.8 - Other symptoms and signs concerning food and fluid intake Status: Acute Plan: Fluids: tolerating PO Electrolytes: monitor and replete as needed. Nutrition: heart-healthy, diabetic diet GI Prophylaxis: Pantoprazole 40 mg p.o. twice daily. (12) DVT prophylaxis Status: Acute Plan: DVT Prophylaxis: Early ambulation. Lovenox 40mg subQ q24hr/bilateral SCDs <Anneliese Marr - 02/07/18 13:25> - Assessment and Plan 62-year-old female with PMH of DM, HTN, CHF, COPD presenting with chest pain and shortness of breath. Patient arrived from [facility]. Admitted to our inpatient service for pneumonia. Plan for discharge today. <Anneliese Marr - 02/07/18 09:09> Discussed Condition With: Dr. Hinojosa <Anneliese Marr - 02/07/18 09:09> Discharge Planning: Case management consulted. Likely discharge back to rehab today. <Anneliese Marr - 02/07/18 13:31> - Attending Attestation Patient seen, examined, and discussed this morning with Dr. Marr. I agree with assessment and management as documented and discussed with me. Pt reports her breathing is improved. She is maintaining sats (and maintained sats overnight) on 2lpm by nasal cannula. DIscharge to SNF today. <Radha Hinojosa - 02/07/18 20:51> <Anneliese Marr G - Last Filed: 02/07/18 13:25> (7) Diabetes mellitus Qualifiers: Diabetes mellitus type: type 2 <MicaelaRadha - Last Filed: 02/07/18 20:51> (7) Diabetes mellitus Qualifiers: Diabetes mellitus type: type 2 <Anneliese Marr Rosa - Last Filed: 02/07/18 13:25> (7) Diabetes mellitus Qualifiers: Diabetes mellitus type: type 2 <MicaelaRadha - Last Filed: 02/07/18 20:51> (7) Diabetes mellitus Qualifiers: Diabetes mellitus type: type 2
[2018-02-07] MEDS: Lactobacillus Acidophilus/L. Spores Tablet PO SCH ×2 (09:10→12:37)
[2018-02-07] MEDS: buPROPion 150 MG 12 HR Tablet PO SCH (09:10)
[2018-02-07] MEDS: FLUoxetine 20 MG Capsule PO SCH (09:10)
[2018-02-07] MEDS: Lisinopril 10 MG Tablet PO SCH (09:11)
[2018-02-07] MEDS: Enoxaparin Inj 40 MG/0.4 ML Syringe SQ SCH (09:11)
[2018-02-07 12:11] VITALS: O2SAT 99
[2018-02-07] MEDS: Insulin NovoLOG Aspart Correctional Sugar Inj SQ SCH (12:22)
[2018-02-07 15:04] VITALS: PULSE 92; RESP 20
[2018-02-07] MEDS ORDERED: Pharmacy Ordered Lab Info OTHER ONE (15:45)
[2018-02-07 16:12] VITALS: BP 120/65; TEMP 98.5
--- NOTE | 2018-02-09 10:38 | P.DS ---
Date of admission: 02/01/18 10:41 Primary care physician: UNKNOWN Brief History from admission: Ms. Baldwin is a 62-year-old white female with a past medical history of diabetes mellitus, hypertension, CHF, COPD presenting to the ED due to chest pain or shortness of breath over the past week. She was recently hospitalized in December and discharged to rehab for pneumonia, CHF, and COPD exacerbation. She states that while she was at rehab she has been short of breath, but has gotten worse the past few days. She is normally on 3 L nasal cannula but she could not catch her breath. She states that she could not breathe to talk. The rehab conducted a CXR on Saturday,a week ago, but it was normal. She started to cough on Saturday and described it as dry and nonproductive. She states that she could hear crackles/wheezes when she would cough, but nothing will come up. She describes her chest pain as a 8/10 heaviness, feeling like "a bunch of arms or squeezing around her," and 20 elephants are sitting on her. Her left chest feels like someone hit her there with a baseball, radiates to her left jaw and arm. She does have a history of 2 stents being placed but she states that this does not feel the same as her previous MIs. This pain feels better when she uses her inhaler, but is temporary. Worse with sitting up (makes her feel like she is squished). She also says that a week ago she was having migraines really bad with photophobia. She states that the headache was so bad that she was flailing about which caused her to "wrench" her neck. She describes her neck pain is going down the left side and down to her left arm. It is better with lifting her left shoulder and bending her neck to the right. PMH: fibromyalgia DM neuropathy HTN CAD CHF GERD MDD Gastritis COPD Raynaud's phenomenon Sjogren's syndrome PSH: 2 stents Cardiac cathx5 CS tubal ligation hemorrhoid removal pilondial cyst removal on tailbone FH: HTN and DM in mother and father mother- lung cancer father, siblings- raynauds, heart dz sister- heart dz SH: lives in [place] with son and daughter in law in a house Disability- for lungs and heart alcohol- occasional, 1x/week, beer tobacco- quit 12 yrs ago, smoked for 40 yrs Illicit- none DS: Diagnosis - Discharge Diagnosis (1) Shortness of breath Status: Acute (2) COPD (chronic obstructive pulmonary disease) Status: Chronic (3) Sepsis Status: Resolved (4) Healthcare-associated pneumonia Status: Acute (5) Hyperkalemia Status: Resolved (6) Chest pain Status: Acute (7) Fibromyalgia Status: Chronic (8) Diabetes mellitus Status: Chronic (9) Hypertension Status: Chronic (10) Coronary artery disease Status: Chronic (11) Major depressive disorder Status: Chronic (12) Nutrition, metabolism, and development symptoms Status: Acute (13) DVT prophylaxis Status: Acute DS: Medications - Discharge Medications Prescriptions: acidophilus-sporogenes [Acidophilus Ex Str (L. sporog)] 1 tab PO TID 30 Days # 90 tab DS: Summary Hospital Course: Patient is a 62 y/o female with DM, HTN, COPD and fibromyalgia admitted for sepsis secondary to bilateral pneumonia, for which she was started on Vancomycin , Zosyn and Ciprofloxacin for empiric treatment. Legionella and pneumococcal urine antigen, influenza panel, and blood cultures negative. Patient complained of shortness of breath on admission and squeezing chest pressure. ACS rule out was negative and CTA was negative for PE. Due to patient's stated history of CHF on admission Echo was ordered, however it showed EF of 50-55%. Due to history of COPD and shortness of breath, patient was also given scheduled Duonebs treatment, Zyrtec, incentive spirometry, acapella, PT and OT. Steroid treatment initially deferred due to patient's allergy to prednisone, but low dose dexamethasone later added when breathing did not improve. Patient also complained of pain the left neck and right arm associated with a prior muscle strain weeks before admission. Patient on a pain regimen including Baclofen, Lyrica, [place] PRN and K-thermia patch. Patient was hyperkalemic at 5.6 with minimal peaking of T waves, on admission, which resolved. Placed on BiPAP on 02/02 due to increased shortness of breath and desaturation despite escalation to 10L oxygen mask. ABG showed uncompensated respiratory acidosis. Patient moved to step-down unit for close monitoring. Patient also had an episode of oxygen desaturation, tachycardia and elevated BP overnight on 02/05 and had been "fighting" to breathe, due to significant anxiety and discomfort on the BiPAP. After getting Ativan and low dose Lopressor, patient had no more episodes of desaturation. Patient was discharged to [facility] on 02/07/18 in stable condition on home medications and probiotic. - Time Spent with Patient Total time spent providing and/or coordinating discharge services: - Quality: VTE Deep Vein Thrombosis/Pulmonary Embolism Present on Admission: No Results Procedures completed during hospitalization: none - Impressions ITS Impressions Chest CTA 02/01/18 07:09 CONCLUSION: 1. No evidence of PE. 2. Bilateral pleural effusions and pericardial effusion. Patchy areas of groundglass opacity identified within the right and left lower lobes as well as the lingula and right middle lobe. This may reflect a multifocal infectious process. Chest X-Ray 02/02/18 20:19 CONCLUSION: Bibasilar areas of consolidation or atelectasis. Discharge Plan - Discharge Disposition Patient Disposition: 03 Discharge to SNF - Discharge Condition Condition: Stable - Discharge Order Discharge Orders: Discharge Order (Routine); Ordered 02/07/18 Ordered By: Anneliese Marr - Physicians Team Primary Care Provider: UNKNOWN, Attending Provider: Radha Hinojosa
== END 2018-02-07 16:08 ==
LOC: NEPE 06:46 → NEDA 10:41 → N04 14:36 → HCVI 02-03 08:06 → HCPC 02-05 09:27
PROVIDERS: ADMIT Family Medicine; ATTEND Family Medicine

== ENCOUNTER 2018-02-19 16:39 | Inpatient (IN) ==
[2018-02-19] MEDS ORDERED: Naloxone Inj 2 MG/2 ML Vial IV.PUSH ONE (17:02)
[2018-02-19] MEDS ORDERED: Naloxone Inj 2 MG/2 ML Vial ONE (17:03)
[2018-02-19 17:15] LABS: ABG Base Excess 7.3 mmol/L (-2-2); ABG PCO2 97 mmHg (38-42); ABG PO2 284 mmHg (61-120)
[2018-02-19] MEDS ORDERED: Etomidate Inj 40 MG/20 ML Vial IV.PUSH ONE (17:24)
[2018-02-19] MEDS ORDERED: MethylPREDNISolone Sod Succinate Inj 125 MG/2 ML Vial IV.PUSH ONE (17:47)
--- NOTE | 2018-02-19 17:47 | ED ---
HPI General Chief complaint: Respiratory Symptoms Stated complaint: SOB Time Seen by Provider: 02/19/18 16:55 Source: EMS, RN notes reviewed and old records reviewed Mode of arrival: EMS Limitations: altered mental status History of Present Illness HPI narrative: This is a 62-year-old woman presents to the emergency department with altered mental status and hypoxia. History is obtained from EMS and from nursing report. Patient is unable to provide any history. Patient has a history of COPD, obesity, diabetes, hypertension, GERD, CAD. She is on chronic opioids pain and fibromyalgia. She had recent admissions for COPD and hypercarbic respiratory failure she reportedly was more hypoxic today, with increased altered mental status, and was sent to the emergency was in the 70s and 80s on room air. She normally is on 3 L nasal cannula. Related Data Home Medications Medication Instructions Recorded Confirmed alum-mag hydroxide-simeth [Maalox 1 mg PO Q6H 02/01/18 02/19/18 Advanced] aspirin 81 mg PO DAILY 02/01/18 02/19/18 baclofen 10 mg PO HS 02/01/18 02/19/18 bupropion HCl [Wellbutrin SR] 150 mg PO DAILY 02/01/18 02/19/18 clopidogrel [Plavix] 75 mg PO DAILY 02/01/18 02/19/18 fexofenadine-pseudoephedrine 1 tab PO Q12H PRN 02/01/18 02/19/18 fluoxetine [Prozac] 40 mg PO DAILY 02/01/18 02/19/18 fluticasone 2 spray INTRANASAL DAILY 02/01/18 02/19/18 glimepiride 1 mg PO QAM 02/01/18 02/19/18 hydrocodone-acetaminophen [[place]] 1 tab PO Q4-6H PRN 02/01/18 02/19/18 insulin aspart U-100 [Novolog 1 unit SUB-Q ACHS 02/01/18 02/19/18 U-100 Insulin aspart] ipratropium-albuterol 3 ml INHALATION Q6-8H PRN 02/01/18 02/19/18 lidocaine [Lidocaine Pain Relief] 1 patch TOPICAL Q8H 02/01/18 02/19/18 lisinopril 10 mg PO DAILY 02/01/18 02/19/18 melatonin 6 mg PO HS PRN 02/01/18 02/19/18 metformin 1,000 mg PO BID 02/01/18 02/19/18 nabumetone 500 mg PO BID 02/01/18 02/19/18 ondansetron [Zofran ODT] 4 mg PO Q6-8H PRN 02/01/18 02/19/18 pantoprazole [Protonix] 40 mg PO BID 02/01/18 02/19/18 pregabalin 300 mg PO BID 02/01/18 02/19/18 risperidone [Risperdal] 0.5 mg PO DAILY 02/01/18 02/19/18 ropinirole [Requip] 0.25 mg PO HS 02/01/18 02/19/18 tiotropium bromide 1 cap INHALATION DAILY 02/01/18 02/19/18 fexofenadine [Adalgisa Allergy] 60 mg PO DAILY 02/03/18 02/19/18 Previous Rx's Medication Instructions Recorded acidophilus-sporogenes 1 tab PO TID 30 Days #90 tab 02/07/18 [Acidophilus Ex Str (L. sporog)] Allergies Allergy/AdvReac Type Severity Reaction Status Date / Time budesonide [From Pulmicort] Allergy Hives Verified 02/01/18 09:53 duloxetine [From Cymbalta] Allergy Hives Verified 02/01/18 09:53 gabapentin [From Neurontin] Allergy Hives Verified 02/01/18 09:53 nickel Allergy Hives Verified 02/01/18 09:53 Penicillins Allergy Hives Verified 02/01/18 09:53 prednisone Allergy Hives Verified 02/01/18 06:49 sulfacetamide Allergy Hives Verified 02/01/18 09:53 [From Sulfacet-R] sulfur [From Sulfacet-R] Allergy Hives Verified 02/01/18 09:53 Review of Systems ROS Unobtainable unobtainable due to mental status [facility] Medical History Medical History CAD (coronary artery disease) (Acute) COPD (chronic obstructive pulmonary disease) (Acute) Depression (Acute) Diabetes (Acute) GERD (gastroesophageal reflux disease) (Acute) H/O: hysterectomy (Acute) HTN (hypertension) (Acute) Heart attack (Acute) Hemorrhoids (Acute) Surgical History Surgical History H/O heart artery stent (Acute) Social History Social History Substance History: Unable to Obtain Second Hand Smoke Exposure: No (PATIENT NON-AROUSABLE EJ) Smoking Status: Cognitive impairment Tobacco Type: Cigarettes How Often Do You Have a Drink Containing Alcohol: Unable to Obtain Recent Travel in [facility] within the Last 8 Weeks: No Recent Out of Country Travel within the Last 8 Weeks: No Exam Narrative Exam Narrative: GENERAL: Obese 62-year-old woman, noxious stimulus. SKIN: Pale and clammy. HEAD: Atraumatic. Normocephalic. EYES: Pupils equal and round. No scleral icterus. No injection or drainage. ENT: No nasal bleeding or discharge. Mucous membranes pink and moist. NECK: Trachea midline. No JVD. CARDIOVASCULAR: Regular rate and rhythm. No murmur appreciated. RESPIRATORY: Poor respiratory effort, normal rate. GASTROINTESTINAL: Abdomen soft, non-tender, nondistended. Hepatic and splenic margins not palpable. MUSCULOSKELETAL: No obvious deformities. Obesity without any definite edema. NEUROLOGICAL: Obtunded. Will moan to some noxious stimulus. Will not really talk or answer questions. Course Initial Documented Vital Signs Temperature 98.7 F 02/19/18 17:11 Pulse Rate 97 H 02/19/18 17:11 Respiratory Rate 14 02/19/18 17:11 Blood Pressure 182/87 H 02/19/18 17:11 Pulse Oximetry 100 02/19/18 17:11 Last Documented Vital Signs Temperature 98.7 F 02/19/18 17:55 Pulse Rate 89 02/19/18 18:30 Respiratory Rate 30 H 02/19/18 18:30 Blood Pressure 182/87 H 02/19/18 17:55 Pulse Oximetry 90 L 02/19/18 18:00 Critical Care Time Critical Care Time: Yes Total Critical Care Time: 35 Attestation: Aggregate critical care time was 35 minutes. Time to perform other separately billable procedures was not included in the critical care time. My time did not include minutes spent treating any other patients simultaneously or on activities that did not directly contribute to the patient's treatment. The services I provided to this patient were to treat and/or prevent clinically significant deterioration that could result in: , respiratory failure, hypercapnic arrest. I provided critical care services requiring my management, as noted below: Chart data review, documentation time, medication orders and management, vital sign assessments/reviewing monitor data, ordering and reviewing lab tests, ordering and interpreting/reviewing x-rays and diagnostic studies, care of the patient and discussion of the patient with the admitting physicians. Medical Decision Making MDM Narrative Medical decision making narrative: 62-year-old woman, obtunded, CO2 narcosis, moans some. No response to Narcan. History of hypercarbic respiratory failure from COPD exacerbation in the past. My suspicion is this is multifactorial from obesity hypoventilation, opioid CO2 narcosis and COPD. Will repeat chest x -ray. Considered intubation given initial gas, and mental status. Reviewed previous gases which were not far off from this 1. She will moans on the stimulus. I think it is worth an attempt of BiPAP, will recheck gas in 1 hour, may need intubation. Will need ICU admission. Lab Data Lab results reviewed: Yes I reviewed the patient's lab results. Result diagrams: 02/19/18 17:41 02/19/18 17:41 Lab Results 02/19/18 02/19/18 02/19/18 Range/Units 17:10 17:41 17:41 WBC 10.8 (4.0-11.0) th/mm3 RBC 2.88 L (4.00-5.30) mil/mm3 Hgb 9.2 L (11.6-15.3) gm/dL Hct 28.0 L (35.0-46.0) % MCV 97.2 (80.0-100.0) fL MCH 32.0 (27.0-34.0) pg MCHC 32.9 (32.0-36.0) % RDW 13.6 (11.6-17.2) % Plt Count 144 L (150-450) th/mm3 MPV 10.2 (7.0-11.0) fL Neut % (Auto) 80.6 H (16.0-70.0) % Lymph % (Auto) 5.4 L (9.0-44.0) % [place] % (Auto) 12.7 H (0.0-8.0) % Eos % (Auto) 1.0 (0.0-4.0) % Baso % (Auto) 0.3 (0.0-2.0) % Neut # (Auto) 8.7 H (1.8-7.7) th/mm3 Lymph # (Auto) 0.6 L (1.0-4.8) th/mm3 [place] # (Auto) 1.4 H (0.0-0.9) th/mm3 Eos # (Auto) 0.1 (0.0-0.4) th/mm3 Baso # (Auto) 0.0 (0.0-0.2) th/mm3 WBC Differential . Differential Comment Auto diff final Puncture Site Left radial Patient Temperature 98.6 O2 Saturation 97 (90-100) % ABG pH 7.19 L* (7.380-7.420) ABG pCO2 97 H* (38-42) mmHg ABG pO2 284 H (61-120) mmHg ABG HCO3 35 H (22-26) mmol/L ABG O2 Content 13.4 (12.0-20.0) Vol % ABG Base Excess 7.3 H (-2-2) mmol/L ABG Methemoglobin 0.8 (0-2) % Saurabh Test Present Hemoglobin 9.3 L (12.0-16.0) G/DL Carboxyhemoglobin 1.3 (0-4) % O2 Delivery Device Non-rebreathing mask Liter Flow 15.00 L/M Vent Setting Inspired O2 100 % Critical Value Yes Sodium 142 (136-145) meq/L Potassium 6.4 H (3.5-5.1) meq/L Chloride 104 (98-107) meq/L Carbon Dioxide 32.7 H (21.0-32.0) meq/L Anion Gap 5 (5-15) meq/L BUN 34 H (7-18) mg/dL Creatinine 1.27 H (0.50-1.00) mg/dL Estimated GFR 43 L (>89) mL/min Random Glucose 104 (74-106) mg/dL Calcium 8.7 (8.5-10.1) mg/dL Total Bilirubin 0.4 (0.2-1.0) mg/dL AST 33 (15-37) U/L ALT 40 (10-53) U/L Alkaline Phosphatase 76 (45-117) U/L Troponin I 0.04 (0.02-0.05) ng/mL Total Protein 6.4 (6.4-8.2) g/dL Albumin 3.1 L (3.4-5.0) g/dL 02/19/18 Range/Units 18:28 WBC (4.0-11.0) th/mm3 RBC (4.00-5.30) mil/mm3 Hgb (11.6-15.3) gm/dL Hct (35.0-46.0) % MCV (80.0-100.0) fL MCH (27.0-34.0) pg MCHC (32.0-36.0) % RDW (11.6-17.2) % Plt Count (150-450) th/mm3 MPV (7.0-11.0) fL Neut % (Auto) (16.0-70.0) % Lymph % (Auto) (9.0-44.0) % [place] % (Auto) (0.0-8.0) % Eos % (Auto) (0.0-4.0) % Baso % (Auto) (0.0-2.0) % Neut # (Auto) (1.8-7.7) th/mm3 Lymph # (Auto) (1.0-4.8) th/mm3 [place] # (Auto) (0.0-0.9) th/mm3 Eos # (Auto) (0.0-0.4) th/mm3 Baso # (Auto) (0.0-0.2) th/mm3 WBC Differential Differential Comment Puncture Site Left radial Patient Temperature 98.6 O2 Saturation 88 L* (90-100) % ABG pH 7.26 L* (7.380-7.420) ABG pCO2 78 H* (38-42) mmHg ABG pO2 64 (61-120) mmHg ABG HCO3 34 H (22-26) mmol/L ABG O2 Content 10.8 L (12.0-20.0) Vol % ABG Base Excess 7.2 H (-2-2) mmol/L ABG Methemoglobin 0.7 (0-2) % Saurabh Test Present Hemoglobin 8.7 L (12.0-16.0) G/DL Carboxyhemoglobin 1.7 (0-4) % O2 Delivery Device Bipap Liter Flow L/M Vent Setting [id number] Inspired O2 40 % Critical Value Yes Sodium (136-145) meq/L Potassium (3.5-5.1) meq/L Chloride (98-107) meq/L Carbon Dioxide (21.0-32.0) meq/L Anion Gap (5-15) meq/L BUN (7-18) mg/dL Creatinine (0.50-1.00) mg/dL Estimated GFR (>89) mL/min Random Glucose (74-106) mg/dL Calcium (8.5-10.1) mg/dL Total Bilirubin (0.2-1.0) mg/dL AST (15-37) U/L ALT (10-53) U/L Alkaline Phosphatase (45-117) U/L Troponin I (0.02-0.05) ng/mL Total Protein (6.4-8.2) g/dL Albumin (3.4-5.0) g/dL Imaging Data Attestation: I personally reviewed and interpreted this imaging study as follows : Radiologist's impression: Chest X-Ray 02/19/18 17:02 CONCLUSION: Bilateral mostly basilar airspace disease and pleural effusions most characteristic of congestive heart failure in patient with shortness of breath. Cannot exclude pneumonic infiltrate. ECG Data Attestation: I personally reviewed and interpreted this ECG as follows: Interpretation: Normal sinus rhythm at a rate of 96, normal rate, normal axis, no ischemia. Discharge Plan Discharge Disposition Patient Disposition: 30 Still Patient Physicians Team ED Provider: Francisco Osullivan Primary Care Provider: UNKNOWN, Attending Provider: Jaime West Interventions Interventions: Vital Signs Last Done: 02/19/18 18:00 Status ED Status: Admitted Patient
--- NOTE | 2018-02-19 18:09 | XR ---
EXAM DATE: 02/19/2018 6:01 PM EDT AGE/SEX: 62 years / Female INDICATIONS: Shortness of breath starting today CLINICAL DATA: This is the patient's initial encounter. Patient reports that signs and symptoms have been present for 1 day and indicates a pain score of Nonresponsive. MEDICAL/SURGICAL HISTORY: . Congestive heart failure. Chronic obstructive pulmonary disease. Hy pertension. Coronary artery disease. . Cardiac stent placement COMPARISON: [facility] – [place], CHEST 1V SINGLE AP, 02/02/2018. . FINDINGS: There is bilateral mostly basilar airspace consolidation and small effusions. Cardiomegaly. No pneumo thorax. CONCLUSION: Bilateral mostly basilar airspace disease and pleural effusions most characteristic of congestive hea rt failure in patient with shortness of breath. Cannot exclude pneumonic infiltrate. Electronically signed by: Luis A Thomas MD 02/19/2018 6:08 PM EDT
[2018-02-19 18:33] LABS: ABG Base Excess 7.2 mmol/L (-2-2); ABG PCO2 78 mmHg (38-42); ABG PO2 64 mmHg (61-120)
[2018-02-19 18:36] LABS: Albumin 3.1 g/dL (3.4-5.0); Anion Gap 5 meq/L (5-15); Aspartate Aminotransferase 33 U/L (15-37); Blood Urea Nitrogen 34 mg/dL (7-18); Calcium 8.7 mg/dL (8.5-10.1); Carbon Dioxide 32.7 meq/L (21.0-32.0); Chloride 104 meq/L (98-107); Glomerular Filtration Rate 43 mL/min (>89); Glucose,Random 104 mg/dL (74-106); Potassium 6.4 meq/L (3.5-5.1); Sodium 142 meq/L (136-145)
[2018-02-19 18:37] LABS: Alanine Aminotransferase 40 U/L (10-53)
[2018-02-19 18:41] LABS: Alkaline Phosphatase 76 U/L (45-117); Total Protein 6.4 g/dL (6.4-8.2); Troponin I 0.04 ng/mL (0.02-0.05)
[2018-02-19 19:08] LABS: Baso % (Auto) 0.3 % (0.0-2.0); Eos # (Auto) 0.1 th/mm3 (0.0-0.4); Hemoglobin 9.2 gm/dL (11.6-15.3); Lymph # (Auto) 0.6 th/mm3 (1.0-4.8); Lymph % (Auto) 5.4 % (9.0-44.0); Mean Corpuscular HGB Conc 32.9 % (32.0-36.0); Mean Corpuscular Volume 97.2 fL (80.0-100.0); Mean Platelet Volume 10.2 fL (7.0-11.0); Mono # (Auto) 1.4 th/mm3 (0.0-0.9); Mono % (Auto) 12.7 % (0.0-8.0); Neut # (Auto) 8.7 th/mm3 (1.8-7.7); Neut % (Auto) 80.6 % (16.0-70.0); Platelet Count 144 th/mm3 (150-450); Red Blood Count 2.88 mil/mm3 (4.00-5.30); Red Cell Distribution Width 13.6 % (11.6-17.2); White Blood Count 10.8 th/mm3 (4.0-11.0)
[2018-02-19 20:04] LABS: Bilirubin,Urine Negative (Negative); Clarity,Urine Hazy (Clear); Color,Urine Yellow (Yellw/Straw); Glucose,Urine (UA) Negative (Negative); Hyaline Casts,Urine 1 /lpf (0-3); Leukocyte Esterase,Urine Negative (Negative); Nitrite,Urine Negative (Negative); Specific Gravity,Urine 1.013 (1.002-1.035)
--- NOTE | 2018-02-19 20:21 | CT ---
EXAM DATE: 02/19/2018 7:50 PM EDT AGE/SEX: 62 years / Female INDICATIONS: Altered mental status. CLINICAL DATA: This is the patient's initial encounter. Patient reports that signs and symptoms have been present for 1 day and indicates a pain score of 0/10. MEDICAL/SURGICAL HISTORY: Cardiovascular disease. Hypertension. Hysterectomy. RADIATION DOSE: 56.35 CTDI (mGy) COMPARISON: No prior exams available for comparison. TECHNIQUE: CT of the head without contrast. Using automated exposure control and adjustment of the mA and/or kV according to patient size, radiation dose was kept as low as reasonably achievable to ob tain optimal diagnostic quality images. DICOM format image data is available electronically for revi ew and comparison. FINDINGS: Cerebrum: The ventricles are normal for age. No evidence of midline shift, mass lesion, hemorrhage or acute infarction. No extraaxial fluid collections are seen. Posterior Fossa: The cerebellum and brainstem are intact. The 4th ventricle is midline. The cerebe llopontine angle is unremarkable. Extracranial: The visualized portion of the orbits is intact. Skull: The calvaria is intact. No evidence of skull fracture. CONCLUSION: 1. No acute findings. Chronic white matter ischemic changes. . Electronically signed by: Luis A Thomas MD 02/19/2018 8:20 PM EDT
[2018-02-19] MEDS ORDERED: Loratadine/Pseudoephedrine 12HR Tablet PO PRN (20:57)
[2018-02-19] MEDS ORDERED: Pregabalin 300 MG Capsule PO SCH (21:00)
[2018-02-19] MEDS ORDERED: Bisacodyl 10 MG Supp RECTAL PRN (21:04)
[2018-02-19] MEDS ORDERED: Acetaminophen 325 MG Tablet PO PRN (21:04)
--- NOTE | 2018-02-19 21:22 | P.HPCC ---
History of Present Illness Primary Care Physician: UNKNOWN History of Present Illness: 62-year-old woman presents with altered mental status and hypoxia. Patient has been placed on a facemask BiPAP and is unable to provide any history. Patient has a history of COPD, obesity, diabetes, hypertension, GERD, CAD. She is on chronic opioids for pain and fibromyalgia. She had recent admissions for COPD and hypercarbic respiratory failure. She reportedly was more hypoxic today, with worsening altered mental status, and was sent to the emergency room. Her O2 sats on room air where in the 70s and 80s. She normally is on 3 L nasal cannula. Inpatient Certification: I certify that the inpatient services were ordered in accordance with Medicare regulations governing the order. This includes certification that hospital inpatient services are reasonable and necessary and in the case of services not specified as inpatient-only under 42 CFR 419.22(n), that they are appropriately provided as inpatient services in accordance to with the 2-midnight benchmark under 43 CFR 412.3(e) Estimated Total Length of Stay (Days): 5 Plans for Post Hospital Care: Not yet determined Review of Systems unobtainable due to mental condition PMFSH - History History Provided By: Medical Record - Medical History Medical History: Medical History (Last Reviewed 02/19/18 @ 17:56 by Debby Miller) CAD (coronary artery disease) COPD (chronic obstructive pulmonary disease) Depression Diabetes GERD (gastroesophageal reflux disease) H/O: hysterectomy HTN (hypertension) Heart attack Hemorrhoids - Surgical History Surgical History: Surgical History (Last Reviewed 02/19/18 @ 17:56 by Debby Miller) H/O heart artery stent - Tobacco History Second Hand Smoke Exposure: No (PATIENT NON-AROUSABLE EJ) Tobacco Use In Past 30 Days: No (PATIENT NON-AROUSABLE EJ) Smoking Status: Cognitive impairment Tobacco Type: Cigarettes - Alcohol History How Often Do You Have a Drink Containing Alcohol: Unable to Obtain - Substance Use History Substance History: Unable to Obtain - Travel History Recent Travel in the [place] Within the Last 8 Weeks: No Recent Travel Out of the Country Within the Last 8 Weeks: No - Immunization History Tetanus Immunization: Unable to Assess Hx Influenza Vaccine This Season: Unable to Assess Medications and Allergies Active Medications: Active Medications Acetaminophen (Tylenol) 650 mg PO Q6H PRN PRN Reason: PAIN 1-10 AND/OR FEVER >101F Hydrocodone Bitart/Acetaminophen ([place] 5/325) 1 tab PO Q4-6H PRN PRN Reason: Pain Al Hydroxide/Mg Hydroxide (Milk Of Magnesia Liq) 30 ml PO Q12H PRN PRN Reason: Mild Constipation Albuterol (Duoneb Neb (Jordy)) 1 ampul NEB Q4HR NEB JORDY Albuterol (Duoneb Neb (Prn)) 1 ampul NEB Q2HR NEB PRN PRN Reason: WHEEZING Aspirin (Aspirin Chew) 81 mg PO DAILY [facility] Baclofen (Lioresal) 10 mg PO HS [facility] Bisacodyl (Dulcolax Supp) 10 mg RECTAL DAILY PRN PRN Reason: SEVERE CONSITIPATION Bupropion HCl (Wellbutrin Sr) 150 mg PO DAILY [facility] Chlorhexidine Gluconate (Chlorhexidine 2% Cloth) 3 pack TOPICAL DAILY@0400 JORDY Stop: 02/25/18 03:59 Chlorhexidine Gluconate (Chlorhexidine 2% Cloth) 3 pack TOPICAL DAILY@0400 PRN PRN Reason: Extra cloth needed Stop: 02/25/18 03:59 Clopidogrel Bisulfate (Plavix) 75 mg PO DAILY [facility] Fluticasone Propionate (Flonase Nasal [place]) 2 spray EACH NARE DAILY [facility] Glimepiride (Amaryl) 1 mg PO DAILY@0800 [facility] Heparin Sodium (Porcine) (Heparin Inj) 5,000 units SQ Q8H [facility] Lactobacillus Acidophilus (Lactinex) 1 tab PO TID [facility] Lactulose (Lactulose Liq) 30 ml PO DAILY PRN PRN Reason: SEVERE CONSITIPATION Lisinopril (Prinivil) 10 mg PO DAILY [facility] Nabumetone (Relafen) 500 mg PO BID [facility] Non-Formulary Medication (Fexofenadine [Adalgisa Allergy]) 60 mg PO DAILY [facility] Non-Formulary Medication (Fexofenadine-Pseudoephedrine [Fexofenadine- Pseudoephedrine]) 1 tab PO Q12H PRN PRN Reason: Allergic Symptoms Non-Formulary Medication (Fluoxetine [Prozac]) 40 mg PO DAILY [facility] Non-Formulary Medication (Lidocaine [Lidocaine Pain Relief]) 1 patch TOPICAL Q8H [facility] Non-Formulary Medication (Pregabalin) 300 mg PO BID [facility] Non-Formulary Medication (Melatonin [Melatonin]) 6 mg PO HS PRN PRN Reason: Insomnia Ondansetron HCl (Zofran Inj) 4 mg IV.PUSH Q6H PRN PRN Reason: NAUSEA OR VOMITING Pantoprazole Sodium (Protonix) 40 mg PO BID [facility] Risperidone (Risperdal) 0.5 mg PO DAILY [facility] Ropinirole HCl (Requip) 0.25 mg PO HS [facility] Senna/Docusate Sodium ([place]-Colace) 1 tab PO BID [facility] Sennosides (Senokot) 17.2 mg PO Q12H PRN PRN Reason: Moderate Constipation Sodium Chloride (Ns Flush) 2 ml IV.FLUSH BID [facility] Sodium Chloride (Ns Flush) 2 ml IV.FLUSH PRN PRN PRN Reason: FLUSH AFTER USING IV ACCESS Tiotropium Wallace (Spiriva 18 Mcg Inh) mcg INH DAILY [facility] Allergies Allergy/AdvReac Type Severity Reaction Status Date / Time budesonide [From Pulmicort] Allergy Hives Verified 02/01/18 09:53 duloxetine [From Cymbalta] Allergy Hives Verified 02/01/18 09:53 gabapentin [From Neurontin] Allergy Hives Verified 02/01/18 09:53 nickel Allergy Hives Verified 02/01/18 09:53 Penicillins Allergy Hives Verified 02/01/18 09:53 prednisone Allergy Hives Verified 02/01/18 06:49 sulfacetamide Allergy Hives Verified 02/01/18 09:53 [From Sulfacet-R] sulfur [From Sulfacet-R] Allergy Hives Verified 02/01/18 09:53 Home Medications Medication Instructions Recorded Confirmed Type alum-mag hydroxide-simeth [Maalox 1 mg PO Q6H 02/01/18 02/19/18 History Advanced] aspirin 81 mg PO DAILY 02/01/18 02/19/18 History baclofen 10 mg PO HS 02/01/18 02/19/18 History bupropion HCl [Wellbutrin SR] 150 mg PO DAILY 02/01/18 02/19/18 History clopidogrel [Plavix] 75 mg PO DAILY 02/01/18 02/19/18 History fexofenadine-pseudoephedrine 1 tab PO Q12H PRN 02/01/18 02/19/18 History fluoxetine [Prozac] 40 mg PO DAILY 02/01/18 02/19/18 History fluticasone 2 spray INTRANASAL DAILY 02/01/18 02/19/18 History glimepiride 1 mg PO QAM 02/01/18 02/19/18 History hydrocodone-acetaminophen [[place]] 1 tab PO Q4-6H PRN 02/01/18 02/19/18 History insulin aspart U-100 [Novolog 1 unit SUB-Q ACHS 02/01/18 02/19/18 History U-100 Insulin aspart] ipratropium-albuterol 3 ml INHALATION Q6-8H PRN 02/01/18 02/19/18 History lidocaine [Lidocaine Pain Relief] 1 patch TOPICAL Q8H 02/01/18 02/19/18 History lisinopril 10 mg PO DAILY 02/01/18 02/19/18 History melatonin 6 mg PO HS PRN 02/01/18 02/19/18 History metformin 1,000 mg PO BID 02/01/18 02/19/18 History nabumetone 500 mg PO BID 02/01/18 02/19/18 History ondansetron [Zofran ODT] 4 mg PO Q6-8H PRN 02/01/18 02/19/18 History pantoprazole [Protonix] 40 mg PO BID 02/01/18 02/19/18 History pregabalin 300 mg PO BID 02/01/18 02/19/18 History risperidone [Risperdal] 0.5 mg PO DAILY 02/01/18 02/19/18 History ropinirole [Requip] 0.25 mg PO HS 02/01/18 02/19/18 History tiotropium bromide 1 cap INHALATION DAILY 02/01/18 02/19/18 History fexofenadine [Adalgisa Allergy] 60 mg PO DAILY 02/03/18 02/19/18 History Results - Labs CBC & Chem 7: 02/19/18 17:41 02/19/18 17:41 Labs: Short CBC 02/19/18 Range/Units 17:41 WBC 10.8 (4.0-11.0) th/mm3 Hgb 9.2 L (11.6-15.3) gm/dL Hct 28.0 L (35.0-46.0) % Plt Count 144 L (150-450) th/mm3 BMP 02/19/18 17:41 Sodium 142 Potassium 6.4 H Chloride 104 Carbon Dioxide 32.7 H BUN 34 H Creatinine 1.27 H Calcium 8.7 Cardiac Enzymes 02/19/18 Range/Units 17:41 Troponin I 0.04 (0.02-0.05) ng/mL Liver Function 02/19/18 Range/Units 17:41 Total Bilirubin 0.4 (0.2-1.0) mg/dL AST 33 (15-37) U/L ALT 40 (10-53) U/L Alkaline Phosphatase 76 (45-117) U/L Albumin 3.1 L (3.4-5.0) g/dL Urine 02/19/18 Range/Units 19:00 Urine Color Yellow (Yellw/Straw) Urine Clarity Hazy H (Clear) Urine pH 5.0 (5.0-8.5) Ur Specific [place] 1.013 (1.002-1.035) Urine Protein Negative (Neg-Trace) mg/dL Urine Glucose (UA) Negative (Negative) mg/dL - Imaging Impressions Chest X-Ray 02/19/18 17:02 CONCLUSION: Bilateral mostly basilar airspace disease and pleural effusions most characteristic of congestive heart failure in patient with shortness of breath. Cannot exclude pneumonic infiltrate. Head CT 02/19/18 17:13 CONCLUSION: 1. No acute findings. Chronic white matter ischemic changes. . - ABG Attestation: I personally reviewed and interpreted this ABG as follows: Exam Vital signs: Vital Signs 02/19/18 17:11 02/19/18 17:46 02/19/18 17:55 Temperature 98.7 F 98.7 F Pulse Rate 97 H 94 H Respiratory Rate 14 8 L Blood Pressure 182/87 H 182/87 H Pulse Oximetry 100 100 100 02/19/18 18:00 02/19/18 18:14 02/19/18 18:20 Temperature Pulse Rate 86 85 83 Respiratory Rate 10 L 30 H 30 H Blood Pressure Pulse Oximetry 90 L 02/19/18 18:30 02/19/18 19:20 02/19/18 20:36 Temperature Pulse Rate 89 82 Respiratory Rate 30 H 18 Blood Pressure 156/66 H Pulse Oximetry 98 97 Intake & Output 02/19/18 02/19/18 02/20/18 06:59 18:59 06:59 Weight 113.398 kg - Constitutional moderate distress, obese, diaphoretic - Routine HEENT Exam Head: Present: normocephalic, atraumatic Eye: Present: PERRL ENT: Present: mucous membranes moist - Routine Neck Exam Present: supple, full ROM. Absent: JVD, carotid bruit - Routine Respiratory Exam Present: decreased breath sounds, wheezes. Absent: accessory muscle use, rhonchi, stridor - Routine Cardiovascular Exam Present: RRR, S1, S2 - Routine Abdominal Exam Present: soft, normoactive bowel sounds. Absent: tenderness, distended - Routine Extremities Exam Absent: cyanosis, clubbing, edema - Routine Skin Exam Present: intact. Absent: cyanosis, erythema - Routine Neurological Exam Present: altered mental status. Absent: facial asymmetry, tremors Caprini VTE Risk Assessment Caprini VTE Risk Assessment: Moderate/High Risk (score >= 2) Caprini Risk Assessment Model: Point Value = 1 Point Value = 2 Point Value = 3 Point Value = 5 Age 41-60 Minor surgery BMI > 25 kg/m2 Swollen legs Varicose veins or History of unexplained or recurrent spontaneous Oral contraceptives or hormone replacement Sepsis (< 1 month) Serious lung disease, including pneumonia (< 1 month) Abnormal pulmonary function Acute myocardial infarction Congestive heart failure (< 1 month) History of inflammatory bowel disease Medical patient at bed rest Age 61-74 Arthroscopic surgery Major open surgery (> 45 min) Laparoscopic surgery (> 45 min) Malignancy Confined to bed (> 72 hours) Immobilizing plaster cast Central venous access Age >= 75 History of VTE Family history of VTE Factor V Leiden Prothrombin [id number] Lupus anticoagulant Anticardiolipin antibodies Elevated serum homocysteine Heparin-induced thrombocytopenia Other congenital or acquired thrombophilia Stroke (< 1 month) Elective arthroplasty Hip, pelvis, or leg fracture Acute spinal cord injury (< 1 month) Prophylaxis Regimen: Total Risk Factor Score Risk Level Prophylaxis Regimen 0-1 Low Early ambulation 2 Moderate Order ONE of the following: *Sequential Compression Device (SCD) *Heparin 5000 units SQ BID 3-4 Higher Order ONE of the following medications: *Heparin 5000 units SQ TID *Enoxaparin/Lovenox 40 mg SQ daily (WT < 150 kg, CrCl > 30 mL/min) *Enoxaparin/Lovenox 30 mg SQ daily (WT < 150 kg, CrCl > 10-29 mL/min) *Enoxaparin/Lovenox 30 mg SQ BID (WT < 150 kg, CrCl > 30 mL/min) AND/OR *Sequential Compression Device (SCD) 5 or more Highest Order ONE of the following medications: *Heparin 5000 units SQ TID (Preferred with Epidurals) *Enoxaparin/Lovenox 40 mg SQ daily (WT < 150 kg, CrCl > 30 mL/min) *Enoxaparin/Lovenox 30 mg SQ daily (WT < 150 kg, CrCl > 10-29 mL/min) *Enoxaparin/Lovenox 30 mg SQ BID (WT < 150 kg, CrCl > 30 mL/min) AND *Sequential Compression Device (SCD) Assessment and Plan - Assessment and Plan Plan: Hypercarbic hypoxemic respiratory failure acute on chronic -Underlying COPD -Narcotic overuse? -Continue facemask BiPAP -Monitor pH and CO2 on ABG -IV steroids -DuoNeb scheduled and as needed Chronic pain syndrome Fibromyalgia -[place] 5/325 PRN -Lyrica Coronary artery disease -Monitor series of troponins and EKG to rule out acute coronary syndrome -Aspirin -Plavix Depression -Fluoxetine -Wellbutrin -Risperidone Hypertension -Lisinopril Diabetes -Glimepiride -Insulin sliding scale -Hold metformin while in the ICU GERD -Pantoprazole DVT GI prophylaxis -Teds SCDs -Subcu heparin -Pantoprazole Critical Care: The total critical care time was 35 minutes. Time to perform other separately billable procedures was not included in the critical care time.
[2018-02-19] MEDS: Lidocaine 5% Patch T-DERMAL SCH (22:45)
[2018-02-19] MEDS: Heparin - SQ 10,000 UNITS/ML Vial SQ SCH (22:45)
[2018-02-19] MEDS: Baclofen 10 MG Tablet PO SCH (22:45)
[2018-02-19] MEDS: MethylPREDNISolone Sod Succinate Inj 40 MG/ML Vial IV.PUSH SCH (22:45)
[2018-02-20] MEDS ORDERED: Chlorhexidine Gluconate 2% 1 Pack (2 Cloths) TOPICAL PRN (04:00)
[2018-02-20] MEDS: Chlorhexidine Gluconate 2% 1 Pack (2 Cloths) TOPICAL SCH (04:18)
[2018-02-20] MEDS: MethylPREDNISolone Sod Succinate Inj 40 MG/ML Vial IV.PUSH SCH ×4 (04:18→21:40)
[2018-02-20] MEDS: Heparin - SQ 10,000 UNITS/ML Vial SQ SCH ×3 (05:14→21:39)
[2018-02-20 05:52] LABS: Baso % (Auto) 0.2 % (0.0-2.0); Eos % (Auto) 0.1 % (0.0-4.0); Hematocrit 26.8 % (35.0-46.0); Hemoglobin 8.6 gm/dL (11.6-15.3); Lymph # (Auto) 0.1 th/mm3 (1.0-4.8); Lymph % (Auto) 2.2 % (9.0-44.0); Mean Corpuscular Hemoglobin 31.1 pg (27.0-34.0); Mean Corpuscular Volume 97.3 fL (80.0-100.0); Mean Platelet Volume 10.4 fL (7.0-11.0); Mono # (Auto) 0.1 th/mm3 (0.0-0.9); Mono % (Auto) 1.6 % (0.0-8.0); Neut # (Auto) 6.4 th/mm3 (1.8-7.7); Neut % (Auto) 95.9 % (16.0-70.0); Platelet Count 138 th/mm3 (150-450); Red Blood Count 2.75 mil/mm3 (4.00-5.30); Red Cell Distribution Width 13.3 % (11.6-17.2); White Blood Count 6.7 th/mm3 (4.0-11.0)
[2018-02-20 05:58] LABS: Activated Partial Thrombo Time 23.7 sec (24.3-30.1); INR 1.1 Ratio; Prothrombin Time 11.6 sec (9.8-11.6)
[2018-02-20 06:14] LABS: Alanine Aminotransferase 34 U/L (10-53); Albumin 2.9 g/dL (3.4-5.0); Anion Gap 6 meq/L (5-15); Aspartate Aminotransferase 24 U/L (15-37); Blood Urea Nitrogen 37 mg/dL (7-18); Calcium 8.6 mg/dL (8.5-10.1); Carbon Dioxide 32.3 meq/L (21.0-32.0); Chloride 105 meq/L (98-107); Glomerular Filtration Rate 48 mL/min (>89); Glucose,Random 161 mg/dL (74-106); Magnesium 2.1 mg/dL (1.5-2.5); Phosphorus 3.9 mg/dL (2.5-4.9); Potassium 6.5 meq/L (3.5-5.1); Sodium 143 meq/L (136-145)
[2018-02-20 06:16] LABS: ABG Base Excess 6.2 mmol/L (-2-2); ABG PCO2 60 mmHg (38-42); ABG PO2 79 mmHg (61-120)
[2018-02-20 06:19] LABS: Alkaline Phosphatase 72 U/L (45-117); Troponin I 0.02 ng/mL (0.02-0.05)
[2018-02-20] MEDS: Tiotropium Bromide 18 MCG/ACT Inhaler INH SCH (08:17)
[2018-02-20] MEDS ORDERED: Sodium Polystyrene Sulfonate/Sorbitol Liq 15 GM/60 ML UDC PO ONE (08:32)
[2018-02-20] MEDS: Lactobacillus Acidophilus/L. Spores Tablet PO SCH ×3 (08:39→17:32)
[2018-02-20] MEDS: Glimepiride 1 MG Tablet PO SCH (08:39)
[2018-02-20] MEDS: Lisinopril 10 MG Tablet PO SCH (08:40)
[2018-02-20] MEDS: buPROPion 150 MG 12 HR Tablet PO SCH (08:40)
[2018-02-20] MEDS: Senna/Docusate Sodium 8.6/50 MG Tablet PO SCH ×2 (08:41→20:36)
[2018-02-20] MEDS: Loratadine 10 MG Tablet PO SCH (08:42)
[2018-02-20] MEDS: FLUoxetine 20 MG Capsule PO SCH (08:42)
--- NOTE | 2018-02-20 10:01 | P.PN ---
Subjective Interval history: Nursing denies any deterioration since last night. Says that she is somewhat more short of breath than usual at her baseline at home. Patient herself asks me if she is going to be put on the ventilator. I informed her she is actually better this morning that she is not heading in the direction of being intubated. I asked her about her advanced directives, she then conveys to me an understanding or misunderstanding that her family members have to decide for her even though she is fully oriented. Physical Exam Vital signs: Vital Signs 02/19/18 17:11 02/19/18 17:46 02/19/18 17:55 Temperature 98.7 F 98.7 F Pulse Rate 97 H 94 H Respiratory Rate 14 8 L Blood Pressure 182/87 H 182/87 H Pulse Oximetry 100 100 100 02/19/18 18:00 02/19/18 18:14 02/19/18 18:20 Temperature Pulse Rate 86 85 83 Respiratory Rate 10 L 30 H 30 H Blood Pressure Pulse Oximetry 90 L 02/19/18 18:30 02/19/18 19:20 02/19/18 20:36 Temperature Pulse Rate 89 82 Respiratory Rate 30 H 18 Blood Pressure 156/66 H Pulse Oximetry 98 97 02/19/18 22:00 02/19/18 22:01 02/19/18 23:00 Temperature 98.4 F Pulse Rate 89 82 Respiratory Rate 18 18 Blood Pressure 161/73 H 156/66 H Pulse Oximetry 98 98 97 02/19/18 23:32 02/20/18 00:00 02/20/18 01:00 Temperature 98.9 F Pulse Rate 91 H 92 H 94 H Respiratory Rate 17 18 18 Blood Pressure 166/71 H 153/68 H Pulse Oximetry 97 92 L 02/20/18 02:00 02/20/18 03:00 02/20/18 03:39 Temperature Pulse Rate 96 H 83 82 Respiratory Rate 18 18 11 L Blood Pressure 162/68 H 131/60 Pulse Oximetry 90 L 95 94 L 02/20/18 04:00 02/20/18 05:00 02/20/18 06:00 Temperature 99.5 F Pulse Rate 92 H 86 86 Respiratory Rate 18 18 18 Blood Pressure 135/61 126/60 159/72 H Pulse Oximetry 92 L 94 L 93 L 02/20/18 08:00 02/20/18 08:20 Temperature Pulse Rate 86 Respiratory Rate 14 Blood Pressure Pulse Oximetry 99 92 L Intake & Output 02/19/18 02/20/18 02/20/18 18:59 06:59 18:59 Output Total 1450 / 1450 Balance -1450 / -1450 Weight 113.398 kg 106.2 kg Output: Urine Amount (Catheter) 1450 / 1450 Indwelling Urethral Catheter 1450 / 1450 Other: # Bowel Movements 1 Weight On Admission 106.2 kg Narrative: Slightly diminished breath sounds in the bases but clear otherwise On nasal cannula Awake, alert, gets tearful when talking about her son's relationship with her - Urinary Catheter Management Indwelling Urethral Catheter Cath placed during this visit: no Reason for continuing: Acute urinary retention Results - Labs CBC & Chem 7: 02/20/18 04:00 02/20/18 04:00 Laboratory Results - last 24 hr 02/19/18 02/19/18 02/19/18 17:10 17:41 17:41 WBC 10.8 RBC 2.88 L Hgb 9.2 L Hct 28.0 L MCV 97.2 MCH 32.0 MCHC 32.9 RDW 13.6 Plt Count 144 L MPV 10.2 Neut % (Auto) 80.6 H Lymph % (Auto) 5.4 L Cherry % (Auto) 12.7 H Eos % (Auto) 1.0 Baso % (Auto) 0.3 Neut # (Auto) 8.7 H Lymph # (Auto) 0.6 L [place] # (Auto) 1.4 H Eos # (Auto) 0.1 Baso # (Auto) 0.0 WBC Differential . Differential Comment Auto diff final PT INR APTT Puncture Site Left radial Patient Temperature 98.6 O2 Saturation 97 ABG pH 7.19 L* ABG pCO2 97 H* ABG pO2 284 H ABG HCO3 35 H ABG O2 Content 13.4 ABG Base Excess 7.3 H ABG Methemoglobin 0.8 Saurabh Test Present Hemoglobin 9.3 L Carboxyhemoglobin 1.3 O2 Delivery Device Non-rebreathing mask Liter Flow 15.00 Vent Setting Inspired O2 100 Critical Value Yes Sodium 142 Potassium 6.4 H Chloride 104 Carbon Dioxide 32.7 H Anion Gap 5 BUN 34 H Creatinine 1.27 H Estimated GFR 43 L POC Glucose Random Glucose 104 Calcium 8.7 Phosphorus Magnesium Total Bilirubin 0.4 AST 33 ALT 40 Alkaline Phosphatase 76 Troponin I 0.04 B-Natriuretic Peptide Total Protein 6.4 Albumin 3.1 L Urine Color Urine Clarity Urine pH Ur Specific [place] Urine Protein Urine Glucose (UA) Urine Ketones Urine Occult Blood Urine Nitrate Urine Bilirubin Urine Urobilinogen Ur Leukocyte Esterase Urine WBC Hyaline Casts Granular Casts Micro UA Comment Urine Culture Comments Nasal Screen MRSA (PCR) 02/19/18 02/19/18 02/19/18 17:41 18:28 19:00 WBC RBC Hgb Hct MCV MCH MCHC RDW Plt Count MPV Neut % (Auto) Lymph % (Auto) Cherry % (Auto) Eos % (Auto) Baso % (Auto) Neut # (Auto) Lymph # (Auto) Cherry # (Auto) Eos # (Auto) Baso # (Auto) WBC Differential Differential Comment PT INR APTT Puncture Site Left radial Patient Temperature 98.6 O2 Saturation 88 L* ABG pH 7.26 L* ABG pCO2 78 H* ABG pO2 64 ABG HCO3 34 H ABG O2 Content 10.8 L ABG Base Excess 7.2 H ABG Methemoglobin 0.7 Saurabh Test Present Hemoglobin 8.7 L Carboxyhemoglobin 1.7 O2 Delivery Device Bipap Liter Flow Vent Setting [id number] Inspired O2 40 Critical Value Yes Sodium Potassium Chloride Carbon Dioxide Anion Gap BUN Creatinine Estimated GFR POC Glucose Random Glucose Calcium Phosphorus Magnesium Total Bilirubin AST ALT Alkaline Phosphatase Troponin I B-Natriuretic Peptide 610 H Total Protein Albumin Urine Color Yellow Urine Clarity Hazy H Urine pH 5.0 Ur Specific [place] 1.013 Urine Protein Negative Urine Glucose (UA) Negative Urine Ketones Negative Urine Occult Blood Negative Urine Nitrate Negative Urine Bilirubin Negative Urine Urobilinogen Less than 2 Ur Leukocyte Esterase Negative Urine WBC 1 Hyaline Casts 1 Granular Casts 3 Micro UA Comment Cath-culture not ind Urine Culture Comments Cath-cult not ind Nasal Screen MRSA (PCR) 02/19/18 02/19/18 02/20/18 22:20 22:59 04:00 WBC 6.7 RBC 2.75 L Hgb 8.6 L Hct 26.8 L MCV 97.3 MCH 31.1 MCHC 32.0 RDW 13.3 Plt Count 138 L MPV 10.4 Neut % (Auto) 95.9 H Lymph % (Auto) 2.2 L Cherry % (Auto) 1.6 Eos % (Auto) 0.1 Baso % (Auto) 0.2 Neut # (Auto) 6.4 Lymph # (Auto) 0.1 L Cherry # (Auto) 0.1 Eos # (Auto) 0.0 Baso # (Auto) 0.0 WBC Differential . Differential Comment Auto diff final PT INR APTT Puncture Site Patient Temperature O2 Saturation ABG pH ABG pCO2 ABG pO2 ABG HCO3 ABG O2 Content ABG Base Excess ABG Methemoglobin Saurabh Test Hemoglobin Carboxyhemoglobin O2 Delivery Device Liter Flow Vent Setting Inspired O2 Critical Value Sodium Potassium Chloride Carbon Dioxide Anion Gap BUN Creatinine Estimated GFR POC Glucose Random Glucose Calcium Phosphorus Magnesium Total Bilirubin AST ALT Alkaline Phosphatase Troponin I 0.03 B-Natriuretic Peptide Total Protein Albumin Urine Color Urine Clarity Urine pH Ur Specific [place] Urine Protein Urine Glucose (UA) Urine Ketones Urine Occult Blood Urine Nitrate Urine Bilirubin Urine Urobilinogen Ur Leukocyte Esterase Urine WBC Hyaline Casts Granular Casts Micro UA Comment Urine Culture Comments Nasal Screen MRSA (PCR) Not detected 02/20/18 02/20/18 02/20/18 04:00 04:00 05:59 WBC RBC Hgb Hct MCV MCH MCHC RDW Plt Count MPV Neut % (Auto) Lymph % (Auto) [place] % (Auto) Eos % (Auto) Baso % (Auto) Neut # (Auto) Lymph # (Auto) Cherry # (Auto) Eos # (Auto) Baso # (Auto) WBC Differential Differential Comment PT 11.6 INR 1.1 APTT 23.7 L Puncture Site Right radial Patient Temperature 98.6 O2 Saturation 93 ABG pH 7.34 L ABG pCO2 60 H* ABG pO2 79 ABG HCO3 32 H ABG O2 Content 11.4 L ABG Base Excess 6.2 H ABG Methemoglobin 0.9 Saurabh Test Present Hemoglobin 8.7 L Carboxyhemoglobin 1.6 O2 Delivery Device Bipap Liter Flow Vent Setting See comments Inspired O2 40 Critical Value Yes Sodium 143 Potassium 6.5 H Chloride 105 Carbon Dioxide 32.3 H Anion Gap 6 BUN 37 H Creatinine 1.15 H Estimated GFR 48 L POC Glucose Random Glucose 161 H Calcium 8.6 Phosphorus 3.9 Magnesium 2.1 Total Bilirubin 0.4 AST 24 ALT 34 Alkaline Phosphatase 72 Troponin I 0.02 B-Natriuretic Peptide Total Protein 6.0 L Albumin 2.9 L Urine Color Urine Clarity Urine pH Ur Specific [place] Urine Protein Urine Glucose (UA) Urine Ketones Urine Occult Blood Urine Nitrate Urine Bilirubin Urine Urobilinogen Ur Leukocyte Esterase Urine WBC Hyaline Casts Granular Casts Micro UA Comment Urine Culture Comments Nasal Screen MRSA (PCR) 02/20/18 07:56 WBC RBC Hgb Hct MCV MCH MCHC RDW Plt Count MPV Neut % (Auto) Lymph % (Auto) [place] % (Auto) Eos % (Auto) Baso % (Auto) Neut # (Auto) Lymph # (Auto) Cherry # (Auto) Eos # (Auto) Baso # (Auto) WBC Differential Differential Comment PT INR APTT Puncture Site Patient Temperature O2 Saturation ABG pH ABG pCO2 ABG pO2 ABG HCO3 ABG O2 Content ABG Base Excess ABG Methemoglobin Saurabh Test Hemoglobin Carboxyhemoglobin O2 Delivery Device Liter Flow Vent Setting Inspired O2 Critical Value Sodium Potassium Chloride Carbon Dioxide Anion Gap BUN Creatinine Estimated GFR POC Glucose 181 H Random Glucose Calcium Phosphorus Magnesium Total Bilirubin AST ALT Alkaline Phosphatase Troponin I B-Natriuretic Peptide Total Protein Albumin Urine Color Urine Clarity Urine pH Ur Specific [place] Urine Protein Urine Glucose (UA) Urine Ketones Urine Occult Blood Urine Nitrate Urine Bilirubin Urine Urobilinogen Ur Leukocyte Esterase Urine WBC Hyaline Casts Granular Casts Micro UA Comment Urine Culture Comments Nasal Screen MRSA (PCR) - Imaging Impressions Chest X-Ray 02/19/18 17:02 CONCLUSION: Bilateral mostly basilar airspace disease and pleural effusions most characteristic of congestive heart failure in patient with shortness of breath. Cannot exclude pneumonic infiltrate. Head CT 02/19/18 17:13 CONCLUSION: 1. No acute findings. Chronic white matter ischemic changes. . Assessment and Plan - Plan Hypercarbic hypoxemic respiratory failure acute on chronic -Underlying COPD -Transition successfully to nasal cannula, CO2 levels now improved to the 60s -IV steroids, continue as such -DuoNeb scheduled and as needed Hyperkalemia -Potassium levels are 6.5, will start Kayexalate, check BMP in a.m., unclear etiology at this time as the patient's renal function is intact and her home med list does not indicate any medicine that would cause such hyperkalemia - possibly from acute hypercarbia? JAMEL -Improving, monitor with BMP, avoid IV fluids for now given possible pulmonary edema Chronic pain syndrome Fibromyalgia -[place] 5/325 PRN -Lyrica Coronary artery disease -Monitor series of troponins and EKG to rule out acute coronary syndrome -Aspirin -Plavix Depression -Fluoxetine -Wellbutrin -Risperidone Hypertension -Lisinopril Diabetes -Glimepiride -Insulin sliding scale -Hold metformin while in the ICU GERD -Pantoprazole DVT GI prophylaxis -Teds SCDs -Subcu heparin -Pantoprazole
[2018-02-20] MEDS: Lidocaine 5% Patch T-DERMAL SCH ×2 (10:09→21:39)
--- NOTE | 2018-02-20 12:56 | P.CONPAL ---
Consult Service: Palliative Care Requesting Physician: Calin Patel Reason for Consult: a. To assist with evaluation and management of symptoms including: Dyspnea, pain b. To assist medical decision maker(s) with: better understanding of current medical conditions; weighing benefits/burdens of medical treatment options; making medical treatment decisions. Primary Care Provider: UNKNOWN History of Present Illness History of Present Illness: This 62-year-old female, with a past history of oxygen dependent COPD, CHF, obesity, diabetes, CAD/NC, depression, chronic pain, and chronic opiate use, has been admitted to the hospital several times in the past couple years because of dyspnea. The patient has been declining overall over the past couple years, and has been a permanent intermediate resident since November 2017. She was admitted in December 2017 with dyspnea and was sent to a rehab program but she says she did not improve in rehab. She has essentially been nonambulatory since then, able to stand and pivot but not ambulate. She was admitted again about 3 weeks ago because of pneumonia and dyspnea, and was returned to her SNF about a week later. Over the past couple days, the patient has had more dyspnea , and apparently has been more hypoxic at times. She presented to the emergency department last evening, and findings included: * Alert but intermittently confused * Room air oxygen saturations in the 70s. * Temp 98.7, pulse 97, respirations 30, blood pressure 182/87 * White count 10.8, hemoglobin 9.2 * Sodium 142, creatinine 1.27, albumin 3.1 * Chest x-ray with possible CHF * BNP 610 * Head CT scan with no acute findings * PH 7.19, PCO2 97, PO2 284 on nonrebreather The patient was placed on BiPAP, and her gases began improving, with a repeat in the emergency department 7.26/78/64 on 40%. By this morning, the patient was alert, oriented, and her white count was now 6.7. Her highest temperature was 99.5 during the night. The patient has had chronic pain for several years, and has been diagnosed with fibromyalgia, depression, Raynaud's syndrome, and Sjogren's. She says she is on hydrocodone about every 4 hours at the intermediate, and is also on Wellbutrin, Prozac, and pregabalin. She says her pain is constant and involves her entire body. Palliative Care was consulted to assist with symptom management, and to enter into discussions with the patient regarding her illnesses, the prognosis, and the benefits and burdens of the various treatment choices. Function/Cognitive Trajectory: The patient has been declining over the past couple years, gradually getting weaker. She has been essentially bedbound/nonambulatory for the past couple months, and says she is no longer receiving physical therapy at her intermediate where she has been a full-time resident since November 2017. She says she can stand and pivot but does not ambulate. She reports that her mind remains sharp. Review of Systems Constitutional: Reports fatigue, Reports lack of energy, Reports weakness, Denies fever(s), Denies night sweats Eyes: Denies blind spots, Denies irritation Ears, Nose, Mouth, and Throat: Denies bleeding gums, Denies sore throat Cardiovascular: Reports chest pain (Part of her "pain all over"), Reports shortness of breath, Reports shortness of breath with activity Respiratory: Reports chest congestion (Chronic), Reports cough (Chronic), Reports shortness of breath, Reports shortness of breath with activity, Denies coughing up blood Gastrointestinal: Denies abdominal pain, Denies black, tarry stools, Denies vomiting blood Genitourinary: Denies blood in urine Musculoskeletal: Reports back pain (Chronic), Reports joint pain (Chronic), Reports neck pain (Chronic) Skin/Breast: Denies dry skin, Denies lesions, Denies unusual bruising Neurologic: Denies abnormal hearing, Denies convulsions Psychiatric: Reports anxiety (When short of breath), Reports depression, Reports lack of enjoyment Endocrine: Denies cold intolerance Hematologic/Lymphatic: Denies easy bruising Allergic/Immunologic: Denies hives PMFSH - History History Provided By: Medical Record - Medical History Medical History: Medical History (Last Updated 02/20/18 @ 12:40 by Josi Johnson MD) Chronic pain Chronically on opiate therapy Diabetes Fibromyalgia Pilonidal cyst Raynauds phenomenon Sjogrens syndrome Tubal ligation status CAD (coronary artery disease) COPD (chronic obstructive pulmonary disease) Depression Diabetes GERD (gastroesophageal reflux disease) H/O: hysterectomy HTN (hypertension) Heart attack Hemorrhoids - Surgical History Surgical History: Surgical History (Last Reviewed 02/19/18 @ 17:56 by Debby Miller) H/O heart artery stent - Family History Family History: Family History (Last Updated 02/20/18 @ 12:42 by Josi Johnson MD) Mother Family history of diabetes mellitus Lung cancer - Tobacco History Second Hand Smoke Exposure: No (PATIENT NON-AROUSABLE EJ) Tobacco Use In Past 30 Days: No (PATIENT NON-AROUSABLE EJ) Smoking Status: Cognitive impairment Tobacco Type: Cigarettes Packs Per Day: 3 Years Smoked: 40 Smoking End Date: 2013 - Alcohol History How Often Do You Have a Drink Containing Alcohol: Unable to Obtain - Substance Use History Substance History: Unable to Obtain - Travel History Recent Travel in the [place] Within the Last 8 Weeks: No Recent Travel Out of the Country Within the Last 8 Weeks: No - Immunization History Tetanus Immunization: Unable to Assess Hx Influenza Vaccine This Season: Unable to Assess Medications and Allergies Active Medications: Active Medications Acetaminophen (Tylenol) 650 mg PO Q6H PRN PRN Reason: PAIN 1-10 AND/OR FEVER >101F Hydrocodone Bitart/Acetaminophen ([place] 5/325) 1 tab PO Q4H PRN PRN Reason: PAIN 1-10 Last Admin: 02/20/18 10:09 Dose: 1 tab Al Hydroxide/Mg Hydroxide (Milk Of Jerson Thompson) 30 ml PO Q12H PRN PRN Reason: Mild Constipation Albuterol (Duoneb Neb (Jordy)) 1 ampul NEB Q4HR NEB [facility] Last Admin: 02/20/18 11:53 Dose: 1 ampul Albuterol (Duoneb Neb (Prn)) 1 ampul NEB Q2HR NEB PRN PRN Reason: WHEEZING Aspirin (Aspirin Chew) 81 mg PO DAILY [facility] Last Admin: 02/20/18 08:41 Dose: 81 mg Baclofen (Lioresal) 10 mg PO HS [facility] Last Admin: 02/19/18 22:45 Dose: 10 mg Bisacodyl (Dulcolax Supp) 10 mg RECTAL DAILY PRN PRN Reason: SEVERE CONSITIPATION Bupropion HCl (Wellbutrin Sr) 150 mg PO DAILY [facility] Last Admin: 02/20/18 08:40 Dose: 150 mg Chlorhexidine Gluconate (Chlorhexidine 2% Cloth) 3 pack TOPICAL DAILY@0400 [facility] Stop: 02/25/18 03:59 Last Admin: 02/20/18 04:18 Dose: 3 pack Chlorhexidine Gluconate (Chlorhexidine 2% Cloth) 3 pack TOPICAL DAILY@0400 PRN PRN Reason: Extra cloth needed Stop: 02/25/18 03:59 Clopidogrel Bisulfate (Plavix) 75 mg PO DAILY [facility] Last Admin: 02/20/18 08:42 Dose: 75 mg Fluoxetine HCl (Prozac) 40 mg PO DAILY [facility] Last Admin: 02/20/18 08:42 Dose: 40 mg Fluticasone Propionate (Flonase Nasal [place]) 2 spray EACH NARE DAILY [facility] Last Admin: 02/20/18 08:19 Dose: 2 spray Glimepiride (Amaryl) 1 mg PO DAILY@0800 [facility] Last Admin: 02/20/18 08:39 Dose: Not Given Heparin Sodium (Porcine) (Heparin Inj) 5,000 units SQ Q8H [facility] Last Admin: 02/20/18 05:14 Dose: 5,000 units Lactobacillus Acidophilus (Lactinex) 1 tab PO TID [facility] Last Admin: 02/20/18 08:39 Dose: 1 tab Lactulose (Lactulose Liq) 30 ml PO DAILY PRN PRN Reason: SEVERE CONSITIPATION Lidocaine HCl (Lidoderm 5% Patch.12 Hr) 1 patch T-DERMAL Q12H [facility] Last Admin: 02/20/18 10:09 Dose: 1 patch Lisinopril (Prinivil) 10 mg PO DAILY [facility] Last Admin: 02/20/18 08:40 Dose: 10 mg Loratadine (Claritin) 10 mg PO DAILY [facility] Last Admin: 02/20/18 08:42 Dose: 10 mg Loratadine/Pseudoephedrine Sulfate (Claritin-D 12 Hour Allergy & Congestion) 1 tab PO Q12H PRN PRN Reason: ALLERGIC REACTION Melatonin (Melatonin) 5 mg PO HS PRN PRN Reason: Insomnia Methylprednisolone Sodium Succinate (Solumedrol Inj) 40 mg IV.PUSH Q6H [facility] Last Admin: 02/20/18 10:08 Dose: 40 mg Miscellaneous (Pill Splitter) 1 each OTHER UNSCH PRN PRN Reason: SEE LABEL COMMENTS Nabumetone (Relafen) 500 mg PO BID [facility] Last Admin: 02/20/18 08:41 Dose: 500 mg Ondansetron HCl (Zofran Inj) 4 mg IV.PUSH Q6H PRN PRN Reason: NAUSEA OR VOMITING Pantoprazole Sodium (Protonix) 40 mg PO BID [facility] Last Admin: 02/20/18 08:39 Dose: 40 mg Pregabalin (Lyrica) 300 mg PO BID [facility] Last Admin: 02/20/18 08:42 Dose: 300 mg Risperidone (Risperdal) 0.5 mg PO DAILY [facility] Last Admin: 02/20/18 08:42 Dose: 0.5 mg Ropinirole HCl (Requip) 0.25 mg PO HS [facility] Last Admin: 02/19/18 22:45 Dose: 0.25 mg Senna/Docusate Sodium ([place]-Colace) 1 tab PO BID [facility] Last Admin: 02/20/18 08:41 Dose: 1 tab Sennosides (Senokot) 17.2 mg PO Q12H PRN PRN Reason: Moderate Constipation Sodium Chloride (Ns Flush) 2 ml IV.FLUSH BID [facility] Last Admin: 02/20/18 09:12 Dose: 2 ml Sodium Chloride (Ns Flush) 2 ml IV.FLUSH PRN PRN PRN Reason: FLUSH AFTER USING IV ACCESS Tiotropium [place] (Spiriva 18 Mcg Inh) 18 mcg INH DAILY [facility] Last Admin: 02/20/18 08:17 Dose: 18 mcg Allergies Allergy/AdvReac Type Severity Reaction Status Date / Time budesonide [From Pulmicort] Allergy Hives Verified 02/01/18 09:53 duloxetine [From Cymbalta] Allergy Hives Verified 02/01/18 09:53 gabapentin [From Neurontin] Allergy Hives Verified 02/01/18 09:53 nickel Allergy Hives Verified 02/01/18 09:53 Penicillins Allergy Hives Verified 02/01/18 09:53 prednisone Allergy Hives Verified 02/01/18 06:49 sulfacetamide Allergy Hives Verified 02/01/18 09:53 [From Sulfacet-R] sulfur [From Sulfacet-R] Allergy Hives Verified 02/01/18 09:53 Home Medications Medication Instructions Recorded Confirmed Type alum-mag hydroxide-simeth [Maalox 1 mg PO Q6H 02/01/18 02/19/18 History Advanced] aspirin 81 mg PO DAILY 02/01/18 02/19/18 History baclofen 10 mg PO HS 02/01/18 02/19/18 History bupropion HCl [Wellbutrin SR] 150 mg PO DAILY 02/01/18 02/19/18 History clopidogrel [Plavix] 75 mg PO DAILY 02/01/18 02/19/18 History fexofenadine-pseudoephedrine 1 tab PO Q12H PRN 02/01/18 02/19/18 History fluoxetine [Prozac] 40 mg PO DAILY 02/01/18 02/19/18 History fluticasone 2 spray INTRANASAL DAILY 02/01/18 02/19/18 History glimepiride 1 mg PO QAM 02/01/18 02/19/18 History hydrocodone-acetaminophen [[place]] 1 tab PO Q4-6H PRN 02/01/18 02/19/18 History insulin aspart U-100 [Novolog 1 unit SUB-Q ACHS 02/01/18 02/19/18 History U-100 Insulin aspart] ipratropium-albuterol 3 ml INHALATION Q6-8H PRN 02/01/18 02/19/18 History lidocaine [Lidocaine Pain Relief] 1 patch TOPICAL Q8H 02/01/18 02/19/18 History lisinopril 10 mg PO DAILY 02/01/18 02/19/18 History melatonin 6 mg PO HS PRN 02/01/18 02/19/18 History metformin 1,000 mg PO BID 02/01/18 02/19/18 History nabumetone 500 mg PO BID 02/01/18 02/19/18 History ondansetron [Zofran ODT] 4 mg PO Q6-8H PRN 02/01/18 02/19/18 History pantoprazole [Protonix] 40 mg PO BID 02/01/18 02/19/18 History pregabalin 300 mg PO BID 02/01/18 02/19/18 History risperidone [Risperdal] 0.5 mg PO DAILY 02/01/18 02/19/18 History ropinirole [Requip] 0.25 mg PO HS 02/01/18 02/19/18 History tiotropium bromide 1 cap INHALATION DAILY 02/01/18 02/19/18 History fexofenadine [Adalgisa Allergy] 60 mg PO DAILY 02/03/18 02/19/18 History Advance Directives Living Will: No Healthcare Surrogate: No Power of Paint Preparer: No Today's verbally stated goals: The patient wants to continue aggressive care, "I am only 62." She says she is willing to be on a ventilator "a month or 2 or even more if there is a chance I might get better." We talked at length about the fact that she has end-stage lung disease and significant heart disease, and that her designated healthcare surrogate may be faced with a difficult decision of life support withdrawal if she is not getting better. She says she will decide on HCS and speak with that person about her wishes. Ethical and Legal Issues: There are no ethical issues that would impact her care were decision-making at this time. The patient has capacity for decision-making. She has not designated a healthcare surrogate, but is considering her son or her sister, and says she will decide within the next day. Physical Exam Vital Signs: Vital Signs - 24 hr 02/19/18 17:11 02/19/18 17:46 02/19/18 17:55 Temperature 98.7 F 98.7 F Pulse Rate 97 H 94 H Respiratory Rate 14 8 L Blood Pressure 182/87 H 182/87 H Pulse Oximetry 100 100 100 02/19/18 18:00 02/19/18 18:14 02/19/18 18:20 Temperature Pulse Rate 86 85 83 Respiratory Rate 10 L 30 H 30 H Blood Pressure Pulse Oximetry 90 L 02/19/18 18:30 02/19/18 19:20 02/19/18 20:36 Temperature Pulse Rate 89 82 Respiratory Rate 30 H 18 Blood Pressure 156/66 H Pulse Oximetry 98 97 02/19/18 21:43 02/19/18 21:55 02/19/18 22:00 Temperature 98.4 F Pulse Rate 93 H 92 H 88 Respiratory Rate 28 H 16 10 L Blood Pressure 184/74 H 161/73 H Pulse Oximetry 95 98 02/19/18 22:01 02/19/18 23:00 02/19/18 23:03 Temperature Pulse Rate 99 H 96 H Respiratory Rate 26 H 17 Blood Pressure 156/66 H 177/73 H Pulse Oximetry 98 97 98 02/19/18 23:32 02/20/18 00:00 02/20/18 00:01 Temperature 98.9 F Pulse Rate 91 H 92 H 88 Respiratory Rate 17 35 H 19 Blood Pressure 166/71 H 166/71 H Pulse Oximetry 97 97 02/20/18 01:00 02/20/18 02:00 02/20/18 03:00 Temperature Pulse Rate 94 H 96 H 83 Respiratory Rate 15 16 12 Blood Pressure 153/68 H 162/68 H 131/60 Pulse Oximetry 92 L 90 L 95 02/20/18 03:01 02/20/18 03:39 02/20/18 04:00 Temperature 99.5 F Pulse Rate 82 82 92 H Respiratory Rate 16 11 L 23 Blood Pressure 131/60 135/61 Pulse Oximetry 95 94 L 92 L 02/20/18 05:00 02/20/18 06:00 02/20/18 06:01 Temperature Pulse Rate 86 86 84 Respiratory Rate 13 21 23 Blood Pressure 126/60 159/72 H 159/72 H Pulse Oximetry 94 L 93 L 93 L 02/20/18 07:00 02/20/18 08:00 02/20/18 08:20 Temperature 99.0 F Pulse Rate 80 86 Respiratory Rate 13 15 Blood Pressure 138/60 165/73 H Pulse Oximetry 92 L 94 L 92 L 02/20/18 09:00 02/20/18 10:00 02/20/18 11:00 Temperature Pulse Rate 100 H 92 H 92 H Respiratory Rate 30 H 16 13 Blood Pressure 170/77 H 169/72 H 170/73 H Pulse Oximetry 76 L 94 L 96 02/20/18 11:53 Temperature Pulse Rate 91 H Respiratory Rate 18 Blood Pressure Pulse Oximetry 95 I&O: Intake & Output 02/18/18 02/19/18 02/20/18 02/21/18 06:59 06:59 06:59 06:59 Output Total 1450 / 1450 Balance -1450 / -1450 Weight 106.2 kg Physical Exam: CONSTITUTIONAL/GENERAL: This is a moderately obese patient, in no apparent distress. TUBES/LINES/DRAINS: IV access, nasal oxygen SKIN: No jaundice, rashes, or lesions. Ecchymoses on upper extremities. No wounds seen anteriorly. Skin temperature appropriate. Not diaphoretic. HEAD: Atraumatic. Normocephalic. EYES: Pupils equal and round and reactive. Extraocular motions intact. No scleral icterus. No injection or drainage. Fundi not examined. ENT: Hearing grossly normal. Nose without bleeding or purulent drainage. Throat without visible erythema, exudates, masses, or lesions. NECK: Trachea midline. Supple, nontender. No palpable thyroid enlargement or nodularity. CARDIOVASCULAR: Regular rate and rhythm without murmurs, gallops, or rubs. No JVD. Peripheral pulses symmetric. RESPIRATORY/CHEST: Symmetric, unlabored respirations, but breath sounds diminished bilateral. A couple scattered rhonchi. GASTROINTESTINAL: Abdomen soft, non-tender, obese, nondistended. No hepato- splenomegaly, or palpable masses. No guarding. Bowel sounds present. GENITOURINARY: Without palpable bladder distension. MUSCULOSKELETAL: Extremities without clubbing or cyanosis, but there is 1+ chronic leg edema. No joint tenderness or effusion noted. No calf tenderness. No mottling or clubbing. LYMPHATICS: No palpable cervical or supraclavicular adenopathy. NEUROLOGICAL: Awake and alert. Motor and sensory grossly within normal limits. Follows commands. Cognitively sharp. Moves all extremities. PSYCHIATRIC: No obvious anxiety, but she does cry at times when talking about her health. no apparent hallucinations or other psychotic thought process. Diagnostic Tests Laboratory: Laboratory Results - last 72 hr 02/19/18 02/19/18 02/19/18 17:10 17:41 17:41 WBC 10.8 RBC 2.88 L Hgb 9.2 L Hct 28.0 L MCV 97.2 MCH 32.0 MCHC 32.9 RDW 13.6 Plt Count 144 L MPV 10.2 Neut % (Auto) 80.6 H Lymph % (Auto) 5.4 L [place] % (Auto) 12.7 H Eos % (Auto) 1.0 Baso % (Auto) 0.3 Neut # (Auto) 8.7 H Lymph # (Auto) 0.6 L [place] # (Auto) 1.4 H Eos # (Auto) 0.1 Baso # (Auto) 0.0 WBC Differential . Differential Comment Auto diff final PT INR APTT Puncture Site Left radial Patient Temperature 98.6 O2 Saturation 97 ABG pH 7.19 L* ABG pCO2 97 H* ABG pO2 284 H ABG HCO3 35 H ABG O2 Content 13.4 ABG Base Excess 7.3 H ABG Methemoglobin 0.8 Saurabh Test Present Hemoglobin 9.3 L Carboxyhemoglobin 1.3 O2 Delivery Device Non-rebreathing mask Liter Flow 15.00 Vent Setting Inspired O2 100 Critical Value Yes Sodium 142 Potassium 6.4 H Chloride 104 Carbon Dioxide 32.7 H Anion Gap 5 BUN 34 H Creatinine 1.27 H Estimated GFR 43 L POC Glucose Random Glucose 104 Calcium 8.7 Phosphorus Magnesium Total Bilirubin 0.4 AST 33 ALT 40 Alkaline Phosphatase 76 Troponin I 0.04 B-Natriuretic Peptide Total Protein 6.4 Albumin 3.1 L Urine Color Urine Clarity Urine pH Ur Specific [place] Urine Protein Urine Glucose (UA) Urine Ketones Urine Occult Blood Urine Nitrate Urine Bilirubin Urine Urobilinogen Ur Leukocyte Esterase Urine WBC Hyaline Casts Granular Casts Micro UA Comment Urine Culture Comments Nasal Screen MRSA (PCR) 02/19/18 02/19/18 02/19/18 17:41 18:28 19:00 WBC RBC Hgb Hct MCV MCH MCHC RDW Plt Count MPV Neut % (Auto) Lymph % (Auto) [place] % (Auto) Eos % (Auto) Baso % (Auto) Neut # (Auto) Lymph # (Auto) [place] # (Auto) Eos # (Auto) Baso # (Auto) WBC Differential Differential Comment PT INR APTT Puncture Site Left radial Patient Temperature 98.6 O2 Saturation 88 L* ABG pH 7.26 L* ABG pCO2 78 H* ABG pO2 64 ABG HCO3 34 H ABG O2 Content 10.8 L ABG Base Excess 7.2 H ABG Methemoglobin 0.7 Saurabh Test Present Hemoglobin 8.7 L Carboxyhemoglobin 1.7 O2 Delivery Device Bipap Liter Flow Vent Setting [id number] Inspired O2 40 Critical Value Yes Sodium Potassium Chloride Carbon Dioxide Anion Gap BUN Creatinine Estimated GFR POC Glucose Random Glucose Calcium Phosphorus Magnesium Total Bilirubin AST ALT Alkaline Phosphatase Troponin I B-Natriuretic Peptide 610 H Total Protein Albumin Urine Color Yellow Urine Clarity Hazy H Urine pH 5.0 Ur Specific [place] 1.013 Urine Protein Negative Urine Glucose (UA) Negative Urine Ketones Negative Urine Occult Blood Negative Urine Nitrate Negative Urine Bilirubin Negative Urine Urobilinogen Less than 2 Ur Leukocyte Esterase Negative Urine WBC 1 Hyaline Casts 1 Granular Casts 3 Micro UA Comment Cath-culture not ind Urine Culture Comments Cath-cult not ind Nasal Screen MRSA (PCR) 02/19/18 02/19/18 02/20/18 22:20 22:59 04:00 WBC 6.7 RBC 2.75 L Hgb 8.6 L Hct 26.8 L MCV 97.3 MCH 31.1 MCHC 32.0 RDW 13.3 Plt Count 138 L MPV 10.4 Neut % (Auto) 95.9 H Lymph % (Auto) 2.2 L [place] % (Auto) 1.6 Eos % (Auto) 0.1 Baso % (Auto) 0.2 Neut # (Auto) 6.4 Lymph # (Auto) 0.1 L [place] # (Auto) 0.1 Eos # (Auto) 0.0 Baso # (Auto) 0.0 WBC Differential . Differential Comment Auto diff final PT INR APTT Puncture Site Patient Temperature O2 Saturation ABG pH ABG pCO2 ABG pO2 ABG HCO3 ABG O2 Content ABG Base Excess ABG Methemoglobin Saurabh Test Hemoglobin Carboxyhemoglobin O2 Delivery Device Liter Flow Vent Setting Inspired O2 Critical Value Sodium Potassium Chloride Carbon Dioxide Anion Gap BUN Creatinine Estimated GFR POC Glucose Random Glucose Calcium Phosphorus Magnesium Total Bilirubin AST ALT Alkaline Phosphatase Troponin I 0.03 B-Natriuretic Peptide Total Protein Albumin Urine Color Urine Clarity Urine pH Ur Specific [place] Urine Protein Urine Glucose (UA) Urine Ketones Urine Occult Blood Urine Nitrate Urine Bilirubin Urine Urobilinogen Ur Leukocyte Esterase Urine WBC Hyaline Casts Granular Casts Micro UA Comment Urine Culture Comments Nasal Screen MRSA (PCR) Not detected 02/20/18 02/20/18 02/20/18 04:00 04:00 05:59 WBC RBC Hgb Hct MCV MCH MCHC RDW Plt Count MPV Neut % (Auto) Lymph % (Auto) [place] % (Auto) Eos % (Auto) Baso % (Auto) Neut # (Auto) Lymph # (Auto) [place] # (Auto) Eos # (Auto) Baso # (Auto) WBC Differential Differential Comment PT 11.6 INR 1.1 APTT 23.7 L Puncture Site Right radial Patient Temperature 98.6 O2 Saturation 93 ABG pH 7.34 L ABG pCO2 60 H* ABG pO2 79 ABG HCO3 32 H ABG O2 Content 11.4 L ABG Base Excess 6.2 H ABG Methemoglobin 0.9 Saurabh Test Present Hemoglobin 8.7 L Carboxyhemoglobin 1.6 O2 Delivery Device Bipap Liter Flow Vent Setting See comments Inspired O2 40 Critical Value Yes Sodium 143 Potassium 6.5 H Chloride 105 Carbon Dioxide 32.3 H Anion Gap 6 BUN 37 H Creatinine 1.15 H Estimated GFR 48 L POC Glucose Random Glucose 161 H Calcium 8.6 Phosphorus 3.9 Magnesium 2.1 Total Bilirubin 0.4 AST 24 ALT 34 Alkaline Phosphatase 72 Troponin I 0.02 B-Natriuretic Peptide Total Protein 6.0 L Albumin 2.9 L Urine Color Urine Clarity Urine pH Ur Specific [place] Urine Protein Urine Glucose (UA) Urine Ketones Urine Occult Blood Urine Nitrate Urine Bilirubin Urine Urobilinogen Ur Leukocyte Esterase Urine WBC Hyaline Casts Granular Casts Micro UA Comment Urine Culture Comments Nasal Screen MRSA (PCR) 02/20/18 07:56 WBC RBC Hgb Hct MCV MCH MCHC RDW Plt Count MPV Neut % (Auto) Lymph % (Auto) [place] % (Auto) Eos % (Auto) Baso % (Auto) Neut # (Auto) Lymph # (Auto) [place] # (Auto) Eos # (Auto) Baso # (Auto) WBC Differential Differential Comment PT INR APTT Puncture Site Patient Temperature O2 Saturation ABG pH ABG pCO2 ABG pO2 ABG HCO3 ABG O2 Content ABG Base Excess ABG Methemoglobin Saurabh Test Hemoglobin Carboxyhemoglobin O2 Delivery Device Liter Flow Vent Setting Inspired O2 Critical Value Sodium Potassium Chloride Carbon Dioxide Anion Gap BUN Creatinine Estimated GFR POC Glucose 181 H Random Glucose Calcium Phosphorus Magnesium Total Bilirubin AST ALT Alkaline Phosphatase Troponin I B-Natriuretic Peptide Total Protein Albumin Urine Color Urine Clarity Urine pH Ur Specific [place] Urine Protein Urine Glucose (UA) Urine Ketones Urine Occult Blood Urine Nitrate Urine Bilirubin Urine Urobilinogen Ur Leukocyte Esterase Urine WBC Hyaline Casts Granular Casts Micro UA Comment Urine Culture Comments Nasal Screen MRSA (PCR) Result Diagrams: 02/20/18 04:00 02/20/18 04:00 Imaging: Chest X-Ray 02/19/18 17:02 CONCLUSION: Bilateral mostly basilar airspace disease and pleural effusions most characteristic of congestive heart failure in patient with shortness of breath. Cannot exclude pneumonic infiltrate. Head CT 02/19/18 17:13 CONCLUSION: 1. No acute findings. Chronic white matter ischemic changes. . Procedures: BiPAP 02/19/18 Patient/Family Conference Present at Family Conference: The patient and me. Family Conference Time: 38 Family Conference Location: Bedside Issues Discussed: * Palliative care role, purpose, approach * Additional medical, psychosocial, and spiritual history * Patients general health, functional status, and cognitive changes in the months leading up to the current hospitalization * Patient/family understanding of the current medical problems * Patient/family understanding of prognosis * Patients goals of care as best understood from advance directives and/or conversations and/or values * Current medical treatment options and benefits/burdens of those options * Likely scenarios comparing ongoing aggressive care with a transition to comfort measures only * Questions answered to the best of my ability * Palliative care contact information provided Assessment and Plan Pertinent Non-Medical Issues: Psychosocial: Was once, from her for 27 years and then he about 2 years ago. One son who lives locally. long-term resident since December 16. Spiritual: [employer]ism background, and she is interested in having a visit from a staff radiologist. Legal: The patient has capacity for decision-making. She has not designated a healthcare surrogate, but is considering her son or her sister, and says she will decide within the next day. Ethical issues impacting care: None Important Contacts: Son: Julio Cesar Baldwin [phone] Prognosis: The patient has end-stage lung disease and cardiac disease, and is a permanent bedbound intermediate patient now. She is at high risk for recurrent respiratory failure, new cardiac events, and various infections. It is likely that she will continue to have health challenges and hospitalizations until , which I would expect in the upcoming months or perhaps a year or 2. Code Status: Full Code Plan: * FULL CODE, per patient's request 02/20/18 * DECISION-MAKING: The patient has capacity for decision-making. She has not designated a healthcare surrogate, but is considering her son or her sister, and says she will decide within the next day. We will follow-up with the patient to try to get an officially designated HCS in the record. * GOALS: The patient wants to continue aggressive care, and is willing to accept mechanical ventilation "for a month or 2 if there is a chance I might get better and off the machines." * SYMPTOMS: She has chronic pain that has been managed with Wellbutrin, Prozac, pregabalin, and q. 4 hour hydrocodone. The patient also has chronic depression for which she remains on antidepressant medications. Her dyspnea has now essentially resolved while she is at rest in the bed. I have no further medication recommendations at this time. * Commercial Shrimping Captain visit requested. * Palliative Care will continue to follow the patient during this hospitalization. Time Spent Total Floor Time (mins): 76 Face to Face Time (mins): 49 >50% Time in Counseling or Coordination of Care: Yes (d/w RN) Appreciation Thank you for the opportunity to participate in the care of Sue Baldwin.
--- NOTE | 2018-02-20 13:45 | ECG ---
Date Performed: 02/19/2018 Time Performed: 22:42:36 PTAGE: 62 years EKG: Sinus rhythm Normal ECG NO PREVIOUS TRACING DOCTOR: Yo Mandujano Interpretating Date/Time 02/20/2018 13:44:27
--- NOTE | 2018-02-20 13:45 | ECG ---
Date Performed: 02/20/2018 Time Performed: 04:14:16 PTAGE: 62 years EKG: Sinus rhythm Normal ECG Since the PREVIOUS TRACING , no significant change noted PREVIOUS TRACIN02/19/2018 22.42 DOCTOR: Yo Mandujano Interpretating Date/Time 02/20/2018 13:44:21
--- NOTE | 2018-02-20 13:46 | ECG ---
Date Performed: 02/19/2018 Time Performed: 17:22:35 PTAGE: 62 years EKG: Sinus rhythm NORMAL ECG Since the PREVIOUS TRACING , no significant change noted PREVIOUS TRACING DOCTOR: Yo Mandujano Interpretating Date/Time 02/20/2018 13:44:40
[2018-02-20] MEDS: Baclofen 10 MG Tablet PO SCH (20:26)
[2018-02-20] MEDS: Insulin NovoLOG Aspart Correctional Sugar Inj SQ SCH (21:10)
[2018-02-20] MEDS ORDERED: Dextrose 50% in Water 50 ML Vial IV.PUSH PRN (21:13)
[2018-02-20] MEDS ORDERED: Ketorolac Inj 30 MG/ML (IVP) Vial IV.PUSH ONE (22:41)
[2018-02-20] MEDS: Melatonin 5 MG Tablet PO PRN (23:13)
[2018-02-21] MEDS: MethylPREDNISolone Sod Succinate Inj 40 MG/ML Vial IV.PUSH SCH (04:43)
[2018-02-21] MEDS: Chlorhexidine Gluconate 2% 1 Pack (2 Cloths) TOPICAL SCH (04:44)
[2018-02-21 05:17] LABS: Calcium 8.1 mg/dL (8.5-10.1); Carbon Dioxide 35.4 meq/L (21.0-32.0); Potassium 5.1 meq/L (3.5-5.1)
[2018-02-21] MEDS: Heparin - SQ 10,000 UNITS/ML Vial SQ SCH ×3 (07:06→23:49)
[2018-02-21] MEDS ORDERED: Insulin NovoLOG Aspart Correctional Sugar Inj SQ SCH (08:00)
--- NOTE | 2018-02-21 08:24 | P.PN ---
Subjective Interval history: F/u SOB. Doing better did not use BIPAP last night. Uses 3L at home Pulm Dr Durand. Made aware of possible CKD. Physical Exam Vital signs: Vital Signs 02/20/18 09:00 02/20/18 10:00 02/20/18 11:00 Temperature Pulse Rate 100 H 92 H 92 H Respiratory Rate 30 H 16 13 Blood Pressure 170/77 H 169/72 H 170/73 H Pulse Oximetry 76 L 94 L 96 02/20/18 11:53 02/20/18 12:00 02/20/18 13:00 Temperature 99.3 F Pulse Rate 91 H 88 95 H Respiratory Rate 18 11 L 22 Blood Pressure 160/69 H Pulse Oximetry 95 99 93 L 02/20/18 13:01 02/20/18 14:00 02/20/18 15:00 Temperature Pulse Rate 97 H 91 H 107 H Respiratory Rate 14 38 H 22 Blood Pressure 149/71 H 153/66 H 138/60 Pulse Oximetry 93 L 95 91 L 02/20/18 15:24 02/20/18 16:00 02/20/18 17:00 Temperature 99.1 F Pulse Rate 97 H 101 H 98 H Respiratory Rate 16 13 Blood Pressure 141/62 H 168/73 H Pulse Oximetry 92 L 94 L 02/20/18 18:00 02/20/18 18:15 02/20/18 19:00 Temperature Pulse Rate 96 H 97 H 93 H Respiratory Rate Blood Pressure 158/126 H 168/72 H 143/63 H Pulse Oximetry 94 L 94 L 95 02/20/18 19:40 02/20/18 20:00 02/20/18 21:00 Temperature 98.8 F Pulse Rate 88 92 H 87 Respiratory Rate 18 20 Blood Pressure 156/68 H 156/67 H Pulse Oximetry 95 97 95 02/20/18 22:00 02/20/18 22:01 02/20/18 22:27 Temperature Pulse Rate 91 H 91 H Respiratory Rate 19 Blood Pressure 156/68 H Pulse Oximetry 95 94 L 02/20/18 23:00 02/20/18 23:10 02/20/18 23:42 Temperature Pulse Rate 86 87 Respiratory Rate 16 20 Blood Pressure 163/71 H Pulse Oximetry 97 98 02/21/18 00:00 02/21/18 00:01 02/21/18 01:00 Temperature 98.1 F Pulse Rate 86 86 79 Respiratory Rate 18 Blood Pressure 162/68 H Pulse Oximetry 97 97 97 02/21/18 01:01 02/21/18 02:00 02/21/18 02:59 Temperature Pulse Rate 78 72 78 Respiratory Rate 16 Blood Pressure 124/60 113/56 L Pulse Oximetry 97 97 02/21/18 03:00 02/21/18 04:00 02/21/18 05:00 Temperature 97.9 F Pulse Rate 77 71 78 Respiratory Rate 20 Blood Pressure 139/65 126/58 L 139/64 Pulse Oximetry 98 97 98 02/21/18 06:00 02/21/18 07:00 02/21/18 07:09 Temperature Pulse Rate 84 80 79 Respiratory Rate 29 H 12 20 Blood Pressure 132/71 Pulse Oximetry 94 L 99 02/21/18 07:10 Temperature Pulse Rate Respiratory Rate Blood Pressure Pulse Oximetry 100 Intake & Output 02/20/18 02/21/18 02/21/18 18:59 06:59 18:59 Intake Total 920 / 920 400 / 400 Output Total 750 / 750 600 / 600 Balance 170 / 170 -200 / -200 Intake: Oral 920 / 920 400 / 400 Output: Urine Amount (Catheter) 750 / 750 600 / 600 Indwelling Urethral Catheter 750 / 750 600 / 600 Other: Date of Last Bowel Movement 02/20/18 # Bowel Movements 2 0 Narrative: Slightly diminished breath sounds in the bases but clear otherwise On nasal cannula Awake, alert - Urinary Catheter Management Indwelling Urethral Catheter Cath placed during this visit: no Reason for continuing: Acute urinary retention Results - Labs CBC & Chem 7: 02/20/18 04:00 02/21/18 04:09 Laboratory Results - last 24 hr 02/20/18 02/20/18 02/21/18 15:24 20:49 04:09 Sodium 142 Potassium 5.1 D 5.1 Chloride 101 Carbon Dioxide 35.4 H Anion Gap 6 BUN 41 H Creatinine 1.34 H Estimated GFR 40 L POC Glucose 381 H Random Glucose 236 H Calcium 8.1 L - Imaging ITS Impressions Chest X-Ray 02/19/18 17:02 CONCLUSION: Bilateral mostly basilar airspace disease and pleural effusions most characteristic of congestive heart failure in patient with shortness of breath. Cannot exclude pneumonic infiltrate. Head CT 02/19/18 17:13 CONCLUSION: 1. No acute findings. Chronic white matter ischemic changes. . - Procedures none Assessment and Plan - Assessment (1) COPD (chronic obstructive pulmonary disease) Code(s): J44.9 - Chronic obstructive pulmonary disease, unspecified Status: Chronic - Plan Hypercarbic hypoxemic respiratory failure acute on chronic -Underlying COPD -Transition successfully to nasal cannula, CO2 levels now improved to the 60s -IV steroids will wean and dc. States she is not allergic to prednisone during last admit but has not tried since then -DuoNeb scheduled and as needed Hyperkalemia -Potassium levels are 6.5, will start Kayexalate, check BMP in a.m., unclear etiology at this time as the patient's renal function is intact and her home med list does not indicate any medicine that would cause such hyperkalemia - possibly from acute hypercarbia? JAMEL vs CKD stage 3 -Improving, monitor with BMP, avoid IV fluids for now given possible pulmonary edema. ECHO 02/05 unremarkable Chronic pain syndrome Fibromyalgia -[place] 5/325 PRN -Lyrica Coronary artery disease -no CP -Aspirin -Plavix Depression -Fluoxetine -Wellbutrin -Risperidone Hypertension -Lisinopril Diabetes -Glimepiride -Insulin sliding scale -Hold metformin with renal dysfunction GERD -Pantoprazole DVT GI prophylaxis -Teds SCDs -Subcu heparin -Pantoprazole Discharge Planning: PT eval. Transfer to floor Dc planning
[2018-02-21] MEDS: Lisinopril 10 MG Tablet PO SCH (08:43)
[2018-02-21] MEDS: Loratadine 10 MG Tablet PO SCH (08:43)
[2018-02-21] MEDS: Glimepiride 1 MG Tablet PO SCH (08:43)
[2018-02-21] MEDS: Senna/Docusate Sodium 8.6/50 MG Tablet PO SCH ×2 (08:43→21:03)
[2018-02-21] MEDS: FLUoxetine 20 MG Capsule PO SCH (08:44)
[2018-02-21] MEDS: Lactobacillus Acidophilus/L. Spores Tablet PO SCH ×3 (08:44→18:23)
[2018-02-21] MEDS: buPROPion 150 MG 12 HR Tablet PO SCH (08:45)
[2018-02-21] MEDS: Tiotropium Bromide 18 MCG/ACT Inhaler INH SCH (08:45)
[2018-02-21] MEDS: Insulin NovoLOG Aspart Correctional Sugar Inj SQ SCH ×4 (09:01→21:04)
--- NOTE | 2018-02-21 09:27 | P.DCO ---
- Physical Therapy Order: Evaluate and treat, Improve ambulation, Strength and gait training - Certification I have seen patient Sue Baldwin on 02/21/18. My clinical findings support the need for the requested home health care services because: Patient has SOB I certify that my clinical findings support that this patient is homebound because: Hx COPD - exertion dyspnea/weakness
--- NOTE | 2018-02-21 12:08 | P.PNPAL ---
Reason for Visit Reason for visit: a. To assist with evaluation and management of symptoms including: Dyspnea, pain b. To assist medical decision maker(s) with: better understanding of current medical conditions; weighing benefits/burdens of medical treatment options; making medical treatment decisions. Subjective Subjective/Interval History: INTERVAL NOTE: Visit with Violet Garzon SPRUE KNOCKER. The patient remains afebrile. She says that overall she feels better, and she is not dyspneic while at rest in the bed. Pain is unchanged, and she has received 4 doses of hydrocodone in the past 24 hours, about equivalent to what she had been taking by her own history account. She says that she was able to stand and felt stronger when PT was here, and she is now hoping that she will be able to go home and have enough help at home so she will not have to go back to [facility]. Advance Directives Health Care Surrogate: Copy in medical record Advance Directives Date on File: 02/21/18 Health Care Surrogate Name and Number: Son: Julio Cesar Baldwin Objective Vital Signs: Vital Signs 02/20/18 12:00 02/20/18 13:00 02/20/18 13:01 Temperature 99.3 F Pulse Rate 88 95 H 97 H Respiratory Rate 11 L 22 14 Blood Pressure 160/69 H 149/71 H Pulse Oximetry 99 93 L 93 L 02/20/18 14:00 02/20/18 15:00 02/20/18 15:24 Temperature Pulse Rate 91 H 107 H 97 H Respiratory Rate 38 H 22 16 Blood Pressure 153/66 H 138/60 Pulse Oximetry 95 91 L 02/20/18 16:00 02/20/18 17:00 02/20/18 18:00 Temperature 99.1 F Pulse Rate 101 H 98 H 96 H Respiratory Rate 13 Blood Pressure 141/62 H 168/73 H 158/126 H Pulse Oximetry 92 L 94 L 94 L 02/20/18 18:15 02/20/18 19:00 02/20/18 19:40 Temperature Pulse Rate 97 H 93 H 88 Respiratory Rate 18 Blood Pressure 168/72 H 143/63 H Pulse Oximetry 94 L 95 95 02/20/18 20:00 02/20/18 21:00 02/20/18 22:00 Temperature 98.8 F Pulse Rate 92 H 87 91 H Respiratory Rate 20 Blood Pressure 156/68 H 156/67 H Pulse Oximetry 97 95 95 02/20/18 22:01 02/20/18 22:27 02/20/18 23:00 Temperature Pulse Rate 91 H 86 Respiratory Rate 19 Blood Pressure 156/68 H 163/71 H Pulse Oximetry 94 L 97 02/20/18 23:10 02/20/18 23:42 02/21/18 00:00 Temperature 98.1 F Pulse Rate 87 86 Respiratory Rate 16 20 18 Blood Pressure Pulse Oximetry 98 97 02/21/18 00:01 02/21/18 01:00 02/21/18 01:01 Temperature Pulse Rate 86 79 78 Respiratory Rate Blood Pressure 162/68 H 124/60 Pulse Oximetry 97 97 97 02/21/18 02:00 02/21/18 02:59 02/21/18 03:00 Temperature Pulse Rate 72 78 77 Respiratory Rate 16 Blood Pressure 113/56 L 139/65 Pulse Oximetry 97 98 02/21/18 04:00 02/21/18 05:00 02/21/18 06:00 Temperature 97.9 F Pulse Rate 71 78 84 Respiratory Rate 20 29 H Blood Pressure 126/58 L 139/64 132/71 Pulse Oximetry 97 98 94 L 02/21/18 07:00 02/21/18 07:09 02/21/18 07:10 Temperature Pulse Rate 80 79 Respiratory Rate 12 20 Blood Pressure Pulse Oximetry 99 100 02/21/18 07:31 02/21/18 08:00 02/21/18 09:00 Temperature Pulse Rate 80 77 84 Respiratory Rate 21 17 29 H Blood Pressure 162/67 H 149/69 H 148/90 H Pulse Oximetry 96 95 95 02/21/18 09:02 02/21/18 10:00 02/21/18 11:51 Temperature Pulse Rate 78 74 Respiratory Rate 16 12 20 Blood Pressure 158/63 H Pulse Oximetry 94 L Intake & Output 02/20/18 02/21/18 02/21/18 18:59 06:59 18:59 Intake Total 920 / 920 400 / 400 Output Total 750 / 750 600 / 600 Balance 170 / 170 -200 / -200 Intake: Oral 920 / 920 400 / 400 Output: Urine Amount (Catheter) 750 / 750 600 / 600 Indwelling Urethral Catheter 750 / 750 600 / 600 Other: Date of Last Bowel Movement 02/20/18 02/20/18 # Bowel Movements 2 0 Physical Exam: CONSTITUTIONAL/GENERAL: This is a moderately obese patient, in no apparent distress. CARDIOVASCULAR: Regular rate and rhythm without murmurs, gallops, or rubs. No JVD. Peripheral pulses symmetric. RESPIRATORY/CHEST: Symmetric, unlabored respirations, but breath sounds diminished bilateral. A couple scattered rhonchi. GASTROINTESTINAL: Abdomen soft, non-tender, obese, nondistended. No hepato- splenomegaly, or palpable masses. No guarding. Bowel sounds present. MUSCULOSKELETAL: Extremities without clubbing or cyanosis, but there is 1+ chronic leg edema. No joint tenderness or effusion noted. No calf tenderness. No mottling or clubbing. NEUROLOGICAL: Awake and alert. Motor and sensory grossly within normal limits. Follows commands. Cognitively sharp. Moves all extremities. PSYCHIATRIC: No obvious anxiety, but she does cry at times when talking about her health. no apparent hallucinations or other psychotic thought process. Diagnostic Tests Laboratory: Laboratory Results - last 72 hr 02/19/18 02/19/18 02/19/18 17:10 17:41 17:41 WBC 10.8 RBC 2.88 L Hgb 9.2 L Hct 28.0 L MCV 97.2 MCH 32.0 MCHC 32.9 RDW 13.6 Plt Count 144 L MPV 10.2 Neut % (Auto) 80.6 H Lymph % (Auto) 5.4 L [place] % (Auto) 12.7 H Eos % (Auto) 1.0 Baso % (Auto) 0.3 Neut # (Auto) 8.7 H Lymph # (Auto) 0.6 L [place] # (Auto) 1.4 H Eos # (Auto) 0.1 Baso # (Auto) 0.0 WBC Differential . Differential Comment Auto diff final PT INR APTT Puncture Site Left radial Patient Temperature 98.6 O2 Saturation 97 ABG pH 7.19 L* ABG pCO2 97 H* ABG pO2 284 H ABG HCO3 35 H ABG O2 Content 13.4 ABG Base Excess 7.3 H ABG Methemoglobin 0.8 Saurabh Test Present Hemoglobin 9.3 L Carboxyhemoglobin 1.3 O2 Delivery Device Non-rebreathing mask Liter Flow 15.00 Vent Setting Inspired O2 100 Critical Value Yes Sodium 142 Potassium 6.4 H Chloride 104 Carbon Dioxide 32.7 H Anion Gap 5 BUN 34 H Creatinine 1.27 H Estimated GFR 43 L POC Glucose Random Glucose 104 Calcium 8.7 Phosphorus Magnesium Total Bilirubin 0.4 AST 33 ALT 40 Alkaline Phosphatase 76 Troponin I 0.04 B-Natriuretic Peptide Total Protein 6.4 Albumin 3.1 L Urine Color Urine Clarity Urine pH Ur Specific [place] Urine Protein Urine Glucose (UA) Urine Ketones Urine Occult Blood Urine Nitrate Urine Bilirubin Urine Urobilinogen Ur Leukocyte Esterase Urine WBC Hyaline Casts Granular Casts Micro UA Comment Urine Culture Comments Nasal Screen MRSA (PCR) 02/19/18 02/19/18 02/19/18 17:41 18:28 19:00 WBC RBC Hgb Hct MCV MCH MCHC RDW Plt Count MPV Neut % (Auto) Lymph % (Auto) [place] % (Auto) Eos % (Auto) Baso % (Auto) Neut # (Auto) Lymph # (Auto) [place] # (Auto) Eos # (Auto) Baso # (Auto) WBC Differential Differential Comment PT INR APTT Puncture Site Left radial Patient Temperature 98.6 O2 Saturation 88 L* ABG pH 7.26 L* ABG pCO2 78 H* ABG pO2 64 ABG HCO3 34 H ABG O2 Content 10.8 L ABG Base Excess 7.2 H ABG Methemoglobin 0.7 Saurabh Test Present Hemoglobin 8.7 L Carboxyhemoglobin 1.7 O2 Delivery Device Bipap Liter Flow Vent Setting [id number] Inspired O2 40 Critical Value Yes Sodium Potassium Chloride Carbon Dioxide Anion Gap BUN Creatinine Estimated GFR POC Glucose Random Glucose Calcium Phosphorus Magnesium Total Bilirubin AST ALT Alkaline Phosphatase Troponin I B-Natriuretic Peptide 610 H Total Protein Albumin Urine Color Yellow Urine Clarity Hazy H Urine pH 5.0 Ur Specific [place] 1.013 Urine Protein Negative Urine Glucose (UA) Negative Urine Ketones Negative Urine Occult Blood Negative Urine Nitrate Negative Urine Bilirubin Negative Urine Urobilinogen Less than 2 Ur Leukocyte Esterase Negative Urine WBC 1 Hyaline Casts 1 Granular Casts 3 Micro UA Comment Cath-culture not ind Urine Culture Comments Cath-cult not ind Nasal Screen MRSA (PCR) 02/19/18 02/19/18 02/20/18 22:20 22:59 04:00 WBC 6.7 RBC 2.75 L Hgb 8.6 L Hct 26.8 L MCV 97.3 MCH 31.1 MCHC 32.0 RDW 13.3 Plt Count 138 L MPV 10.4 Neut % (Auto) 95.9 H Lymph % (Auto) 2.2 L [place] % (Auto) 1.6 Eos % (Auto) 0.1 Baso % (Auto) 0.2 Neut # (Auto) 6.4 Lymph # (Auto) 0.1 L [place] # (Auto) 0.1 Eos # (Auto) 0.0 Baso # (Auto) 0.0 WBC Differential . Differential Comment Auto diff final PT INR APTT Puncture Site Patient Temperature O2 Saturation ABG pH ABG pCO2 ABG pO2 ABG HCO3 ABG O2 Content ABG Base Excess ABG Methemoglobin Saurabh Test Hemoglobin Carboxyhemoglobin O2 Delivery Device Liter Flow Vent Setting Inspired O2 Critical Value Sodium Potassium Chloride Carbon Dioxide Anion Gap BUN Creatinine Estimated GFR POC Glucose Random Glucose Calcium Phosphorus Magnesium Total Bilirubin AST ALT Alkaline Phosphatase Troponin I 0.03 B-Natriuretic Peptide Total Protein Albumin Urine Color Urine Clarity Urine pH Ur Specific [place] Urine Protein Urine Glucose (UA) Urine Ketones Urine Occult Blood Urine Nitrate Urine Bilirubin Urine Urobilinogen Ur Leukocyte Esterase Urine WBC Hyaline Casts Granular Casts Micro UA Comment Urine Culture Comments Nasal Screen MRSA (PCR) Not detected 02/20/18 02/20/18 02/20/18 04:00 04:00 05:59 WBC RBC Hgb Hct MCV MCH MCHC RDW Plt Count MPV Neut % (Auto) Lymph % (Auto) [place] % (Auto) Eos % (Auto) Baso % (Auto) Neut # (Auto) Lymph # (Auto) [place] # (Auto) Eos # (Auto) Baso # (Auto) WBC Differential Differential Comment PT 11.6 INR 1.1 APTT 23.7 L Puncture Site Right radial Patient Temperature 98.6 O2 Saturation 93 ABG pH 7.34 L ABG pCO2 60 H* ABG pO2 79 ABG HCO3 32 H ABG O2 Content 11.4 L ABG Base Excess 6.2 H ABG Methemoglobin 0.9 Saurabh Test Present Hemoglobin 8.7 L Carboxyhemoglobin 1.6 O2 Delivery Device Bipap Liter Flow Vent Setting See comments Inspired O2 40 Critical Value Yes Sodium 143 Potassium 6.5 H Chloride 105 Carbon Dioxide 32.3 H Anion Gap 6 BUN 37 H Creatinine 1.15 H Estimated GFR 48 L POC Glucose Random Glucose 161 H Calcium 8.6 Phosphorus 3.9 Magnesium 2.1 Total Bilirubin 0.4 AST 24 ALT 34 Alkaline Phosphatase 72 Troponin I 0.02 B-Natriuretic Peptide Total Protein 6.0 L Albumin 2.9 L Urine Color Urine Clarity Urine pH Ur Specific [place] Urine Protein Urine Glucose (UA) Urine Ketones Urine Occult Blood Urine Nitrate Urine Bilirubin Urine Urobilinogen Ur Leukocyte Esterase Urine WBC Hyaline Casts Granular Casts Micro UA Comment Urine Culture Comments Nasal Screen MRSA (PCR) 02/20/18 02/20/18 02/20/18 07:56 15:24 20:49 WBC RBC Hgb Hct MCV MCH MCHC RDW Plt Count MPV Neut % (Auto) Lymph % (Auto) [place] % (Auto) Eos % (Auto) Baso % (Auto) Neut # (Auto) Lymph # (Auto) [place] # (Auto) Eos # (Auto) Baso # (Auto) WBC Differential Differential Comment PT INR APTT Puncture Site Patient Temperature O2 Saturation ABG pH ABG pCO2 ABG pO2 ABG HCO3 ABG O2 Content ABG Base Excess ABG Methemoglobin Saurabh Test Hemoglobin Carboxyhemoglobin O2 Delivery Device Liter Flow Vent Setting Inspired O2 Critical Value Sodium Potassium 5.1 D Chloride Carbon Dioxide Anion Gap BUN Creatinine Estimated GFR POC Glucose 181 H 381 H Random Glucose Calcium Phosphorus Magnesium Total Bilirubin AST ALT Alkaline Phosphatase Troponin I B-Natriuretic Peptide Total Protein Albumin Urine Color Urine Clarity Urine pH Ur Specific [place] Urine Protein Urine Glucose (UA) Urine Ketones Urine Occult Blood Urine Nitrate Urine Bilirubin Urine Urobilinogen Ur Leukocyte Esterase Urine WBC Hyaline Casts Granular Casts Micro UA Comment Urine Culture Comments Nasal Screen MRSA (PCR) 02/21/18 02/21/18 04:09 08:50 WBC RBC Hgb Hct MCV MCH MCHC RDW Plt Count MPV Neut % (Auto) Lymph % (Auto) [place] % (Auto) Eos % (Auto) Baso % (Auto) Neut # (Auto) Lymph # (Auto) [place] # (Auto) Eos # (Auto) Baso # (Auto) WBC Differential Differential Comment PT INR APTT Puncture Site Patient Temperature O2 Saturation ABG pH ABG pCO2 ABG pO2 ABG HCO3 ABG O2 Content ABG Base Excess ABG Methemoglobin Saurabh Test Hemoglobin Carboxyhemoglobin O2 Delivery Device Liter Flow Vent Setting Inspired O2 Critical Value Sodium 142 Potassium 5.1 Chloride 101 Carbon Dioxide 35.4 H Anion Gap 6 BUN 41 H Creatinine 1.34 H Estimated GFR 40 L POC Glucose 308 H Random Glucose 236 H Calcium 8.1 L Phosphorus Magnesium Total Bilirubin AST ALT Alkaline Phosphatase Troponin I B-Natriuretic Peptide Total Protein Albumin Urine Color Urine Clarity Urine pH Ur Specific [place] Urine Protein Urine Glucose (UA) Urine Ketones Urine Occult Blood Urine Nitrate Urine Bilirubin Urine Urobilinogen Ur Leukocyte Esterase Urine WBC Hyaline Casts Granular Casts Micro UA Comment Urine Culture Comments Nasal Screen MRSA (PCR) Result Diagrams: 02/20/18 04:00 02/21/18 04:09 Procedures: BiPAP 02/19/18 Assessment and Plan - Disease Oriented Problem List (1) Respiratory failure (2) End stage COPD (3) CHF (congestive heart failure) (4) Complaint of debility and malaise - Symptom Scale (1) Dyspnea 0-10 Scale: 1 (2) Pain 0-10 Scale: 3 Pertinent Non-Medical Issues: Psychosocial: Was once, from her for 27 years and then he about 2 years ago. One son who lives locally. residential resident since December 16. Spiritual: Bahai background, and she is interested in having a visit from a expeller operator. Legal: The patient has capacity for decision-making. She has now designated her son Julio Cesar as healthcare surrogate.. Ethical issues impacting care: None Important Contacts: Son: Julio Cesar Baldwin [phone] Prognosis: The patient has end-stage lung disease and cardiac disease, and is a permanent bedbound patient now. She is at high risk for recurrent respiratory failure, new cardiac events, and various infections. It is likely that she will continue to have health challenges and hospitalizations until , which I would expect in the upcoming months or perhaps a year or 2. Code Status: Full Code Plan: * FULL CODE, per patient's request 02/20/18 * DECISION-MAKING: The patient has capacity for decision-making. She has now designated her son Julio Cesar Baldwin as healthcare surrogate. * GOALS: The patient wants to continue aggressive care, and is willing to accept mechanical ventilation "for a month or 2 if there is a chance I might get better and off the machines." * SYMPTOMS: She has chronic pain that has been managed with Wellbutrin, Prozac, pregabalin, and q4-6h hydrocodone. The patient also has chronic depression for which she remains on antidepressant medications. Her dyspnea has now essentially resolved while she is at rest in the bed. I have no further medication recommendations at this time. * Palliative Care will continue to follow the patient during this hospitalization. Time Spent Total Floor Time (mins): 38 Face to Face Time (mins): 24 >50% Time in Counseling or Coordination of Care: Yes Attestation Attestation: To help prompt me to consider important information that might be impacting today's encounter and assessment, information from prior notes written by myself or my colleagues may have been "brought forward" into today's note. My signature on this note, however, is an attestation that I personally performed the exam, history, and/or decision-making noted today, and, unless otherwise indicated, the interactions with patient, family, and staff as well as the review of records all occurred today. I also attest that the listed assessment and stated plan reflect my best clinical judgment today based on the combination of historical information, prior notes, and today's exam/ interactions. When time spent is documented, it refers only to time spent today by the signer, or if indicated, combined time spent today by collaborating physician/nurse practitioner.
[2018-02-21] MEDS: Lidocaine 5% Patch T-DERMAL SCH ×2 (14:29→23:49)
--- NOTE | 2018-02-21 19:16 | MB ---
cc: Brent Ricks MD, Arjun D MD DATE: 02/21/2018 REQUESTING PHYSICIAN: Dr. Whitaker. REASON FOR CONSULTATION: COPD exacerbation. HISTORY OF PRESENT ILLNESS: Ms. Baldwin is a 62-year-old female with longstanding history of COPD. She is oxygen dependent. The patient was recently discharged from this hospital. She came back with worsening of her shortness of breath. She was found to have respiratory failure and hypercapnia. The patient was treated with BiPAP and oxygen with nasal cannula. She feels significantly better. LABORATORY DATA: WBC count is 6.7, hemoglobin 8.6, hematocrit 26.8, MCV 97, platelet count 138. Sodium 142, potassium 5.1, chloride 101, CO2 of 35, BUN 41, creatinine 1.34. Blood gas - pH 7.34, pCO2 of 60, pO2 of 79, bicarb 32 on BiPAP. Her chest x-ray shows changes consistent with congestive heart failure. CURRENT MEDICATIONS: 1. [place] 5/325, 2. DuoNeb nebulizer treatment. 3. Aspirin 81 mg a day. 4. Baclofen 10 mg 6. Plavix 75 mg a day. 7. Prozac 40 mg a day, 8. Flonase nasal spray, 9. Glimepiride 1 mg daily. 10. Insulin on sliding scale 11. Lisinopril 10 mg a day. 12. Lidoderm patch. 13. Claritin 10 mg a day. 14. Solu-Medrol 40 mg a day 15. Protonix 40 mg daily 16. Lyrica 300 mg twice a day. 17. Risperdal 0.5 mg a day. 18. Requip 0.25 mg a day ALLERGIES: NKDA SOCIAL HISTORY: She has a history of smoking which she quit 12 years ago. Drinks socially. she worked in the office. FAMILY HISTORY: Her recently . She has no 1 son. She lives with the son, [id number], and grandchildren. REVIEW OF SYSTEMS: She is able to walk short distance. She has oxygen at home and uses nebulizer treatment. No DVT or pulmonary embolism. PHYSICAL EXAMINATION: GENERAL: Obese, elderly female mildly short of breath, VITAL SIGNS: Blood pressure 146/67, heart rate 84, respirations 15, temperature 98. HEENT: Pupils are equal and react to light. Oral mucosa and nasal mucosa normal. NECK: Supple. JVP not raised. CHEST: He has no rhonchi. CARDIOVASCULAR: S1, S2 normal. ABDOMEN: Benign. EXTREMITIES: 1+ pedal edema. IMPRESSION: 1. Chronic obstructive pulmonary disease with exacerbation. 2. Hypercapnic respiratory failure. 3. Congestive heart failure. 4. Diabetes mellitus. PLAN: I discussed with the patient we will supplement her oxygen. Give her aerosol treatment and IV Solu-Medrol. Continue Lyrica 300 mg a day, Requip 0.25 mg a day. Wean her oxygen to keep the oxygen greater than 90%. Once she is stable, she could have a pulmonary function study. Further treatment will depend on the course in the hospital. Thank you, Dr. Whitaker, for this consult. MD INNA Gannon/ , 06:50 PM , 06:57 PM [facility]
[2018-02-21] MEDS: Baclofen 10 MG Tablet PO SCH (21:02)
[2018-02-22] MEDS ORDERED: Morphine Inj 4 MG/ML Vial IV.PUSH ONE (00:07)
[2018-02-22] MEDS: Chlorhexidine Gluconate 2% 1 Pack (2 Cloths) TOPICAL SCH (04:00)
[2018-02-22] MEDS: Heparin - SQ 10,000 UNITS/ML Vial SQ SCH ×3 (05:49→22:00)
[2018-02-22] MEDS: Insulin NovoLOG Aspart Correctional Sugar Inj SQ SCH ×4 (08:23→20:48)
[2018-02-22 09:30] LABS: Calcium 8.2 mg/dL (8.5-10.1); Carbon Dioxide 34.9 meq/L (21.0-32.0); Potassium 4.6 meq/L (3.5-5.1)
[2018-02-22] MEDS: Lisinopril 10 MG Tablet PO SCH (10:46)
[2018-02-22] MEDS: Tiotropium Bromide 18 MCG/ACT Inhaler INH SCH (10:46)
[2018-02-22] MEDS: FLUoxetine 20 MG Capsule PO SCH (10:47)
[2018-02-22] MEDS: Senna/Docusate Sodium 8.6/50 MG Tablet PO SCH ×2 (10:47→20:40)
[2018-02-22] MEDS: Loratadine 10 MG Tablet PO SCH (10:48)
[2018-02-22] MEDS: Lactobacillus Acidophilus/L. Spores Tablet PO SCH ×3 (10:48→18:47)
[2018-02-22] MEDS: Glimepiride 1 MG Tablet PO SCH (10:48)
[2018-02-22] MEDS: MethylPREDNISolone Sod Succinate Inj 40 MG/ML Vial IV.PUSH SCH (10:49)
[2018-02-22] MEDS: Lidocaine 5% Patch T-DERMAL SCH (10:52)
[2018-02-22] MEDS: buPROPion 150 MG 12 HR Tablet PO SCH (10:54)
--- NOTE | 2018-02-22 11:22 | P.PN ---
Subjective Interval history: Patient seen and examined this morning, their vitals are stable and the patient is afebrile. She states last night she had pain across her chest that felt like she was being electrocuted. This lasted for about 20 min, then resolve. Trop was negative. EKG normal sinus rhythm, no ST or T wave changes. No other associated symptoms. Currently without chest pain or shortness of breath. Feels she has mucus stuck in her throat. States she does not know if she is allergic to prednisone or not. Does not know the name of her outpatient physician. She was hospitalized in January, was treated for pneumonia without steroids. Physical Exam Vital signs: Vital Signs 02/21/18 11:51 02/21/18 12:00 02/21/18 13:00 Temperature Pulse Rate 74 73 84 Respiratory Rate 20 19 22 Blood Pressure 137/61 145/89 H Pulse Oximetry 100 97 02/21/18 14:00 02/21/18 15:00 02/21/18 15:55 Temperature Pulse Rate 76 70 67 Respiratory Rate 18 10 L 18 Blood Pressure 117/57 L 108/51 L Pulse Oximetry 97 97 02/21/18 16:00 02/21/18 17:00 02/21/18 18:00 Temperature Pulse Rate 75 71 83 Respiratory Rate 22 10 L 28 H Blood Pressure 125/61 107/54 L Pulse Oximetry 99 99 95 02/21/18 18:01 02/21/18 19:00 02/21/18 20:00 Temperature 98.9 F Pulse Rate 84 81 80 Respiratory Rate 15 16 20 Blood Pressure 146/63 H 157/67 H 157/67 H Pulse Oximetry 81 L 97 98 02/21/18 21:03 02/21/18 21:05 02/21/18 22:00 Temperature 98.4 F Pulse Rate 82 82 Respiratory Rate 16 18 18 Blood Pressure 127/60 Pulse Oximetry 98 96 02/21/18 22:03 02/22/18 00:00 02/22/18 00:41 Temperature 98.6 F Pulse Rate 83 77 Respiratory Rate 18 16 Blood Pressure 121/59 L Pulse Oximetry 96 97 02/22/18 08:00 02/22/18 09:26 Temperature 98.3 F Pulse Rate 75 70 Respiratory Rate 18 16 Blood Pressure 97/54 L Pulse Oximetry 93 L 97 Intake & Output 02/21/18 02/22/18 02/22/18 18:59 06:59 18:59 Output Total 350 / 350 Balance -350 / -350 Weight 104 kg Output: Urine Amount (Catheter) 350 / 350 Indwelling Urethral Catheter 350 / 350 Other: Date of Last Bowel Movement 02/20/18 02/21/18 Narrative: GENERAL: Well-appearing, no acute distress, dry cough SKIN: Warm and dry. HEAD: Normocephalic. EYES: No scleral icterus. No injection or drainage. NECK: Supple, trachea midline. No JVD or lymphadenopathy. CARDIOVASCULAR: Regular rate and rhythm without murmurs, gallops, or rubs. RESPIRATORY: Breath sounds equal bilaterally. No accessory muscle use. GASTROINTESTINAL: Abdomen soft, non-tender, nondistended. MUSCULOSKELETAL: No cyanosis, or edema. - Urinary Catheter Management Indwelling Urethral Catheter Cath placed during this visit: no Reason for continuing: Acute urinary retention Results - Labs CBC & Chem 7: 02/20/18 04:00 02/22/18 08:00 Laboratory Results - last 24 hr 02/21/18 02/21/18 02/21/18 12:30 17:33 20:56 Sodium Potassium Chloride Carbon Dioxide Anion Gap BUN Creatinine Estimated GFR POC Glucose 236 H 198 H 183 H Random Glucose Calcium Magnesium Troponin I 02/22/18 02/22/18 02/22/18 00:42 07:59 08:00 Sodium 140 Potassium 4.6 Chloride 101 Carbon Dioxide 34.9 H Anion Gap 4 L BUN 37 H Creatinine 1.32 H Estimated GFR 41 L POC Glucose 98 Random Glucose 90 D Calcium 8.2 L Magnesium 2.0 Troponin I 0.02 - Procedures none Assessment and Plan - Assessment (1) COPD (chronic obstructive pulmonary disease) Code(s): J44.9 - Chronic obstructive pulmonary disease, unspecified Status: Acute - Plan This is a 62-year-old female patient with a medical history that is significant for COPD, obesity, diabetes, hypertension, CAD, GERD, and chronic pain due to fibromyalgia on opioids who presented to the ED for altered mental status. She was found to be hypoxic on admission. She was initially placed on BiPAP. Respiratory failure, acute on chronic COPD Currently doing well on nasal cannula, uses 3 L at home Her sign language teacher is Dr. Durand IV steroids 40 mg IV-->transition to solumedrol 20 mg IV on 02/23, still unclear if patient can have PO steroids, called pharmacist, unable to verify, will need to investigated further prior to discharge Hyperkalemia -Resolved status post Kayexalate Acute on chronic kidney disease, stage III - Cr 1.32 currently, was 1.01 at time of previous hospital discharge. Will need to continue to watch closely, renally dose all meds, if no improvement tomorrow will consult nephrology Chronic pain syndrome Fibromyalgia -Continue [place] and Lyrica CAD -Continue aspirin and Plavix Depression -Continue fluoxetine, Wellbutrin, risperidone Hypertension - Continue lisinopril Diabetes -Loperamide -Continue supplemental sliding scale -Hold metformin on hold due to renal impairment GI prophylaxis DVT prophylaxis -Pantoprazole -Subcu heparin Discharge Planning: Patient to be discharged back to [facility] when stable for discharge.
--- NOTE | 2018-02-22 13:19 | P.PNPL ---
Subjective Interval history: 62 YOWF with COPD exac Feels mucous stuck in the throat no fever no Whezing Physical Exam Vital signs: Vital Signs 02/21/18 14:00 02/21/18 15:00 02/21/18 15:55 Temperature Pulse Rate 76 70 67 Respiratory Rate 18 10 L 18 Blood Pressure 117/57 L 108/51 L Pulse Oximetry 97 97 02/21/18 16:00 02/21/18 17:00 02/21/18 18:00 Temperature Pulse Rate 75 71 83 Respiratory Rate 22 10 L 28 H Blood Pressure 125/61 107/54 L Pulse Oximetry 99 99 95 02/21/18 18:01 02/21/18 19:00 02/21/18 20:00 Temperature 98.9 F Pulse Rate 84 81 80 Respiratory Rate 15 16 20 Blood Pressure 146/63 H 157/67 H 157/67 H Pulse Oximetry 81 L 97 98 02/21/18 21:03 02/21/18 21:05 02/21/18 22:00 Temperature 98.4 F Pulse Rate 82 82 Respiratory Rate 16 18 18 Blood Pressure 127/60 Pulse Oximetry 98 96 02/21/18 22:03 02/22/18 00:00 02/22/18 00:41 Temperature 98.6 F Pulse Rate 83 77 Respiratory Rate 18 16 Blood Pressure 121/59 L Pulse Oximetry 96 97 02/22/18 08:00 02/22/18 09:26 Temperature 98.3 F Pulse Rate 75 70 Respiratory Rate 18 16 Blood Pressure 97/54 L Pulse Oximetry 93 L 97 Intake & Output 02/21/18 02/22/18 02/22/18 18:59 06:59 18:59 Output Total 350 / 350 Balance -350 / -350 Weight 104 kg Output: Urine Amount (Catheter) 350 / 350 Indwelling Urethral Catheter 350 / 350 Other: Date of Last Bowel Movement 02/20/18 02/21/18 GENERAL: Elderly Wf,NAD SKIN: Warm and dry. HEAD: Normocephalic. EYES: No scleral icterus. No injection or drainage. NECK: Supple, trachea midline. No JVD or lymphadenopathy. CARDIOVASCULAR: Regular rate and rhythm without murmurs, gallops, or rubs. RESPIRATORY: Breath sounds equal bilaterally. No accessory muscle use. GASTROINTESTINAL: Abdomen soft, non-tender, nondistended. MUSCULOSKELETAL: No cyanosis, or edema. BACK: Nontender without obvious deformity. No CVA tenderness. - Urinary Catheter Management Indwelling Urethral Catheter Cath placed during this visit: no Reason for continuing: Acute urinary retention Assessment and Plan - Plan IMPRESSION: 1. Chronic obstructive pulmonary disease with exacerbation. 2. Hypercapnic respiratory failure. 3. Congestive heart failure. 4. Diabetes mellitus. PLAN: Aerosol nebs Supplement 02 Keep sat 88-92% Use Acapella IV Solumedrol
--- NOTE | 2018-02-22 13:51 | ECG ---
Date Performed: 02/22/2018 Time Performed: 00:35:42 PTAGE: 62 years EKG: Sinus rhythm Normal ECG Since the PREVIOUS TRACING , no significant change noted DOCTOR: Berkley Land Interpretating Date/Time 02/22/2018 13:50:36
[2018-02-22] MEDS: Baclofen 10 MG Tablet PO SCH (20:39)
[2018-02-23] MEDS: Lidocaine 5% Patch T-DERMAL SCH ×3 (00:05→22:26)
[2018-02-23] MEDS: Chlorhexidine Gluconate 2% 1 Pack (2 Cloths) TOPICAL SCH (04:51)
[2018-02-23] MEDS: Heparin - SQ 10,000 UNITS/ML Vial SQ SCH ×3 (05:00→22:27)
[2018-02-23 05:31] LABS: Calcium 8.4 mg/dL (8.5-10.1); Carbon Dioxide 40.2 meq/L (21.0-32.0); Potassium 5.2 meq/L (3.5-5.1)
[2018-02-23] MEDS: Insulin NovoLOG Aspart Correctional Sugar Inj SQ SCH ×4 (09:44→20:39)
--- NOTE | 2018-02-23 09:46 | P.PN ---
Subjective Interval history: Patient seen and examined this morning, their vitals are stable and the patient is afebrile. States she feels SOB with exertion. Has not gotten out of the bed. Denies SOB at rest. Denies CP. Physical Exam Vital signs: Vital Signs 02/22/18 11:00 02/22/18 12:00 02/22/18 15:56 Temperature 98.1 F Pulse Rate 76 89 Respiratory Rate 18 17 18 Blood Pressure 124/53 L Pulse Oximetry 96 97 02/22/18 16:00 02/22/18 20:00 02/22/18 20:18 Temperature 98.7 F 97.7 F Pulse Rate 97 H 98 H 97 H Respiratory Rate 19 18 20 Blood Pressure 90/62 L 137/59 L Pulse Oximetry 95 96 02/22/18 21:23 02/23/18 00:00 02/23/18 00:07 Temperature 97.4 F L Pulse Rate 89 83 Respiratory Rate 18 18 18 Blood Pressure 133/75 Pulse Oximetry 96 02/23/18 01:30 02/23/18 04:03 02/23/18 05:22 Temperature Pulse Rate 81 Respiratory Rate 18 16 18 Blood Pressure Pulse Oximetry 02/23/18 08:00 Temperature 97.5 F L Pulse Rate 78 Respiratory Rate 16 Blood Pressure 157/67 H Pulse Oximetry 99 Intake & Output 02/22/18 02/23/18 02/23/18 18:59 06:59 18:59 Intake Total 300 / 300 360 / 360 Output Total 500 / 500 500 / 500 Balance -200 / -200 -140 / -140 Weight 105.9 kg Intake: Oral 300 / 300 360 / 360 Output: Urine 500 / 500 500 / 500 Other: Date of Last Bowel Movement 02/22/18 # Bowel Movements 1 # Incontinent Bowel Movements 1 Narrative: GENERAL: Well-appearing, no acute distress SKIN: Warm and dry. HEAD: Normocephalic. EYES: No scleral icterus. No injection or drainage. NECK: Supple, trachea midline. No JVD or lymphadenopathy. CARDIOVASCULAR: Regular rate and rhythm without murmurs, gallops, or rubs. RESPIRATORY: Breath sounds equal bilaterally. No accessory muscle use. No wheezing. GASTROINTESTINAL: Abdomen soft, non-tender, nondistended. MUSCULOSKELETAL: No cyanosis, or edema. - Urinary Catheter Management Indwelling Urethral Catheter Cath placed during this visit: no Reason for continuing: Acute urinary retention Results - Labs CBC & Chem 7: 02/20/18 04:00 02/23/18 04:57 Laboratory Results - last 24 hr 02/22/18 02/22/18 02/22/18 13:32 17:11 20:43 Sodium Potassium Chloride Carbon Dioxide Anion Gap BUN Creatinine Estimated GFR POC Glucose 224 H 315 H 246 H Random Glucose Calcium 02/23/18 02/23/18 04:57 08:37 Sodium 143 Potassium 5.2 H Chloride 103 Carbon Dioxide 40.2 H Anion Gap 0 L BUN 37 H Creatinine 1.34 H Estimated GFR 40 L POC Glucose 118 H Random Glucose 131 H Calcium 8.4 L - Procedures none Assessment and Plan - Assessment (1) COPD (chronic obstructive pulmonary disease) Code(s): J44.9 - Chronic obstructive pulmonary disease, unspecified Status: Acute - Plan This is a 62-year-old female patient with a medical history that is significant for COPD, obesity, diabetes, hypertension, CAD, GERD, and chronic pain due to fibromyalgia on opioids who presented to the ED for altered mental status. She was found to be hypoxic on admission. She was initially placed on BiPAP. Respiratory failure, acute on chronic COPD Currently doing well on nasal cannula, uses 3 L at home Her routing clerk is Dr. Durand, evaluated by Dr. Ricks IV steroids 40 mg IV-->transition to solumedrol 20 mg IV on 02/23, still unclear if patient can have PO steroids, called pharmacist, unable to verify, will need to investigated further prior to discharge PT eval Resp walk eval Hyperkalemia -Resolved status post Kayexalate Acute on chronic kidney disease, stage III - Cr 1.34 currently, was 1.01 at time of previous hospital discharge. - renally dose all meds, avoid nephrotoxic agents, stable at this point, anticipate it will begin to improve Chronic pain syndrome Fibromyalgia -Continue [place] and Lyrica CAD -Continue aspirin and Plavix Depression -Continue fluoxetine, Wellbutrin, risperidone Hypertension -Home lisinopril--> will hold due to JAMEL Diabetes -Loperamide -Continue supplemental sliding scale -Hold metformin on hold due to renal impairment GI prophylaxis DVT prophylaxis -Pantoprazole -Subcu heparin Discharge Planning: Patient to be discharged back to [facility] when stable for discharge. Mayi steroids, then transition to PO, home oxygen walk test, PT eval. Likely dc Saturday if okay with pulm.
[2018-02-23] MEDS: Loratadine 10 MG Tablet PO SCH (09:54)
[2018-02-23] MEDS: Lactobacillus Acidophilus/L. Spores Tablet PO SCH ×3 (09:55→18:05)
[2018-02-23] MEDS: Glimepiride 1 MG Tablet PO SCH (09:55)
[2018-02-23] MEDS: FLUoxetine 20 MG Capsule PO SCH (09:55)
[2018-02-23] MEDS: buPROPion 150 MG 12 HR Tablet PO SCH (09:55)
[2018-02-23] MEDS: Senna/Docusate Sodium 8.6/50 MG Tablet PO SCH ×2 (09:55→20:31)
[2018-02-23] MEDS: Tiotropium Bromide 18 MCG/ACT Inhaler INH SCH (09:56)
[2018-02-23] MEDS: Lisinopril 10 MG Tablet PO SCH (09:56)
[2018-02-23] MEDS: MethylPREDNISolone Sod Succinate Inj 40 MG/ML Vial IV.PUSH SCH (09:56)
--- NOTE | 2018-02-23 15:29 | P.PNPL ---
Subjective Interval history: 62 YOWF with COPD exac Breathing better no fever no Whezing had loose BM, no abd pain Physical Exam Vital signs: Vital Signs 02/22/18 15:56 02/22/18 16:00 02/22/18 20:00 Temperature 98.7 F 97.7 F Pulse Rate 89 97 H 98 H Respiratory Rate 18 19 18 Blood Pressure 90/62 L 137/59 L Pulse Oximetry 97 95 96 02/22/18 20:18 02/22/18 21:23 02/23/18 00:00 Temperature 97.4 F L Pulse Rate 97 H 89 Respiratory Rate 20 18 18 Blood Pressure 133/75 Pulse Oximetry 96 02/23/18 00:07 02/23/18 01:30 02/23/18 04:03 Temperature Pulse Rate 83 81 Respiratory Rate 18 18 16 Blood Pressure Pulse Oximetry 02/23/18 05:22 02/23/18 08:00 02/23/18 12:00 Temperature 97.5 F L 97.2 F L Pulse Rate 78 81 Respiratory Rate 18 16 18 Blood Pressure 157/67 H 118/56 L Pulse Oximetry 99 95 Intake & Output 02/22/18 02/23/18 02/23/18 18:59 06:59 18:59 Intake Total 300 / 300 360 / 360 Output Total 500 / 500 500 / 500 Balance -200 / -200 -140 / -140 Weight 105.9 kg Intake: Oral 300 / 300 360 / 360 Output: Urine 500 / 500 500 / 500 Other: Date of Last Bowel Movement 02/22/18 # Bowel Movements 1 # Incontinent Bowel Movements 1 GENERAL: Obese WM NAD SKIN: Warm and dry. HEAD: Normocephalic. EYES: No scleral icterus. No injection or drainage. NECK: Supple, trachea midline. No JVD or lymphadenopathy. CARDIOVASCULAR: Regular rate and rhythm without murmurs, gallops, or rubs. RESPIRATORY: Breath sounds equal bilaterally. No accessory muscle use. GASTROINTESTINAL: Abdomen soft, non-tender, nondistended. MUSCULOSKELETAL: No cyanosis, or edema. BACK: Nontender without obvious deformity. No CVA tenderness. - Urinary Catheter Management Indwelling Urethral Catheter Cath placed during this visit: no Reason for continuing: Acute urinary retention Assessment and Plan - Plan IMPRESSION: 1. Chronic obstructive pulmonary disease with exacerbation. 2. Hypercapnic respiratory failure. 3. Congestive heart failure. 4. Diabetes mellitus. PLAN: Aerosol nebs Supplement 02 Keep sat 88-92% Use Acapella IV Solumedrol OOB in the chair
[2018-02-23] MEDS: Baclofen 10 MG Tablet PO SCH (20:30)
[2018-02-23] MEDS: Melatonin 5 MG Tablet PO PRN (22:26)
[2018-02-24] MEDS: Chlorhexidine Gluconate 2% 1 Pack (2 Cloths) TOPICAL SCH (04:00)
[2018-02-24] MEDS: Heparin - SQ 10,000 UNITS/ML Vial SQ SCH ×2 (05:10→13:15)
[2018-02-24] MEDS ORDERED: MethylPREDNISolone Sod Succinate Inj 40 MG/ML Vial IV.PUSH SCH (09:00)
[2018-02-24] MEDS: Insulin NovoLOG Aspart Correctional Sugar Inj SQ SCH ×2 (09:11→12:17)
[2018-02-24] MEDS: buPROPion 150 MG 12 HR Tablet PO SCH (09:12)
[2018-02-24] MEDS: FLUoxetine 20 MG Capsule PO SCH (09:13)
[2018-02-24] MEDS: Lactobacillus Acidophilus/L. Spores Tablet PO SCH ×2 (09:14→12:14)
[2018-02-24] MEDS: Glimepiride 1 MG Tablet PO SCH (09:14)
[2018-02-24] MEDS: Loratadine 10 MG Tablet PO SCH (09:15)
[2018-02-24] MEDS: Tiotropium Bromide 18 MCG/ACT Inhaler INH SCH (09:16)
[2018-02-24] MEDS: Senna/Docusate Sodium 8.6/50 MG Tablet PO SCH (09:17)
[2018-02-24] MEDS: Lidocaine 5% Patch T-DERMAL SCH (09:18)
--- NOTE | 2018-02-24 10:32 | P.PN ---
Subjective Interval history: F/U COPD and DM. Doing ok on NC deciding on SNF vs HHC Physical Exam Vital signs: Vital Signs 02/23/18 12:00 02/23/18 16:00 02/23/18 17:48 Temperature 97.2 F L 98.2 F Pulse Rate 81 87 92 H Respiratory Rate 18 17 18 Blood Pressure 118/56 L 139/65 Pulse Oximetry 95 92 L Pulse Oximetry [Resting on Room Air] 87 L Pulse Oximetry [Resting with Oxygen] 94 L 02/23/18 17:58 02/23/18 20:00 02/23/18 20:35 Temperature 97.8 F Pulse Rate 99 H 100 H Respiratory Rate 22 20 Blood Pressure 156/67 H Pulse Oximetry 96 95 94 L Pulse Oximetry [Resting on Room Air] Pulse Oximetry [Resting with Oxygen] 02/23/18 22:55 02/24/18 00:00 02/24/18 00:22 Temperature 99.2 F Pulse Rate 94 H 92 H Respiratory Rate 18 20 17 Blood Pressure 139/62 Pulse Oximetry 95 94 L Pulse Oximetry [Resting on Room Air] Pulse Oximetry [Resting with Oxygen] 02/24/18 08:00 Temperature 97.7 F Pulse Rate 68 Respiratory Rate 18 Blood Pressure 115/58 L Pulse Oximetry 98 Pulse Oximetry [Resting on Room Air] Pulse Oximetry [Resting with Oxygen] Intake & Output 02/23/18 02/24/18 02/24/18 18:59 06:59 18:59 Intake Total 475 / 475 480 / 480 Output Total 300 / 300 800 / 800 Balance 175 / 175 -320 / -320 Weight 105.3 kg Intake: Oral 475 / 475 480 / 480 Output: Urine 300 / 300 800 / 800 Other: # Voids 3 Date of Last Bowel Movement 02/22/18 02/23/18 # Bowel Movements 1 1 Narrative: GENERAL: Well-appearing, no acute distress SKIN: Warm and dry. CARDIOVASCULAR: Regular rate and rhythm without murmurs, gallops, or rubs. RESPIRATORY: Breath sounds equal bilaterally. No accessory muscle use. No wheezing. GASTROINTESTINAL: Abdomen soft, non-tender, nondistended. MUSCULOSKELETAL: No cyanosis, or edema. - Urinary Catheter Management Indwelling Urethral Catheter Cath placed during this visit: no Reason for continuing: Acute urinary retention Results - Labs CBC & Chem 7: 02/20/18 04:00 02/23/18 04:57 Laboratory Results - last 24 hr 02/23/18 02/23/18 02/23/18 12:14 17:19 20:33 POC Glucose 167 H 165 H 351 H 02/24/18 07:40 POC Glucose 118 H - Imaging ITS Impressions Chest X-Ray 02/19/18 17:02 CONCLUSION: Bilateral mostly basilar airspace disease and pleural effusions most characteristic of congestive heart failure in patient with shortness of breath. Cannot exclude pneumonic infiltrate. Head CT 02/19/18 17:13 CONCLUSION: 1. No acute findings. Chronic white matter ischemic changes. . - Procedures none Assessment and Plan - Assessment (1) COPD (chronic obstructive pulmonary disease) Code(s): J44.9 - Chronic obstructive pulmonary disease, unspecified Status: Acute (2) COPD (chronic obstructive pulmonary disease) Code(s): J44.9 - Chronic obstructive pulmonary disease, unspecified Status: Chronic - Plan This is a 62-year-old female patient with a medical history that is significant for COPD, obesity, diabetes, hypertension, CAD, GERD, and chronic pain due to fibromyalgia on opioids who presented to the ED for altered mental status. She was found to be hypoxic on admission. She was initially placed on BiPAP. Respiratory failure, acute on chronic COPD Currently doing well on nasal cannula, uses 3 L at home Her crtt is Dr. Durand, evaluated by Dr. Ricks IV steroids 40 mg IV-->transition to solumedrol 20 mg IV on 02/23, still unclear if patient can have PO steroids, called pharmacist, unable to verify PT recommends rehab Resp walk eval Hyperkalemia -Resolved status post Kayexalate Acute on chronic kidney disease, stage III - Cr 1.34 currently, was 1.01 at time of previous hospital discharge. - renally dose all meds, avoid nephrotoxic agents, stable at this point, anticipate it will begin to improve Chronic pain syndrome Fibromyalgia -Continue [place] and Lyrica CAD -Continue aspirin and Plavix Depression -Continue fluoxetine, Wellbutrin, risperidone Hypertension -Home lisinopril--> will hold due to JAMEL Diabetes -Continue supplemental sliding scale -Hold metformin on hold due to renal impairment GI prophylaxis DVT prophylaxis -Pantoprazole -Subcu heparin Discharge Planning: Patient to be discharged back to [facility] when stable for discharge. Taper steroids, then transition to PO?, home oxygen walk test, PT eval. Likely dc today if okay with pulm.
--- NOTE | 2018-02-24 12:37 | P.DS ---
Date of admission: 02/19/18 19:15 Primary care physician: UNKNOWN Brief History from admission: 62-year-old woman presents with altered mental status and hypoxia. Patient has been placed on a facemask BiPAP and is unable to provide any history. Patient has a history of COPD, obesity, diabetes, hypertension, GERD, CAD. She is on chronic opioids for pain and fibromyalgia. She had recent admissions for COPD and hypercarbic respiratory failure. She reportedly was more hypoxic today, with worsening altered mental status, and was sent to the emergency room. Her O2 sats on room air where in the 70s and 80s. She normally is on 3 L nasal cannula. DS: Diagnosis - Discharge Diagnosis (1) COPD (chronic obstructive pulmonary disease) Status: Acute (2) COPD (chronic obstructive pulmonary disease) Status: Chronic DS: Medications - Discharge Medications Prescriptions: hydrocodone-acetaminophen [[place]] 1 tab PO Q4-6H PRN #12 tab PRN Reason: Acute Pain DS: Summary Hospital Course: This is a 62-year-old female patient with a medical history that is significant for COPD, obesity, diabetes, hypertension, CAD, GERD, and chronic pain due to fibromyalgia on opioids who presented to the ED for altered mental status. She was found to be hypoxic on admission. She was initially placed on BiPAP. Respiratory failure, acute on chronic COPD Currently doing well on nasal cannula, uses 3 L at home Her core paster is Dr. Durand, evaluated by Dr. Ricks IV steroids 40 mg IV-->transition to solumedrol 20 mg IV on 02/23, still unclear if patient can have PO steroids, called pharmacist, unable to verify PT recommends rehab Resp walk eval Hyperkalemia -Resolved status post Kayexalate Acute on chronic kidney disease, stage III - Cr 1.34 currently, was 1.01 at time of previous hospital discharge. - renally dose all meds, avoid nephrotoxic agents, stable at this point, anticipate it will begin to improve Chronic pain syndrome Fibromyalgia -Continue [place] and Lyrica. Eforcse checked CAD -Continue aspirin and Plavix Depression -Continue fluoxetine, Wellbutrin, risperidone Hypertension -Home lisinopril--> will hold due to JAMEL Diabetes -Continue supplemental sliding scale -Hold metformin on hold due to renal impairment GI prophylaxis DVT prophylaxis -Pantoprazole -Subcu heparin - Time Spent with Patient Total time spent providing and/or coordinating discharge services: Greater than 30 minutes - Quality: VTE Deep Vein Thrombosis/Pulmonary Embolism Present on Admission: No Exam Vital signs: Vital Signs 02/23/18 16:00 02/23/18 17:48 02/23/18 17:58 Temperature 98.2 F Pulse Rate 87 92 H Respiratory Rate 17 18 Blood Pressure 139/65 Pulse Oximetry 92 L 96 Pulse Oximetry [Resting on Room Air] 87 L Pulse Oximetry [Resting with Oxygen] 94 L 02/23/18 20:00 02/23/18 20:35 02/23/18 22:55 Temperature 97.8 F Pulse Rate 99 H 100 H Respiratory Rate 22 20 18 Blood Pressure 156/67 H Pulse Oximetry 95 94 L Pulse Oximetry [Resting on Room Air] Pulse Oximetry [Resting with Oxygen] 02/24/18 00:00 02/24/18 00:22 02/24/18 08:00 Temperature 99.2 F 97.7 F Pulse Rate 94 H 92 H 68 Respiratory Rate 20 17 18 Blood Pressure 139/62 115/58 L Pulse Oximetry 95 94 L 98 Pulse Oximetry [Resting on Room Air] Pulse Oximetry [Resting with Oxygen] Intake & Output 02/23/18 02/24/18 02/24/18 18:59 06:59 18:59 Intake Total 475 / 475 480 / 480 Output Total 300 / 300 800 / 800 Balance 175 / 175 -320 / -320 Weight 105.3 kg Intake: Oral 475 / 475 480 / 480 Output: Urine 300 / 300 800 / 800 Other: # Voids 3 Date of Last Bowel Movement 02/22/18 02/23/18 02/24/18 # Bowel Movements 1 1 Narrative: GENERAL: Well-appearing, no acute distress SKIN: Warm and dry. CARDIOVASCULAR: Regular rate and rhythm without murmurs, gallops, or rubs. RESPIRATORY: Breath sounds equal bilaterally. No accessory muscle use. No wheezing. GASTROINTESTINAL: Abdomen soft, non-tender, nondistended. MUSCULOSKELETAL: No cyanosis, or edema. Results Procedures completed during hospitalization: none Labs on day of discharge: Labs from last 24 hours 02/24/18 02/24/18 02/23/18 12:12 07:40 20:33 POC Glucose 220 H 118 H 351 H 02/23/18 17:19 POC Glucose 165 H - Impressions ITS Impressions Chest X-Ray 02/19/18 17:02 CONCLUSION: Bilateral mostly basilar airspace disease and pleural effusions most characteristic of congestive heart failure in patient with shortness of breath. Cannot exclude pneumonic infiltrate. Head CT 02/19/18 17:13 CONCLUSION: 1. No acute findings. Chronic white matter ischemic changes. . Discharge Plan - Discharge Disposition Patient Disposition: 03 Discharge to SNF - Discharge Condition Condition: Stable - Discharge Order Discharge Orders: Discharge Order (Routine); Ordered 02/24/18 Ordered By: Arnol Whitaker Pulmonology Clear for Discharge (Routine); Ordered 02/24/18 Ordered By: Brent Ricks - Physicians Team Primary Care Provider: UNKNOWN, Attending Provider: Arnol Whitaker Other Providers: Josi Johnson MD ; Brent Ricks MD
--- NOTE | 2018-02-24 12:52 | P.PNPAL ---
Reason for Visit Reason for visit: a. To assist with evaluation and management of symptoms including: Dyspnea, pain b. To assist medical decision maker(s) with: better understanding of current medical conditions; weighing benefits/burdens of medical treatment options; making medical treatment decisions. Subjective Subjective/Interval History: INTERVAL NOTE: Follow-up visit to assess dyspnea, pain. The patient reports that her chronic pain is "back to normal" and she is receiving some Lortab on a regular basis now, similar to what she was using at the half-way. She denies any dyspnea and does not appear dyspneic. We discussed disposition options, and the plan to send her back to [facility], but she continues to insist that she wants to "work it out with my son to be able to go home." I told her that she would need 24 hour help, and encouraged her to speak more with the case management coordinator about it. She admits that her son has not actually agreed to that plan. Advance Directives Health Care Surrogate: Copy in medical record Advance Directives Date on File: 02/21/18 Health Care Surrogate Name and Number: Son: Julio Cesar Baldwin Objective Vital Signs: Vital Signs 02/23/18 16:00 02/23/18 17:48 02/23/18 17:58 Temperature 98.2 F Pulse Rate 87 92 H Respiratory Rate 17 18 Blood Pressure 139/65 Pulse Oximetry 92 L 96 Pulse Oximetry [Resting on Room Air] 87 L Pulse Oximetry [Resting with Oxygen] 94 L 02/23/18 20:00 02/23/18 20:35 02/23/18 22:55 Temperature 97.8 F Pulse Rate 99 H 100 H Respiratory Rate 22 20 18 Blood Pressure 156/67 H Pulse Oximetry 95 94 L Pulse Oximetry [Resting on Room Air] Pulse Oximetry [Resting with Oxygen] 02/24/18 00:00 02/24/18 00:22 02/24/18 08:00 Temperature 99.2 F 97.7 F Pulse Rate 94 H 92 H 68 Respiratory Rate 20 17 18 Blood Pressure 139/62 115/58 L Pulse Oximetry 95 94 L 98 Pulse Oximetry [Resting on Room Air] Pulse Oximetry [Resting with Oxygen] Intake & Output 02/23/18 02/24/18 02/24/18 18:59 06:59 18:59 Intake Total 475 / 475 480 / 480 Output Total 300 / 300 800 / 800 Balance 175 / 175 -320 / -320 Weight 105.3 kg Intake: Oral 475 / 475 480 / 480 Output: Urine 300 / 300 800 / 800 Other: # Voids 3 Date of Last Bowel Movement 02/22/18 02/23/18 02/24/18 # Bowel Movements 1 1 Physical Exam: CONSTITUTIONAL/GENERAL: This is a moderately obese patient, in no apparent distress. CARDIOVASCULAR: Regular rate and rhythm without murmurs, gallops, or rubs. No JVD. Peripheral pulses symmetric. RESPIRATORY/CHEST: Symmetric, unlabored respirations, but breath sounds diminished bilateral. A couple scattered rhonchi. GASTROINTESTINAL: Abdomen soft, non-tender, obese, nondistended. No hepato- splenomegaly, or palpable masses. No guarding. Bowel sounds present. MUSCULOSKELETAL: Extremities without clubbing or cyanosis, but there is 1+ chronic leg edema. No joint tenderness or effusion noted. No calf tenderness. No mottling or clubbing. NEUROLOGICAL: Awake and alert. Motor and sensory grossly within normal limits. Follows commands. Cognitively sharp. Moves all extremities. PSYCHIATRIC: No obvious anxiety, but she does cry at times when talking about her health. no apparent hallucinations or other psychotic thought process. Diagnostic Tests Laboratory: Laboratory Results - last 72 hr 02/21/18 02/21/18 02/22/18 17:33 20:56 00:42 Sodium Potassium Chloride Carbon Dioxide Anion Gap BUN Creatinine Estimated GFR POC Glucose 198 H 183 H Random Glucose Calcium Magnesium Troponin I 0.02 02/22/18 02/22/18 02/22/18 07:59 08:00 13:32 Sodium 140 Potassium 4.6 Chloride 101 Carbon Dioxide 34.9 H Anion Gap 4 L BUN 37 H Creatinine 1.32 H Estimated GFR 41 L POC Glucose 98 224 H Random Glucose 90 D Calcium 8.2 L Magnesium 2.0 Troponin I 02/22/18 02/22/18 02/23/18 17:11 20:43 04:57 Sodium 143 Potassium 5.2 H Chloride 103 Carbon Dioxide 40.2 H Anion Gap 0 L BUN 37 H Creatinine 1.34 H Estimated GFR 40 L POC Glucose 315 H 246 H Random Glucose 131 H Calcium 8.4 L Magnesium Troponin I 02/23/18 02/23/18 02/23/18 08:37 12:14 17:19 Sodium Potassium Chloride Carbon Dioxide Anion Gap BUN Creatinine Estimated GFR POC Glucose 118 H 167 H 165 H Random Glucose Calcium Magnesium Troponin I 02/23/18 02/24/18 02/24/18 20:33 07:40 12:12 Sodium Potassium Chloride Carbon Dioxide Anion Gap BUN Creatinine Estimated GFR POC Glucose 351 H 118 H 220 H Random Glucose Calcium Magnesium Troponin I Result Diagrams: 02/20/18 04:00 02/23/18 04:57 Procedures: BiPAP 02/19/18 Assessment and Plan - Disease Oriented Problem List (1) Respiratory failure (2) End stage COPD (3) CHF (congestive heart failure) (4) Complaint of debility and malaise Pertinent Non-Medical Issues: Psychosocial: Was once, from her for 27 years and then he about 2 years ago. One son who lives locally. correction resident since December 16. Spiritual: Gnosticism background, and she is interested in having a visit from a welding machine operator plasma arc. Legal: The patient has capacity for decision-making. She has now designated her son Julio Cesar as healthcare surrogate.. Ethical issues impacting care: None Important Contacts: Son: Julio Cesar Baldwin [phone] Prognosis: The patient has end-stage lung disease and cardiac disease, and is a permanent bedbound patient now. She is at high risk for recurrent respiratory failure, new cardiac events, and various infections. It is likely that she will continue to have health challenges and hospitalizations until , which I would expect in the upcoming months or perhaps a year or 2. Code Status: Full Code Plan: * FULL CODE, per patient's request 02/20/18 * DECISION-MAKING: The patient has capacity for decision-making; her son is the designated HCS. * GOALS: The patient wants to continue aggressive care, and is willing to accept mechanical ventilation "for a month or 2 if there is a chance I might get better and off the machines." * SYMPTOMS: She has chronic pain that has been managed with Wellbutrin, Prozac, pregabalin, and q4-6h hydrocodone. The patient also has chronic depression for which she remains on antidepressant medications. Her dyspnea has now essentially resolved while she is at rest in the bed. I have no further medication recommendations at this time. * It looks like she will be returning to her half-way soon. * Palliative Care will continue to follow the patient during this hospitalization. Time Spent Total Floor Time (mins): 37 Face to Face Time (mins): 22 >50% Time in Counseling or Coordination of Care: Yes Attestation Attestation: To help prompt me to consider important information that might be impacting today's encounter and assessment, information from prior notes written by myself or my colleagues may have been "brought forward" into today's note. My signature on this note, however, is an attestation that I personally performed the exam, history, and/or decision-making noted today, and, unless otherwise indicated, the interactions with patient, family, and staff as well as the review of records all occurred today. I also attest that the listed assessment and stated plan reflect my best clinical judgment today based on the combination of historical information, prior notes, and today's exam/ interactions. When time spent is documented, it refers only to time spent today by the signer, or if indicated, combined time spent today by collaborating physician/nurse practitioner.
--- NOTE | 2018-02-24 19:13 | P.PNPL ---
Subjective Interval history: 62 YOWF with COPD exac Breathing better no fever no Whezing Up in chair, on 3LNC Physical Exam Vital signs: Vital Signs 02/23/18 20:00 02/23/18 20:35 02/23/18 22:55 Temperature 97.8 F Pulse Rate 99 H 100 H Respiratory Rate 22 20 18 Blood Pressure 156/67 H Pulse Oximetry 95 94 L 02/24/18 00:00 02/24/18 00:22 02/24/18 08:00 Temperature 99.2 F 97.7 F Pulse Rate 94 H 92 H 68 Respiratory Rate 20 17 18 Blood Pressure 139/62 115/58 L Pulse Oximetry 95 94 L 98 02/24/18 12:00 02/24/18 14:39 Temperature 98.2 F Pulse Rate 83 Respiratory Rate 18 Blood Pressure 112/65 Pulse Oximetry 96 95 Intake & Output 02/24/18 02/24/18 02/25/18 06:59 18:59 06:59 Intake Total 480 / 480 Output Total 800 / 800 Balance -320 / -320 Weight 105.3 kg Intake: Oral 480 / 480 Output: Urine 800 / 800 Other: Date of Last Bowel Movement 02/23/18 02/24/18 # Bowel Movements 1 GENERAL: Elderly WF, NAD SKIN: Warm and dry. HEAD: Normocephalic. EYES: No scleral icterus. No injection or drainage. NECK: Supple, trachea midline. No JVD or lymphadenopathy. CARDIOVASCULAR: Regular rate and rhythm without murmurs, gallops, or rubs. RESPIRATORY: Breath sounds equal bilaterally. No accessory muscle use. GASTROINTESTINAL: Abdomen soft, non-tender, nondistended. MUSCULOSKELETAL: No cyanosis, or edema. BACK: Nontender without obvious deformity. No CVA tenderness. - Urinary Catheter Management Indwelling Urethral Catheter Cath placed during this visit: no Reason for continuing: Acute urinary retention Assessment and Plan - Plan IMPRESSION: 1. Chronic obstructive pulmonary disease with exacerbation. 2. Hypercapnic respiratory failure. 3. Congestive heart failure. 4. Diabetes mellitus. PLAN: Aerosol nebs Supplement 02 Keep sat 88-92% Use Acapella OOB in the chair DC Plans underway for MD
--- NOTE | 2018-03-30 08:56 | P.PN ---
Subjective Interval history: no complains agreeable to SNF- but not [place] no compalins of pain Physical Exam Narrative: awake jazmyn lert anicteric neck supple lungs- decrease breath sounds, no rales regular rhythm abdmen-soft, good bowel sounds extremtiies no edema neuro exam- non fcoal - Urinary Catheter Management Indwelling Urethral Catheter Cath placed during this visit: no Reason for continuing: Acute urinary retention Results - Labs CBC & Chem 7: 02/20/18 04:00 02/23/18 04:57 - Procedures none Assessment and Plan - Assessment (1) COPD (chronic obstructive pulmonary disease) Code(s): J44.9 - Chronic obstructive pulmonary disease, unspecified Status: Acute (2) COPD (chronic obstructive pulmonary disease) Code(s): J44.9 - Chronic obstructive pulmonary disease, unspecified Status: Chronic - Plan 62 YEARS OLD Acute on chronic hypercapnic and hypoxemic respiratory failure.- 02 dependent -Status post intubation and self extubation. -continue with oxygen as needed to keep O2 sat 88-92%. -BiPaP at hs -Chest x-ray suggest possible pulmonary edema. -Spiriva -continue neb treatment. COPD- on 4L home oxygen -Continue with current treatment. Dr. Ricks ff Urinary tract infection.- repeat UA with pyuria- 03/29- straight cath sepcimen -Urine cultures with proteus.- reviewed- sensitivety resistant to Cirpo and bctrim - on levaquin for above - DC - start Azactam 1 gm q 8 - Mild acute kidney injury.- improved -Strict ins and out. -Avoid nephrotoxins. Continue to monitor creatinine. Hyperglycemia with underlying history of diabetes mellitus. -Continue with insulin sliding scale. History of hypertension/Coronary artery disease/Obesity/Gastroesophageal reflux disease. -Continue current regimen.- on Plavix anemia- chronic - check iron studies GI prophylaxis with Pepcid DVT prophylaxis with SCDs and heparin subcutaneous. CM - DC planning- patient came from [facility]- does not want to go back there PT daily- out of bed to [facility]
== END 2018-02-24 17:10 ==
LOC: NEPE 16:39 → NEDA 19:15 → HIMC 21:35 → N07 02-21 22:07
PROVIDERS: ADMIT Internal Medicine; ATTEND Internal Medicine

== ENCOUNTER 2018-03-24 04:41 | Inpatient (IN) ==
[2018-03-24] MEDS ORDERED: Propofol Inj 500 MG/50 ML Vial ONE (05:09)
--- NOTE | 2018-03-24 05:52 | XR ---
EXAM DATE: 03/24/2018 5:26 AM EDT AGE/SEX: 62 years / Female INDICATIONS: Post intubation. CLINICAL DATA: This is the patient's initial encounter. Patient reports that signs and symptoms have been present for 1 day and indicates a pain score of Nonresponsive. MEDICAL/SURGICAL HISTORY: . Congestive heart failure. Chronic obstructive pulmonary disease. Hy pertension. Coronary artery disease. . Cardiac stent. [place] [facility] [place]. . FINDINGS: Portable AP view of the chest demonstrates a normal-sized cardiac silhouette. Endotracheal tube dista l tip measures approximately 3.1 cm from the romario. Nasogastric tube courses beyond the GE junction. Multiple EKG lines overlie the patient. Bibasilar pleural-parenchymal opacities are present similar to the prior study along with perihilar and lower lung zone interstitial opacities. CONCLUSION: 1. Endotracheal tube in appropriate position with tip measuring 3.1 cm from the romario. 2. Stable small bilateral pleural effusions and lung changes suggesting pulmonary edema. Electronically signed by: Aryan Rizzo MD 03/24/2018 5:51 AM EDT
[2018-03-24 05:55] LABS: Baso # (Auto) 0.1 th/mm3 (0.0-0.2); Baso % (Auto) 0.6 % (0.0-2.0); Eos # (Auto) 0.1 th/mm3 (0.0-0.4); Eos % (Auto) 1.3 % (0.0-4.0); Hematocrit 25.9 % (35.0-46.0); Hemoglobin 8.2 gm/dL (11.6-15.3); Lymph # (Auto) 0.7 th/mm3 (1.0-4.8); Lymph % (Auto) 7.1 % (9.0-44.0); Mean Corpuscular HGB Conc 31.8 % (32.0-36.0); Mean Corpuscular Hemoglobin 30.2 pg (27.0-34.0); Mean Corpuscular Volume 94.8 fL (80.0-100.0); Mean Platelet Volume 9.9 fL (7.0-11.0); Mono # (Auto) 0.6 th/mm3 (0.0-0.9); Mono % (Auto) 5.5 % (0.0-8.0); Neut # (Auto) 8.9 th/mm3 (1.8-7.7); Neut % (Auto) 85.5 % (16.0-70.0); Platelet Count 185 th/mm3 (150-450); Red Blood Count 2.73 mil/mm3 (4.00-5.30); Red Cell Distribution Width 13.8 % (11.6-17.2); White Blood Count 10.4 th/mm3 (4.0-11.0)
--- NOTE | 2018-03-24 06:04 | ED ---
HPI General Chief Complaint: Respiratory Symptoms Stated Complaint: medical Time Seen by Provider: 03/24/18 04:59 Source: EMS Mode of arrival: EMS Limitations: altered mental status History of Present Illness HPI Narrative: 62-year-old female presents to the emergency department by EMS from [facility] where she was identified to have acute respiratory distress and deterioration after receiving a breathing treatment. Patient with history of COPD. EMS reports upon their arrival O2 saturations were markedly decreased and was hypercapnic. Patient was unable to have IV access obtained and they placed her on supplemental oxygen with nonrebreather mask and patient has not shown any improvement on supplemental oxygen O2 saturations only 82%. Patient is unable to provide any useful information and information is from EMS and reported snf information provided and notes. Patient by medical history has history of COPD diabetes hypertension CAD and has history of fibromyalgia. Patient does receive pain medication for chronic pain syndrome patient has been admitted in the past for respiratory failure and issues with hypercarbia. Patient presents in marked respiratory distress impending respiratory failure/arrest. Patient was urgently intubated Onset (ago): minute(s) Duration: constant Severity: severe (Hypercarbic respiratory failure) Relieving factors: other (Receiving supplemental oxygen by paramedics and updraft treatment) Exacerbating factors: nothing Description of mucous: clear Able to tolerate fluids by mouth: No Context: other (snf resident) Treatments prior to arrival: none Related Data Home Medications Medication Instructions Recorded Confirmed aspirin 81 mg PO DAILY 02/01/18 03/24/18 baclofen 10 mg PO HS 02/01/18 03/24/18 bupropion HCl [Wellbutrin SR] 150 mg PO DAILY 02/01/18 03/24/18 clopidogrel [Plavix] 75 mg PO DAILY 02/01/18 03/24/18 fluoxetine [Prozac] 40 mg PO DAILY 02/01/18 03/24/18 fluticasone 2 spray INTRANASAL DAILY 02/01/18 03/24/18 glimepiride 1 mg PO QAM 02/01/18 03/24/18 insulin aspart U-100 [Novolog 1 unit SUB-Q ACHS 02/01/18 03/24/18 U-100 Insulin aspart] ipratropium-albuterol 3 ml INHALATION Q6-8H PRN 02/01/18 03/24/18 lidocaine [Lidocaine Pain Relief] 1 patch TOPICAL Q8H 02/01/18 03/24/18 lisinopril 10 mg PO DAILY 02/01/18 03/24/18 melatonin 6 mg PO HS PRN 02/01/18 03/24/18 ondansetron [Zofran ODT] 4 mg PO Q6-8H PRN 02/01/18 03/24/18 pantoprazole [Protonix] 40 mg PO BID 02/01/18 03/24/18 pregabalin 300 mg PO BID 02/01/18 03/24/18 risperidone [Risperdal] 0.5 mg PO DAILY 02/01/18 03/24/18 ropinirole [Requip] 0.25 mg PO HS 02/01/18 03/24/18 tiotropium bromide 1 cap INHALATION DAILY 02/01/18 03/24/18 fexofenadine [Adalgisa Allergy] 60 mg PO DAILY 02/03/18 03/24/18 Previous Rx's Medication Instructions Recorded hydrocodone-acetaminophen [[place]] 1 tab PO Q4-6H PRN #12 tab 02/24/18 Allergies Allergy/AdvReac Type Severity Reaction Status Date / Time budesonide [From Pulmicort] Allergy Hives Verified 02/01/18 09:53 duloxetine [From Cymbalta] Allergy Hives Verified 02/01/18 09:53 gabapentin [From Neurontin] Allergy Hives Verified 02/01/18 09:53 nickel Allergy Hives Verified 02/01/18 09:53 Penicillins Allergy Hives Verified 02/01/18 09:53 prednisone Allergy Hives Verified 02/01/18 06:49 sulfacetamide Allergy Hives Verified 02/01/18 09:53 [From Sulfacet-R] sulfur [From Sulfacet-R] Allergy Hives Verified 02/01/18 09:53 Review of Systems ROS Unobtainable ROS Unobtainable: unobtainable due to mental status (Hypoxemia and hypercarbia) PMFSH History History Provided By: Medical Record Medical History Medical History CAD (coronary artery disease) (Acute) COPD (chronic obstructive pulmonary disease) (Acute) Chronic pain (Acute) Chronically on opiate therapy (Acute) Depression (Acute) Diabetes (Acute) Diabetes (Acute) Fibromyalgia (Acute) GERD (gastroesophageal reflux disease) (Acute) H/O: hysterectomy (Acute) HTN (hypertension) (Acute) Heart attack (Acute) Hemorrhoids (Acute) Pilonidal cyst (Acute) Raynauds phenomenon (Acute) Sjogrens syndrome (Acute) Tubal ligation status (Acute) Surgical History Surgical History H/O heart artery stent (Acute) Family History Family History Mother Family history of diabetes mellitus Lung cancer Social History Social History Substance History: No History of Abuse Second Hand Smoke Exposure: No (PATIENT NON-AROUSABLE EJ) Smoking Status: Former smoker Tobacco Type: Cigarettes Packs Per Day: 3 Cigarettes Per Day: 60.0 Years Smoked: 40 Pack-Years: 120.00 Smoking End Date: 2013 How Often Do You Have a Drink Containing Alcohol: Never Recent Travel in [facility] within the Last 8 Weeks: No Recent Out of Country Travel within the Last 8 Weeks: No Exam Narrative Exam Narrative: GENERAL: Well-nourished, well-developed patient. Morbidly obese female with altered mentation poor respiratory and ventilatory effort diaphoretic responsive to painful stimuli. SKIN: Focused skin assessment warm/dry. HEAD: Normocephalic. EYES: No scleral icterus. No injection or drainage. NECK: Supple, trachea midline. No JVD or lymphadenopathy. CARDIOVASCULAR: Regular rate and rhythm without murmurs, gallops, or rubs. RESPIRATORY: Breath sounds equal bilaterally. Diminished bilaterally. No accessory muscle use. GASTROINTESTINAL: Abdomen soft, non-tender, nondistended. MUSCULOSKELETAL: No cyanosis, or edema. BACK: Nontender without obvious deformity. No CVA tenderness. Procedures Intubation Time Out Performed: Yes Sedative: etomidate Mg Given: 20 Paralytic: succinylcholine (80) Mg Given: 80 Laryngoscope: Ruth ET Tube Size: 8 ET Tube Uncuffed: Yes Tube Secured Depth (cm): 24 Tube Secured Location: teeth Tube Placement Confirmation: visualized tube passing through cords, equal breath sounds bilaterally, no breath sounds over epigastrium and confirmation by capnometry Patient Tolerated Procedure: well Intubation Complications: none Course Initial Documented Vital Signs Respiratory Rate 18 03/24/18 04:50 Pulse Oximetry 100 03/24/18 04:50 Last Documented Vital Signs Temperature 98 F 03/24/18 06:04 Pulse Rate 85 03/24/18 08:00 Respiratory Rate 18 03/24/18 08:00 Blood Pressure 128/60 03/24/18 08:00 Pulse Oximetry 100 03/24/18 08:00 Critical Care Time Critical Care Time: Yes Total Critical Care Time: 35 Attestation: Aggregate critical care time was 30 minutes. Time to perform other separately billable procedures was not included in the critical care time. My time did not include minutes spent treating any other patients simultaneously or on activities that did not directly contribute to the patient's treatment. The services I provided to this patient were to treat and/or prevent clinically significant deterioration that could result in: Respiratory arrest, I provided critical care services requiring my management, as noted below: Chart data review, documentation time, medication orders and management, vital sign assessments/reviewing monitor data, ordering and reviewing lab tests, ordering and interpreting/reviewing x-rays and diagnostic studies, care of the patient and discussion of the patient with the admitting physicians. Medical Decision Making MDM Narrative Medical decision making narrative: 62-year-old female with low O2 room air saturations and O2 saturations on supplemental oxygen was altered mentation and response to painful stimuli with grimacing. Patient with recent admission for hypercarbia and respiratory failure. Patient providing minimal ventilatory effort and decision made to urgently admit intubate the patient bypassing alternative methods such as BiPAP please refer to procedural note regarding intubation IV access obtained specimens collected and sent for resulting chest x-ray performed patient will require Chest x-ray shows patient to be intubated with vascular congestion and possible fluffy infiltrate patient presumptively administered IV Levaquin 1 dose for possible community-acquired versus recent hospitalization acquired pneumonia versus aspiration Patient's case discussed with cloth doffer for admission to ICU with respiratory failure impending respiratory arrest. Patient discussed with Dr. Baker accepted to ICU. Medical Screen Exam Complete: Yes Emergency Medical Condition: Yes Differential Diagnosis Differential Diagnosis: COPD exacerbation, respiratory failure, hypercapnia, hypoxemia, pneumonia, CHF, ACS, anemia, Medical Records Medical records reviewed: Yes I reviewed the patient's medical records. Lab Data Lab results reviewed: Yes I reviewed the patient's lab results. Result diagrams: 03/24/18 04:50 03/24/18 06:40 Lab Results 03/24/18 03/24/18 03/24/18 Range/Units 04:50 04:50 04:50 WBC 10.4 (4.0-11.0) th/mm3 RBC 2.73 L (4.00-5.30) mil/mm3 Hgb 8.2 L (11.6-15.3) gm/dL Hct 25.9 L (35.0-46.0) % MCV 94.8 (80.0-100.0) fL MCH 30.2 (27.0-34.0) pg MCHC 31.8 L (32.0-36.0) % RDW 13.8 (11.6-17.2) % Plt Count 185 D (150-450) th/mm3 MPV 9.9 (7.0-11.0) fL Neut % (Auto) 85.5 H (16.0-70.0) % Lymph % (Auto) 7.1 L (9.0-44.0) % [place] % (Auto) 5.5 (0.0-8.0) % Eos % (Auto) 1.3 (0.0-4.0) % Baso % (Auto) 0.6 (0.0-2.0) % Neut # (Auto) 8.9 H (1.8-7.7) th/mm3 Lymph # (Auto) 0.7 L (1.0-4.8) th/mm3 [place] # (Auto) 0.6 (0.0-0.9) th/mm3 Eos # (Auto) 0.1 (0.0-0.4) th/mm3 Baso # (Auto) 0.1 (0.0-0.2) th/mm3 WBC Differential . Differential Comment Auto diff final PT 10.8 (9.8-11.6) sec INR 1.1 Ratio APTT 23.6 L (24.3-30.1) sec Sodium 142 (136-145) meq/L Potassium 5.6 H (3.5-5.1) meq/L Chloride 101 (98-107) meq/L Carbon Dioxide 33.4 H (21.0-32.0) meq/L Anion Gap 8 (5-15) meq/L BUN 29 H (7-18) mg/dL Creatinine 1.02 H (0.50-1.00) mg/dL Estimated GFR 55 L (>89) mL/min Random Glucose 198 H (74-106) mg/dL Calcium 8.5 (8.5-10.1) mg/dL Magnesium 2.3 (1.5-2.5) mg/dL Total Bilirubin 0.3 (0.2-1.0) mg/dL AST 18 (15-37) U/L ALT 14 (10-53) U/L Alkaline Phosphatase 102 (45-117) U/L Total Creatine Kinase 69 (26-192) U/L Troponin I 0.07 H (0.02-0.05) ng/mL B-Natriuretic Peptide (0-100) pg/mL Total Protein 6.5 (6.4-8.2) g/dL Albumin 3.0 L (3.4-5.0) g/dL Urine Color (Yellw/Straw) Urine Clarity (Clear) Urine pH (5.0-8.5) Ur Specific [place] (1.002-1.035) Urine Protein (Neg-Trace) mg/dL Urine Glucose (UA) (Negative) mg/dL Urine Ketones (Negative) mg/dL Urine Occult Blood (Negative) Urine Nitrate (Negative) Urine Bilirubin (Negative) Urine Urobilinogen (Less than 2) mg/dL Ur Leukocyte Esterase (Negative) Urine RBC (0-3) /hpf Urine WBC (0-5) /hpf Ur Squamous Epith Cells (0-5) /hpf Triple Phos Crystals (None) /hpf Urine Bacteria (None) /hpf Hyaline Casts (0-3) /lpf Urine Mucus (Occasional) /lpf Micro UA Comment Ur Microscopic Review Urine Culture Comments Blood Type Blood Type Recheck Antibody Screen MTS Gel Crossmatch 03/24/18 03/24/18 03/24/18 Range/Units 04:50 06:35 06:40 WBC (4.0-11.0) th/mm3 RBC (4.00-5.30) mil/mm3 Hgb (11.6-15.3) gm/dL Hct (35.0-46.0) % MCV (80.0-100.0) fL MCH (27.0-34.0) pg MCHC (32.0-36.0) % RDW (11.6-17.2) % Plt Count (150-450) th/mm3 MPV (7.0-11.0) fL Neut % (Auto) (16.0-70.0) % Lymph % (Auto) (9.0-44.0) % [place] % (Auto) (0.0-8.0) % Eos % (Auto) (0.0-4.0) % Baso % (Auto) (0.0-2.0) % Neut # (Auto) (1.8-7.7) th/mm3 Lymph # (Auto) (1.0-4.8) th/mm3 [place] # (Auto) (0.0-0.9) th/mm3 Eos # (Auto) (0.0-0.4) th/mm3 Baso # (Auto) (0.0-0.2) th/mm3 WBC Differential Differential Comment PT (9.8-11.6) sec INR Ratio APTT (24.3-30.1) sec Sodium (136-145) meq/L Potassium 4.3 D (3.5-5.1) meq/L Chloride (98-107) meq/L Carbon Dioxide (21.0-32.0) meq/L Anion Gap (5-15) meq/L BUN (7-18) mg/dL Creatinine (0.50-1.00) mg/dL Estimated GFR (>89) mL/min Random Glucose (74-106) mg/dL Calcium (8.5-10.1) mg/dL Magnesium (1.5-2.5) mg/dL Total Bilirubin (0.2-1.0) mg/dL AST (15-37) U/L ALT (10-53) U/L Alkaline Phosphatase (45-117) U/L Total Creatine Kinase (26-192) U/L Troponin I (0.02-0.05) ng/mL B-Natriuretic Peptide 319 H (0-100) pg/mL Total Protein (6.4-8.2) g/dL Albumin (3.4-5.0) g/dL Urine Color Yellow (Yellw/Straw) Urine Clarity Cloudy H (Clear) Urine pH 8.0 (5.0-8.5) Ur Specific [place] 1.012 (1.002-1.035) Urine Protein 30 H (Neg-Trace) mg/dL Urine Glucose (UA) Negative (Negative) mg/dL Urine Ketones Negative (Negative) mg/dL Urine Occult Blood Negative (Negative) Urine Nitrate Positive H (Negative) Urine Bilirubin Negative (Negative) Urine Urobilinogen Less than 2 (Less than 2) mg/dL Ur Leukocyte Esterase Large H (Negative) Urine RBC 3 (0-3) /hpf Urine WBC 68 H (0-5) /hpf Ur Squamous Epith Cells 2 (0-5) /hpf Triple Phos Crystals Few H (None) /hpf Urine Bacteria Many H (None) /hpf Hyaline Casts 11 (0-3) /lpf Urine Mucus Few H (Occasional) /lpf Micro UA Comment Cath-culture ind Ur Microscopic Review Not Reportable Urine Culture Comments Cath-cult indicated Blood Type Blood Type Recheck Antibody Screen MTS Gel Crossmatch 03/24/18 03/24/18 Range/Units 06:40 06:40 WBC (4.0-11.0) th/mm3 RBC (4.00-5.30) mil/mm3 Hgb (11.6-15.3) gm/dL Hct (35.0-46.0) % MCV (80.0-100.0) fL MCH (27.0-34.0) pg MCHC (32.0-36.0) % RDW (11.6-17.2) % Plt Count (150-450) th/mm3 MPV (7.0-11.0) fL Neut % (Auto) (16.0-70.0) % Lymph % (Auto) (9.0-44.0) % [place] % (Auto) (0.0-8.0) % Eos % (Auto) (0.0-4.0) % Baso % (Auto) (0.0-2.0) % Neut # (Auto) (1.8-7.7) th/mm3 Lymph # (Auto) (1.0-4.8) th/mm3 [place] # (Auto) (0.0-0.9) th/mm3 Eos # (Auto) (0.0-0.4) th/mm3 Baso # (Auto) (0.0-0.2) th/mm3 WBC Differential Differential Comment PT (9.8-11.6) sec INR Ratio APTT (24.3-30.1) sec Sodium (136-145) meq/L Potassium (3.5-5.1) meq/L Chloride (98-107) meq/L Carbon Dioxide (21.0-32.0) meq/L Anion Gap (5-15) meq/L BUN (7-18) mg/dL Creatinine (0.50-1.00) mg/dL Estimated GFR (>89) mL/min Random Glucose (74-106) mg/dL Calcium (8.5-10.1) mg/dL Magnesium (1.5-2.5) mg/dL Total Bilirubin (0.2-1.0) mg/dL AST (15-37) U/L ALT (10-53) U/L Alkaline Phosphatase (45-117) U/L Total Creatine Kinase (26-192) U/L Troponin I (0.02-0.05) ng/mL B-Natriuretic Peptide (0-100) pg/mL Total Protein (6.4-8.2) g/dL Albumin (3.4-5.0) g/dL Urine Color (Yellw/Straw) Urine Clarity (Clear) Urine pH (5.0-8.5) Ur Specific [place] (1.002-1.035) Urine Protein (Neg-Trace) mg/dL Urine Glucose (UA) (Negative) mg/dL Urine Ketones (Negative) mg/dL Urine Occult Blood (Negative) Urine Nitrate (Negative) Urine Bilirubin (Negative) Urine Urobilinogen (Less than 2) mg/dL Ur Leukocyte Esterase (Negative) Urine RBC (0-3) /hpf Urine WBC (0-5) /hpf Ur Squamous Epith Cells (0-5) /hpf Triple Phos Crystals (None) /hpf Urine Bacteria (None) /hpf Hyaline Casts (0-3) /lpf Urine Mucus (Occasional) /lpf Micro UA Comment Ur Microscopic Review Urine Culture Comments Blood Type O Positive Blood Type Recheck Required Antibody Screen Negative MTS Gel Crossmatch See Detail Imaging Data Radiologist's impression: Chest X-Ray 03/24/18 04:59 CONCLUSION: 1. Endotracheal tube in appropriate position with tip measuring 3.1 cm from the romario. 2. Stable small bilateral pleural effusions and lung changes suggesting pulmonary edema. ECG Data Interpretation: EKG: Sinus tachycardia no acute ST elevation injury pattern or ectopy noted Discharge Plan Discharge Disposition Patient Disposition: 30 Still Patient Discharge Condition Condition: Stable Discharge Details Diagnosis: COPD exacerbation, Acute hypercapnic respiratory failure, Anemia Physicians Team ED Provider: Jayleen Beverly Primary Care Provider: UNKNOWN, Attending Provider: Leandro Shah Interventions Interventions: ED Discharge Assessment Last Done: 03/24/18 08:13 Vital Signs Last Done: 03/24/18 07:06 Status ED Status: Left Department Discharge Information Discharge Date/Time: 03/24/18 08:14
[2018-03-24 06:09] LABS: Activated Partial Thrombo Time 23.6 sec (24.3-30.1); INR 1.1 Ratio; Prothrombin Time 10.8 sec (9.8-11.6)
[2018-03-24 06:14] LABS: Anion Gap 8 meq/L (5-15); Aspartate Aminotransferase 18 U/L (15-37); Blood Urea Nitrogen 29 mg/dL (7-18); Calcium 8.5 mg/dL (8.5-10.1); Carbon Dioxide 33.4 meq/L (21.0-32.0); Chloride 101 meq/L (98-107); Glomerular Filtration Rate 55 mL/min (>89); Glucose,Random 198 mg/dL (74-106); Magnesium 2.3 mg/dL (1.5-2.5); Potassium 5.6 meq/L (3.5-5.1); Sodium 142 meq/L (136-145)
[2018-03-24 06:15] LABS: Alanine Aminotransferase 14 U/L (10-53)
[2018-03-24] MEDS ORDERED: Calcium Gluconate Inj 1 GM in Dextrose 5% in Water Inj 100 ML IV.SIG ONE ×2 (06:15)
[2018-03-24 06:19] LABS: Alkaline Phosphatase 102 U/L (45-117); Creatine Kinase 69 U/L (26-192); Total Protein 6.5 g/dL (6.4-8.2); Troponin I 0.07 ng/mL (0.02-0.05)
[2018-03-24] MEDS: Propofol 1000 mg/100 ml Inj 1,000 MG/100 ML BOTTLE IV.CONT PRN ×7 (06:28→21:46)
[2018-03-24 07:24] LABS: Bacteria,Urine Many /hpf; Bilirubin,Urine Negative (Negative); Clarity,Urine Cloudy (Clear); Color,Urine Yellow (Yellw/Straw); Glucose,Urine (UA) Negative (Negative); Hyaline Casts,Urine 11 /lpf (0-3); Leukocyte Esterase,Urine Large (Negative); Mucus,Urine Few /lpf (Occasional); Nitrite,Urine Positive (Negative); Specific Gravity,Urine 1.012 (1.002-1.035); Squamous Epithelial Cell,Urine 2 /hpf (0-5); Triple Phosphate Crystal,Urine Few /hpf
[2018-03-24] MEDS ORDERED: Bisacodyl 10 MG Supp RECTAL PRN (07:27)
[2018-03-24] MEDS ORDERED: Dextrose 50% in Water 50 ML Vial IV.PUSH PRN (07:29)
[2018-03-24 09:17] LABS: ABG Base Excess 5.6 mmol/L (-2-2); ABG PCO2 65 mmHg (38-42); ABG PO2 78 mmHg (61-120)
[2018-03-24 09:32] LABS: ABG PCO2 38 mmHg (38-42); ABG PO2 103 mmHG (61-120)
--- NOTE | 2018-03-24 10:15 | MH ---
cc: Leandro Shah MD DATE OF ADMISSION: 03/24/2018 HISTORY OF PRESENT ILLNESS: The patient is a 62-year-old female with a past medical history of COPD, coronary artery disease, hypertension, diabetes mellitus, GERD, morbid obesity, who presented to [facility] ED by EMS from [facility] with respiratory distress. Per EMS, the patient had O2 saturation in the 70s. She was intubated and placed on mechanical ventilation. Also, Diprivan was started for sedation. ABG post intubation showed acute hypercapnic respiratory acidosis with a pH of 7.31, CO2 of 65, PaO2 of 78, bicarbonate 32 and saturation of 93% on PRVC mode with rate of 18, tidal volume 600, PEEP of 5, and 50% FiO2. Chest x-ray post intubation showed ET tube above the romario, bibasilar pleural parenchymal opacities similar to prior studies, and lower lung zone interstitial opacities. The patient received DuoNeb treatment and Levaquin in the ER. PAST MEDICAL HISTORY: Significant for CAD, COPD, chronic pain, depression, diabetes mellitus, fibromyalgia, GERD, hypertension. PAST SURGICAL HISTORY: Previous tubal ligation, previous hysterectomy. ALLERGIES: MULTIPLE WHICH INCLUDE PENICILLIN, PULMICORT, NEURONTIN, SULFA DRUGS, CYMBALTA. MEDICATIONS AT HOME: 1. Insulin. 2. Prozac. 3. Plavix. 4. Wellbutrin. 5. Aspirin. 6. Requip. 7. Protonix. 8. Zofran. 9. Lisinopril. FAMILY HISTORY: Noncontributory to present illness. SOCIAL HISTORY: Diabetes mellitus and lung cancer run in the family. SOCIAL HISTORY: The patient is a resident of [facility]. REVIEW OF SYSTEMS: As per HPI. Rest of review of systems limited as the patient is intubated. PHYSICAL EXAMINATION: GENERAL: A 62-year-old female, intubated for respiratory failure. VITAL SIGNS: Temperature 98.0, pulse of 82, blood pressure 120/60, saturation 100%. Ventilator setting: PRVC rate of 18, tidal volume 600, I time 1, PEEP 5, FIO2 40%. HEENT: Atraumatic, normocephalic. Pupils are equal, round, and reactive to light and accommodation. Extraocular muscles intact. Conjunctivae pink. Nonicteric sclerae. Oral mucosa within normal. NECK: Supple. No JVD, adenopathy or thyromegaly. Trachea in the midline. CARDIOVASCULAR: Regular rate and rhythm. Normal S1, S2. No murmurs, rubs, murmurs, rubs or gallops noted. PULMONARY: Bilateral equal air entry with a few coarse breath sounds. ABDOMEN: Soft, obese, nontender. No distention. Positive bowel sounds. EXTREMITIES: No cyanosis, clubbing or edema. NEUROLOGIC: Intubated and sedated. LABORATORY DATA: WBC 10.4, hemoglobin 8.2, hematocrit 25, platelet count of 185. Sodium 142, potassium 4.3, chloride 101, CO2 of 33, BUN 29, creatinine 1.0, glucose 198. Troponin 0.07 with total CK 69, albumin 3. Urinalysis positive nitrite, large leukocyte esterase, many bacteria. RADIOGRAPHIC STUDIES: Chest x-ray showed ET tube above the romario, interstitial opacities lower lung zones. EKG showed atrial flutter/tachycardia with a rate of 107 beats per minute. IMPRESSION: 1. Acute hypercapnic and hypoxemic respiratory failure. 2. Chronic obstructive pulmonary disease exacerbation. 3. Urinary tract infection. 4. Anemia. 5. Mild acute kidney injury. 6. Hyperglycemia with underlying history of diabetes mellitus. 7. History of hypertension. 8. Coronary artery disease. 9. Obesity. 10. Gastroesophageal reflux disease. PLAN: 1. Continue with Diprivan infusion for sedation and daily sedation vacation when clinically appropriate. 2. Continue with ventilator support and maintain saturations above 92%. Bronchodilators in the form of DuoNeb every 6 hours and initiate ICU ventilator bundle. Repeat ABG shows improvement of her respiratory acidosis, with a pH of 7.54, CO2 of 38, pO2 of 103, bicarbonate of 33 and saturations of 95%. 3. Monitor heart rate and blood pressure closely and maintain MAP of greater than 65 mmHg. She had echocardiogram in January 2018 which showed an EF of 50$-55%. 4. Monitor renal function, I's and O's and electrolyte replacement as needed. 5. Place on IV fluids, NS at 50 mL an hour. 6. Keep n.p.o. and place on Pepcid 20 mg IV every 12 hours. Start nutrition support within 24 hours if the patient remains intubated. 7. Continue with empiric antibiotics with Levaquin and monitor for signs of infection, which include fever and WBC. Follow up on blood and urine cultures and in addition, we will obtain a sputum culture with Gram stain. 9. Monitor CBC. 9. Place on sliding scale insulin with Accu-Cheks for glycemic control. 10. GI prophylaxis with Pepcid and DVT prophylaxis with SCDs and heparin subcutaneous. 11. Further recommendations will be based on hospital course. MD KAREN Mar/sita , 09:38 AM , 09:52 AM
[2018-03-24] MEDS: Famotidine PF Inj 20 MG/2 ML Vial IV.PUSH SCH ×2 (11:36→20:39)
[2018-03-24] MEDS: Heparin - SQ 10,000 UNITS/ML Vial SQ SCH ×2 (11:36→20:39)
[2018-03-24] MEDS: Insulin NovoLOG Aspart Correctional Sugar Inj SQ SCH ×3 (11:36→20:38)
[2018-03-24] MEDS: Senna/Docusate Sodium 8.6/50 MG Tablet PO SCH ×2 (11:37→20:41)
[2018-03-24] MEDS: Sod Chloride 0.9% Inj 1,000 ML IV.CONT SCH (11:37)
--- NOTE | 2018-03-24 13:38 | ECG ---
Date Performed: 03/24/2018 Time Performed: 05:01:56 PTAGE: 62 years EKG: SINUS TACHYCARDIA OTHERWISE NORMAL EKG Compared to previous tracing, sinus tachycardia is n ew, but there is no other significant serial change. ABNORMAL RHYTHM ECG PREVIOUS TRACING : 02/22/2018 00.35 DOCTOR: Nancy Gay Interpretating Date/Time 03/24/2018 13:36:51
[2018-03-24] MEDS: Acetaminophen 325 MG Tablet PO PRN (22:09)
[2018-03-25] MEDS: Insulin NovoLOG Aspart Correctional Sugar Inj SQ SCH ×6 (00:21→20:18)
[2018-03-25] MEDS: Propofol 1000 mg/100 ml Inj 1,000 MG/100 ML BOTTLE IV.CONT PRN ×3 (00:54→06:39)
[2018-03-25 03:59] LABS: Baso % (Auto) 0.3 % (0.0-2.0); Eos # (Auto) 0.1 th/mm3 (0.0-0.4); Eos % (Auto) 0.6 % (0.0-4.0); Hematocrit 24.1 % (35.0-46.0); Hemoglobin 8.1 gm/dL (11.6-15.3); Lymph # (Auto) 0.9 th/mm3 (1.0-4.8); Lymph % (Auto) 10.2 % (9.0-44.0); Mean Corpuscular HGB Conc 33.7 % (32.0-36.0); Mean Corpuscular Hemoglobin 30.5 pg (27.0-34.0); Mean Corpuscular Volume 90.5 fL (80.0-100.0); Mean Platelet Volume 10.1 fL (7.0-11.0); Mono # (Auto) 1.9 th/mm3 (0.0-0.9); Mono % (Auto) 21.7 % (0.0-8.0); Neut # (Auto) 5.9 th/mm3 (1.8-7.7); Neut % (Auto) 67.2 % (16.0-70.0); Platelet Count 132 th/mm3 (150-450); Red Blood Count 2.66 mil/mm3 (4.00-5.30); Red Cell Distribution Width 13.5 % (11.6-17.2); White Blood Count 8.8 th/mm3 (4.0-11.0)
[2018-03-25] MEDS ORDERED: Chlorhexidine Gluconate 2% 1 Pack (2 Cloths) TOPICAL PRN (04:00)
[2018-03-25 04:08] LABS: Alanine Aminotransferase 12 U/L (10-53); Albumin 2.8 g/dL (3.4-5.0); Alkaline Phosphatase 85 U/L (45-117); Anion Gap 9 meq/L (5-15); Aspartate Aminotransferase 16 U/L (15-37); Blood Urea Nitrogen 24 mg/dL (7-18); Calcium 8.1 mg/dL (8.5-10.1); Carbon Dioxide 29.9 meq/L (21.0-32.0); Chloride 103 meq/L (98-107); Glomerular Filtration Rate 49 mL/min (>89); Glucose,Random 78 mg/dL (74-106); Magnesium 2.2 mg/dL (1.5-2.5); Phosphorus 1.8 mg/dL (2.5-4.9); Potassium 4.6 meq/L (3.5-5.1); Sodium 142 meq/L (136-145)
[2018-03-25] MEDS: Chlorhexidine Gluconate 2% 1 Pack (2 Cloths) TOPICAL SCH (04:44)
[2018-03-25] MEDS: Sod Chloride 0.9% Inj 1,000 ML IV.CONT SCH (06:38)
--- NOTE | 2018-03-25 07:54 | P.PNCC ---
Subjective Subjective Remarks/Hospital Course: Patient is a 62-year-old female with a past medical history of COPD, coronary artery disease, hypertension, diabetes mellitus, GERD, morbid obesity, who presented to [facility] ED by EMS from [facility] with respiratory distress. Per EMS, the patient had [id number] in the 70s. She was intubated and placed on mechanical ventilation. Also, Diprivan was started for sedation. ABG post intubation showed acute hypercapnic respiratory acidosis with a pH of 7.31, CO2 of 65, PaO2 of 78, bicarbonate 32 and saturation of 93% on PRVC mode with rate of 18, tidal volume 600, PEEP of 5, and 50% FiO2. Chest x-ray post intubation showed ET tube above the romario, bibasilar pleural parenchymal opacities similar to prior studies, and lower lung zone interstitial opacities. The patient received DuoNeb treatment and Levaquin in the ER. 03/25 Patient is sedated with Diprivan and intubated. Afebrile. Objective Vital Signs / I&O: Vital Signs 03/24/18 08:00 03/24/18 09:00 03/24/18 10:52 Temperature Pulse Rate 81 82 76 Respiratory Rate 18 18 Blood Pressure 128/60 Pulse Oximetry 100 96 03/24/18 11:49 03/24/18 12:00 03/24/18 12:15 Temperature Pulse Rate 78 77 77 Respiratory Rate Blood Pressure 117/58 L 129/62 Pulse Oximetry 100 100 100 03/24/18 12:30 03/24/18 12:45 03/24/18 13:00 Temperature Pulse Rate 76 77 75 Respiratory Rate Blood Pressure 131/62 131/60 127/60 Pulse Oximetry 100 100 100 03/24/18 13:15 03/24/18 13:30 03/24/18 13:45 Temperature Pulse Rate 74 77 76 Respiratory Rate Blood Pressure 139/63 132/60 130/64 Pulse Oximetry 100 100 100 03/24/18 14:00 03/24/18 14:15 03/24/18 14:28 Temperature Pulse Rate 74 78 Respiratory Rate 18 Blood Pressure 145/65 H 145/65 H Pulse Oximetry 100 100 100 03/24/18 14:30 03/24/18 14:45 03/24/18 15:00 Temperature Pulse Rate 77 75 80 Respiratory Rate Blood Pressure 144/65 H 142/63 H 132/69 Pulse Oximetry 100 100 100 03/24/18 15:15 03/24/18 15:30 03/24/18 15:45 Temperature Pulse Rate 75 75 77 Respiratory Rate Blood Pressure 151/66 H 141/67 H 139/55 L Pulse Oximetry 100 100 100 03/24/18 16:00 03/24/18 16:15 03/24/18 16:30 Temperature Pulse Rate 79 81 75 Respiratory Rate Blood Pressure 139/62 144/65 H 141/65 H Pulse Oximetry 100 100 100 03/24/18 16:41 03/24/18 16:45 03/24/18 17:00 Temperature Pulse Rate 74 79 83 Respiratory Rate 18 Blood Pressure 141/59 H 145/64 H Pulse Oximetry 100 100 03/24/18 17:15 03/24/18 17:30 03/24/18 17:45 Temperature Pulse Rate 84 85 85 Respiratory Rate Blood Pressure 152/63 H 128/59 L 128/60 Pulse Oximetry 100 100 100 03/24/18 17:46 03/24/18 18:00 03/24/18 18:15 Temperature Pulse Rate 85 84 Respiratory Rate 18 Blood Pressure 150/64 H 148/66 H Pulse Oximetry 100 100 100 03/24/18 18:30 03/24/18 18:45 03/24/18 19:00 Temperature Pulse Rate 91 H 83 86 Respiratory Rate Blood Pressure 150/65 H 147/67 H 148/67 H Pulse Oximetry 100 100 100 03/24/18 19:15 03/24/18 19:30 03/24/18 19:31 Temperature Pulse Rate 84 82 Respiratory Rate 20 Blood Pressure 144/67 H 142/65 H Pulse Oximetry 100 100 100 03/24/18 19:38 03/24/18 19:45 03/24/18 20:00 Temperature 101.5 F H Pulse Rate 83 82 83 Respiratory Rate 18 Blood Pressure 140/61 140/65 Pulse Oximetry 100 100 03/24/18 20:16 03/24/18 20:30 03/24/18 20:45 Temperature Pulse Rate 86 87 88 Respiratory Rate Blood Pressure 143/68 H 151/69 H 138/65 Pulse Oximetry 76 L 100 97 03/24/18 21:00 03/24/18 21:15 03/24/18 21:30 Temperature 100.3 F H Pulse Rate 88 85 83 Respiratory Rate Blood Pressure 137/65 136/63 141/67 H Pulse Oximetry 97 99 100 03/24/18 21:45 03/24/18 22:00 03/24/18 22:15 Temperature 100.5 F H Pulse Rate 82 85 82 Respiratory Rate 18 19 Blood Pressure 135/64 135/56 L 145/66 H Pulse Oximetry 100 100 100 03/24/18 22:30 03/24/18 22:45 03/24/18 23:00 Temperature 99.7 F H Pulse Rate 79 78 77 Respiratory Rate 18 18 18 Blood Pressure 139/63 137/64 131/62 Pulse Oximetry 100 100 100 03/24/18 23:07 03/24/18 23:15 03/24/18 23:30 Temperature Pulse Rate 79 80 Respiratory Rate 18 18 18 Blood Pressure 137/61 137/57 L Pulse Oximetry 100 100 100 03/24/18 23:45 03/25/18 00:00 03/25/18 00:15 Temperature 99.7 F H Pulse Rate 79 77 72 Respiratory Rate 18 18 18 Blood Pressure 146/65 H 137/63 148/63 H Pulse Oximetry 100 100 100 03/25/18 00:30 03/25/18 00:45 03/25/18 01:00 Temperature Pulse Rate 71 70 69 Respiratory Rate 18 18 18 Blood Pressure 138/65 146/63 H 137/65 Pulse Oximetry 100 100 100 03/25/18 01:15 03/25/18 01:30 03/25/18 01:46 Temperature Pulse Rate 69 68 78 Respiratory Rate 18 18 28 H Blood Pressure 138/66 140/66 148/64 H Pulse Oximetry 100 100 99 03/25/18 02:00 03/25/18 02:15 03/25/18 02:30 Temperature 99.3 F Pulse Rate 77 77 75 Respiratory Rate 28 H 20 18 Blood Pressure 161/64 H 145/64 H 167/67 H Pulse Oximetry 93 L 100 100 03/25/18 02:46 03/25/18 03:00 03/25/18 03:16 Temperature Pulse Rate 73 71 71 Respiratory Rate 18 18 18 Blood Pressure 136/61 134/58 L 146/72 H Pulse Oximetry 100 100 100 03/25/18 03:22 03/25/18 03:27 03/25/18 03:30 Temperature Pulse Rate 75 72 Respiratory Rate 18 18 18 Blood Pressure 162/63 H Pulse Oximetry 100 100 03/25/18 03:45 03/25/18 04:00 03/25/18 04:01 Temperature Pulse Rate 75 84 89 Respiratory Rate 18 21 23 Blood Pressure 149/63 H 158/67 H Pulse Oximetry 99 98 86 L 03/25/18 04:15 03/25/18 04:31 03/25/18 04:45 Temperature 98.8 F Pulse Rate 80 78 77 Respiratory Rate 18 18 18 Blood Pressure 138/62 138/64 132/60 Pulse Oximetry 100 100 100 03/25/18 05:00 03/25/18 05:01 03/25/18 05:15 Temperature Pulse Rate 79 78 75 Respiratory Rate 18 19 18 Blood Pressure 144/62 H 144/64 H Pulse Oximetry 100 100 100 03/25/18 05:30 03/25/18 05:45 03/25/18 06:00 Temperature Pulse Rate 74 73 70 Respiratory Rate 18 19 18 Blood Pressure 132/60 132/62 126/60 Pulse Oximetry 100 100 100 03/25/18 06:15 03/25/18 06:16 03/25/18 06:30 Temperature 99.3 F Pulse Rate 76 76 75 Respiratory Rate 19 19 21 Blood Pressure 163/67 H 141/65 H Pulse Oximetry 100 100 100 03/25/18 07:43 Temperature Pulse Rate 84 Respiratory Rate 20 Blood Pressure Pulse Oximetry 100 Intake & Output 03/24/18 03/25/18 03/25/18 18:59 06:59 18:59 Intake Total 810 / 810 1650 / 1650 Output Total 1050 / 1050 450 / 450 Balance -240 / -240 1200 / 1200 Weight 108 kg Intake: IV 810 / 810 1500 / 1500 Diprivan 1000 mg/100 ml Inj 1, 400 / 400 500 / 500 000 mg In 100 ml @ 5 MCG/KG/MIN 6 mls/hr IV.CONT TITRATE PRN Rx#:[id number] NS Inj 1,000 ML @ 50 mls/hr IV. 1000 / 1000 CONT .Q20H [facility] Rx#:[id number] Calcium Gluconate Inj 1 GM In 110 / 110 D5W Inj 100 ML @ 110 mls/hr IV. SIG ONCE ONE Rx#:[id number] Levaquin 750 mg Premix Inj 150 300 / 300 ML @ 100 mls/hr IV.SIG Q24H [facility] Rx#:[id number] Tube Irrigant 150 / 150 Output: Urine Amount (Catheter) 1050 / 1050 450 / 450 Indwelling Urethral Catheter 1050 / 1050 450 / 450 Result Diagrams: 03/25/18 03:09 03/25/18 03:09 Other Results: Laboratory Results - last 12 hr 03/24/18 03/25/18 03/25/18 20:10 00:13 03:09 WBC 8.8 RBC 2.66 L Hgb 8.1 L Hct 24.1 L MCV 90.5 D MCH 30.5 MCHC 33.7 RDW 13.5 Plt Count 132 L MPV 10.1 Neut % (Auto) 67.2 Lymph % (Auto) 10.2 Morrison % (Auto) 21.7 H Eos % (Auto) 0.6 Baso % (Auto) 0.3 Neut # (Auto) 5.9 Lymph # (Auto) 0.9 L Morrison # (Auto) 1.9 H Eos # (Auto) 0.1 Baso # (Auto) 0.0 WBC Differential . Differential Comment Auto diff final Hematology Comments Sodium Potassium Chloride Carbon Dioxide Anion Gap BUN Creatinine Estimated GFR POC Glucose 83 99 Random Glucose Calcium Phosphorus Magnesium Total Bilirubin AST ALT Alkaline Phosphatase Total Protein Albumin 03/25/18 03/25/18 03:09 04:49 WBC RBC Hgb Hct MCV MCH MCHC RDW Plt Count MPV Neut % (Auto) Lymph % (Auto) Morrison % (Auto) Eos % (Auto) Baso % (Auto) Neut # (Auto) Lymph # (Auto) Morrison # (Auto) Eos # (Auto) Baso # (Auto) WBC Differential Differential Comment Hematology Comments Sodium 142 Potassium 4.6 Chloride 103 Carbon Dioxide 29.9 Anion Gap 9 BUN 24 H Creatinine 1.12 H Estimated GFR 49 L POC Glucose 104 Random Glucose 78 D Calcium 8.1 L Phosphorus 1.8 L Magnesium 2.2 Total Bilirubin 0.4 AST 16 ALT 12 Alkaline Phosphatase 85 Total Protein 6.0 L Albumin 2.8 L Imaging: Chest X-Ray 03/24/18 04:59 CONCLUSION: 1. Endotracheal tube in appropriate position with tip measuring 3.1 cm from the romario. 2. Stable small bilateral pleural effusions and lung changes suggesting pulmonary edema. Objective Remarks: GENERAL: Patient is 62 yo intubated and sedated SKIN: Warm and dry. HEAD: Normocephalic. EYES: No scleral icterus. No injection or drainage. NECK: Supple, trachea midline. No JVD or lymphadenopathy. CARDIOVASCULAR: Regular rate and rhythm without murmurs, gallops, or rubs. RESPIRATORY: Breath sounds equal bilaterally. No accessory muscle use. GASTROINTESTINAL: Abdomen soft, non-tender, nondistended. MUSCULOSKELETAL: No cyanosis, or edema. Right foot cooler than left foot with weak DP. Neuro: Sedated Assessment and Plan - Assessment and Plan Plan: 1. Acute hypercapnic and hypoxemic respiratory failure. 2. COPD- on 4L home oxygen 3. Urinary tract infection. 4. Anemia. 5. Mild acute kidney injury. 6. Hyperglycemia with underlying history of diabetes mellitus. 7. History of hypertension. 8. Coronary artery disease. 9. Obesity. 10. Gastroesophageal reflux disease. PLAN: Neuro: On Diprivan infusion for sedation> Daily sedation vacation Pulm: Continue with ventilator support and maintain sats> 92%. Bronchodilators, ICU ventilator bundle. Start SBT today and possible extubation if saba. self extubated today on 4L oxygen CV: Monitor HR and BP and maintain MAP>65 mmHg. Echo showed EF 55-60% Start Cardizem 60mg QID. resume ASA and Plavix : Monitor renal function, I's and O's and electrolyte replacement as needed. NS at 50 mL an hour. Will need Phos replacement today GI: on Pepcid 20 mg IV every 12 hours. Tube feeds today if remains intubated. ID: Continue Levaquin and monitor for signs of infection(fever and WBC) Follow up on blood, sputum and urine cultures Heme: Monitor CBC. Vascular surg eval re right foot cooler than left foot with weak DP. Discussed with Dr. Wendi Coyle: SSI with Accu-Cheks for glycemic control. GI prophylaxis with Pepcid DVT prophylaxis with SCDs and heparin subcutaneous. Patient was extubated and now on 4L oxygen with good sats. Will sign off and transfer acre to [facility] Level 3
[2018-03-25] MEDS ORDERED: Potassium Chlor 20 mEq Premix 20 MEQ/100 ML PIGGYBACK IV.SIG PRN ×2 (08:01)
[2018-03-25] MEDS ORDERED: Potassium Phosphate Inj 30 MMOL in Sodium Chlor 0.9% Inj 250 ML IV.SIG PRN (08:01)
[2018-03-25] MEDS ORDERED: Potassium Chloride 25 MEQ Effervescent Tablet PO PRN (08:01)
[2018-03-25] MEDS ORDERED: Sodium Phosphate Inj 30 MMOL in Sodium Chlor 0.9% Inj 250 ML IV.SIG PRN (08:01)
[2018-03-25] MEDS ORDERED: Magnesium Oxide 400 MG Tablet PO PRN (08:01)
[2018-03-25] MEDS ORDERED: Magnesium Sulfate Inj 4 GM in Sodium Chlor 0.9% Inj 92 ML IV.SIG PRN (08:01)
[2018-03-25] MEDS ORDERED: Potassium Chlor 40 mEq Premix 40 MEQ/100 ML PIGGYBACK IV.SIG PRN ×2 (08:01)
[2018-03-25] MEDS ORDERED: Potassium Phosphate 500 MG Soluble Tablet PO PRN ×2 (08:01)
[2018-03-25] MEDS ORDERED: Magnesium Sulfate Inj 2 GM in Sodium Chlor 0.9% Inj 96 ML IV.SIG PRN (08:01)
[2018-03-25] MEDS: Heparin - SQ 10,000 UNITS/ML Vial SQ SCH ×2 (08:25→20:18)
[2018-03-25] MEDS: Famotidine PF Inj 20 MG/2 ML Vial IV.PUSH SCH ×2 (08:26→20:19)
[2018-03-25] MEDS: Senna/Docusate Sodium 8.6/50 MG Tablet PO SCH ×2 (08:27→20:19)
--- NOTE | 2018-03-25 12:51 | ECHRPT ---
Indication: CONCLUSIONS The left ventricular systolic function is normal with an estimated ejection fraction in the range of 55-60%. Normal left ventricular size. Wall thickness is normal. No regional wall motion abnormalities are present. Trace mitral valve regurgitation. Aortic valve sclerosis is present. There is trace tricuspid valve regurgitation. The estimated pulmonary arterial pressure is 42.7 mmHg. There is a trace pericardial effusion present. BP: / HR: Rhythm: Sinus MEASUREMENTS (Male / Female) Normal Values Technical Quality:Fair 2D ECHO LV Diastolic Diameter PLAX 5.4 cm 4.2 - 5.9 / 3.9 - 5.3 cm LV Systolic Diameter PLAX 4.0 cm IVS Diastolic Thickness 0.9 cm 0.6 - 1.0 / 0.6 - 0.9 cm LVPW Diastolic Thickness 1.0 cm 0.6 - 1.0 / 0.6 - 0.9 cm LV Relative Wall Thickness 0.4 RV Internal Dim ED PLAX 2.3 cm LVOT Diameter 1.9 cm LA Systolic Diameter LX 3.2 cm 3.0 - 4.0 / 2.7 - 3.8 cm M-MODE AV Cusp Separation MM 1.9 cm DOPPLER AV Peak Velocity 190.0 cm/s AV Peak Gradient 14.4 mmHg LVOT Peak Velocity 133.0 cm/s LVOT Peak Gradient 7.1 mmHg AV Area Cont Eq pk 2.0 cm Mitral E Point Velocity 144.0 cm/s Mitral A Point Velocity 133.0 cm/s Mitral E to A Ratio 1.1 LV E' Lateral Velocity 10.8 cm/s Mitral E to LV E' Lateral Ratio 13.3 LV E' Septal Velocity 7.5 cm/s Mitral E to LV E' Septal Ratio 19.2 TR Peak Velocity 286.0 cm/s TR Peak Gradient 32.7 mmHg Right Atrial Pressure 10.0 mmHg Pulmonary Artery Systolic Pressu 42.7 mmHg Right Ventricular Systolic Press 42.7 mmHg PV Peak Velocity 155.0 cm/s PV Peak Gradient 9.6 mmHg FINDINGS LEFT VENTRICLE The left ventricular systolic function is normal with an estimated ejection fraction in the range of 55-60%. Normal left ventricular size. Wall thickness is normal. No regional wall motion abnormalities are present. RIGHT VENTRICLE Normal right ventricular size and systolic function. LEFT ATRIUM The left atrial size is normal. RIGHT ATRIUM The right atrial size is normal. ATRIAL SEPTUM Normal atrial septal thickness without atrial level shunting by limited color doppler interrogation. AORTA The aortic root and proximal ascending aorta are normal in size on limited imaging. MITRAL VALVE Structurally normal mitral valve. Trace mitral valve regurgitation. AORTIC VALVE Trileaflet aortic valve. Aortic valve sclerosis is present. TRICUSPID VALVE Structurally normal tricuspid valve. There is trace tricuspid valve regurgitation. The estimated pulmonary arterial pressure is 42.7 mmHg. PULMONARY VALVE No pulmonary valve regurgitation or stenosis. VESSELS The inferior vena cava is normal in size. PERICARDIUM There is a trace pericardial effusion present. Francisco Brand MD, FACC (Electronically Signed) Final Date:25 March 2018 12:50
[2018-03-25] MEDS: Tiotropium Bromide 18 MCG/ACT Inhaler INH SCH (19:06)
[2018-03-25] MEDS: dilTIAZem 60 MG Tablet PO SCH ×2 (19:06→20:18)
--- NOTE | 2018-03-25 19:58 | MB ---
cc: Brent Ricks MD DATE: 03/25/2018 REQUESTING PHYSICIAN: Dr. Shah. REASON FOR CONSULTATION: Respiratory failure. HISTORY OF PRESENT ILLNESS: Sue Baldwin is a 62-year-old female with long history of smoking. She quit 15 years ago. She was living in [place] with her son. Now, she lives in [facility]. She is not able to ambulate because of extreme weakness. She uses oxygen 4 liters nasal cannula. The patient was brought to the hospital with worsening of her shortness of breath and desaturation, and she was intubated. Her initial blood gas showed pH 7.31, pCO2 of 65, pO2 of 78 on ventilator. The patient self-extubated. Now she is on 4 liters nasal cannula. Denies any shortness of breath. LABORATORY DATA: Evaluations revealed WBC count 8.8, hemoglobin 800, hematocrit 24.1, MCV 94, platelet count 132,000. Sodium 142, potassium 4.0, chloride 110, BUN 22, creatinine 1.12. DIAGNOSTIC DATA: Chest x-ray shows ET tube in good position. Stable bilateral pleural effusions. PAST MEDICAL HISTORY: Significant for history of COPD, coronary artery disease, diabetes mellitus, hypertension, and possible stroke. MEDICATIONS: 1. Albuterol and Atrovent nebulizer treatment. 2. Plavix 75 mg a day. 3. Diltiazem 60 mg 4 times a day. 4. Famotidine 20 mg twice a day. 5. Heparin 5000 every 12 hours. 6. Insulin on coverage. 7. Levaquin IV. 8. Potassium supplement. 9. Requip 0.25 mg a day. 10. Spiriva once a day. ALLERGIES: Budesonide, DULOXETINE, GABAPENTIN, PENICILLIN, AND PREDNISONE. SOCIAL HISTORY: She is a . She worked as an educational assistant. She has a history of smoking 4 packs a day for 40 years, she quit 15 years ago. No alcohol abuse. FAMILY HISTORY: She has 1 son. She was living with her son before. REVIEW OF SYSTEMS: She is basically back because of extreme weakness. No DVT or pulmonary embolism. No malignancy. PHYSICAL EXAMINATION: GENERAL: Obese female, mildly short of breath, not in any acute distress. She was recently extubated. VITAL SIGNS: Blood pressure 162/74, heart rate 101, respirations 19, temperature 98. HEENT: Pupils are equal and reactive to light. Oral mucosa and nasal mucosa normal. NECK: Supple. JVP not raised. CHEST: Breath Sounds equal bilat. has rhonchi. CVS: S1 S2 normal ABDOMEN: Soft, nontender, BS present. EXT: no odema IMPRESSION: 1. Chronic obstructive pulmonary disease exacerbation. 2. Respiratory failure, status post extubation. 3. Chronic respiratory insufficiency, is maintained on 4 liters nasal cannula. 4. Hypertension. 5. Diabetes mellitus. 6. History of cerebrovascular accident. PLAN: We will keep her on 4 liters nasal cannula, use BiPAP at night, and continue antibiotic IV Solu-Medrol, aerosol treatment with albuterol and Atrovent, and subcutaneous heparin for deep venous thrombosis prophylaxis. Further treatment pending the course in the hospital. Thank you, Dr. Shah, for this consult. MD INNA Gannon/korin/myah , 06:13 PM , 06:25 PM DION
--- NOTE | 2018-03-25 20:43 | P.PNVS ---
Subjective Subjective/Hospital Course: Patient with unrelated respiratory problems intubated and ventilated apparently noted a weaker pulse in her right foot throughout the night On my physical exam patient has bilateral equal femoral popliteal dorsalis pedis posterior tibial pulses which are palpable Both feet are warm and capillary refill is normal If anything changes please let me know but for the time being patient does not need any further vascular workup We will do ultrasound just for the baseline purpose comparison Thanks J Objective Vital Signs / I&O: Vital Signs 03/24/18 20:45 03/24/18 21:00 03/24/18 21:15 Temperature 100.3 F H Pulse Rate 88 88 85 Respiratory Rate Blood Pressure 138/65 137/65 136/63 Pulse Oximetry 97 97 99 03/24/18 21:30 03/24/18 21:45 03/24/18 22:00 Temperature 100.5 F H Pulse Rate 83 82 85 Respiratory Rate 18 Blood Pressure 141/67 H 135/64 135/56 L Pulse Oximetry 100 100 100 03/24/18 22:15 03/24/18 22:30 03/24/18 22:45 Temperature Pulse Rate 82 79 78 Respiratory Rate 19 18 18 Blood Pressure 145/66 H 139/63 137/64 Pulse Oximetry 100 100 100 03/24/18 23:00 03/24/18 23:07 03/24/18 23:15 Temperature 99.7 F H Pulse Rate 77 79 Respiratory Rate 18 18 18 Blood Pressure 131/62 137/61 Pulse Oximetry 100 100 100 03/24/18 23:30 03/24/18 23:45 03/25/18 00:00 Temperature 99.7 F H Pulse Rate 80 79 77 Respiratory Rate 18 18 18 Blood Pressure 137/57 L 146/65 H 137/63 Pulse Oximetry 100 100 100 03/25/18 00:15 03/25/18 00:30 03/25/18 00:45 Temperature Pulse Rate 72 71 70 Respiratory Rate 18 18 18 Blood Pressure 148/63 H 138/65 146/63 H Pulse Oximetry 100 100 100 03/25/18 01:00 03/25/18 01:15 03/25/18 01:30 Temperature Pulse Rate 69 69 68 Respiratory Rate 18 18 18 Blood Pressure 137/65 138/66 140/66 Pulse Oximetry 100 100 100 03/25/18 01:46 03/25/18 02:00 03/25/18 02:15 Temperature 99.3 F Pulse Rate 78 77 77 Respiratory Rate 28 H 28 H 20 Blood Pressure 148/64 H 161/64 H 145/64 H Pulse Oximetry 99 93 L 100 03/25/18 02:30 03/25/18 02:46 03/25/18 03:00 Temperature Pulse Rate 75 73 71 Respiratory Rate 18 18 18 Blood Pressure 167/67 H 136/61 134/58 L Pulse Oximetry 100 100 100 03/25/18 03:16 03/25/18 03:22 03/25/18 03:27 Temperature Pulse Rate 71 75 Respiratory Rate 18 18 18 Blood Pressure 146/72 H Pulse Oximetry 100 100 03/25/18 03:30 03/25/18 03:45 03/25/18 04:00 Temperature Pulse Rate 72 75 84 Respiratory Rate 18 18 21 Blood Pressure 162/63 H 149/63 H Pulse Oximetry 100 99 98 03/25/18 04:01 03/25/18 04:15 03/25/18 04:31 Temperature Pulse Rate 89 80 78 Respiratory Rate 23 18 18 Blood Pressure 158/67 H 138/62 138/64 Pulse Oximetry 86 L 100 100 03/25/18 04:45 03/25/18 05:00 03/25/18 05:01 Temperature 98.8 F Pulse Rate 77 79 78 Respiratory Rate 18 18 19 Blood Pressure 132/60 144/62 H Pulse Oximetry 100 100 100 03/25/18 05:15 03/25/18 05:30 03/25/18 05:45 Temperature Pulse Rate 75 74 73 Respiratory Rate 18 18 19 Blood Pressure 144/64 H 132/60 132/62 Pulse Oximetry 100 100 100 03/25/18 06:00 03/25/18 06:15 03/25/18 06:16 Temperature Pulse Rate 70 76 76 Respiratory Rate 18 19 19 Blood Pressure 126/60 163/67 H Pulse Oximetry 100 100 100 03/25/18 06:30 03/25/18 06:45 03/25/18 07:00 Temperature 99.3 F Pulse Rate 75 71 69 Respiratory Rate 21 18 18 Blood Pressure 141/65 H 148/65 H 152/63 H Pulse Oximetry 100 100 100 03/25/18 07:15 03/25/18 07:30 03/25/18 07:43 Temperature Pulse Rate 82 83 84 Respiratory Rate 27 H 19 20 Blood Pressure 168/72 H 153/71 H Pulse Oximetry 100 100 100 03/25/18 07:45 03/25/18 08:00 03/25/18 08:01 Temperature Pulse Rate 86 86 86 Respiratory Rate 22 21 20 Blood Pressure 158/73 H 153/71 H Pulse Oximetry 100 100 100 03/25/18 08:15 03/25/18 08:30 03/25/18 08:46 Temperature Pulse Rate 91 H 98 H 111 H Respiratory Rate 20 21 20 Blood Pressure 146/67 H 147/66 H 177/78 H Pulse Oximetry 100 98 100 03/25/18 09:00 03/25/18 09:15 03/25/18 09:17 Temperature Pulse Rate 112 H 109 H 118 H Respiratory Rate 30 H 19 18 Blood Pressure 186/83 H 179/79 H Pulse Oximetry 100 98 03/25/18 09:30 03/25/18 09:45 03/25/18 10:00 Temperature Pulse Rate 109 H 106 H 101 H Respiratory Rate 19 22 27 H Blood Pressure 173/78 H 163/71 H 149/50 H Pulse Oximetry 97 100 99 03/25/18 10:15 03/25/18 10:30 03/25/18 10:45 Temperature Pulse Rate 97 H 101 H 97 H Respiratory Rate 18 10 L 14 Blood Pressure 140/65 172/72 H 151/67 H Pulse Oximetry 99 98 100 03/25/18 11:00 03/25/18 11:15 03/25/18 11:31 Temperature Pulse Rate 94 H 91 H 91 H Respiratory Rate 15 17 19 Blood Pressure 172/70 H 171/70 H 159/75 H Pulse Oximetry 100 100 98 03/25/18 11:45 03/25/18 12:00 03/25/18 12:16 Temperature Pulse Rate 88 91 H 92 H Respiratory Rate 14 22 17 Blood Pressure 153/70 H 136/70 163/67 H Pulse Oximetry 100 100 96 03/25/18 12:30 03/25/18 12:45 03/25/18 13:00 Temperature Pulse Rate 91 H 91 H 85 Respiratory Rate 14 17 15 Blood Pressure 161/72 H 164/77 H 169/74 H Pulse Oximetry 98 96 03/25/18 13:15 03/25/18 13:30 03/25/18 13:45 Temperature Pulse Rate 85 95 H 91 H Respiratory Rate 16 14 18 Blood Pressure 158/73 H 169/77 H 175/75 H Pulse Oximetry 98 100 98 03/25/18 14:00 03/25/18 14:16 03/25/18 14:30 Temperature Pulse Rate 95 H 92 H 97 H Respiratory Rate 18 15 17 Blood Pressure 172/75 H 142/63 H 151/65 H Pulse Oximetry 96 93 L 96 03/25/18 14:46 03/25/18 15:00 03/25/18 15:14 Temperature Pulse Rate 98 H 94 H 102 H Respiratory Rate 23 13 16 Blood Pressure 129/75 193/86 H Pulse Oximetry 94 L 100 03/25/18 15:15 03/25/18 15:30 03/25/18 15:45 Temperature Pulse Rate 100 H 104 H 102 H Respiratory Rate 19 25 H 20 Blood Pressure 184/84 H 169/76 H 166/67 H Pulse Oximetry 100 95 95 03/25/18 16:00 03/25/18 16:15 03/25/18 16:30 Temperature Pulse Rate 107 H 106 H 101 H Respiratory Rate 15 29 H 14 Blood Pressure 150/68 H 162/70 H 157/71 H Pulse Oximetry 95 93 L 99 03/25/18 16:45 03/25/18 17:00 03/25/18 17:14 Temperature Pulse Rate 102 H 101 H 101 H Respiratory Rate 17 25 H 19 Blood Pressure 162/74 H 165/66 H Pulse Oximetry 98 96 100 03/25/18 17:15 03/25/18 17:30 03/25/18 17:45 Temperature Pulse Rate 101 H 101 H 100 H Respiratory Rate 17 18 16 Blood Pressure 162/74 H 153/64 H 171/75 H Pulse Oximetry 99 100 99 03/25/18 18:00 03/25/18 18:15 03/25/18 18:30 Temperature Pulse Rate 98 H 102 H 103 H Respiratory Rate 19 21 18 Blood Pressure 174/64 H 173/76 H 165/71 H Pulse Oximetry 99 98 93 L 03/25/18 18:45 03/25/18 19:00 03/25/18 19:15 Temperature Pulse Rate 96 H 97 H 97 H Respiratory Rate 15 29 H 14 Blood Pressure 167/74 H 165/64 H 167/74 H Pulse Oximetry 98 97 96 03/25/18 19:30 Temperature Pulse Rate 94 H Respiratory Rate 18 Blood Pressure 164/72 H Pulse Oximetry 98 Intake & Output 03/25/18 03/25/18 03/26/18 06:59 18:59 06:59 Intake Total 1650 / 1650 475 / 475 700 / 700 Output Total 450 / 450 1999 Balance 1200 / 1200 -1525 / -1525 700 / 700 Weight 108 kg Intake: IV 1500 / 1500 475 / 475 700 / 700 Diprivan 1000 mg/100 ml Inj 1, 500 / 500 65 / 65 000 mg In 100 ml @ 5 MCG/KG/MIN 6 mls/hr IV.CONT TITRATE PRN Rx#:[id number] NS Inj 1,000 ML @ 50 mls/hr IV. 1000 / 1000 700 / 700 CONT .Q20H BEBETO Rx#:[id number] Levaquin 750 mg Premix Inj 150 150 / 150 ML @ 100 mls/hr IV.SIG Q24H BEBETO Rx#:[id number] Sodium Phosphate Inj 30 MMOL In 260 / 260 NS Inj 250 ML @ 42 mls/hr IV. SIG UNSCH PRN Rx#:[id number] Tube Irrigant 150 / 150 Output: Urine Amount (Catheter) 450 / 450 1999 Indwelling Urethral Catheter 450 / 450 1999 Other: # Bowel Movements 1 Laboratory Results - last 24 hr 03/24/18 03/25/18 03/25/18 06:35 00:13 03:09 WBC 8.8 RBC 2.66 L Hgb 8.1 L Hct 24.1 L MCV 90.5 D MCH 30.5 MCHC 33.7 RDW 13.5 Plt Count 132 L MPV 10.1 Neut % (Auto) 67.2 Lymph % (Auto) 10.2 [place] % (Auto) 21.7 H Eos % (Auto) 0.6 Baso % (Auto) 0.3 Neut # (Auto) 5.9 Lymph # (Auto) 0.9 L [place] # (Auto) 1.9 H Eos # (Auto) 0.1 Baso # (Auto) 0.0 WBC Differential . Differential Comment Auto diff final Hematology Comments Sodium Potassium Chloride Carbon Dioxide Anion Gap BUN Creatinine Estimated GFR POC Glucose 99 Random Glucose Calcium Phosphorus Magnesium Total Bilirubin AST ALT Alkaline Phosphatase Total Protein Albumin Urine Color Yellow Urine Clarity Cloudy H Urine pH 8.0 Ur Specific [place] 1.012 Urine Protein 30 H Urine Glucose (UA) Negative Urine Ketones Negative Urine Occult Blood Negative Urine Nitrate Positive H Urine Bilirubin Negative Urine Urobilinogen Less than 2 Ur Leukocyte Esterase Large H Urine RBC 3 Urine WBC 68 H Ur Squamous Epith Cells 2 Triple Phos Crystals Few H Urine Bacteria Many H Hyaline Casts 11 Urine Mucus Few H Micro UA Comment Cath-culture ind Urine Culture Comments Cath-cult indicated 03/25/18 03/25/18 03/25/18 03:09 04:49 08:23 WBC RBC Hgb Hct MCV MCH MCHC RDW Plt Count MPV Neut % (Auto) Lymph % (Auto) [place] % (Auto) Eos % (Auto) Baso % (Auto) Neut # (Auto) Lymph # (Auto) [place] # (Auto) Eos # (Auto) Baso # (Auto) WBC Differential Differential Comment Hematology Comments Sodium 142 Potassium 4.6 Chloride 103 Carbon Dioxide 29.9 Anion Gap 9 BUN 24 H Creatinine 1.12 H Estimated GFR 49 L POC Glucose 104 106 Random Glucose 78 D Calcium 8.1 L Phosphorus 1.8 L Magnesium 2.2 Total Bilirubin 0.4 AST 16 ALT 12 Alkaline Phosphatase 85 Total Protein 6.0 L Albumin 2.8 L Urine Color Urine Clarity Urine pH Ur Specific [place] Urine Protein Urine Glucose (UA) Urine Ketones Urine Occult Blood Urine Nitrate Urine Bilirubin Urine Urobilinogen Ur Leukocyte Esterase Urine RBC Urine WBC Ur Squamous Epith Cells Triple Phos Crystals Urine Bacteria Hyaline Casts Urine Mucus Micro UA Comment Urine Culture Comments 03/25/18 03/25/18 03/25/18 11:05 15:47 20:17 WBC RBC Hgb Hct MCV MCH MCHC RDW Plt Count MPV Neut % (Auto) Lymph % (Auto) [place] % (Auto) Eos % (Auto) Baso % (Auto) Neut # (Auto) Lymph # (Auto) [place] # (Auto) Eos # (Auto) Baso # (Auto) WBC Differential Differential Comment Hematology Comments Sodium Potassium Chloride Carbon Dioxide Anion Gap BUN Creatinine Estimated GFR POC Glucose 125 H 130 H 115 H Random Glucose Calcium Phosphorus Magnesium Total Bilirubin AST ALT Alkaline Phosphatase Total Protein Albumin Urine Color Urine Clarity Urine pH Ur Specific [place] Urine Protein Urine Glucose (UA) Urine Ketones Urine Occult Blood Urine Nitrate Urine Bilirubin Urine Urobilinogen Ur Leukocyte Esterase Urine RBC Urine WBC Ur Squamous Epith Cells Triple Phos Crystals Urine Bacteria Hyaline Casts Urine Mucus Micro UA Comment Urine Culture Comments Microbiology 03/24/18 20:30 Gram Stain - Final Sputum - Oral Tracheal Aspirate Sputum Culture - Preliminary No growth. 03/24/18 06:35 Urine Culture - Preliminary Catheterized Urine gram negative rods 03/24/18 04:50 Aerobic Blood Culture - Preliminary Blood - Peripheral No growth in 1 day Anaerobic Blood Culture - Preliminary No growth in 1 day 03/24/18 04:50 Aerobic Blood Culture - Preliminary Blood - Peripheral No growth in 1 day Anaerobic Blood Culture - Preliminary No growth in 1 day Impressions Chest X-Ray 03/24/18 04:59 CONCLUSION: 1. Endotracheal tube in appropriate position with tip measuring 3.1 cm from the romario. 2. Stable small bilateral pleural effusions and lung changes suggesting pulmonary edema.
[2018-03-26] MEDS: Insulin NovoLOG Aspart Correctional Sugar Inj SQ SCH ×6 (00:11→20:17)
[2018-03-26 04:24] LABS: Baso % (Auto) 0.4 % (0.0-2.0); Eos % (Auto) 0.6 % (0.0-4.0); Hematocrit 22.4 % (35.0-46.0); Hemoglobin 7.3 gm/dL (11.6-15.3); Lymph # (Auto) 0.3 th/mm3 (1.0-4.8); Lymph % (Auto) 5.6 % (9.0-44.0); Mean Corpuscular HGB Conc 32.6 % (32.0-36.0); Mean Corpuscular Hemoglobin 29.5 pg (27.0-34.0); Mean Corpuscular Volume 90.5 fL (80.0-100.0); Mean Platelet Volume 9.3 fL (7.0-11.0); Mono # (Auto) 0.6 th/mm3 (0.0-0.9); Mono % (Auto) 11.1 % (0.0-8.0); Neut # (Auto) 4.7 th/mm3 (1.8-7.7); Neut % (Auto) 82.3 % (16.0-70.0); Platelet Count 147 th/mm3 (150-450); Red Blood Count 2.47 mil/mm3 (4.00-5.30); Red Cell Distribution Width 13.7 % (11.6-17.2); White Blood Count 5.8 th/mm3 (4.0-11.0)
[2018-03-26] MEDS: Chlorhexidine Gluconate 2% 1 Pack (2 Cloths) TOPICAL SCH (04:37)
[2018-03-26 04:53] LABS: Calcium 8.1 mg/dL (8.5-10.1); Magnesium 1.8 mg/dL (1.5-2.5); Phosphorus 4.5 mg/dL (2.5-4.9); Potassium 3.6 meq/L (3.5-5.1)
[2018-03-26] MEDS: Tiotropium Bromide 18 MCG/ACT Inhaler INH SCH ×2 (08:44→12:33)
[2018-03-26] MEDS: Heparin - SQ 10,000 UNITS/ML Vial SQ SCH ×2 (08:47→20:17)
[2018-03-26] MEDS: Famotidine PF Inj 20 MG/2 ML Vial IV.PUSH SCH ×2 (08:47→20:18)
[2018-03-26] MEDS: dilTIAZem 60 MG Tablet PO SCH ×4 (08:47→20:17)
[2018-03-26] MEDS: Senna/Docusate Sodium 8.6/50 MG Tablet PO SCH ×2 (09:38→20:18)
--- NOTE | 2018-03-26 09:47 | P.PNIM ---
Subjective Interval history: Follow-up for respiratory failure Patient stated that her breathing has improved drastically. She denies any lower extremity pain as noted last night. Positive for dry cough. Denies any fevers or chills. Patient remains afebrile. Physical Exam Vital signs: Vital Signs 03/25/18 09:45 03/25/18 10:00 03/25/18 10:15 Temperature Pulse Rate 106 H 101 H 97 H Respiratory Rate 22 27 H 18 Blood Pressure 163/71 H 149/50 H 140/65 Pulse Oximetry 100 99 99 03/25/18 10:30 03/25/18 10:45 03/25/18 11:00 Temperature Pulse Rate 101 H 97 H 94 H Respiratory Rate 10 L 14 15 Blood Pressure 172/72 H 151/67 H 172/70 H Pulse Oximetry 98 100 100 03/25/18 11:15 03/25/18 11:31 03/25/18 11:45 Temperature Pulse Rate 91 H 91 H 88 Respiratory Rate 17 19 14 Blood Pressure 171/70 H 159/75 H 153/70 H Pulse Oximetry 100 98 100 03/25/18 12:00 03/25/18 12:16 03/25/18 12:30 Temperature Pulse Rate 91 H 92 H 91 H Respiratory Rate 22 17 14 Blood Pressure 136/70 163/67 H 161/72 H Pulse Oximetry 100 96 03/25/18 12:45 03/25/18 13:00 03/25/18 13:15 Temperature Pulse Rate 91 H 85 85 Respiratory Rate 17 15 16 Blood Pressure 164/77 H 169/74 H 158/73 H Pulse Oximetry 98 96 98 03/25/18 13:30 03/25/18 13:45 03/25/18 14:00 Temperature Pulse Rate 95 H 91 H 95 H Respiratory Rate 14 18 18 Blood Pressure 169/77 H 175/75 H 172/75 H Pulse Oximetry 100 98 96 03/25/18 14:16 03/25/18 14:30 03/25/18 14:46 Temperature Pulse Rate 92 H 97 H 98 H Respiratory Rate 15 17 23 Blood Pressure 142/63 H 151/65 H 129/75 Pulse Oximetry 93 L 96 94 L 03/25/18 15:00 03/25/18 15:14 03/25/18 15:15 Temperature Pulse Rate 94 H 102 H 100 H Respiratory Rate 13 16 19 Blood Pressure 193/86 H 184/84 H Pulse Oximetry 100 100 03/25/18 15:30 03/25/18 15:45 03/25/18 16:00 Temperature Pulse Rate 104 H 102 H 107 H Respiratory Rate 25 H 20 15 Blood Pressure 169/76 H 166/67 H 150/68 H Pulse Oximetry 95 95 95 03/25/18 16:15 03/25/18 16:30 03/25/18 16:45 Temperature Pulse Rate 106 H 101 H 102 H Respiratory Rate 29 H 14 17 Blood Pressure 162/70 H 157/71 H 162/74 H Pulse Oximetry 93 L 99 98 03/25/18 17:00 03/25/18 17:14 03/25/18 17:15 Temperature Pulse Rate 101 H 101 H 101 H Respiratory Rate 25 H 19 17 Blood Pressure 165/66 H 162/74 H Pulse Oximetry 96 100 99 03/25/18 17:30 03/25/18 17:45 03/25/18 18:00 Temperature Pulse Rate 101 H 100 H 98 H Respiratory Rate 18 16 19 Blood Pressure 153/64 H 171/75 H 174/64 H Pulse Oximetry 100 99 99 03/25/18 18:15 03/25/18 18:30 03/25/18 18:45 Temperature Pulse Rate 102 H 103 H 96 H Respiratory Rate 21 18 15 Blood Pressure 173/76 H 165/71 H 167/74 H Pulse Oximetry 98 93 L 98 03/25/18 19:00 03/25/18 19:15 03/25/18 19:30 Temperature Pulse Rate 97 H 97 H 94 H Respiratory Rate 29 H 14 18 Blood Pressure 165/64 H 167/74 H 164/72 H Pulse Oximetry 97 96 98 03/25/18 19:45 03/25/18 20:00 03/25/18 20:15 Temperature 98.8 F Pulse Rate 93 H 93 H 101 H Respiratory Rate 10 L 21 24 Blood Pressure 166/74 H 160/70 H 167/72 H Pulse Oximetry 99 96 92 L 03/25/18 20:30 03/25/18 20:45 03/25/18 21:00 Temperature Pulse Rate 98 H 96 H 97 H Respiratory Rate 31 H 12 19 Blood Pressure 158/67 H 162/71 H 170/72 H Pulse Oximetry 97 96 03/25/18 21:01 09/04/18 21:15 03/25/18 21:30 Temperature Pulse Rate 95 H 102 H 102 H Respiratory Rate 16 14 13 Blood Pressure 160/69 H 165/72 H Pulse Oximetry 95 96 98 03/25/18 21:46 03/25/18 22:00 03/25/18 22:16 Temperature Pulse Rate 104 H 123 H 109 H Respiratory Rate 29 H 23 34 H Blood Pressure 157/69 H 157/69 H 158/69 H Pulse Oximetry 97 92 L 94 L 03/25/18 23:00 03/25/18 23:24 03/26/18 00:00 Temperature Pulse Rate 105 H 99 H Respiratory Rate 18 22 Blood Pressure 163/73 H 152/115 H Pulse Oximetry 96 97 95 03/26/18 01:00 03/26/18 01:01 03/26/18 02:00 Temperature Pulse Rate 97 H 95 H 94 H Respiratory Rate 25 H 37 H 16 Blood Pressure 160/67 H 160/67 H 163/66 H Pulse Oximetry 96 97 99 03/26/18 03:00 03/26/18 03:59 03/26/18 04:00 Temperature 98.6 F Pulse Rate 96 H 91 H 91 H Respiratory Rate 23 28 H 34 H Blood Pressure 163/66 H 127/60 127/59 L Pulse Oximetry 98 95 95 03/26/18 04:15 03/26/18 05:00 03/26/18 06:00 Temperature Pulse Rate 97 H 97 H 97 H Respiratory Rate 19 13 18 Blood Pressure 144/63 H 144/63 H Pulse Oximetry 98 95 97 03/26/18 06:11 03/26/18 07:00 03/26/18 07:33 Temperature Pulse Rate 94 H 92 H Respiratory Rate 15 11 L Blood Pressure 136/60 151/65 H Pulse Oximetry 97 97 95 03/26/18 07:34 03/26/18 08:00 03/26/18 09:00 Temperature 98.8 F Pulse Rate 99 H 101 H 105 H Respiratory Rate 18 11 L 27 H Blood Pressure 161/65 H Pulse Oximetry 96 92 L 03/26/18 09:07 Temperature Pulse Rate 108 H Respiratory Rate 15 Blood Pressure 154/67 H Pulse Oximetry 93 L Intake & Output 03/25/18 03/26/18 03/26/18 18:59 06:59 18:59 Intake Total 475 / 475 700 / 700 Output Total 1999 600 / 600 Balance -1525 / -1525 100 / 100 Weight 108 kg Intake: IV 475 / 475 700 / 700 Diprivan 1000 mg/100 ml Inj 1, 65 / 65 000 mg In 100 ml @ 5 MCG/KG/MIN 6 mls/hr IV.CONT TITRATE PRN Rx#:[id number] NS Inj 1,000 ML @ 50 mls/hr IV. 700 / 700 CONT .Q20H BEBETO Rx#:[id number] Levaquin 750 mg Premix Inj 150 150 / 150 ML @ 100 mls/hr IV.SIG Q24H BEBETO Rx#:[id number] Sodium Phosphate Inj 30 MMOL In 260 / 260 NS Inj 250 ML @ 42 mls/hr IV. SIG UNSCH PRN Rx#:[id number] Output: Urine 600 / 600 Urine Amount (Catheter) 1999 Indwelling Urethral Catheter 1999 Other: # Bowel Movements 1 - Constitutional no acute distress - Routine HEENT Exam ENT: Present: mucous membranes moist - Routine Respiratory Exam Present: CTA bilaterally - Routine Cardiovascular Exam Present: RRR, S1, S2 Comments: No rubs murmurs or gallops. - Routine Abdominal Exam Present: soft, normoactive bowel sounds - Routine Extremities Exam Comments: Negative for any edema. Positive to DP/TP pulses. - Urinary Catheter Management Indwelling Urethral Catheter Cath placed during this visit: yes, but has since been removed by the nurse Reason for continuing: Not indwelling catheter Insertion date: 03/24/18 Insertion time: 05:48 Removal date: 03/25/18 Removal time: 18:50 Results - Labs CBC & Chem 7: 03/26/18 03:06 03/26/18 03:06 Laboratory Results - last 24 hr 03/24/18 03/25/18 03/25/18 06:35 11:05 15:47 WBC RBC Hgb Hct MCV MCH MCHC RDW Plt Count MPV Neut % (Auto) Lymph % (Auto) [place] % (Auto) Eos % (Auto) Baso % (Auto) Neut # (Auto) Lymph # (Auto) [place] # (Auto) Eos # (Auto) Baso # (Auto) WBC Differential Differential Comment Sodium Potassium Chloride Carbon Dioxide Anion Gap BUN Creatinine Estimated GFR POC Glucose 125 H 130 H Random Glucose Calcium Phosphorus Magnesium Urine Color Yellow Urine Clarity Cloudy H Urine pH 8.0 Ur Specific [place] 1.012 Urine Protein 30 H Urine Glucose (UA) Negative Urine Ketones Negative Urine Occult Blood Negative Urine Nitrate Positive H Urine Bilirubin Negative Urine Urobilinogen Less than 2 Ur Leukocyte Esterase Large H Urine RBC 3 Urine WBC 68 H Ur Squamous Epith Cells 2 Triple Phos Crystals Few H Urine Bacteria Many H Hyaline Casts 11 Urine Mucus Few H Micro UA Comment Cath-culture ind Urine Culture Comments Cath-cult indicated 03/25/18 03/26/18 03/26/18 20:17 03:06 03:06 WBC 5.8 RBC 2.47 L Hgb 7.3 L Hct 22.4 L MCV 90.5 MCH 29.5 MCHC 32.6 RDW 13.7 Plt Count 147 L MPV 9.3 Neut % (Auto) 82.3 H Lymph % (Auto) 5.6 L [place] % (Auto) 11.1 H Eos % (Auto) 0.6 Baso % (Auto) 0.4 Neut # (Auto) 4.7 Lymph # (Auto) 0.3 L [place] # (Auto) 0.6 Eos # (Auto) 0.0 Baso # (Auto) 0.0 WBC Differential . Differential Comment Auto diff final Sodium 146 H Potassium 3.6 D Chloride 107 Carbon Dioxide 29.0 Anion Gap 10 BUN 13 Creatinine 0.78 Estimated GFR 75 L POC Glucose 115 H Random Glucose 87 Calcium 8.1 L Phosphorus 4.5 D Magnesium 1.8 Urine Color Urine Clarity Urine pH Ur Specific [place] Urine Protein Urine Glucose (UA) Urine Ketones Urine Occult Blood Urine Nitrate Urine Bilirubin Urine Urobilinogen Ur Leukocyte Esterase Urine RBC Urine WBC Ur Squamous Epith Cells Triple Phos Crystals Urine Bacteria Hyaline Casts Urine Mucus Micro UA Comment Urine Culture Comments 03/26/18 03/26/18 04:14 07:49 WBC RBC Hgb Hct MCV MCH MCHC RDW Plt Count MPV Neut % (Auto) Lymph % (Auto) [place] % (Auto) Eos % (Auto) Baso % (Auto) Neut # (Auto) Lymph # (Auto) [place] # (Auto) Eos # (Auto) Baso # (Auto) WBC Differential Differential Comment Sodium Potassium Chloride Carbon Dioxide Anion Gap BUN Creatinine Estimated GFR POC Glucose 97 101 Random Glucose Calcium Phosphorus Magnesium Urine Color Urine Clarity Urine pH Ur Specific [place] Urine Protein Urine Glucose (UA) Urine Ketones Urine Occult Blood Urine Nitrate Urine Bilirubin Urine Urobilinogen Ur Leukocyte Esterase Urine RBC Urine WBC Ur Squamous Epith Cells Triple Phos Crystals Urine Bacteria Hyaline Casts Urine Mucus Micro UA Comment Urine Culture Comments Microbiology 03/24/18 06:35 Catheterized Urine Urine Culture - Preliminary gram negative rods 03/24/18 20:30 Sputum - Oral Tracheal Aspirate Gram Stain - Final 03/24/18 20:30 Sputum - Oral Tracheal Aspirate Sputum Culture - Preliminary No growth. 03/24/18 04:50 Blood - Peripheral Aerobic Blood Culture - Preliminary No growth in 1 day 03/24/18 04:50 Blood - Peripheral Anaerobic Blood Culture - Preliminary No growth in 1 day 03/24/18 04:50 Blood - Peripheral Aerobic Blood Culture - Preliminary No growth in 1 day 03/24/18 04:50 Blood - Peripheral Anaerobic Blood Culture - Preliminary No growth in 1 day Assessment and Plan - Plan This is a 60-year-old female past medical history of COPD who presented with respiratory failure Acute on chronic hypercapnic and hypoxemic respiratory failure. -Status post intubation and self extubation. -Patient is satting well on nasal cannula on 4L. -Chest x-ray suggest possible pulmonary edema. -Continue with Levaquin. COPD- on 4L home oxygen -Continue with current treatment. Urinary tract infection. -Urine cultures grew gram negative rods. Patient currently on Levaquin pending sensitivity of urine cultures. Mild acute kidney injury. -Strict ins and out. On normal saline. -Avoid nephrotoxins. Continue to monitor creatinine. Hyperglycemia with underlying history of diabetes mellitus. -Continue with insulin sliding scale. History of hypertension/Coronary artery disease/Obesity/Gastroesophageal reflux disease. -Continue current regimen. GI prophylaxis with Pepcid DVT prophylaxis with SCDs and heparin subcutaneous. patient is medically stable can be transfer out of the ICU. Will transfer to [facility].
[2018-03-26] MEDS: LORazepam 0.5 MG Tablet PO PRN ×3 (12:29→20:43)
--- NOTE | 2018-03-26 18:55 | P.PNPL ---
Subjective Interval history: 62 YOWF with RF, s/p extubation, COPD On BIPAP alert, awake, feels tired no Fever No CP Physical Exam Vital signs: Vital Signs 03/25/18 19:00 03/25/18 19:15 03/25/18 19:30 Temperature Pulse Rate 97 H 97 H 94 H Respiratory Rate 29 H 14 18 Blood Pressure 165/64 H 167/74 H 164/72 H Pulse Oximetry 97 96 98 03/25/18 19:45 03/25/18 20:00 03/25/18 20:15 Temperature 98.8 F Pulse Rate 93 H 93 H 101 H Respiratory Rate 10 L 21 24 Blood Pressure 166/74 H 160/70 H 167/72 H Pulse Oximetry 99 96 92 L 03/25/18 20:30 03/25/18 20:45 03/25/18 21:00 Temperature Pulse Rate 98 H 96 H 97 H Respiratory Rate 31 H 12 19 Blood Pressure 158/67 H 162/71 H 170/72 H Pulse Oximetry 97 96 03/25/18 21:01 03/25/18 21:15 03/25/18 21:30 Temperature Pulse Rate 95 H 102 H 102 H Respiratory Rate 16 14 13 Blood Pressure 160/69 H 165/72 H Pulse Oximetry 95 96 98 03/25/18 21:46 03/25/18 22:00 03/25/18 22:16 Temperature Pulse Rate 104 H 123 H 109 H Respiratory Rate 29 H 23 34 H Blood Pressure 157/69 H 157/69 H 158/69 H Pulse Oximetry 97 92 L 94 L 03/25/18 23:00 03/25/18 23:24 03/26/18 00:00 Temperature Pulse Rate 105 H 99 H Respiratory Rate 18 22 Blood Pressure 163/73 H 152/115 H Pulse Oximetry 96 97 95 03/26/18 01:00 03/26/18 01:01 03/26/18 02:00 Temperature Pulse Rate 97 H 95 H 94 H Respiratory Rate 25 H 37 H 16 Blood Pressure 160/67 H 160/67 H 163/66 H Pulse Oximetry 96 97 99 03/26/18 03:00 03/26/18 03:59 03/26/18 04:00 Temperature 98.6 F Pulse Rate 96 H 91 H 91 H Respiratory Rate 23 28 H 34 H Blood Pressure 163/66 H 127/60 127/59 L Pulse Oximetry 98 95 95 03/26/18 04:15 03/26/18 05:00 03/26/18 06:00 Temperature Pulse Rate 97 H 97 H 97 H Respiratory Rate 19 13 18 Blood Pressure 144/63 H 144/63 H Pulse Oximetry 98 95 97 03/26/18 06:11 03/26/18 07:00 03/26/18 07:33 Temperature Pulse Rate 94 H 92 H Respiratory Rate 15 11 L Blood Pressure 136/60 151/65 H Pulse Oximetry 97 97 95 03/26/18 07:34 03/26/18 08:00 03/26/18 09:00 Temperature 98.8 F Pulse Rate 99 H 101 H 105 H Respiratory Rate 18 11 L 27 H Blood Pressure 161/65 H Pulse Oximetry 96 92 L 03/26/18 09:07 03/26/18 10:00 03/26/18 11:00 Temperature Pulse Rate 108 H 104 H 102 H Respiratory Rate 15 11 L 11 L Blood Pressure 154/67 H 158/66 H 150/60 H Pulse Oximetry 93 L 95 95 03/26/18 12:00 03/26/18 12:01 03/26/18 12:43 Temperature 97.9 F Pulse Rate 104 H 104 H 130 H Respiratory Rate 20 15 19 Blood Pressure 167/69 H 167/69 H Pulse Oximetry 93 L 90 L 03/26/18 12:48 03/26/18 13:00 03/26/18 14:00 Temperature Pulse Rate 115 H 105 H Respiratory Rate 49 H 17 Blood Pressure 149/66 H 129/61 Pulse Oximetry 98 99 99 03/26/18 15:00 03/26/18 16:00 03/26/18 16:01 Temperature 98.6 F Pulse Rate 96 H 94 H 95 H Respiratory Rate 15 30 H 21 Blood Pressure 143/65 H 144/106 H 144/106 H Pulse Oximetry 100 98 99 03/26/18 16:25 03/26/18 17:00 03/26/18 18:00 Temperature Pulse Rate 90 88 97 H Respiratory Rate 12 11 L 21 Blood Pressure 125/58 L 124/57 L Pulse Oximetry 98 97 91 L 03/26/18 18:06 Temperature Pulse Rate 99 H Respiratory Rate 16 Blood Pressure 130/61 Pulse Oximetry 92 L Intake & Output 03/25/18 03/26/18 03/26/18 18:59 06:59 18:59 Intake Total 475 / 475 700 / 700 150 / 150 Output Total 1999 600 / 600 400 / 400 Balance -1525 / -1525 100 / 100 -250 / -250 Weight 108 kg Intake: IV 475 / 475 700 / 700 150 / 150 Diprivan 1000 mg/100 ml Inj 1, 65 / 65 000 mg In 100 ml @ 5 MCG/KG/MIN 6 mls/hr IV.CONT TITRATE PRN Rx#:[id number] NS Inj 1,000 ML @ 50 mls/hr IV. 700 / 700 CONT .Q20H [facility] Rx#:[id number] Levaquin 750 mg Premix Inj 150 150 / 150 150 / 150 ML @ 100 mls/hr IV.SIG Q24H [facility] Rx#:[id number] Sodium Phosphate Inj 30 MMOL In 260 / 260 NS Inj 250 ML @ 42 mls/hr IV. SIG UNSCH PRN Rx#:[id number] Output: Urine 600 / 600 400 / 400 Urine Amount (Catheter) 1999 Indwelling Urethral Catheter 1999 Other: # Bowel Movements 1 GENERAL: Obese WF, Mild sob SKIN: Warm and dry. HEAD: Normocephalic. EYES: No scleral icterus. No injection or drainage. NECK: Supple, trachea midline. No JVD or lymphadenopathy. CARDIOVASCULAR: Regular rate and rhythm without murmurs, gallops, or rubs. RESPIRATORY: Breath sounds equal bilaterally. No accessory muscle use. GASTROINTESTINAL: Abdomen soft, non-tender, nondistended. MUSCULOSKELETAL: No cyanosis, or edema. BACK: Nontender without obvious deformity. No CVA tenderness. - Urinary Catheter Management Indwelling Urethral Catheter Cath placed during this visit: yes, but has since been removed by the nurse Reason for continuing: Not indwelling catheter Insertion date: 03/24/18 Insertion time: 05:48 Removal date: 03/25/18 Removal time: 18:50 Assessment and Plan - Plan IMPRESSION: 1. Chronic obstructive pulmonary disease exacerbation. 2. Respiratory failure, status post extubation. 3. Chronic respiratory insufficiency, is maintained on 4 liters nasal cannula. 4. Hypertension. 5. Diabetes mellitus. 6. History of cerebrovascular accident. PLAN: Cont BIPAP Keep sat 88-92% Aerosol nebs Cont Abx SQ Heparin Plavix 75 mg daily.
[2018-03-27] MEDS: Insulin NovoLOG Aspart Correctional Sugar Inj SQ SCH ×4 (01:24→17:38)
[2018-03-27] MEDS: Chlorhexidine Gluconate 2% 1 Pack (2 Cloths) TOPICAL SCH (04:07)
[2018-03-27] MEDS: LORazepam 0.5 MG Tablet PO PRN ×4 (05:21→21:36)
[2018-03-27 08:08] LABS: Baso % (Auto) 0.4 % (0.0-2.0); Eos % (Auto) 0.7 % (0.0-4.0); Hematocrit 23.2 % (35.0-46.0); Hemoglobin 7.4 gm/dL (11.6-15.3); Lymph # (Auto) 0.3 th/mm3 (1.0-4.8); Lymph % (Auto) 4.9 % (9.0-44.0); Mean Corpuscular HGB Conc 31.9 % (32.0-36.0); Mean Corpuscular Hemoglobin 29.6 pg (27.0-34.0); Mean Corpuscular Volume 92.7 fL (80.0-100.0); Mean Platelet Volume 9.6 fL (7.0-11.0); Mono # (Auto) 0.6 th/mm3 (0.0-0.9); Neut # (Auto) 5.3 th/mm3 (1.8-7.7); Platelet Count 144 th/mm3 (150-450); Red Cell Distribution Width 14.3 % (11.6-17.2); White Blood Count 6.3 th/mm3 (4.0-11.0)
[2018-03-27 08:48] LABS: Calcium 8.9 mg/dL (8.5-10.1); Carbon Dioxide 32.1 meq/L (21.0-32.0); Phosphorus 3.9 mg/dL (2.5-4.9); Potassium 4.2 meq/L (3.5-5.1)
--- NOTE | 2018-03-27 09:50 | P.PNIM ---
Subjective Interval history: f/u; respiratory failure with mild distress and on oxygen via N/C. no fever. Physical Exam Vital signs: Vital Signs 03/26/18 10:00 03/26/18 11:00 03/26/18 12:00 Temperature 97.9 F Pulse Rate 104 H 102 H 104 H Respiratory Rate 11 L 11 L 20 Blood Pressure 158/66 H 150/60 H 167/69 H Pulse Oximetry 95 95 93 L 03/26/18 12:01 03/26/18 12:43 03/26/18 12:48 Temperature Pulse Rate 104 H 130 H Respiratory Rate 15 19 Blood Pressure 167/69 H Pulse Oximetry 90 L 98 03/26/18 13:00 03/26/18 14:00 03/26/18 15:00 Temperature Pulse Rate 115 H 105 H 96 H Respiratory Rate 49 H 17 15 Blood Pressure 149/66 H 129/61 143/65 H Pulse Oximetry 99 99 100 03/26/18 16:00 03/26/18 16:01 03/26/18 16:25 Temperature 98.6 F Pulse Rate 94 H 95 H 90 Respiratory Rate 30 H 21 12 Blood Pressure 144/106 H 144/106 H 125/58 L Pulse Oximetry 98 99 98 03/26/18 17:00 03/26/18 18:00 03/26/18 18:06 Temperature Pulse Rate 88 97 H 99 H Respiratory Rate 11 L 21 16 Blood Pressure 124/57 L 130/61 Pulse Oximetry 97 91 L 92 L 03/26/18 19:00 03/26/18 20:00 03/26/18 20:12 Temperature Pulse Rate 100 H 96 H 93 H Respiratory Rate 24 15 24 Blood Pressure 123/57 L 152/67 H Pulse Oximetry 94 L 91 L 03/26/18 21:00 03/26/18 22:00 03/27/18 00:00 Temperature 98.5 F Pulse Rate 92 H 91 H 92 H Respiratory Rate 20 19 18 Blood Pressure 152/67 H 138/62 123/57 L Pulse Oximetry 90 L 97 90 L 03/27/18 04:00 03/27/18 05:45 03/27/18 07:54 Temperature 99.1 F Pulse Rate 85 82 100 H Respiratory Rate 18 19 Blood Pressure 126/57 L Pulse Oximetry 91 L 97 Intake & Output 03/26/18 03/27/18 03/27/18 18:59 06:59 18:59 Intake Total 150 / 150 Output Total 400 / 400 2600 / 2600 Balance -250 / -250 -2600 / -2600 Weight 104.6 kg Intake: IV 150 / 150 Levaquin 750 mg Premix Inj 150 150 / 150 ML @ 100 mls/hr IV.SIG Q24H [facility] Rx#:[id number] Output: Urine 400 / 400 600 / 600 Urine Amount (Catheter) 1999 Indwelling Urethral Catheter 1999 Other: # Incontinent Voids 1 Date of Last Bowel Movement 03/26/18 # Bowel Movements 1 # Incontinent Bowel Movements 1 - Constitutional mild distress - Routine Respiratory Exam Present: diminished air movement - Routine Cardiovascular Exam Present: RRR - Routine Abdominal Exam Present: soft - Routine Extremities Exam Comments: no pedal edema. - Routine Neurological Exam Present: alert, oriented X3 - Urinary Catheter Management Indwelling Urethral Catheter Cath placed during this visit: yes, but has since been removed by the nurse Reason for continuing: Not indwelling catheter Insertion date: 03/24/18 Insertion time: 05:48 Removal date: 03/25/18 Removal time: 18:50 Results - Labs CBC & Chem 7: 03/27/18 06:36 03/27/18 06:36 Laboratory Results - last 24 hr 03/24/18 03/26/18 03/26/18 06:40 11:24 16:31 WBC RBC Hgb Hct MCV MCH MCHC RDW Plt Count MPV Neut % (Auto) Lymph % (Auto) [place] % (Auto) Eos % (Auto) Baso % (Auto) Neut # (Auto) Lymph # (Auto) [place] # (Auto) Eos # (Auto) Baso # (Auto) WBC Differential Differential Comment Sodium Potassium Chloride Carbon Dioxide Anion Gap BUN Creatinine Estimated GFR POC Glucose 146 H 150 H Random Glucose Calcium Phosphorus Magnesium MTS Gel Crossmatch See Detail 03/26/18 03/27/18 03/27/18 19:40 01:24 05:20 WBC RBC Hgb Hct MCV MCH MCHC RDW Plt Count MPV Neut % (Auto) Lymph % (Auto) [place] % (Auto) Eos % (Auto) Baso % (Auto) Neut # (Auto) Lymph # (Auto) [place] # (Auto) Eos # (Auto) Baso # (Auto) WBC Differential Differential Comment Sodium Potassium Chloride Carbon Dioxide Anion Gap BUN Creatinine Estimated GFR POC Glucose 176 H 119 H 129 H Random Glucose Calcium Phosphorus Magnesium MTS Gel Crossmatch 03/27/18 03/27/18 03/27/18 06:36 06:36 07:47 WBC 6.3 RBC 2.50 L Hgb 7.4 L Hct 23.2 L MCV 92.7 MCH 29.6 MCHC 31.9 L RDW 14.3 Plt Count 144 L MPV 9.6 Neut % (Auto) 84.0 H Lymph % (Auto) 4.9 L [place] % (Auto) 10.0 H Eos % (Auto) 0.7 Baso % (Auto) 0.4 Neut # (Auto) 5.3 Lymph # (Auto) 0.3 L [place] # (Auto) 0.6 Eos # (Auto) 0.0 Baso # (Auto) 0.0 WBC Differential . Differential Comment Auto diff final Sodium 144 Potassium 4.2 Chloride 103 Carbon Dioxide 32.1 H Anion Gap 9 BUN 11 Creatinine 0.73 Estimated GFR 81 L POC Glucose 129 H Random Glucose 115 H Calcium 8.9 D Phosphorus 3.9 Magnesium 2.0 MTS Gel Crossmatch Microbiology 03/24/18 20:30 Sputum - Oral Tracheal Aspirate Gram Stain - Final 03/24/18 20:30 Sputum - Oral Tracheal Aspirate Sputum Culture - Final Light growth normal respiratory toy 03/24/18 04:50 Blood - Peripheral Aerobic Blood Culture - Preliminary No growth in 2 days 03/24/18 04:50 Blood - Peripheral Anaerobic Blood Culture - Preliminary No growth in 2 days 03/24/18 04:50 Blood - Peripheral Aerobic Blood Culture - Preliminary No growth in 2 days 03/24/18 04:50 Blood - Peripheral Anaerobic Blood Culture - Preliminary No growth in 2 days 03/24/18 06:35 Catheterized Urine Urine Culture - Final Proteus mirabilis Assessment and Plan - Plan Acute on chronic hypercapnic and hypoxemic respiratory failure. -Status post intubation and self extubation. -continue with oxygen as needed to keep O2 sat 88-92%. -BiPaP as needed. -Chest x-ray suggest possible pulmonary edema. -on Levaquin and Spiriva -continue neb treatment. COPD- on 4L home oxygen -Continue with current treatment. Urinary tract infection. -Urine cultures with proteus.repeat UA today. Mild acute kidney injury. -Strict ins and out. On normal saline. -Avoid nephrotoxins. Continue to monitor creatinine. Hyperglycemia with underlying history of diabetes mellitus. -Continue with insulin sliding scale. History of hypertension/Coronary artery disease/Obesity/Gastroesophageal reflux disease. -Continue current regimen. GI prophylaxis with Pepcid DVT prophylaxis with SCDs and heparin subcutaneous. Discharge Planning: dc planning ; rehab within the next 2-3 days. PT consulted.
[2018-03-27] MEDS: Famotidine PF Inj 20 MG/2 ML Vial IV.PUSH SCH ×2 (09:51→21:36)
[2018-03-27] MEDS: dilTIAZem 60 MG Tablet PO SCH ×3 (09:51→21:42)
[2018-03-27] MEDS: Senna/Docusate Sodium 8.6/50 MG Tablet PO SCH (09:51)
[2018-03-27] MEDS: Heparin - SQ 10,000 UNITS/ML Vial SQ SCH ×2 (09:51→21:37)
[2018-03-27] MEDS: Tiotropium Bromide 18 MCG/ACT Inhaler INH SCH (09:52)
[2018-03-27 14:02] LABS: ABG Base Excess 5.4 mmol/L (-2-2); ABG PCO2 65 mmHg (38-42); ABG PO2 65 mmHg (61-120)
[2018-03-27 16:59] LABS: Bacteria,Urine Occasional /hpf; Bilirubin,Urine Negative (Negative); Clarity,Urine Hazy (Clear); Color,Urine Yellow (Yellw/Straw); Glucose,Urine (UA) Negative (Negative); Leukocyte Esterase,Urine Negative (Negative); Mucus,Urine Few /lpf (Occasional); Nitrite,Urine Negative (Negative); Specific Gravity,Urine 1.015 (1.002-1.035); Squamous Epithelial Cell,Urine <1 /hpf (0-5)
--- NOTE | 2018-03-27 18:59 | P.PNPL ---
Subjective Interval history: 62 YOWF with RF, s/p extubation, COPD alert, awake, feels tired no Fever No CP ABG showes resp acidosis put back on BIPAP Physical Exam Vital signs: Vital Signs 03/26/18 19:00 03/26/18 20:00 03/26/18 20:12 Temperature Pulse Rate 100 H 96 H 93 H Respiratory Rate 24 15 24 Blood Pressure 123/57 L 152/67 H Pulse Oximetry 94 L 91 L 03/26/18 21:00 03/26/18 22:00 03/27/18 00:00 Temperature 98.5 F Pulse Rate 92 H 91 H 92 H Respiratory Rate 20 19 18 Blood Pressure 152/67 H 138/62 123/57 L Pulse Oximetry 90 L 97 90 L 03/27/18 04:00 03/27/18 05:45 03/27/18 07:54 Temperature 99.1 F Pulse Rate 85 82 100 H Respiratory Rate 18 19 Blood Pressure 126/57 L Pulse Oximetry 91 L 97 03/27/18 08:31 03/27/18 09:00 03/27/18 09:46 Temperature 98.8 F Pulse Rate 118 H 98 H 87 Respiratory Rate 20 16 Blood Pressure 136/78 Pulse Oximetry 100 97 03/27/18 12:00 03/27/18 15:14 03/27/18 15:43 Temperature 98.1 F Pulse Rate 92 H 87 Respiratory Rate 20 16 Blood Pressure 129/61 Pulse Oximetry 95 97 03/27/18 16:00 Temperature 97.8 F Pulse Rate 118 H Respiratory Rate 20 Blood Pressure 138/74 Pulse Oximetry 99 Intake & Output 03/26/18 03/27/18 03/27/18 18:59 06:59 18:59 Intake Total 150 / 150 150 / 150 Output Total 400 / 400 2600 / 2600 1001 / 1001 Balance -250 / -250 -2600 / -2600 -851 / -851 Weight 104.6 kg Intake: IV 150 / 150 150 / 150 Levaquin 750 mg Premix Inj 150 150 / 150 150 / 150 ML @ 100 mls/hr IV.SIG Q24H [facility] Rx#:[id number] Output: Urine 400 / 400 600 / 600 Stool 1 / 1 Urine Amount (Catheter) 1999 1000 / 1000 Indwelling Urethral Catheter 1999 1000 / 1000 Other: # Incontinent Voids 1 Date of Last Bowel Movement 03/27/18 # Bowel Movements 1 # Incontinent Bowel Movements 1 GENERAL: Obese WF, mild sob, on BIPAP SKIN: Warm and dry. HEAD: Normocephalic. EYES: No scleral icterus. No injection or drainage. NECK: Supple, trachea midline. No JVD or lymphadenopathy. CARDIOVASCULAR: Regular rate and rhythm without murmurs, gallops, or rubs. RESPIRATORY: Breath sounds equal bilaterally. No accessory muscle use. GASTROINTESTINAL: Abdomen soft, non-tender, nondistended. MUSCULOSKELETAL: No cyanosis, or edema. BACK: Nontender without obvious deformity. No CVA tenderness. - Urinary Catheter Management Indwelling Urethral Catheter Cath placed during this visit: yes, but has since been removed by the nurse Reason for continuing: Not indwelling catheter Insertion date: 03/24/18 Insertion time: 05:48 Removal date: 03/25/18 Removal time: 18:50 Assessment and Plan - Plan IMPRESSION: 1. Chronic obstructive pulmonary disease exacerbation. 2. Respiratory failure, status post extubation. 3. Chronic respiratory insufficiency, is maintained on 4 liters nasal cannula. 4. Hypertension. 5. Diabetes mellitus. 6. History of cerebrovascular accident. PLAN: Cont BIPAP Keep sat 88-92% Aerosol nebs Cont Abx SQ Heparin Plavix 75 mg daily.
[2018-03-27] MEDS ORDERED: Pregabalin 300 MG Capsule PO SCH (21:00)
[2018-03-28] MEDS: Senna/Docusate Sodium 8.6/50 MG Tablet PO SCH ×3 (04:26→21:11)
[2018-03-28] MEDS: Insulin NovoLOG Aspart Correctional Sugar Inj SQ SCH ×7 (04:29→21:12)
[2018-03-28] MEDS: Chlorhexidine Gluconate 2% 1 Pack (2 Cloths) TOPICAL SCH (05:37)
[2018-03-28] MEDS: Tiotropium Bromide 18 MCG/ACT Inhaler INH SCH ×2 (08:11→08:59)
[2018-03-28] MEDS: Famotidine PF Inj 20 MG/2 ML Vial IV.PUSH SCH ×2 (08:11→21:11)
[2018-03-28] MEDS: Heparin - SQ 10,000 UNITS/ML Vial SQ SCH ×2 (08:11→21:12)
[2018-03-28] MEDS: dilTIAZem 60 MG Tablet PO SCH ×4 (08:12→21:11)
[2018-03-28] MEDS: Lisinopril 10 MG Tablet PO SCH (08:12)
[2018-03-28] MEDS: FLUoxetine 20 MG Capsule PO SCH (08:12)
[2018-03-28] MEDS: buPROPion 150 MG 12 HR Tablet PO SCH (08:12)
--- NOTE | 2018-03-28 11:11 | P.PNPL ---
Subjective Interval history: 62 YOWF with RF, s/p extubation, COPD alert, awake, feels tired no Fever No CP Used BIPAP last night Now weaned to NC Physical Exam Vital signs: Vital Signs 03/27/18 12:00 03/27/18 15:14 03/27/18 15:43 Temperature 98.1 F Pulse Rate 92 H 87 Respiratory Rate 20 16 Blood Pressure 129/61 Pulse Oximetry 95 97 03/27/18 16:00 03/27/18 20:00 03/27/18 20:46 Temperature 97.8 F 98.7 F Pulse Rate 118 H 76 Respiratory Rate 20 22 Blood Pressure 138/74 160/69 H Pulse Oximetry 99 87 L 97 03/27/18 20:48 03/27/18 23:37 03/28/18 00:00 Temperature 98.5 F Pulse Rate 92 H 54 L Respiratory Rate 15 19 22 Blood Pressure 140/68 Pulse Oximetry 93 L 89 L 03/28/18 02:04 03/28/18 03:51 03/28/18 04:00 Temperature 98.6 F Pulse Rate 89 75 Respiratory Rate 8 L 18 Blood Pressure 137/58 L Pulse Oximetry 97 97 03/28/18 06:15 03/28/18 07:57 03/28/18 08:00 Temperature 97.9 F Pulse Rate 76 Respiratory Rate 22 Blood Pressure 144/58 H Pulse Oximetry 97 96 97 03/28/18 08:53 03/28/18 09:00 03/28/18 10:00 Temperature Pulse Rate 78 79 82 Respiratory Rate 16 Blood Pressure Pulse Oximetry 96 03/28/18 11:00 Temperature Pulse Rate 79 Respiratory Rate Blood Pressure Pulse Oximetry Intake & Output 03/27/18 03/28/18 03/28/18 18:59 06:59 18:59 Intake Total 150 / 150 120 / 120 Output Total 1001 / 1001 600 / 600 Balance -851 / -851 -480 / -480 Weight 102.5 kg Intake: IV 150 / 150 Levaquin 750 mg Premix Inj 150 150 / 150 ML @ 100 mls/hr IV.SIG Q24H [facility] Rx#:[id number] Oral 120 / 120 Output: Urine 600 / 600 Stool 1 / 1 Urine Amount (Catheter) 1000 / 1000 Indwelling Urethral Catheter 1000 / 1000 Other: Date of Last Bowel Movement 03/27/18 GENERAL: Obese WF NAD SKIN: Warm and dry. HEAD: Normocephalic. EYES: No scleral icterus. No injection or drainage. NECK: Supple, trachea midline. No JVD or lymphadenopathy. CARDIOVASCULAR: Regular rate and rhythm without murmurs, gallops, or rubs. RESPIRATORY: Breath sounds equal bilaterally. No accessory muscle use. GASTROINTESTINAL: Abdomen soft, non-tender, nondistended. MUSCULOSKELETAL: No cyanosis, or edema. BACK: Nontender without obvious deformity. No CVA tenderness. - Urinary Catheter Management Indwelling Urethral Catheter Cath placed during this visit: yes, but has since been removed by the nurse Reason for continuing: Not indwelling catheter Insertion date: 03/24/18 Insertion time: 05:48 Removal date: 03/25/18 Removal time: 18:50 Assessment and Plan - Plan IMPRESSION: 1. Chronic obstructive pulmonary disease exacerbation. 2. Respiratory failure, status post extubation. 3. Chronic respiratory insufficiency, is maintained on 4 liters nasal cannula. 4. Hypertension. 5. Diabetes mellitus. 6. History of cerebrovascular accident. PLAN: BIPAP at night and PRN Supplement 02 with NC Keep sat 88-92% Aerosol nebs Cont Abx SQ Heparin Plavix 75 mg daily.
--- NOTE | 2018-03-28 15:10 | P.PN ---
Subjective Interval history: awake and alert states baseline- gets around with a wheelchair, cane, walker 02 dependent at 4 LNC minimal sputum denies any dysuria Physical Exam Vital signs: Vital Signs 03/27/18 15:14 03/27/18 15:43 03/27/18 16:00 Temperature 97.8 F Pulse Rate 87 118 H Respiratory Rate 16 20 Blood Pressure 138/74 Pulse Oximetry 97 99 03/27/18 20:00 03/27/18 20:46 03/27/18 20:48 Temperature 98.7 F Pulse Rate 76 92 H Respiratory Rate 22 15 Blood Pressure 160/69 H Pulse Oximetry 87 L 97 03/27/18 23:37 03/28/18 00:00 03/28/18 02:04 Temperature 98.5 F Pulse Rate 54 L Respiratory Rate 19 22 Blood Pressure 140/68 Pulse Oximetry 93 L 89 L 97 03/28/18 03:51 03/28/18 04:00 03/28/18 06:15 Temperature 98.6 F Pulse Rate 89 75 Respiratory Rate 8 L 18 Blood Pressure 137/58 L Pulse Oximetry 97 97 03/28/18 07:57 03/28/18 08:00 03/28/18 08:53 Temperature 97.9 F Pulse Rate 76 78 Respiratory Rate 22 16 Blood Pressure 144/58 H Pulse Oximetry 96 97 96 03/28/18 09:00 03/28/18 10:00 03/28/18 11:00 Temperature Pulse Rate 79 82 79 Respiratory Rate Blood Pressure Pulse Oximetry 03/28/18 11:42 03/28/18 12:00 03/28/18 12:54 Temperature 98.2 F Pulse Rate 79 81 73 Respiratory Rate 18 15 Blood Pressure 105/52 L Pulse Oximetry 98 03/28/18 14:00 03/28/18 14:30 Temperature Pulse Rate 91 H 85 Respiratory Rate Blood Pressure Pulse Oximetry Intake & Output 03/27/18 03/28/18 03/28/18 18:59 06:59 18:59 Intake Total 150 / 150 120 / 120 150 / 150 Output Total 1001 / 1001 600 / 600 Balance -851 / -851 -480 / -480 150 / 150 Weight 102.5 kg Intake: IV 150 / 150 150 / 150 Levaquin 750 mg Premix Inj 150 150 / 150 150 / 150 ML @ 100 mls/hr IV.SIG Q24H [facility] Rx#:[id number] Oral 120 / 120 Output: Urine 600 / 600 Stool 1 / 1 Urine Amount (Catheter) 1000 / 1000 Indwelling Urethral Catheter 1000 / 1000 Other: Date of Last Bowel Movement 03/27/18 Narrative: awake and alert, comfroable anciteric neck supple lungs- no rales, no wheezes, decreased breath sounds regular rhythm adbmen soft, nontendere xtremtieiites- trace pretibial edema moves all extremtiies spontaenously gait testing deferred - Urinary Catheter Management Indwelling Urethral Catheter Cath placed during this visit: yes, but has since been removed by the nurse Reason for continuing: Not indwelling catheter Insertion date: 03/24/18 Insertion time: 05:48 Removal date: 03/25/18 Removal time: 18:50 Results - Labs CBC & Chem 7: 03/27/18 06:36 03/27/18 06:36 Laboratory Results - last 24 hr 03/27/18 03/27/18 03/27/18 16:19 16:39 22:12 POC Glucose 147 H 136 H Urine Color Yellow Urine Clarity Hazy H Urine pH 5.0 Ur Specific [place] 1.015 Urine Protein 30 H Urine Glucose (UA) Negative Urine Ketones 20 Urine Occult Blood Negative Urine Nitrate Negative Urine Bilirubin Negative Urine Urobilinogen Less than 2 Ur Leukocyte Esterase Negative Urine RBC Less than 1 Urine WBC 1 Ur Squamous Epith Cells <1 Urine Bacteria Occasional H Granular Casts 3 Urine Mucus Few H Micro UA Comment Culture not ind Ur Microscopic Review Not Reportable Urine Culture Comments Culture not ind 03/28/18 03/28/18 08:09 12:04 POC Glucose 108 174 H Urine Color Urine Clarity Urine pH Ur Specific [place] Urine Protein Urine Glucose (UA) Urine Ketones Urine Occult Blood Urine Nitrate Urine Bilirubin Urine Urobilinogen Ur Leukocyte Esterase Urine RBC Urine WBC Ur Squamous Epith Cells Urine Bacteria Granular Casts Urine Mucus Micro UA Comment Ur Microscopic Review Urine Culture Comments Microbiology 03/24/18 04:50 Blood - Peripheral Aerobic Blood Culture - Preliminary No growth in 4 days 03/24/18 04:50 Blood - Peripheral Anaerobic Blood Culture - Preliminary No growth in 4 days 03/24/18 04:50 Blood - Peripheral Aerobic Blood Culture - Preliminary No growth in 4 days 03/24/18 04:50 Blood - Peripheral Anaerobic Blood Culture - Preliminary No growth in 4 days Assessment and Plan - Plan 62 YEARS OLD Acute on chronic hypercapnic and hypoxemic respiratory failure.- 02 dependent -Status post intubation and self extubation. -continue with oxygen as needed to keep O2 sat 88-92%. -BiPaP at hs -Chest x-ray suggest possible pulmonary edema. -on Levaquin and Spiriva -continue neb treatment. COPD- on 4L home oxygen -Continue with current treatment. Dr. Ricks ff Urinary tract infection. -Urine cultures with proteus. - on levaquin for above Mild acute kidney injury.- improved -Strict ins and out. -Avoid nephrotoxins. Continue to monitor creatinine. Hyperglycemia with underlying history of diabetes mellitus. -Continue with insulin sliding scale. History of hypertension/Coronary artery disease/Obesity/Gastroesophageal reflux disease. -Continue current regimen.- on Plavix GI prophylaxis with Pepcid DVT prophylaxis with SCDs and heparin subcutaneous. CM - DC planning- patient came from [facility]- does not want to go back there PT daily- out of bed to [facility] bid
[2018-03-28] MEDS: LORazepam 0.5 MG Tablet PO PRN (21:11)
[2018-03-29] MEDS: Insulin NovoLOG Aspart Correctional Sugar Inj SQ SCH ×7 (00:19→23:58)
[2018-03-29] MEDS: Chlorhexidine Gluconate 2% 1 Pack (2 Cloths) TOPICAL SCH (06:08)
[2018-03-29] MEDS: Tiotropium Bromide 18 MCG/ACT Inhaler INH SCH ×2 (09:15→09:38)
[2018-03-29] MEDS: Heparin - SQ 10,000 UNITS/ML Vial SQ SCH ×2 (09:30→21:05)
[2018-03-29] MEDS: Famotidine PF Inj 20 MG/2 ML Vial IV.PUSH SCH ×2 (09:41→21:05)
[2018-03-29] MEDS: Senna/Docusate Sodium 8.6/50 MG Tablet PO SCH ×2 (09:41→21:05)
[2018-03-29] MEDS: dilTIAZem 60 MG Tablet PO SCH ×4 (09:41→21:05)
[2018-03-29] MEDS: FLUoxetine 20 MG Capsule PO SCH (09:42)
[2018-03-29] MEDS: buPROPion 150 MG 12 HR Tablet PO SCH (09:43)
[2018-03-29] MEDS: Lisinopril 10 MG Tablet PO SCH (10:44)
--- NOTE | 2018-03-29 11:10 | P.PN ---
Subjective Interval history: no complains good po Physical Exam Vital signs: Vital Signs 03/28/18 11:42 03/28/18 12:00 03/28/18 12:54 Temperature 98.2 F Pulse Rate 79 81 73 Respiratory Rate 18 15 Blood Pressure 105/52 L Pulse Oximetry 98 03/28/18 14:00 03/28/18 14:30 03/28/18 15:51 Temperature Pulse Rate 91 H 85 78 Respiratory Rate 20 Blood Pressure Pulse Oximetry 03/28/18 16:00 03/28/18 16:41 03/28/18 17:41 Temperature 98.1 F Pulse Rate 81 78 93 H Respiratory Rate 20 Blood Pressure 103/49 L Pulse Oximetry 100 03/28/18 19:00 03/28/18 19:35 03/28/18 20:00 Temperature 97.9 F Pulse Rate 73 85 85 Respiratory Rate 18 18 Blood Pressure 95/41 L Pulse Oximetry 94 L 95 03/28/18 21:00 03/28/18 22:00 03/28/18 23:00 Temperature Pulse Rate 79 80 77 Respiratory Rate Blood Pressure Pulse Oximetry 03/29/18 00:00 03/29/18 01:00 03/29/18 01:12 Temperature 97.6 F Pulse Rate 82 77 79 Respiratory Rate 16 16 Blood Pressure 124/42 L Pulse Oximetry 97 03/29/18 02:00 03/29/18 03:00 03/29/18 04:00 Temperature 98.6 F Pulse Rate 80 82 87 Respiratory Rate 16 Blood Pressure 107/40 L Pulse Oximetry 99 03/29/18 04:19 03/29/18 05:00 03/29/18 06:00 Temperature Pulse Rate 80 81 81 Respiratory Rate 16 Blood Pressure Pulse Oximetry 03/29/18 07:00 Temperature Pulse Rate 98 H Respiratory Rate 20 Blood Pressure Pulse Oximetry Intake & Output 03/28/18 03/29/18 03/29/18 18:59 06:59 18:59 Intake Total 630 / 630 180 / 180 Output Total 725 / 725 300 / 300 Balance -95 / -95 -120 / -120 Weight 103.5 kg Intake: IV 150 / 150 Levaquin 750 mg Premix Inj 150 150 / 150 ML @ 100 mls/hr IV.SIG Q24H [facility] Rx#:[id number] Oral 480 / 480 180 / 180 Output: Urine 725 / 725 300 / 300 Other: Date of Last Bowel Movement 03/27/18 # Bowel Movements 0 Narrative: awake and alert, no acute distress, interacitve anciteric neck supple lungs- no rales, no wheezes, decreased breath sounds regular rhythm adbmen soft, nontender extremtieiites- no pretibial edema moves all extremtiies spontaenously gait testing deferred- per patient- basically wheelchair bound - Urinary Catheter Management Indwelling Urethral Catheter Cath placed during this visit: yes, but has since been removed by the nurse Reason for continuing: Not indwelling catheter Insertion date: 03/24/18 Insertion time: 05:48 Removal date: 03/25/18 Removal time: 18:50 Results - Labs CBC & Chem 7: 03/27/18 06:36 03/27/18 06:36 Laboratory Results - last 24 hr 03/28/18 03/28/18 03/28/18 12:04 15:42 20:04 POC Glucose 174 H 138 H 166 H 03/29/18 03/29/18 03/29/18 00:16 04:19 08:20 POC Glucose 130 H 114 H 115 H Microbiology 03/24/18 04:50 Blood - Peripheral Aerobic Blood Culture - Final No growth in 5 days 03/24/18 04:50 Blood - Peripheral Anaerobic Blood Culture - Final No growth in 5 days 03/24/18 04:50 Blood - Peripheral Aerobic Blood Culture - Final No growth in 5 days 03/24/18 04:50 Blood - Peripheral Anaerobic Blood Culture - Final No growth in 5 days Assessment and Plan - Plan 62 YEARS OLD Acute on chronic hypercapnic and hypoxemic respiratory failure.- 02 dependent -Status post intubation and self extubation. -continue with oxygen as needed to keep O2 sat 88-92%. -BiPaP at hs -Chest x-ray suggest possible pulmonary edema. -on Levaquin and Spiriva -continue neb treatment. COPD- on 4L home oxygen -Continue with current treatment. Dr. Ricks ff Urinary tract infection. -Urine cultures with proteus.- reviewed- sensitivety resistant to Cirpo and bctrim - on levaquin for above - get repeat UA- straight cath sepcimen Mild acute kidney injury.- improved -Strict ins and out. -Avoid nephrotoxins. Continue to monitor creatinine. Hyperglycemia with underlying history of diabetes mellitus. -Continue with insulin sliding scale. History of hypertension/Coronary artery disease/Obesity/Gastroesophageal reflux disease. -Continue current regimen.- on Plavix anemia- chronic - check iron studies GI prophylaxis with Pepcid DVT prophylaxis with SCDs and heparin subcutaneous. CM - DC planning- patient came from [facility]- does not want to go back there PT daily[facility]
--- NOTE | 2018-03-29 14:34 | P.PNPL ---
Subjective Interval history: 62 YOWF with RF, s/p extubation, COPD alert, awake, feels tired no Fever No CP Did't use CPAP On 4 LNC Desaturates with any activity Physical Exam Vital signs: Vital Signs 03/28/18 15:51 03/28/18 16:00 03/28/18 16:41 Temperature 98.1 F Pulse Rate 78 81 78 Respiratory Rate 20 20 Blood Pressure 103/49 L Pulse Oximetry 100 03/28/18 17:41 03/28/18 19:00 03/28/18 19:35 Temperature Pulse Rate 93 H 73 85 Respiratory Rate 18 Blood Pressure Pulse Oximetry 94 L 03/28/18 20:00 03/28/18 21:00 03/28/18 22:00 Temperature 97.9 F Pulse Rate 85 79 80 Respiratory Rate 18 Blood Pressure 95/41 L Pulse Oximetry 95 03/28/18 23:00 03/29/18 00:00 03/29/18 01:00 Temperature 97.6 F Pulse Rate 77 82 77 Respiratory Rate 16 Blood Pressure 124/42 L Pulse Oximetry 97 03/29/18 01:12 03/29/18 02:00 03/29/18 03:00 Temperature Pulse Rate 79 80 82 Respiratory Rate 16 Blood Pressure Pulse Oximetry 03/29/18 04:00 03/29/18 04:19 03/29/18 05:00 Temperature 98.6 F Pulse Rate 87 80 81 Respiratory Rate 16 16 Blood Pressure 107/40 L Pulse Oximetry 99 03/29/18 06:00 03/29/18 07:00 03/29/18 08:00 Temperature 97.3 F L Pulse Rate 81 98 H 83 Respiratory Rate 20 20 Blood Pressure 104/41 L Pulse Oximetry 96 03/29/18 12:00 03/29/18 12:28 Temperature 97.8 F Pulse Rate 82 87 Respiratory Rate 20 16 Blood Pressure 111/41 L Pulse Oximetry 94 L Intake & Output 03/28/18 03/29/18 03/29/18 18:59 06:59 18:59 Intake Total 630 / 630 180 / 180 150 / 150 Output Total 725 / 725 300 / 300 Balance -95 / -95 -120 / -120 150 / 150 Weight 103.5 kg Intake: IV 150 / 150 150 / 150 Levaquin 750 mg Premix Inj 150 150 / 150 150 / 150 ML @ 100 mls/hr IV.SIG Q24H [facility] Rx#:[id number] Oral 480 / 480 180 / 180 Output: Urine 725 / 725 300 / 300 Other: Date of Last Bowel Movement 03/27/18 03/27/18 # Bowel Movements 0 GENERAL: Elderly WF, mild sob SKIN: Warm and dry. HEAD: Normocephalic. EYES: No scleral icterus. No injection or drainage. NECK: Supple, trachea midline. No JVD or lymphadenopathy. CARDIOVASCULAR: Regular rate and rhythm without murmurs, gallops, or rubs. RESPIRATORY: Breath sounds equal bilaterally. No accessory muscle use. GASTROINTESTINAL: Abdomen soft, non-tender, nondistended. MUSCULOSKELETAL: No cyanosis, or edema. BACK: Nontender without obvious deformity. No CVA tenderness. - Urinary Catheter Management Indwelling Urethral Catheter Cath placed during this visit: yes, but has since been removed by the nurse Reason for continuing: Not indwelling catheter Insertion date: 03/24/18 Insertion time: 05:48 Removal date: 03/25/18 Removal time: 18:50 Assessment and Plan - Plan IMPRESSION: 1. Chronic obstructive pulmonary disease exacerbation. 2. Respiratory failure, status post extubation. 3. Chronic respiratory insufficiency, is maintained on 4 liters nasal cannula. 4. Hypertension. 5. Diabetes mellitus. 6. History of cerebrovascular accident. PLAN: Supplement 02 with NC Keep sat 88-92% Aerosol nebs Cont Abx SQ Heparin Plavix 75 mg daily. DEEPA CENTENO BIPAP10/
[2018-03-29 21:28] LABS: Bacteria,Urine Few /hpf; Bilirubin,Urine Negative (Negative); Clarity,Urine Hazy (Clear); Color,Urine Yellow (Yellw/Straw); Glucose,Urine (UA) Negative (Negative); Leukocyte Esterase,Urine Large (Negative); Mucus,Urine Few /lpf (Occasional); Nitrite,Urine Negative (Negative); Specific Gravity,Urine 1.006 (1.002-1.035); Squamous Epithelial Cell,Urine <1 /hpf (0-5)
[2018-03-29] MEDS: LORazepam 0.5 MG Tablet PO PRN (21:57)
[2018-03-29] MEDS: Acetaminophen 325 MG Tablet PO PRN (21:57)
[2018-03-30] MEDS: Insulin NovoLOG Aspart Correctional Sugar Inj SQ SCH ×5 (04:25→20:16)
[2018-03-30] MEDS: dilTIAZem 60 MG Tablet PO SCH ×4 (08:55→20:18)
[2018-03-30] MEDS: buPROPion 150 MG 12 HR Tablet PO SCH (08:55)
[2018-03-30] MEDS: FLUoxetine 20 MG Capsule PO SCH (08:55)
[2018-03-30] MEDS: Senna/Docusate Sodium 8.6/50 MG Tablet PO SCH ×2 (08:56→20:18)
[2018-03-30] MEDS: Lisinopril 10 MG Tablet PO SCH (08:56)
[2018-03-30] MEDS: Tiotropium Bromide 18 MCG/ACT Inhaler INH SCH ×2 (08:56→08:57)
[2018-03-30] MEDS: Famotidine PF Inj 20 MG/2 ML Vial IV.PUSH SCH ×2 (08:56→20:20)
[2018-03-30] MEDS: Heparin - SQ 10,000 UNITS/ML Vial SQ SCH ×2 (08:56→20:22)
--- NOTE | 2018-03-30 09:04 | P.PN ---
Subjective Interval history: no complains' Physical Exam Vital signs: Vital Signs 03/29/18 10:00 03/29/18 11:00 03/29/18 12:00 Temperature 97.8 F Pulse Rate 90 92 H 90 Respiratory Rate 20 Blood Pressure 111/41 L Pulse Oximetry 94 L 03/29/18 12:28 03/29/18 13:00 03/29/18 14:00 Temperature Pulse Rate 87 88 92 H Respiratory Rate 16 Blood Pressure Pulse Oximetry 03/29/18 14:47 03/29/18 15:00 03/29/18 16:00 Temperature 97.7 F Pulse Rate 88 88 96 H Respiratory Rate 24 18 Blood Pressure 122/52 L Pulse Oximetry 92 L 03/29/18 17:00 03/29/18 18:00 03/29/18 19:00 Temperature Pulse Rate 88 88 93 H Respiratory Rate Blood Pressure Pulse Oximetry 03/29/18 20:00 03/29/18 21:00 03/29/18 21:07 Temperature 97.5 F L Pulse Rate 98 H 92 H 88 Respiratory Rate 20 18 Blood Pressure 132/55 L Pulse Oximetry 97 03/29/18 22:00 03/29/18 23:00 03/29/18 23:31 Temperature Pulse Rate 94 H 90 90 Respiratory Rate 20 Blood Pressure Pulse Oximetry 03/29/18 23:55 03/29/18 23:57 03/30/18 00:00 Temperature Pulse Rate 90 88 Respiratory Rate 16 Blood Pressure 131/55 L Pulse Oximetry 99 99 03/30/18 01:00 03/30/18 02:00 03/30/18 03:00 Temperature Pulse Rate 86 80 90 Respiratory Rate Blood Pressure Pulse Oximetry 03/30/18 03:54 03/30/18 03:58 03/30/18 03:59 Temperature Pulse Rate 87 86 Respiratory Rate 20 16 Blood Pressure 152/62 H Pulse Oximetry 99 99 03/30/18 04:00 03/30/18 05:00 03/30/18 06:00 Temperature Pulse Rate 84 80 78 Respiratory Rate Blood Pressure Pulse Oximetry 03/30/18 07:40 03/30/18 07:50 Temperature 97.6 F Pulse Rate 85 85 Respiratory Rate 18 18 Blood Pressure 158/60 H Pulse Oximetry 98 98 Intake & Output 03/29/18 03/30/18 03/30/18 18:59 06:59 18:59 Intake Total 630 / 630 480 / 480 Output Total 800 / 800 Balance -170 / -170 480 / 480 Weight 104.5 kg Intake: IV 150 / 150 Levaquin 750 mg Premix Inj 150 150 / 150 ML @ 100 mls/hr IV.SIG Q24H [facility] Rx#:[id number] Oral 480 / 480 480 / 480 Output: Urine 800 / 800 Other: # Incontinent Voids 1 Date of Last Bowel Movement 03/27/18 03/27/18 03/27/18 # Bowel Movements 0 0 Narrative: awake and alert, no acute distress, interacitve anciteric neck supple lungs- no rales, no wheezes, decreased breath sounds regular rhythm abdomen soft, nontender extremeties- no pretibial edema moves all extremtiies spontaenously gait testing deferred- per patient- basically wheelchair bound - Urinary Catheter Management Indwelling Urethral Catheter Cath placed during this visit: yes, but has since been removed by the nurse Reason for continuing: Not indwelling catheter Insertion date: 03/24/18 Insertion time: 05:48 Removal date: 03/25/18 Removal time: 18:50 Results - Labs CBC & Chem 7: 03/27/18 06:36 03/27/18 06:36 Laboratory Results - last 24 hr 03/29/18 03/29/18 03/29/18 11:45 16:30 16:45 POC Glucose 183 H 144 H Urine Color Yellow Urine Clarity Hazy H Urine pH 5.0 Ur Specific [place] 1.006 Urine Protein Negative Urine Glucose (UA) Negative Urine Ketones Negative Urine Occult Blood Small H Urine Nitrate Negative Urine Bilirubin Negative Urine Urobilinogen Less than 2 Ur Leukocyte Esterase Large H Urine RBC 2 Urine WBC 23 H Ur Squamous Epith Cells <1 Urine Bacteria Few H Urine Mucus Few H Micro UA Comment Cath-culture ind Ur Microscopic Review Not Reportable Urine Culture Comments Cath-cult indicated 03/29/18 03/29/18 03/30/18 20:27 23:46 07:30 POC Glucose 195 H 153 H 139 H Urine Color Urine Clarity Urine pH Ur Specific [place] Urine Protein Urine Glucose (UA) Urine Ketones Urine Occult Blood Urine Nitrate Urine Bilirubin Urine Urobilinogen Ur Leukocyte Esterase Urine RBC Urine WBC Ur Squamous Epith Cells Urine Bacteria Urine Mucus Micro UA Comment Ur Microscopic Review Urine Culture Comments Microbiology 03/24/18 04:50 Blood - Peripheral Aerobic Blood Culture - Final No growth in 5 days 03/24/18 04:50 Blood - Peripheral Anaerobic Blood Culture - Final No growth in 5 days 03/24/18 04:50 Blood - Peripheral Aerobic Blood Culture - Final No growth in 5 days 03/24/18 04:50 Blood - Peripheral Anaerobic Blood Culture - Final No growth in 5 days Assessment and Plan - Plan 62 YEARS OLD Acute on chronic hypercapnic and hypoxemic respiratory failure.- 02 dependent -Status post intubation and self extubation. -continue with oxygen as needed to keep O2 sat 88-92%. -BiPaP at hs -Chest x-ray suggest possible pulmonary edema. -on Levaquin and Spiriva -continue neb treatment. COPD- on 4L home oxygen -Continue with current treatment. Dr. Ricks ff Urinary tract infection.- with pyuria -repeat UA- straight cath speciemn 03/29 -Urine cultures with proteus.- reviewed- sensitivety resistant to Cirpo and bctrim - on levaquin for above - DC -start Azactam 1 gm q 8 till final sensitivity is back - per patient hives with PCN Mild acute kidney injury.- improved -Strict ins and out. -Avoid nephrotoxins. Continue to monitor creatinine. Hyperglycemia with underlying history of diabetes mellitus. -Continue with insulin sliding scale. History of hypertension/Coronary artery disease/Obesity/Gastroesophageal reflux disease. -Continue current regimen.- on Plavix anemia- chronic - check iron studies GI prophylaxis with Pepcid DVT prophylaxis with SCDs and heparin subcutaneous. CM - DC planning- patient came from [facility]- does not want to go back there [facility]
--- NOTE | 2018-03-30 15:41 | P.PNPL ---
Subjective Interval history: 62 YOWF with RF, s/p extubation, COPD alert, awake, feels tired no Fever No CP Did't use CPAP On 4 LNC Did't sleep well Physical Exam Vital signs: Vital Signs 03/29/18 16:00 03/29/18 17:00 03/29/18 18:00 Temperature 97.7 F Pulse Rate 96 H 88 88 Respiratory Rate 18 Blood Pressure 122/52 L Pulse Oximetry 92 L 03/29/18 19:00 03/29/18 20:00 03/29/18 21:00 Temperature 97.5 F L Pulse Rate 93 H 98 H 92 H Respiratory Rate 20 Blood Pressure 132/55 L Pulse Oximetry 97 03/29/18 21:07 03/29/18 22:00 03/29/18 23:00 Temperature Pulse Rate 88 94 H 90 Respiratory Rate 18 Blood Pressure Pulse Oximetry 03/29/18 23:31 03/29/18 23:55 03/29/18 23:57 Temperature Pulse Rate 90 90 Respiratory Rate 20 16 Blood Pressure 131/55 L Pulse Oximetry 99 99 03/30/18 00:00 03/30/18 01:00 03/30/18 02:00 Temperature Pulse Rate 88 86 80 Respiratory Rate Blood Pressure Pulse Oximetry 03/30/18 03:00 03/30/18 03:54 03/30/18 03:58 Temperature Pulse Rate 90 87 86 Respiratory Rate 20 16 Blood Pressure 152/62 H Pulse Oximetry 99 03/30/18 03:59 03/30/18 04:00 03/30/18 05:00 Temperature Pulse Rate 84 80 Respiratory Rate Blood Pressure Pulse Oximetry 99 03/30/18 06:00 03/30/18 07:00 03/30/18 07:40 Temperature 97.6 F Pulse Rate 78 77 85 Respiratory Rate 18 Blood Pressure 158/60 H Pulse Oximetry 98 03/30/18 07:50 03/30/18 08:00 03/30/18 11:00 Temperature Pulse Rate 85 79 Respiratory Rate 18 Blood Pressure Pulse Oximetry 98 98 03/30/18 12:00 03/30/18 12:12 03/30/18 12:15 Temperature 98.2 F Pulse Rate 88 88 Respiratory Rate 16 16 Blood Pressure 124/66 127/50 L Pulse Oximetry 97 Intake & Output 03/29/18 03/30/18 03/30/18 18:59 06:59 18:59 Intake Total 630 / 630 480 / 480 100 / 100 Output Total 800 / 800 Balance -170 / -170 480 / 480 100 / 100 Weight 104.5 kg Intake: IV 150 / 150 100 / 100 Azactam Inj 1,000 MG In NS Inj 100 / 100 100 ML @ 200 mls/hr IV.SIG Q8H [facility] Rx#:[id number] Levaquin 750 mg Premix Inj 150 150 / 150 ML @ 100 mls/hr IV.SIG Q24H [facility] Rx#:[id number] Oral 480 / 480 480 / 480 Output: Urine 800 / 800 Other: # Incontinent Voids 1 Date of Last Bowel Movement 03/27/18 03/27/18 03/27/18 # Bowel Movements 0 0 GENERAL: Elderly WF, NAD SKIN: Warm and dry. HEAD: Normocephalic. EYES: No scleral icterus. No injection or drainage. NECK: Supple, trachea midline. No JVD or lymphadenopathy. CARDIOVASCULAR: Regular rate and rhythm without murmurs, gallops, or rubs. RESPIRATORY: Breath sounds equal bilaterally. No accessory muscle use. GASTROINTESTINAL: Abdomen soft, non-tender, nondistended. MUSCULOSKELETAL: No cyanosis, or edema. BACK: Nontender without obvious deformity. No CVA tenderness. - Urinary Catheter Management Indwelling Urethral Catheter Cath placed during this visit: yes, but has since been removed by the nurse Reason for continuing: Not indwelling catheter Insertion date: 03/24/18 Insertion time: 05:48 Removal date: 03/25/18 Removal time: 18:50 Assessment and Plan - Plan IMPRESSION: 1. Chronic obstructive pulmonary disease exacerbation. 2. Respiratory failure, status post extubation. 3. Chronic respiratory insufficiency, is maintained on 4 liters nasal cannula. 4. Hypertension. 5. Diabetes mellitus. 6. History of cerebrovascular accident. PLAN: Supplement 02 with NC Keep sat 88-92% Aerosol nebs Cont Abx SQ Heparin Plavix 75 mg daily. DEEPA RN BIPAP10/5 at night and prn
[2018-03-31] MEDS: Insulin NovoLOG Aspart Correctional Sugar Inj SQ SCH ×6 (00:16→21:57)
[2018-03-31] MEDS: Famotidine PF Inj 20 MG/2 ML Vial IV.PUSH SCH ×2 (08:49→21:58)
[2018-03-31] MEDS: Heparin - SQ 10,000 UNITS/ML Vial SQ SCH ×2 (08:49→21:57)
[2018-03-31] MEDS: buPROPion 150 MG 12 HR Tablet PO SCH (08:50)
[2018-03-31] MEDS: Lisinopril 10 MG Tablet PO SCH (08:50)
[2018-03-31] MEDS: Senna/Docusate Sodium 8.6/50 MG Tablet PO SCH ×2 (08:50→21:59)
[2018-03-31] MEDS: FLUoxetine 20 MG Capsule PO SCH (08:50)
[2018-03-31] MEDS: dilTIAZem 60 MG Tablet PO SCH ×4 (08:50→21:57)
[2018-03-31] MEDS: Tiotropium Bromide 18 MCG/ACT Inhaler INH SCH ×2 (08:51→08:55)
[2018-03-31] MEDS: LORazepam 0.5 MG Tablet PO PRN (09:25)
--- NOTE | 2018-03-31 14:21 | P.PN ---
Subjective Interval history: no complains good po ff all commands Physical Exam Vital signs: Vital Signs 03/30/18 15:00 03/30/18 16:00 03/30/18 16:31 Temperature 98.8 F Pulse Rate 89 90 88 Respiratory Rate 18 18 Blood Pressure 149/62 H Pulse Oximetry 95 03/30/18 17:00 03/30/18 18:00 03/30/18 18:26 Temperature Pulse Rate 104 H 103 H Respiratory Rate Blood Pressure 149/62 H Pulse Oximetry 03/30/18 19:00 03/30/18 19:14 03/30/18 20:00 Temperature 98.7 F Pulse Rate 102 H 93 H 100 H Respiratory Rate 20 20 Blood Pressure 131/56 L Pulse Oximetry 92 L 98 92 L 03/30/18 20:40 03/30/18 21:00 03/30/18 22:00 Temperature Pulse Rate 92 H 90 Respiratory Rate Blood Pressure Pulse Oximetry 95 97 03/30/18 23:00 03/30/18 23:28 03/30/18 23:33 Temperature Pulse Rate 80 89 Respiratory Rate 16 16 Blood Pressure 128/51 L Pulse Oximetry 96 97 03/31/18 00:00 03/31/18 01:00 03/31/18 02:00 Temperature Pulse Rate 82 90 88 Respiratory Rate Blood Pressure Pulse Oximetry 96 03/31/18 03:00 03/31/18 03:49 03/31/18 03:52 Temperature Pulse Rate 78 86 Respiratory Rate 16 12 Blood Pressure 114/46 L Pulse Oximetry 98 96 03/31/18 04:00 03/31/18 05:00 03/31/18 06:00 Temperature Pulse Rate 86 86 88 Respiratory Rate Blood Pressure Pulse Oximetry 03/31/18 06:02 03/31/18 07:00 03/31/18 08:00 Temperature 98.2 F Pulse Rate 86 82 87 Respiratory Rate 12 16 Blood Pressure 150/62 H Pulse Oximetry 98 03/31/18 08:43 03/31/18 09:00 03/31/18 10:00 Temperature Pulse Rate 87 78 80 Respiratory Rate 18 Blood Pressure Pulse Oximetry 95 03/31/18 10:29 03/31/18 12:00 03/31/18 13:00 Temperature 98.1 F Pulse Rate 87 84 82 Respiratory Rate 14 Blood Pressure 127/60 Pulse Oximetry 99 03/31/18 13:11 03/31/18 13:58 Temperature Pulse Rate 80 77 Respiratory Rate Blood Pressure Pulse Oximetry Intake & Output 03/30/18 03/31/18 03/31/18 18:59 06:59 18:59 Intake Total 1344 / 1344 340 / 340 100 / 100 Output Total 1250 / 1250 600 / 600 Balance 94 / 94 -260 / -260 100 / 100 Weight 105 kg Intake: IV 200 / 200 100 / 100 100 / 100 Azactam Inj 1,000 MG In NS Inj 200 / 200 100 / 100 100 / 100 100 ML @ 200 mls/hr IV.SIG Q8H [facility] Rx#:[id number] Oral 1144 / 1144 240 / 240 Output: Urine 1250 / 1250 600 / 600 Other: Date of Last Bowel Movement 03/27/18 03/27/18 03/27/18 Narrative: awake and alert, no acute distress, interacitve anciteric neck supple lungs- no rales, no wheezes, decreased breath sounds regular rhythm abdomen soft, nontender extremeties- no edema moves all extremtiies spontaenously able to raise both legs up, no calf tenderenss gait testing deferred- per patient- basically wheelchair bound - Urinary Catheter Management Indwelling Urethral Catheter Cath placed during this visit: yes, but has since been removed by the nurse Reason for continuing: Not indwelling catheter Insertion date: 03/24/18 Insertion time: 05:48 Removal date: 03/25/18 Removal time: 18:50 Results - Labs CBC & Chem 7: 04/01/18 14:51 03/27/18 06:36 Laboratory Results - last 24 hr 03/30/18 03/30/18 03/31/18 16:32 20:13 00:15 POC Glucose 177 H 211 H 143 H 03/31/18 03/31/18 04:24 12:09 POC Glucose 134 H 138 H Microbiology 03/29/18 16:45 Catheterized Urine Urine Culture - Final Escherichia coli Multidrug Resistant Assessment and Plan - Plan 62 YEARS OLD Acute on chronic hypercapnic and hypoxemic respiratory failure.- 02 dependent -Status post intubation and self extubation. -continue with oxygen as needed to keep O2 sat 88-92%. -BiPaP at hs -Chest x-ray suggest possible pulmonary edema. -on Spiriva -continue neb treatment. COPD- on 4L home oxygen -Continue with current treatment. Dr. Ricks ff Urinary tract infection.- with Persistent pyuria -repeat UA- straight cath speciemn 03/29 =now E coli MDR -previous Urine cultures with proteus.- reviewed- sensitivety resistant to Cirpo and bctrim -started Azactam 1 gm q 8 - 03/30 = Discontinuued Levaquin - per patient hives with PCN - get US kidneys/bladder - ID consult for recommendation Mild acute kidney injury.- improved -Strict ins and out. -Avoid nephrotoxins. Continue to monitor creatinine. Hyperglycemia with underlying history of diabetes mellitus. -Continue with insulin sliding scale. History of hypertension/Coronary artery disease/Obesity/Gastroesophageal reflux disease. -Continue current regimen.- on Plavix anemia- chronic - anemia of chronic disease - check iron studies GI prophylaxis with Pepcid DVT prophylaxis with SCDs and heparin subcutaneous. CM - DC planning- patient came from [facility]- does not want to go back there PT daily- out of bed to [facility] bid
--- NOTE | 2018-03-31 18:19 | P.PNPL ---
Subjective Interval history: 62 YOWF with RF, s/p extubation, COPD alert, awake, feels tired no Fever No CP Used CPAP last night Still feels tired but breathing better Good appetite Physical Exam Vital signs: Vital Signs 03/30/18 18:26 03/30/18 19:00 03/30/18 19:14 Temperature 98.7 F Pulse Rate 102 H 93 H Respiratory Rate 20 20 Blood Pressure 149/62 H 131/56 L Pulse Oximetry 92 L 98 03/30/18 20:00 03/30/18 20:40 03/30/18 21:00 Temperature Pulse Rate 100 H 92 H Respiratory Rate Blood Pressure Pulse Oximetry 92 L 95 97 03/30/18 22:00 03/30/18 23:00 03/30/18 23:28 Temperature Pulse Rate 90 80 89 Respiratory Rate 16 16 Blood Pressure 128/51 L Pulse Oximetry 96 03/30/18 23:33 03/31/18 00:00 03/31/18 01:00 Temperature Pulse Rate 82 90 Respiratory Rate Blood Pressure Pulse Oximetry 97 96 03/31/18 02:00 03/31/18 03:00 03/31/18 03:49 Temperature Pulse Rate 88 78 86 Respiratory Rate 16 12 Blood Pressure 114/46 L Pulse Oximetry 98 03/31/18 03:52 03/31/18 04:00 03/31/18 05:00 Temperature Pulse Rate 86 86 Respiratory Rate Blood Pressure Pulse Oximetry 96 03/31/18 06:00 03/31/18 06:02 03/31/18 07:00 Temperature Pulse Rate 88 86 82 Respiratory Rate 12 Blood Pressure Pulse Oximetry 03/31/18 08:00 03/31/18 08:43 03/31/18 09:00 Temperature 98.2 F Pulse Rate 87 87 78 Respiratory Rate 16 18 Blood Pressure 150/62 H Pulse Oximetry 98 95 03/31/18 10:00 03/31/18 10:29 03/31/18 12:00 Temperature 98.1 F Pulse Rate 80 87 84 Respiratory Rate 14 Blood Pressure 127/60 Pulse Oximetry 99 03/31/18 13:00 03/31/18 13:11 03/31/18 13:58 Temperature Pulse Rate 82 80 77 Respiratory Rate Blood Pressure Pulse Oximetry 03/31/18 15:54 03/31/18 16:00 09/10/18 17:00 Temperature 98.1 F Pulse Rate 94 H 92 H 98 H Respiratory Rate 18 16 Blood Pressure 147/63 H Pulse Oximetry 99 03/31/18 18:00 Temperature Pulse Rate 100 H Respiratory Rate Blood Pressure Pulse Oximetry Intake & Output 03/30/18 03/31/18 03/31/18 18:59 06:59 18:59 Intake Total 1344 / 1344 340 / 340 1220 / 1220 Output Total 1250 / 1250 600 / 600 1200 / 1200 Balance 94 / 94 -260 / -260 20 / 20 Weight 105 kg Intake: IV 200 / 200 100 / 100 200 / 200 Azactam Inj 1,000 MG In NS Inj 200 / 200 100 / 100 200 / 200 100 ML @ 200 mls/hr IV.SIG Q8H BEBETO Rx#:[id number] Oral 1144 / 1144 240 / 240 1020 / 1020 Output: Urine 1250 / 1250 600 / 600 1200 / 1200 Other: Date of Last Bowel Movement 03/27/18 03/27/18 03/31/18 GENERAL: Elderly WF,NAD SKIN: Warm and dry. HEAD: Normocephalic. EYES: No scleral icterus. No injection or drainage. NECK: Supple, trachea midline. No JVD or lymphadenopathy. CARDIOVASCULAR: Regular rate and rhythm without murmurs, gallops, or rubs. RESPIRATORY: Breath sounds equal bilaterally. No accessory muscle use. GASTROINTESTINAL: Abdomen soft, non-tender, nondistended. MUSCULOSKELETAL: No cyanosis, or edema. BACK: Nontender without obvious deformity. No CVA tenderness. - Urinary Catheter Management Indwelling Urethral Catheter Cath placed during this visit: yes, but has since been removed by the nurse Reason for continuing: Not indwelling catheter Insertion date: 03/24/18 Insertion time: 05:48 Removal date: 03/25/18 Removal time: 18:50 Assessment and Plan - Plan IMPRESSION: 1. Chronic obstructive pulmonary disease exacerbation. 2. Respiratory failure, status post extubation. 3. Chronic respiratory insufficiency, is maintained on 4 liters nasal cannula. 4. Hypertension. 5. Diabetes mellitus. 6. History of cerebrovascular accident. PLAN: Supplement 02 with NC Keep sat 88-92% Aerosol nebs Cont Abx SQ Heparin Plavix 75 mg daily. BIPAP10/5 at night and prn
--- NOTE | 2018-03-31 22:40 | US ---
EXAM DATE: 03/31/2018 10:26 PM EDT AGE/SEX: 62 years / Female INDICATIONS: Persistent pyuria. CLINICAL DATA: This is the patient's initial encounter. Patient reports that signs and symptoms have been present for 2 days and indicates a pain score of 0/10. MEDICAL/SURGICAL HISTORY: Chronic obstructive pulmonary disease. Diabetes. Gastroesophageal r eflux disease. Coronary artery disease. Fibromyalgia. Heart attack. Hemorrhoids. Hypertension. Pilon idal cyst. Sjogrens syndrome. Raynauds phenomenon. Hysterectomy. Tubal ligation. COMPARISON: No prior exams available for comparison. MEASUREMENTS: Right Kidney:__10.5 x 4.7 x 4.7 cm Left Kidney:__11.5 x 5.1 x 5.6 cm FINDINGS: Right Kidney: Normal echotexture and cortical thickness. No mass or hydronephrosis. Left Kidney: Normal echotexture and cortical thickness. No mass or hydronephrosis. Bladder: Within normal limits given the degree of distension. Other: Spleen appears slightly prominent measures up to 13.6 cm. CONCLUSION: 1. Unremarkable kidneys. 2. The spleen appears mildly prominent and measures up to 13.6 cm. Electronically signed by: Seng Das MD 03/31/2018 10:38 PM EDT
[2018-04-01] MEDS: Insulin NovoLOG Aspart Correctional Sugar Inj SQ SCH ×6 (00:32→21:23)
[2018-04-01] MEDS: LORazepam 0.5 MG Tablet PO PRN (09:46)
[2018-04-01] MEDS: dilTIAZem 60 MG Tablet PO SCH ×4 (09:47→21:24)
[2018-04-01] MEDS: buPROPion 150 MG 12 HR Tablet PO SCH (09:47)
[2018-04-01] MEDS: Tiotropium Bromide 18 MCG/ACT Inhaler INH SCH (09:48)
[2018-04-01] MEDS: Senna/Docusate Sodium 8.6/50 MG Tablet PO SCH ×2 (09:49→21:25)
[2018-04-01] MEDS: Lisinopril 10 MG Tablet PO SCH (09:49)
[2018-04-01] MEDS: Famotidine PF Inj 20 MG/2 ML Vial IV.PUSH SCH ×2 (09:52→21:25)
[2018-04-01] MEDS: FLUoxetine 20 MG Capsule PO SCH (09:52)
[2018-04-01] MEDS: Heparin - SQ 10,000 UNITS/ML Vial SQ SCH ×2 (09:53→21:24)
[2018-04-01 12:24] LABS: Bacteria,Urine Rare /hpf; Bilirubin,Urine Negative (Negative); Clarity,Urine Clear (Clear); Color,Urine Yellow (Yellw/Straw); Glucose,Urine (UA) Negative (Negative); Leukocyte Esterase,Urine Small (Negative); Nitrite,Urine Negative (Negative)
--- NOTE | 2018-04-01 13:16 | P.CONID ---
History of Present Illness Service: Infectious Disease Consult date: 04/01/18 Requesting Physician: Erin Gomes Reason for Consult: Evaluation of recurrent UTI Primary Care Provider: UNKNOWN History of Present Illness: is a 52 y/o CF with PMHx of long standing COPD, possible Sleep apnea , morbid obesity, coronary artery disease, hypertension, diabetes mellitus, GERD. She presents to [facility] ED by EMS from [facility] with respiratory distress. Per EMS, the patient had O2 saturation in the 70s. She was intubated and placed on mechanical ventilation. Also, Diprivan was started for sedation. ABG post intubation showed acute hypercapnic respiratory acidosis. Patient was treated empirically for Pneumonia and also acute COPD exacerbation. UA was positive as well and patient was treated for possible UTI. A repeat UA was obtained as patient showed pyuria. Based on my conversation with RN it appears patient had an external catheter in place and the urine was collected from the external payne like device container. She reports some dysuria prior to hospitalization but this is a chronic issue. She reports being in diapers at snf and often not being cleaned for long periods of time. She is unhappy with [facility] and prefers not to go back there. Clinical course: it appears she initially appeared to be improving but in last 2 days has had increasing shortness of breath. She was desating to the low 80s at time of my visit. is aware and also pulm on board. I obtained a CXR and will review if this is persistent pneumonia or fluid overload related. Patient able to talk to me in complete sentences but when she would forget to take a deep breath her sats would drop. PAST MEDICAL HISTORY: Significant for CAD, COPD, chronic pain, depression, diabetes mellitus, fibromyalgia, GERD, hypertension. PAST SURGICAL HISTORY: Previous tubal ligation, previous hysterectomy. Review of Systems All other systems reviewed negative except as stated in HPI PMFSH - History History Provided By: Medical Record - Medical History Medical History: Medical History (Last Reviewed 03/28/18 @ 08:23 by Sharan Amaral) CAD (coronary artery disease) COPD (chronic obstructive pulmonary disease) Chronic pain Chronically on opiate therapy Depression Diabetes Diabetes Fibromyalgia GERD (gastroesophageal reflux disease) H/O: hysterectomy HTN (hypertension) Heart attack Hemorrhoids Pilonidal cyst Raynauds phenomenon Sjogrens syndrome Tubal ligation status - Surgical History Surgical History: Surgical History (Last Reviewed 03/28/18 @ 08:23 by Sharan Amaral) H/O heart artery stent - Family History Family History: Family History (Last Reviewed 03/28/18 @ 08:23 by Sharan Amaral) Mother Family history of diabetes mellitus Lung cancer - Tobacco History Second Hand Smoke Exposure: No (PATIENT NON-AROUSABLE EJ) Smoking Status: Unknown if ever smoked Tobacco Type: Cigarettes Packs Per Day: 3 Years Smoked: 40 Smoking End Date: 2013 - Alcohol History How Often Do You Have a Drink Containing Alcohol: Unable to Obtain - Substance Use History Substance History: No History of Abuse - Travel History Recent Travel in the [place] Within the Last 8 Weeks: No Recent Travel Out of the Country Within the Last 8 Weeks: No - Immunization History Tetanus Immunization: Unsure Hx Influenza Vaccine This Season: Unable to Assess Medications and Allergies Active Medications: Active Medications Acetaminophen (Tylenol) 650 mg PO Q4H PRN PRN Reason: FEVER Last Admin: 03/29/18 21:57 Dose: 650 mg Hydrocodone Bitart/Acetaminophen ([place] 5/325) 1 tab PO Q6H PRN PRN Reason: pain 4-10 Last Admin: 04/01/18 12:48 Dose: 1 tab Al Hydroxide/Mg Hydroxide (Milk Of Magnvance Liq) 30 ml PO Q12H PRN PRN Reason: Mild Constipation Albuterol (Duoneb Neb (Prn)) 1 ampul NEB Q2HR NEB PRN PRN Reason: SHORTNESS OF BREATH Last Admin: 04/01/18 09:07 Dose: 1 ampul Aspirin (Aspirin Chew) 81 mg PO DAILY [facility] Last Admin: 04/01/18 09:52 Dose: 81 mg Bisacodyl (Dulcolax Supp) 10 mg RECTAL DAILY PRN PRN Reason: SEVERE CONSITIPATION Bupropion HCl (Wellbutrin Sr) 150 mg PO DAILY [facility] Last Admin: 04/01/18 09:47 Dose: 150 mg Clopidogrel Bisulfate (Plavix) 75 mg PO DAILY [facility] Last Admin: 04/01/18 12:09 Dose: 75 mg Dextrose (D50w Vial) 50 ml IV.PUSH UNSCH PRN PRN Reason: PER HYPOGLYCEMIA PROTOCOL Diltiazem HCl (Cardizem) 60 mg PO QID [facility] Last Admin: 04/01/18 12:09 Dose: 60 mg Famotidine (Pepcid Pf Inj) 20 mg IV.PUSH Q12HR [facility] Last Admin: 04/01/18 09:52 Dose: 20 mg Fluoxetine HCl (Prozac) 40 mg PO DAILY [facility] Last Admin: 04/01/18 09:52 Dose: 40 mg Fluticasone Propionate (Flonase Nasal [place]) 2 spray NASAL DAILY [facility] Last Admin: 04/01/18 09:46 Dose: 2 spray Glucagon (Glucagon Inj) 1 mg OTHER PRN PRN PRN Reason: for Hypoglycemia Protocol Heparin Sodium (Porcine) (Heparin Inj) 5,000 units SQ Q12H [facility] Last Admin: 04/01/18 09:53 Dose: 5,000 units Sodium Phosphate 30 mmol/ (Sodium Chloride) 260 mls @ 42 mls/hr IV.SIG UNSCH PRN PRN Reason: For Phosphorus < 2.5 mg/dL Last Infusion: 03/25/18 16:02 Dose: Infused Aztreonam 1,000 mg/ Sodium (Chloride) 100 mls @ 200 mls/hr IV.SIG Q8H [facility] Last Infusion: 04/01/18 12:50 Dose: Infused Insulin Aspart (Novolog Insulin [place] Sugar Inj) 0 unit SQ Q4HR [facility]; Protocol Last Admin: 04/01/18 12:10 Dose: 1 unit Lactulose (Lactulose Liq) 30 ml PO DAILY PRN PRN Reason: SEVERE CONSITIPATION Lisinopril (Prinivil) 10 mg PO DAILY [facility] Last Admin: 04/01/18 09:49 Dose: 10 mg Lorazepam (Ativan) 0.5 mg PO Q4H PRN PRN Reason: ANXIETY Last Admin: 04/01/18 09:46 Dose: 0.5 mg Pregabalin (Lyrica) 300 mg PO BID [facility] Last Admin: 04/01/18 09:50 Dose: 300 mg Risperidone (Risperdal) 0.5 mg PO DAILY [facility] Last Admin: 04/01/18 09:49 Dose: 0.5 mg Ropinirole HCl (Requip) 0.25 mg PO HS [facility] Last Admin: 03/31/18 21:59 Dose: 0.25 mg Senna/Docusate Sodium ([place]-Colace) 1 tab PO BID [facility] Last Admin: 04/01/18 09:49 Dose: 1 tab Sennosides (Senokot) 17.2 mg PO Q12H PRN PRN Reason: Moderate Constipation Sodium Chloride (Ns Flush) 2 ml IV.FLUSH BID [facility] Last Admin: 04/01/18 09:54 Dose: 2 ml Sodium Chloride (Ns Flush) 2 ml IV.FLUSH PRN PRN PRN Reason: FLUSH AFTER USING IV ACCESS Tiotropium [place] (Spiriva 18 Mcg Inh) 18 mcg INH DAILY [facility] Last Admin: 04/01/18 09:48 Dose: 18 mcg Allergies Allergy/AdvReac Type Severity Reaction Status Date / Time budesonide [From Pulmicort] Allergy Hives Verified 02/01/18 09:53 duloxetine [From Cymbalta] Allergy Hives Verified 02/01/18 09:53 gabapentin [From Neurontin] Allergy Hives Verified 02/01/18 09:53 nickel Allergy Hives Verified 02/01/18 09:53 Penicillins Allergy Hives Verified 02/01/18 09:53 prednisone Allergy Hives Verified 02/01/18 06:49 sulfacetamide Allergy Hives Verified 02/01/18 09:53 [From Sulfacet-R] sulfur [From Sulfacet-R] Allergy Hives Verified 02/01/18 09:53 Home Medications Medication Instructions Recorded Confirmed Type aspirin 81 mg PO DAILY 02/01/18 03/24/18 History baclofen 10 mg PO HS 02/01/18 03/24/18 History bupropion HCl [Wellbutrin SR] 150 mg PO DAILY 02/01/18 03/24/18 History clopidogrel [Plavix] 75 mg PO DAILY 02/01/18 03/24/18 History fluoxetine [Prozac] 40 mg PO DAILY 02/01/18 03/24/18 History fluticasone 2 spray INTRANASAL DAILY 02/01/18 03/24/18 History glimepiride 1 mg PO QAM 02/01/18 03/24/18 History insulin aspart U-100 [Novolog 1 unit SUB-Q ACHS 02/01/18 03/24/18 History U-100 Insulin aspart] ipratropium-albuterol 3 ml INHALATION Q6-8H PRN 02/01/18 03/24/18 History lidocaine [Lidocaine Pain Relief] 1 patch TOPICAL Q8H 02/01/18 03/24/18 History lisinopril 10 mg PO DAILY 02/01/18 03/24/18 History melatonin 6 mg PO HS PRN 02/01/18 03/24/18 History ondansetron [Zofran ODT] 4 mg PO Q6-8H PRN 02/01/18 03/24/18 History pantoprazole [Protonix] 40 mg PO BID 02/01/18 03/24/18 History pregabalin 300 mg PO BID 02/01/18 03/24/18 History risperidone [Risperdal] 0.5 mg PO DAILY 02/01/18 03/24/18 History ropinirole [Requip] 0.25 mg PO HS 02/01/18 03/24/18 History tiotropium bromide 1 cap INHALATION DAILY 02/01/18 03/24/18 History fexofenadine [Adalgisa Allergy] 60 mg PO DAILY 02/03/18 03/24/18 History Exam Vital signs: Vital Signs 03/31/18 13:58 03/31/18 15:54 03/31/18 16:00 Temperature 98.1 F Pulse Rate 77 94 H 92 H Respiratory Rate 18 16 Blood Pressure 147/63 H Pulse Oximetry 99 03/31/18 17:00 03/31/18 18:00 03/31/18 19:00 Temperature Pulse Rate 98 H 100 H 94 H Respiratory Rate Blood Pressure Pulse Oximetry 03/31/18 19:30 03/31/18 20:00 03/31/18 21:00 Temperature 98.9 F Pulse Rate 104 H 103 H 102 H Respiratory Rate 20 18 Blood Pressure 158/63 H Pulse Oximetry 94 L 93 L 03/31/18 22:00 03/31/18 23:00 04/01/18 00:00 Temperature 98.8 F Pulse Rate 106 H 98 H 96 H Respiratory Rate 16 Blood Pressure 154/66 H Pulse Oximetry 97 04/01/18 01:00 04/01/18 01:05 04/01/18 02:00 Temperature Pulse Rate 92 H 86 Respiratory Rate 16 Blood Pressure Pulse Oximetry 04/01/18 03:00 04/01/18 04:00 04/01/18 05:00 Temperature 98.7 F Pulse Rate 83 83 79 Respiratory Rate 16 Blood Pressure 147/59 H Pulse Oximetry 99 04/01/18 06:00 04/01/18 08:00 04/01/18 09:08 Temperature 98.1 F Pulse Rate 88 80 81 Respiratory Rate 18 14 Blood Pressure 147/61 H Pulse Oximetry 97 94 L 04/01/18 12:00 Temperature 97.8 F Pulse Rate 88 Respiratory Rate 18 Blood Pressure 141/57 H Pulse Oximetry Intake & Output 03/31/18 04/01/18 04/01/18 18:59 06:59 18:59 Intake Total 1220 / 1220 340 / 340 100 / 100 Output Total 1200 / 1200 1400 / 1400 Balance 20 / 20 -1060 / -1060 100 / 100 Weight 102.5 kg Intake: IV 200 / 200 100 / 100 100 / 100 Azactam Inj 1,000 MG In NS Inj 200 / 200 100 / 100 100 / 100 100 ML @ 200 mls/hr IV.SIG Q8H BEBETO Rx#:[id number] Oral 1020 / 1020 240 / 240 Output: Urine 1200 / 1200 1400 / 1400 Other: Date of Last Bowel Movement 03/31/18 # Bowel Movements 0 Narrative: GENERAL: Obese, well-developed, not in distress. SKIN: Cool and dry, no generalized rash HEAD: Atraumatic. Normocephalic. No temporal or scalp tenderness. EYES: Pupils equal round and reactive. Scleral icterus. No injection or drainage. No petechia ENT: Nothing abnormal detected NECK: Trachea midline. Supple, nontender, no meningeal signs. CARDIOVASCULAR: HS audible. RESPIRATORY: Decreased AE bilaterally in bases. GASTROINTESTINAL: Abdomen soft nontender. MUSCULOSKELETAL: Extremities without clubbing, cyanosis. NEUROLOGICAL: Alert oriented 3. Nonfocal. Psych cooperative IV line sites ok. Results - Labs CBC & Chem 7: 04/01/18 14:51 03/27/18 06:36 Labs: Laboratory Results - last 24 hr 03/31/18 03/31/18 04/01/18 16:28 20:11 00:15 POC Glucose 148 H 136 H 157 H Urine Color Urine Clarity Urine pH Ur Specific [place] Urine Protein Urine Glucose (UA) Urine Ketones Urine Occult Blood Urine Nitrate Urine Bilirubin Urine Urobilinogen Ur Leukocyte Esterase Urine RBC Urine WBC Urine Bacteria Micro UA Comment Ur Microscopic Review Urine Culture Comments 04/01/18 04/01/18 04/01/18 04:29 08:02 11:30 POC Glucose 140 H 146 H Urine Color Yellow Urine Clarity Clear Urine pH 5.0 Ur Specific [place] 1.010 Urine Protein Negative Urine Glucose (UA) Negative Urine Ketones Negative Urine Occult Blood Negative Urine Nitrate Negative Urine Bilirubin Negative Urine Urobilinogen Less than 2 Ur Leukocyte Esterase Small H Urine RBC 1 Urine WBC 10 H Urine Bacteria Rare H Micro UA Comment Cath-culture ind Ur Microscopic Review Not Reportable Urine Culture Comments Cath-cult indicated 04/01/18 11:44 POC Glucose 157 H Urine Color Urine Clarity Urine pH Ur Specific [place] Urine Protein Urine Glucose (UA) Urine Ketones Urine Occult Blood Urine Nitrate Urine Bilirubin Urine Urobilinogen Ur Leukocyte Esterase Urine RBC Urine WBC Urine Bacteria Micro UA Comment Ur Microscopic Review Urine Culture Comments - Imaging Impressions Abdomen/Bladder Ultrasound 03/31/18 00:00 CONCLUSION: 1. Unremarkable kidneys. 2. The spleen appears mildly prominent and measures up to 13.6 cm. Assessment and Plan - Plan Possible MDR Gram negative UTI Possible Pneumonia vs component pulm edema. COPD exacerbation CAD Morbid obesity Sleep apnea Recs: CXR to help explain pneumonia vs pulm edema. Start Meropenem IV (covers PNA and MDR UTI given patients allergy to penicillin. Not a candidate for desensitization at present time due to resp status will reassess later if need be) Start Zyvox IV (for possible HCAP) Check Procalcitonin dw RN to get repeat UA after removing external urinary collection device, cleaning and straight cath. Follow cultures Follow clinical course. Reviewed CXR, and UA results to decide on plan. alberto RN dw Patient Dw .
--- NOTE | 2018-04-01 14:11 | XR ---
EXAM DATE: 04/01/2018 1:58 PM EDT AGE/SEX: 62 years / Female INDICATIONS: Evaluate for pneumonia. CLINICAL DATA: This is the patient's subsequent encounter. Patient reports that signs and symptoms h ave been present for 3 days and indicates a pain score of 0/10. MEDICAL/SURGICAL HISTORY: . Congestive heart failure. Chronic obstructive pulmonary disease. Hy pertension. Coronary artery disease. . Cardiac stent. COMPARISON: [facility] [place] [place], CHEST 1V SINGLE AP, 03/24/2018. . FINDINGS: Patchy airspace disease has developed throughout both lungs. There is haziness along the costophrenic sulci suggesting bilateral effusions. Endotracheal and nasogastric tubes have been removed. There are bronchograms are seen in the left lung base. CONCLUSION: Bilateral airspace disease characteristic of pneumonitis. Suspect a small bilateral effusions. Status post extubation. Electronically signed by: Mahendra Lopez MD 04/01/2018 2:10 PM EDT
--- NOTE | 2018-04-01 14:27 | P.PN ---
Subjective Interval history: no complains states slept well good po Physical Exam Vital signs: Vital Signs 03/31/18 15:54 03/31/18 16:00 03/31/18 17:00 Temperature 98.1 F Pulse Rate 94 H 92 H 98 H Respiratory Rate 18 16 Blood Pressure 147/63 H Pulse Oximetry 99 03/31/18 18:00 03/31/18 19:00 03/31/18 19:30 Temperature Pulse Rate 100 H 94 H 104 H Respiratory Rate 20 Blood Pressure Pulse Oximetry 94 L 03/31/18 20:00 03/31/18 21:00 03/31/18 22:00 Temperature 98.9 F Pulse Rate 103 H 102 H 106 H Respiratory Rate 18 Blood Pressure 158/63 H Pulse Oximetry 93 L 03/31/18 23:00 04/01/18 00:00 04/01/18 01:00 Temperature 98.8 F Pulse Rate 98 H 96 H 92 H Respiratory Rate 16 Blood Pressure 154/66 H Pulse Oximetry 97 04/01/18 01:05 04/01/18 02:00 04/01/18 03:00 Temperature Pulse Rate 86 83 Respiratory Rate 16 Blood Pressure Pulse Oximetry 04/01/18 04:00 04/01/18 05:00 04/01/18 06:00 Temperature 98.7 F Pulse Rate 83 79 88 Respiratory Rate 16 Blood Pressure 147/59 H Pulse Oximetry 99 04/01/18 07:00 04/01/18 08:00 04/01/18 09:00 Temperature 98.1 F Pulse Rate 80 80 80 Respiratory Rate 18 Blood Pressure 147/61 H Pulse Oximetry 96 04/01/18 09:08 04/01/18 10:00 04/01/18 11:00 Temperature Pulse Rate 81 86 91 H Respiratory Rate 14 Blood Pressure Pulse Oximetry 94 L 04/01/18 12:00 04/01/18 13:00 04/01/18 14:00 Temperature 97.8 F Pulse Rate 84 90 82 Respiratory Rate 18 Blood Pressure 141/57 H Pulse Oximetry 95 Intake & Output 03/31/18 04/01/18 04/01/18 18:59 06:59 18:59 Intake Total 1220 / 1220 340 / 340 100 / 100 Output Total 1200 / 1200 1400 / 1400 Balance 20 / 20 -1060 / -1060 100 / 100 Weight 102.5 kg Intake: IV 200 / 200 100 / 100 100 / 100 Azactam Inj 1,000 MG In NS Inj 200 / 200 100 / 100 100 / 100 100 ML @ 200 mls/hr IV.SIG Q8H BEBETO Rx#:[id number] Oral 1020 / 1020 240 / 240 Output: Urine 1200 / 1200 1400 / 1400 Other: Date of Last Bowel Movement 03/31/18 03/28/18 # Bowel Movements 0 Narrative: awake and alert, no acute distress, interacitve anciteric neck supple lungs- no rales, no wheezes, decreased breath sounds regular rhythm abdomen soft, nontender extremeties- no edema moves all extremtiies spontaenously able to raise both legs up, no calf tenderenss gait testing deferred- per patient- basically wheelchair bound - Urinary Catheter Management Indwelling Urethral Catheter Cath placed during this visit: yes, but has since been removed by the nurse Reason for continuing: Not indwelling catheter Insertion date: 03/24/18 Insertion time: 05:48 Removal date: 03/25/18 Removal time: 18:50 Results - Labs CBC & Chem 7: 04/01/18 14:51 03/27/18 06:36 Laboratory Results - last 24 hr 03/31/18 03/31/18 04/01/18 16:28 20:11 00:15 POC Glucose 148 H 136 H 157 H Urine Color Urine Clarity Urine pH Ur Specific [place] Urine Protein Urine Glucose (UA) Urine Ketones Urine Occult Blood Urine Nitrate Urine Bilirubin Urine Urobilinogen Ur Leukocyte Esterase Urine RBC Urine WBC Urine Bacteria Micro UA Comment Ur Microscopic Review Urine Culture Comments 04/01/18 04/01/18 04/01/18 04:29 08:02 11:30 POC Glucose 140 H 146 H Urine Color Yellow Urine Clarity Clear Urine pH 5.0 Ur Specific [place] 1.010 Urine Protein Negative Urine Glucose (UA) Negative Urine Ketones Negative Urine Occult Blood Negative Urine Nitrate Negative Urine Bilirubin Negative Urine Urobilinogen Less than 2 Ur Leukocyte Esterase Small H Urine RBC 1 Urine WBC 10 H Urine Bacteria Rare H Micro UA Comment Cath-culture ind Ur Microscopic Review Not Reportable Urine Culture Comments Cath-cult indicated 04/01/18 11:44 POC Glucose 157 H Urine Color Urine Clarity Urine pH Ur Specific [place] Urine Protein Urine Glucose (UA) Urine Ketones Urine Occult Blood Urine Nitrate Urine Bilirubin Urine Urobilinogen Ur Leukocyte Esterase Urine RBC Urine WBC Urine Bacteria Micro UA Comment Ur Microscopic Review Urine Culture Comments Microbiology 03/29/18 16:45 Catheterized Urine Urine Culture - Final Escherichia coli Multidrug Resistant - Imaging Impressions Abdomen/Bladder Ultrasound 03/31/18 00:00 CONCLUSION: 1. Unremarkable kidneys. 2. The spleen appears mildly prominent and measures up to 13.6 cm. Chest X-Ray 04/01/18 00:00 CONCLUSION: Bilateral airspace disease characteristic of pneumonitis. Suspect a small bilateral effusions. Status post extubation. Assessment and Plan - Plan 62 YEARS OLD Acute on chronic hypercapnic and hypoxemic respiratory failure.- 02 dependent -Status post intubation and self extubation. -continue with oxygen as needed to keep O2 sat 88-92%. -BiPaP at hs -Chest x-ray suggest possible pulmonary edema. -on Spiriva -continue neb treatment. COPD- on 4L home oxygen -Continue with current treatment. Dr. Ricks ff Urinary tract infection.- with Persistent pyuria -repeat UA- straight cath speciemn 03/29 =now E coli MDR -previous Urine cultures with proteus.- reviewed- sensitivety resistant to Cirpo and bctrim - per patient hives with PCN - US-kidneys - unremarkqable - ID consulted for recommendation- started on Merpenem and Zyvox 04/01 Mild acute kidney injury.- improved -Strict ins and out. -Avoid nephrotoxins. Continue to monitor creatinine. Hyperglycemia with underlying history of diabetes mellitus. -Continue with insulin sliding scale. History of hypertension/Coronary artery disease/Obesity/Gastroesophageal reflux disease. -Continue current regimen.- on Plavix anemia- chronic - anemia of chronic disease - VS stable- - reche ck H and in am, iron studies GI prophylaxis with Pepcid DVT prophylaxis with SCDs and heparin subcutaneous. CM - DC planning- patient came from [facility]- does not want to go back there- bur idscuss with CM- she does not have a choice patient- udalexandertand this PT daily[facility]
[2018-04-01] MEDS ORDERED: ASP: Documented allergy to Penicillins or Cephalosporins OTHER PRN (14:59)
[2018-04-01 15:09] LABS: Hematocrit 23.1 % (35.0-46.0); Hemoglobin 7.5 gm/dL (11.6-15.3)
[2018-04-01] MEDS ORDERED: Meropenem Inj 500 MG in Sodium Chlor 0.9% Inj 100 ML IV.SIG SCH (16:00)
--- NOTE | 2018-04-01 17:46 | P.PNPL ---
Subjective Interval history: 62 YOWF with RF, s/p extubation, COPD alert, awake, feels tired no Fever No CP Used CPAP last night CXR bilat infilt Physical Exam Vital signs: Vital Signs 03/31/18 18:00 03/31/18 19:00 03/31/18 19:30 Temperature Pulse Rate 100 H 94 H 104 H Respiratory Rate 20 Blood Pressure Pulse Oximetry 94 L 03/31/18 20:00 03/31/18 21:00 03/31/18 22:00 Temperature 98.9 F Pulse Rate 103 H 102 H 106 H Respiratory Rate 18 Blood Pressure 158/63 H Pulse Oximetry 93 L 03/31/18 23:00 04/01/18 00:00 04/01/18 01:00 Temperature 98.8 F Pulse Rate 98 H 96 H 92 H Respiratory Rate 16 Blood Pressure 154/66 H Pulse Oximetry 97 04/01/18 01:05 04/01/18 02:00 04/01/18 03:00 Temperature Pulse Rate 86 83 Respiratory Rate 16 Blood Pressure Pulse Oximetry 04/01/18 04:00 04/01/18 05:00 04/01/18 06:00 Temperature 98.7 F Pulse Rate 83 79 88 Respiratory Rate 16 Blood Pressure 147/59 H Pulse Oximetry 99 04/01/18 07:00 04/01/18 08:00 04/01/18 09:00 Temperature 98.1 F Pulse Rate 80 80 80 Respiratory Rate 18 Blood Pressure 147/61 H Pulse Oximetry 96 04/01/18 09:08 04/01/18 10:00 04/01/18 11:00 Temperature Pulse Rate 81 86 91 H Respiratory Rate 14 Blood Pressure Pulse Oximetry 94 L 04/01/18 12:00 04/01/18 13:00 04/01/18 14:00 Temperature 97.8 F Pulse Rate 84 90 82 Respiratory Rate 18 Blood Pressure 141/57 H Pulse Oximetry 95 04/01/18 15:00 04/01/18 16:00 04/01/18 16:21 Temperature Pulse Rate 79 76 Respiratory Rate Blood Pressure Pulse Oximetry 97 04/01/18 16:26 04/01/18 17:00 04/01/18 17:26 Temperature 97.6 F Pulse Rate 77 74 Respiratory Rate 17 Blood Pressure 127/51 L Pulse Oximetry 99 Intake & Output 03/31/18 04/01/18 04/01/18 18:59 06:59 18:59 Intake Total 1220 / 1220 340 / 340 500 / 500 Output Total 1200 / 1200 1400 / 1400 Balance 20 / 20 -1060 / -1060 500 / 500 Weight 102.5 kg Intake: IV 200 / 200 100 / 100 500 / 500 Azactam Inj 1,000 MG In NS Inj 200 / 200 100 / 100 100 / 100 100 ML @ 200 mls/hr IV.SIG Q8H BEBETO Rx#:[id number] Zyvox 600 mg Premix 300 ML @ 300 / 300 300 mls/hr IV.SIG Q12H BEBETO Rx#: [id number] Merrem Inj 500 MG In NS Inj 100 100 / 100 ML @ 200 mls/hr IV.SIG Q8H BEBETO Rx#:[id number] Oral 1020 / 1020 240 / 240 Output: Urine 1200 / 1200 1400 / 1400 Other: Date of Last Bowel Movement 03/31/18 03/28/18 # Bowel Movements 0 GENERAL: elderly WF, mild sob SKIN: Warm and dry. HEAD: Normocephalic. EYES: No scleral icterus. No injection or drainage. NECK: Supple, trachea midline. No JVD or lymphadenopathy. CARDIOVASCULAR: Regular rate and rhythm without murmurs, gallops, or rubs. RESPIRATORY: Breath sounds equal bilaterally. No accessory muscle use. GASTROINTESTINAL: Abdomen soft, non-tender, nondistended. MUSCULOSKELETAL: No cyanosis, or edema. BACK: Nontender without obvious deformity. No CVA tenderness. - Urinary Catheter Management Indwelling Urethral Catheter Cath placed during this visit: yes, but has since been removed by the nurse Reason for continuing: Not indwelling catheter Insertion date: 03/24/18 Insertion time: 05:48 Removal date: 03/25/18 Removal time: 18:50 Assessment and Plan - Plan IMPRESSION: 1. Chronic obstructive pulmonary disease exacerbation. 2. Respiratory failure, status post extubation. 3. Chronic respiratory insufficiency, is maintained on 4 liters nasal cannula. 4. Hypertension. 5. Diabetes mellitus. 6. History of cerebrovascular accident. PLAN: Supplement 02 with NC Keep sat 88-92% Aerosol nebs Cont Abx SQ Heparin Plavix 75 mg daily. BIPAP10/5 at night and prn ID consulted
[2018-04-02] MEDS: Insulin NovoLOG Aspart Correctional Sugar Inj SQ SCH ×6 (00:36→20:42)
[2018-04-02 05:05] LABS: Baso % (Auto) 0.8 % (0.0-2.0); Eos # (Auto) 0.1 th/mm3 (0.0-0.4); Eos % (Auto) 3.7 % (0.0-4.0); Hemoglobin 8.1 gm/dL (11.6-15.3); Lymph # (Auto) 0.4 th/mm3 (1.0-4.8); Lymph % (Auto) 9.3 % (9.0-44.0); Mean Corpuscular HGB Conc 32.4 % (32.0-36.0); Mean Corpuscular Hemoglobin 29.7 pg (27.0-34.0); Mean Corpuscular Volume 91.7 fL (80.0-100.0); Mean Platelet Volume 8.6 fL (7.0-11.0); Mono # (Auto) 0.5 th/mm3 (0.0-0.9); Mono % (Auto) 12.5 % (0.0-8.0); Neut # (Auto) 2.8 th/mm3 (1.8-7.7); Neut % (Auto) 73.7 % (16.0-70.0); Platelet Count 193 th/mm3 (150-450); Red Blood Count 2.73 mil/mm3 (4.00-5.30); Red Cell Distribution Width 14.3 % (11.6-17.2); White Blood Count 3.8 th/mm3 (4.0-11.0)
[2018-04-02 05:40] LABS: % Iron Saturation 16.1 % (20-50)
[2018-04-02] MEDS: Tiotropium Bromide 18 MCG/ACT Inhaler INH SCH (09:02)
[2018-04-02] MEDS: Lisinopril 10 MG Tablet PO SCH (09:03)
[2018-04-02] MEDS: FLUoxetine 20 MG Capsule PO SCH (09:03)
[2018-04-02] MEDS: LORazepam 0.5 MG Tablet PO PRN ×2 (09:03→21:18)
[2018-04-02] MEDS: Senna/Docusate Sodium 8.6/50 MG Tablet PO SCH ×2 (09:05→20:43)
[2018-04-02] MEDS: buPROPion 150 MG 12 HR Tablet PO SCH (09:05)
[2018-04-02] MEDS: dilTIAZem 60 MG Tablet PO SCH ×4 (09:05→20:48)
[2018-04-02] MEDS: Famotidine PF Inj 20 MG/2 ML Vial IV.PUSH SCH ×2 (09:06→20:43)
[2018-04-02] MEDS: Heparin - SQ 10,000 UNITS/ML Vial SQ SCH ×2 (09:06→20:43)
--- NOTE | 2018-04-02 12:49 | P.PNID ---
Subjective Remarks: is a 52 y/o CF with PMHx of long standing COPD, possible Sleep apnea , morbid obesity, coronary artery disease, hypertension, diabetes mellitus, GERD. She presents to [facility] ED by EMS from [facility] with respiratory distress. Per EMS, the patient had O2 saturation in the 70s. She was intubated and placed on mechanical ventilation. Also, Diprivan was started for sedation. ABG post intubation showed acute hypercapnic respiratory acidosis. Patient was treated empirically for Pneumonia and also acute COPD exacerbation. UA was positive as well and patient was treated for possible UTI. A repeat UA was obtained as patient showed pyuria. Based on my conversation with RN it appears patient had an external catheter in place and the urine was collected from the external payne like device container. She reports some dysuria prior to hospitalization but this is a chronic issue. She reports being in diapers at [facility] and often not being cleaned for long periods of time. She is unhappy with [facility] and prefers not to go back there. Clinical course: it appears she initially appeared to be improving but in last 2 days has had increasing shortness of breath. She was desating to the low 80s at time of my visit. is aware and also pulm on board. I obtained a CXR and will review if this is persistent pneumonia or fluid overload related. Patient able to talk to me in complete sentences but when she would forget to take a deep breath her sats would drop. PAST MEDICAL HISTORY: Significant for CAD, COPD, chronic pain, depression, diabetes mellitus, fibromyalgia, GERD, hypertension. PAST SURGICAL HISTORY: Previous tubal ligation, previous hysterectomy. Overnight events reviewed No fevers No rash No diarrhea Was on BiPAP last night now on room air. Antibiotics: Meropenem IV Linezolid IV Lines: Lines ok Past Medical History: reviewed Allergies/Adverse Reactions: Allergies budesonide [From Pulmicort] Allergy (Verified 02/01/18 09:53) Hives duloxetine [From Cymbalta] Allergy (Verified 02/01/18 09:53) Hives gabapentin [From Neurontin] Allergy (Verified 02/01/18 09:53) Hives nickel Allergy (Verified 02/01/18 09:53) Hives Penicillins Allergy (Verified 02/01/18 09:53) Hives prednisone Allergy (Verified 02/01/18 06:49) Hives sulfacetamide [From Sulfacet-R] Allergy (Verified 02/01/18 09:53) Hives sulfur [From Sulfacet-R] Allergy (Verified 02/01/18 09:53) Hives Objective Vital Signs 04/01/18 13:00 04/01/18 14:00 04/01/18 15:00 Temperature Pulse Rate 90 82 79 Respiratory Rate Blood Pressure Pulse Oximetry 04/01/18 16:00 04/01/18 16:21 04/01/18 16:26 Temperature 97.6 F Pulse Rate 76 77 Respiratory Rate 17 Blood Pressure 127/51 L Pulse Oximetry 97 04/01/18 17:00 04/01/18 17:26 04/01/18 18:42 Temperature Pulse Rate 74 74 Respiratory Rate Blood Pressure Pulse Oximetry 99 04/01/18 19:00 04/01/18 20:00 04/01/18 21:00 Temperature 98.5 F Pulse Rate 72 76 90 Respiratory Rate 16 Blood Pressure 149/64 H Pulse Oximetry 98 04/01/18 22:00 04/01/18 23:00 04/01/18 23:38 Temperature Pulse Rate 78 75 Respiratory Rate Blood Pressure Pulse Oximetry 96 04/02/18 00:00 04/02/18 01:00 04/02/18 02:00 Temperature 97.6 F Pulse Rate 86 80 80 Respiratory Rate 16 Blood Pressure 152/64 H Pulse Oximetry 99 04/02/18 03:00 04/02/18 03:11 04/02/18 04:00 Temperature 97.6 F Pulse Rate 73 73 Respiratory Rate 14 Blood Pressure 126/55 L Pulse Oximetry 98 99 04/02/18 05:00 04/02/18 05:30 04/02/18 06:00 Temperature Pulse Rate 83 81 Respiratory Rate Blood Pressure 175/76 H 154/70 H Pulse Oximetry 04/02/18 07:00 04/02/18 08:00 04/02/18 09:29 Temperature 97.7 F Pulse Rate 86 97 H 90 Respiratory Rate 16 Blood Pressure 140/64 Pulse Oximetry 92 L 04/02/18 09:43 04/02/18 10:11 04/02/18 11:00 Temperature Pulse Rate 98 H 96 H 98 H Respiratory Rate Blood Pressure Pulse Oximetry 04/02/18 11:20 04/02/18 11:34 04/02/18 11:53 Temperature 98.7 F Pulse Rate 92 H 93 H Respiratory Rate Blood Pressure 142/55 H Pulse Oximetry 98 98 04/02/18 11:59 Temperature 98.7 F Pulse Rate 92 H Respiratory Rate 20 Blood Pressure 142/55 H Pulse Oximetry 98 Intake & Output 04/01/18 04/02/18 04/02/18 18:59 06:59 18:59 Intake Total 1080 / 1080 440 / 440 500 / 500 Output Total 1200 / 1200 900 / 900 Balance -120 / -120 -460 / -460 500 / 500 Weight 103 kg Intake: IV 600 / 600 200 / 200 500 / 500 Azactam Inj 1,000 MG In NS Inj 200 / 200 100 / 100 100 / 100 100 ML @ 200 mls/hr IV.SIG Q8H BEBETO Rx#:[id number] Zyvox 600 mg Premix 300 ML @ 300 / 300 300 / 300 300 mls/hr IV.SIG Q12H BEBETO Rx#: [id number] Merrem Inj 500 MG In NS Inj 100 100 / 100 100 / 100 100 / 100 ML @ 200 mls/hr IV.SIG Q8H BEBETO Rx#:[id number] Oral 480 / 480 240 / 240 Output: Urine 1200 / 1200 900 / 900 Other: Date of Last Bowel Movement 03/28/18 # Bowel Movements 0 04/01/18 11:30 Catheterized Urine Urine Culture - Preliminary Group D Enterococcus 03/29/18 16:45 Catheterized Urine Urine Culture - Final Escherichia coli Multidrug Resistant Lab - Hematology Results 04/01/18 04/02/18 14:51 04:49 WBC 3.8 L RBC 2.73 L Hgb 7.5 L 8.1 L Hct 23.1 L 25.0 L MCV 91.7 MCH 29.7 MCHC 32.4 RDW 14.3 Plt Count 193 D MPV 8.6 Neut % (Auto) 73.7 H Lymph % (Auto) 9.3 [place] % (Auto) 12.5 H Eos % (Auto) 3.7 Baso % (Auto) 0.8 Neut # (Auto) 2.8 Lymph # (Auto) 0.4 L [place] # (Auto) 0.5 Eos # (Auto) 0.1 Baso # (Auto) 0.0 WBC Differential . Differential Comment Auto diff final Lab - Chemistry Results 03/31/18 03/31/18 04/01/18 16:28 20:11 00:15 POC Glucose 148 H 136 H 157 H Iron TIBC % Saturation Ferritin Procalcitonin 04/01/18 04/01/18 04/01/18 04:29 08:02 11:44 POC Glucose 140 H 146 H 157 H Iron TIBC % Saturation Ferritin Procalcitonin 04/01/18 04/01/18 04/01/18 16:20 16:21 20:41 POC Glucose 164 H 170 H Iron TIBC % Saturation Ferritin Procalcitonin 0.16 H 04/02/18 04/02/18 04/02/18 00:33 04:12 04:49 POC Glucose 164 H 126 H Iron 34 L TIBC 211 L % Saturation 16.1 L Ferritin 112 Procalcitonin 04/02/18 04/02/18 07:58 11:07 POC Glucose 161 H 114 H Iron TIBC % Saturation Ferritin Procalcitonin Imaging: ITS Impressions Abdomen/Bladder Ultrasound 03/31/18 00:00 CONCLUSION: 1. Unremarkable kidneys. 2. The spleen appears mildly prominent and measures up to 13.6 cm. Chest X-Ray 04/01/18 00:00 CONCLUSION: Bilateral airspace disease characteristic of pneumonitis. Suspect a small bilateral effusions. Status post extubation. Physical Exam: GENERAL: Obese, well-developed, not in distress. SKIN: Cool and dry, no generalized rash HEAD: Atraumatic. Normocephalic. No temporal or scalp tenderness. EYES: Pupils equal round and reactive. Scleral icterus. No injection or drainage. No petechia ENT: Nothing abnormal detected NECK: Trachea midline. Supple, nontender, no meningeal signs. CARDIOVASCULAR: HS audible. RESPIRATORY: Decreased AE bilaterally in bases. GASTROINTESTINAL: Abdomen soft nontender. MUSCULOSKELETAL: Extremities without clubbing, cyanosis. NEUROLOGICAL: Alert oriented 3. Nonfocal. Psych cooperative IV line sites ok. Assessment and Plan - Plan Possible MDR Gram negative UTI Possible Pneumonia vs component pulm edema. COPD exacerbation CAD Morbid obesity Sleep apnea Recs: Continue Meropenem IV (covers PNA and MDR UTI given patients allergy to penicillin. Not a candidate for desensitization at present time due to resp status will reassess later if need be) Continue Zyvox IV (for possible HCAP) Elevated procalcitonin will treat as infection. Follow clinical course. alberto dominguez Patient
--- NOTE | 2018-04-02 15:04 | P.PNPL ---
Subjective Interval history: 62 YOWF with RF, s/p extubation, COPD alert, awake, feels tired no Fever No CP Used CPAP last night No new complaint Physical Exam Vital signs: Vital Signs 04/01/18 16:00 04/01/18 16:21 04/01/18 16:26 Temperature 97.6 F Pulse Rate 76 77 Respiratory Rate 17 Blood Pressure 127/51 L Pulse Oximetry 97 04/01/18 17:00 04/01/18 17:26 04/01/18 18:42 Temperature Pulse Rate 74 74 Respiratory Rate Blood Pressure Pulse Oximetry 99 04/01/18 19:00 04/01/18 20:00 04/01/18 21:00 Temperature 98.5 F Pulse Rate 72 76 90 Respiratory Rate 16 Blood Pressure 149/64 H Pulse Oximetry 98 04/01/18 22:00 04/01/18 23:00 04/01/18 23:38 Temperature Pulse Rate 78 75 Respiratory Rate Blood Pressure Pulse Oximetry 96 04/02/18 00:00 04/02/18 01:00 04/02/18 02:00 Temperature 97.6 F Pulse Rate 86 80 80 Respiratory Rate 16 Blood Pressure 152/64 H Pulse Oximetry 99 04/02/18 03:00 04/02/18 03:11 04/02/18 04:00 Temperature 97.6 F Pulse Rate 73 73 Respiratory Rate 14 Blood Pressure 126/55 L Pulse Oximetry 98 99 04/02/18 05:00 04/02/18 05:30 04/02/18 06:00 Temperature Pulse Rate 83 81 Respiratory Rate Blood Pressure 175/76 H 154/70 H Pulse Oximetry 04/02/18 07:00 04/02/18 08:00 04/02/18 09:29 Temperature 97.7 F Pulse Rate 86 97 H 90 Respiratory Rate 16 Blood Pressure 140/64 Pulse Oximetry 92 L 04/02/18 09:43 04/02/18 10:11 04/02/18 11:00 Temperature Pulse Rate 98 H 96 H 98 H Respiratory Rate Blood Pressure Pulse Oximetry 04/02/18 11:20 04/02/18 11:34 04/02/18 11:53 Temperature 98.7 F Pulse Rate 92 H 93 H Respiratory Rate Blood Pressure 142/55 H Pulse Oximetry 98 98 04/02/18 11:59 04/02/18 13:00 04/02/18 14:00 Temperature 98.7 F Pulse Rate 92 H 96 H 90 Respiratory Rate 20 Blood Pressure 142/55 H Pulse Oximetry 98 04/02/18 14:41 Temperature Pulse Rate 98 H Respiratory Rate Blood Pressure Pulse Oximetry Intake & Output 04/01/18 04/02/18 04/02/18 18:59 06:59 18:59 Intake Total 1080 / 1080 440 / 440 500 / 500 Output Total 1200 / 1200 900 / 900 Balance -120 / -120 -460 / -460 500 / 500 Weight 103 kg Intake: IV 600 / 600 200 / 200 500 / 500 Azactam Inj 1,000 MG In NS Inj 200 / 200 100 / 100 100 / 100 100 ML @ 200 mls/hr IV.SIG Q8H BEBETO Rx#:[id number] Zyvox 600 mg Premix 300 ML @ 300 / 300 300 / 300 300 mls/hr IV.SIG Q12H BEBETO Rx#: [id number] Merrem Inj 500 MG In NS Inj 100 100 / 100 100 / 100 100 / 100 ML @ 200 mls/hr IV.SIG Q8H BEBETO Rx#:[id number] Oral 480 / 480 240 / 240 Output: Urine 1200 / 1200 900 / 900 Other: Date of Last Bowel Movement 03/28/18 # Bowel Movements 0 GENERAL: elderly WF, NAD SKIN: Warm and dry. HEAD: Normocephalic. EYES: No scleral icterus. No injection or drainage. NECK: Supple, trachea midline. No JVD or lymphadenopathy. CARDIOVASCULAR: Regular rate and rhythm without murmurs, gallops, or rubs. RESPIRATORY: Breath sounds equal bilaterally. No accessory muscle use. GASTROINTESTINAL: Abdomen soft, non-tender, nondistended. MUSCULOSKELETAL: No cyanosis, or edema. BACK: Nontender without obvious deformity. No CVA tenderness. - Urinary Catheter Management Indwelling Urethral Catheter Cath placed during this visit: yes, but has since been removed by the nurse Reason for continuing: Not indwelling catheter Insertion date: 03/24/18 Insertion time: 05:48 Removal date: 03/25/18 Removal time: 18:50 Assessment and Plan - Plan IMPRESSION: 1. Chronic obstructive pulmonary disease exacerbation. 2. Respiratory failure, status post extubation. 3. Chronic respiratory insufficiency, is maintained on 4 liters nasal cannula. 4. Hypertension. 5. Diabetes mellitus. 6. History of cerebrovascular accident. PLAN: Supplement 02 with [place] Keep sat 88-92% Aerosol nebs Cont Abx SQ Heparin Plavix 75 mg daily. BIPAP10/5 at night and prn
--- NOTE | 2018-04-02 17:40 | P.PN ---
Subjective Interval history: Follow up for hypercapnic respiratory failure, UTI with MDR organism. Patient is currently doing well. She reports no fever, chills. She does report some persistent dysuria. Physical Exam Vital signs: Vital Signs 04/01/18 18:42 04/01/18 19:00 04/01/18 20:00 Temperature 98.5 F Pulse Rate 74 72 76 Respiratory Rate 16 Blood Pressure 149/64 H Pulse Oximetry 98 04/01/18 21:00 04/01/18 22:00 04/01/18 23:00 Temperature Pulse Rate 90 78 75 Respiratory Rate Blood Pressure Pulse Oximetry 04/01/18 23:38 04/02/18 00:00 04/02/18 01:00 Temperature 97.6 F Pulse Rate 86 80 Respiratory Rate 16 Blood Pressure 152/64 H Pulse Oximetry 96 99 04/02/18 02:00 04/02/18 03:00 04/02/18 03:11 Temperature Pulse Rate 80 73 Respiratory Rate Blood Pressure Pulse Oximetry 98 04/02/18 04:00 04/02/18 05:00 04/02/18 05:30 Temperature 97.6 F Pulse Rate 73 83 Respiratory Rate 14 Blood Pressure 126/55 L 175/76 H 154/70 H Pulse Oximetry 99 04/02/18 06:00 04/02/18 07:00 04/02/18 08:00 Temperature 97.7 F Pulse Rate 81 86 97 H Respiratory Rate 16 Blood Pressure 140/64 Pulse Oximetry 92 L 04/02/18 09:29 04/02/18 09:43 04/02/18 10:11 Temperature Pulse Rate 90 98 H 96 H Respiratory Rate Blood Pressure Pulse Oximetry 04/02/18 11:00 04/02/18 11:20 04/02/18 11:34 Temperature 98.7 F Pulse Rate 98 H 92 H Respiratory Rate Blood Pressure 142/55 H Pulse Oximetry 98 98 04/02/18 11:53 04/02/18 11:59 04/02/18 13:00 Temperature 98.7 F Pulse Rate 93 H 92 H 96 H Respiratory Rate 20 Blood Pressure 142/55 H Pulse Oximetry 98 04/02/18 14:00 04/02/18 14:41 04/02/18 16:00 Temperature 98.2 F Pulse Rate 90 98 H 79 Respiratory Rate 16 Blood Pressure 135/56 L Pulse Oximetry 97 04/02/18 17:00 04/02/18 17:07 04/02/18 17:18 Temperature Pulse Rate 75 80 Respiratory Rate Blood Pressure Pulse Oximetry 97 Intake & Output 04/01/18 04/02/18 04/02/18 18:59 06:59 18:59 Intake Total 1080 / 1080 440 / 440 1320 / 1320 Output Total 1200 / 1200 900 / 900 1300 / 1300 Balance -120 / -120 -460 / -460 20 / 20 Weight 103 kg Intake: IV 600 / 600 200 / 200 600 / 600 Azactam Inj 1,000 MG In NS Inj 200 / 200 100 / 100 100 / 100 100 ML @ 200 mls/hr IV.SIG Q8H BEBETO Rx#:[id number] Zyvox 600 mg Premix 300 ML @ 300 / 300 300 / 300 300 mls/hr IV.SIG Q12H BEBETO Rx#: [id number] Merrem Inj 500 MG In NS Inj 100 100 / 100 100 / 100 200 / 200 ML @ 200 mls/hr IV.SIG Q8H BEBETO Rx#:[id number] Oral 480 / 480 240 / 240 720 / 720 Output: Urine 1200 / 1200 900 / 900 1300 / 1300 Other: Date of Last Bowel Movement 03/28/18 # Bowel Movements 0 Narrative: awake and alert, no acute distress, interacitve anciteric neck supple lungs- no rales, no wheezes, decreased breath sounds regular rhythm abdomen soft, nontender extremeties- no edema moves all extremtiies spontaenously able to raise both legs up, no calf tenderenss gait testing deferred- per patient- basically wheelchair bound - Urinary Catheter Management Indwelling Urethral Catheter Cath placed during this visit: yes, but has since been removed by the nurse Reason for continuing: Not indwelling catheter Insertion date: 03/24/18 Insertion time: 05:48 Removal date: 03/25/18 Removal time: 18:50 Results - Labs CBC & Chem 7: 04/02/18 04:49 03/27/18 06:36 Laboratory Results - last 24 hr 04/01/18 04/01/18 04/01/18 11:30 16:21 20:41 WBC RBC Hgb Hct MCV MCH MCHC RDW Plt Count MPV Neut % (Auto) Lymph % (Auto) [place] % (Auto) Eos % (Auto) Baso % (Auto) Neut # (Auto) Lymph # (Auto) [place] # (Auto) Eos # (Auto) Baso # (Auto) WBC Differential Differential Comment POC Glucose 170 H Iron TIBC % Saturation Ferritin Procalcitonin 0.16 H Urine Color Yellow Urine Clarity Clear Urine pH 5.0 Ur Specific [place] 1.010 Urine Protein Negative Urine Glucose (UA) Negative Urine Ketones Negative Urine Occult Blood Negative Urine Nitrate Negative Urine Bilirubin Negative Urine Urobilinogen Less than 2 Ur Leukocyte Esterase Small H Urine RBC 1 Urine WBC 10 H Urine Bacteria Rare H Micro UA Comment Cath-culture ind Urine Culture Comments Cath-cult indicated 04/02/18 04/02/18 04/02/18 00:33 04:12 04:49 WBC RBC Hgb Hct MCV MCH MCHC RDW Plt Count MPV Neut % (Auto) Lymph % (Auto) [place] % (Auto) Eos % (Auto) Baso % (Auto) Neut # (Auto) Lymph # (Auto) [place] # (Auto) Eos # (Auto) Baso # (Auto) WBC Differential Differential Comment POC Glucose 164 H 126 H Iron 34 L TIBC 211 L % Saturation 16.1 L Ferritin 112 Procalcitonin Urine Color Urine Clarity Urine pH Ur Specific [place] Urine Protein Urine Glucose (UA) Urine Ketones Urine Occult Blood Urine Nitrate Urine Bilirubin Urine Urobilinogen Ur Leukocyte Esterase Urine RBC Urine WBC Urine Bacteria Micro UA Comment Urine Culture Comments 04/02/18 04/02/18 04/02/18 04:49 07:58 11:07 WBC 3.8 L RBC 2.73 L Hgb 8.1 L Hct 25.0 L MCV 91.7 MCH 29.7 MCHC 32.4 RDW 14.3 Plt Count 193 D MPV 8.6 Neut % (Auto) 73.7 H Lymph % (Auto) 9.3 [place] % (Auto) 12.5 H Eos % (Auto) 3.7 Baso % (Auto) 0.8 Neut # (Auto) 2.8 Lymph # (Auto) 0.4 L [place] # (Auto) 0.5 Eos # (Auto) 0.1 Baso # (Auto) 0.0 WBC Differential . Differential Comment Auto diff final POC Glucose 161 H 114 H Iron TIBC % Saturation Ferritin Procalcitonin Urine Color Urine Clarity Urine pH Ur Specific [place] Urine Protein Urine Glucose (UA) Urine Ketones Urine Occult Blood Urine Nitrate Urine Bilirubin Urine Urobilinogen Ur Leukocyte Esterase Urine RBC Urine WBC Urine Bacteria Micro UA Comment Urine Culture Comments 04/02/18 15:17 WBC RBC Hgb Hct MCV MCH MCHC RDW Plt Count MPV Neut % (Auto) Lymph % (Auto) [place] % (Auto) Eos % (Auto) Baso % (Auto) Neut # (Auto) Lymph # (Auto) [place] # (Auto) Eos # (Auto) Baso # (Auto) WBC Differential Differential Comment POC Glucose 116 H Iron TIBC % Saturation Ferritin Procalcitonin Urine Color Urine Clarity Urine pH Ur Specific [place] Urine Protein Urine Glucose (UA) Urine Ketones Urine Occult Blood Urine Nitrate Urine Bilirubin Urine Urobilinogen Ur Leukocyte Esterase Urine RBC Urine WBC Urine Bacteria Micro UA Comment Urine Culture Comments Microbiology 04/01/18 11:30 Catheterized Urine Urine Culture - Preliminary Group D Enterococcus Assessment and Plan - Plan 62 YEARS OLD Acute on chronic hypercapnic and hypoxemic respiratory failure - 02 dependent -Status post intubation and self extubation. -continue with oxygen as needed to keep O2 sat 88-92%. -BiPaP at night. -Chest x-ray suggest possible pulmonary edema. -on Spiriva -continue neb treatment. COPD- on 4L home oxygen -Pulm following. Continue breathing tx, abx. Goal O2 sat > 88%. Urinary tract infection.- with Persistent pyuria -repeat UA- straight cath specimen 03/29 now E coli MDR -previous Urine cultures with proteus - US-kidneys - unremarkqable -ID consulted for recommendation- started on Merpenem and Zyvox 04/01 -Will need ID recs prior to discharging patient back to [facility]. Diabetes mellitus -Currently on sliding scale insulin. -May need basal insulin with Levemir Full code. Heparin SQ.
[2018-04-03] MEDS: Insulin NovoLOG Aspart Correctional Sugar Inj SQ SCH ×6 (00:12→20:39)
[2018-04-03] MEDS: Tiotropium Bromide 18 MCG/ACT Inhaler INH SCH (09:14)
[2018-04-03] MEDS: dilTIAZem 60 MG Tablet PO SCH ×4 (09:15→20:37)
[2018-04-03] MEDS: buPROPion 150 MG 12 HR Tablet PO SCH (09:15)
[2018-04-03] MEDS: Heparin - SQ 10,000 UNITS/ML Vial SQ SCH ×2 (09:15→20:36)
[2018-04-03] MEDS: Famotidine PF Inj 20 MG/2 ML Vial IV.PUSH SCH ×2 (09:15→20:33)
[2018-04-03] MEDS: FLUoxetine 20 MG Capsule PO SCH (09:16)
[2018-04-03] MEDS: Senna/Docusate Sodium 8.6/50 MG Tablet PO SCH ×2 (09:16→20:37)
[2018-04-03] MEDS: Lisinopril 10 MG Tablet PO SCH (09:16)
--- NOTE | 2018-04-03 11:23 | XR ---
EXAM DATE: 04/03/2018 11:18 AM EDT AGE/SEX: 62 years / Female INDICATIONS: Short of breath CLINICAL DATA: This is the patient's subsequent encounter. Patient reports that signs and symptoms h ave been present for 4 - 6 days and indicates a pain score of 0/10. MEDICAL/SURGICAL HISTORY: . Congestive heart failure. Chronic obstructive pulmonary disease. H ypertension. Coronary artery disease. . . Cardiac stent COMPARISON: C, CHEST 1V SINGLE AP, 04/01/2018. . FINDINGS: Hazy bilateral pleural parenchymal opacities persist unchanged. Cardiac contours are grossly stable. CONCLUSION: No significant change Electronically signed by: Aryan Mtz MD 04/03/2018 11:22 AM EDT
--- NOTE | 2018-04-03 11:54 | P.PNID ---
Subjective Remarks: is a 52 y/o CF with PMHx of long standing COPD, possible Sleep apnea , morbid obesity, coronary artery disease, hypertension, diabetes mellitus, GERD. She presents to [facility] ED by EMS from [facility] with respiratory distress. Per EMS, the patient had O2 saturation in the 70s. She was intubated and placed on mechanical ventilation. Also, Diprivan was started for sedation. ABG post intubation showed acute hypercapnic respiratory acidosis. Patient was treated empirically for Pneumonia and also acute COPD exacerbation. UA was positive as well and patient was treated for possible UTI. A repeat UA was obtained as patient showed pyuria. Based on my conversation with RN it appears patient had an external catheter in place and the urine was collected from the external payne like device container. She reports some dysuria prior to hospitalization but this is a chronic issue. She reports being in diapers at group home and often not being cleaned for long periods of time. She is unhappy with [facility] and prefers not to go back there. Clinical course: it appears she initially appeared to be improving but in last 2 days has had increasing shortness of breath. She was desating to the low 80s at time of my visit. is aware and also pulm on board. I obtained a CXR and will review if this is persistent pneumonia or fluid overload related. Patient able to talk to me in complete sentences but when she would forget to take a deep breath her sats would drop. PAST MEDICAL HISTORY: Significant for CAD, COPD, chronic pain, depression, diabetes mellitus, fibromyalgia, GERD, hypertension. PAST SURGICAL HISTORY: Previous tubal ligation, previous hysterectomy. Overnight events reviewed No fevers No rash No diarrhea Was on BiPAP last night now on oxygen. Periods of desat to 78. Antibiotics: Meropenem IV Linezolid IV Lines: Lines ok Past Medical History: reviewed Allergies/Adverse Reactions: Allergies budesonide [From Pulmicort] Allergy (Verified 02/01/18 09:53) Hives duloxetine [From Cymbalta] Allergy (Verified 02/01/18 09:53) Hives gabapentin [From Neurontin] Allergy (Verified 02/01/18 09:53) Hives nickel Allergy (Verified 02/01/18 09:53) Hives Penicillins Allergy (Verified 02/01/18 09:53) Hives prednisone Allergy (Verified 02/01/18 06:49) Hives sulfacetamide [From Sulfacet-R] Allergy (Verified 02/01/18 09:53) Hives sulfur [From Sulfacet-R] Allergy (Verified 02/01/18 09:53) Hives Objective Vital Signs 04/02/18 11:59 04/02/18 13:00 04/02/18 14:00 Temperature 98.7 F Pulse Rate 92 H 96 H 90 Respiratory Rate 20 Blood Pressure 142/55 H Pulse Oximetry 98 04/02/18 14:41 04/02/18 16:00 04/02/18 17:00 Temperature 98.2 F Pulse Rate 98 H 79 75 Respiratory Rate 16 Blood Pressure 135/56 L Pulse Oximetry 97 04/02/18 17:07 04/02/18 17:18 04/02/18 19:00 Temperature Pulse Rate 80 82 Respiratory Rate Blood Pressure Pulse Oximetry 97 04/02/18 20:00 04/02/18 20:29 04/02/18 21:00 Temperature 98.5 F Pulse Rate 76 85 78 Respiratory Rate 19 Blood Pressure 122/50 L Pulse Oximetry 96 04/02/18 21:51 04/02/18 22:00 04/02/18 23:00 Temperature Pulse Rate 72 75 Respiratory Rate 19 Blood Pressure Pulse Oximetry 04/02/18 23:51 04/03/18 00:00 04/03/18 00:10 Temperature 98.3 F Pulse Rate 76 73 Respiratory Rate 17 Blood Pressure 147/57 H Pulse Oximetry 98 96 04/03/18 01:00 04/03/18 02:00 04/03/18 03:00 Temperature Pulse Rate 68 76 73 Respiratory Rate Blood Pressure Pulse Oximetry 04/03/18 03:40 04/03/18 04:00 04/03/18 05:00 Temperature 97.8 F Pulse Rate 69 76 78 Respiratory Rate 16 Blood Pressure 118/54 L Pulse Oximetry 97 04/03/18 06:13 04/03/18 07:00 04/03/18 08:00 Temperature 98.1 F Pulse Rate 73 78 88 Respiratory Rate 18 Blood Pressure 149/64 H Pulse Oximetry 94 L 04/03/18 09:00 04/03/18 10:00 04/03/18 11:24 Temperature Pulse Rate 86 88 Respiratory Rate Blood Pressure Pulse Oximetry 94 L 04/03/18 11:49 Temperature 98.7 F Pulse Rate 87 Respiratory Rate 18 Blood Pressure 153/58 H Pulse Oximetry 99 Intake & Output 04/02/18 04/03/18 04/03/18 18:59 06:59 18:59 Intake Total 1720 / 1720 600 / 600 200 / 200 Output Total 1300 / 1300 400 / 400 Balance 420 / 420 200 / 200 200 / 200 Weight 102.5 kg Intake: IV 1000 / 1000 500 / 500 200 / 200 Azactam Inj 1,000 MG In NS Inj 200 / 200 100 / 100 100 / 100 100 ML @ 200 mls/hr IV.SIG Q8H BEBETO Rx#:[id number] Zyvox 600 mg Premix 300 ML @ 600 / 600 300 / 300 300 mls/hr IV.SIG Q12H BEBETO Rx#: [id number] Merrem Inj 500 MG In NS Inj 100 200 / 200 100 / 100 100 / 100 ML @ 200 mls/hr IV.SIG Q8H BEBETO Rx#:[id number] Oral 720 / 720 100 / 100 Output: Urine 1300 / 1300 400 / 400 Other: Date of Last Bowel Movement 03/31/18 04/01/18 11:30 Catheterized Urine Urine Culture - Preliminary Group D Enterococcus 03/29/18 16:45 Catheterized Urine Urine Culture - Final Escherichia coli Multidrug Resistant Lab - Hematology Results 04/01/18 04/02/18 14:51 04:49 WBC 3.8 L RBC 2.73 L Hgb 7.5 L 8.1 L Hct 23.1 L 25.0 L MCV 91.7 MCH 29.7 MCHC 32.4 RDW 14.3 Plt Count 193 D MPV 8.6 Neut % (Auto) 73.7 H Lymph % (Auto) 9.3 [place] % (Auto) 12.5 H Eos % (Auto) 3.7 Baso % (Auto) 0.8 Neut # (Auto) 2.8 Lymph # (Auto) 0.4 L [place] # (Auto) 0.5 Eos # (Auto) 0.1 Baso # (Auto) 0.0 WBC Differential . Differential Comment Auto diff final Lab - Chemistry Results 04/01/18 04/01/18 04/01/18 16:20 16:21 20:41 POC Glucose 164 H 170 H Iron TIBC % Saturation Ferritin Procalcitonin 0.16 H 04/02/18 04/02/18 04/02/18 00:33 04:12 04:49 POC Glucose 164 H 126 H Iron 34 L TIBC 211 L % Saturation 16.1 L Ferritin 112 Procalcitonin 04/02/18 04/02/18 04/02/18 07:58 11:07 15:17 POC Glucose 161 H 114 H 116 H Iron TIBC % Saturation Ferritin Procalcitonin 04/02/18 04/02/18 04/03/18 20:31 23:51 04:59 POC Glucose 198 H 138 H 103 Iron TIBC % Saturation Ferritin Procalcitonin 04/03/18 07:57 POC Glucose 131 H Iron TIBC % Saturation Ferritin Procalcitonin Imaging: ITS Impressions Abdomen/Bladder Ultrasound 03/31/18 00:00 CONCLUSION: 1. Unremarkable kidneys. 2. The spleen appears mildly prominent and measures up to 13.6 cm. Chest X-Ray 04/03/18 10:42 CONCLUSION: No significant change Physical Exam: GENERAL: Obese, well-developed, not in distress. SKIN: Cool and dry, no generalized rash HEAD: Atraumatic. Normocephalic. No temporal or scalp tenderness. EYES: Pupils equal round and reactive. Scleral icterus. No injection or drainage. No petechia ENT: Nothing abnormal detected NECK: Trachea midline. Supple, nontender, no meningeal signs. CARDIOVASCULAR: HS audible. RESPIRATORY: Decreased AE bilaterally in bases. GASTROINTESTINAL: Abdomen soft nontender. MUSCULOSKELETAL: Extremities without clubbing, cyanosis. NEUROLOGICAL: Alert oriented 3. Nonfocal. Psych cooperative IV line sites ok. Assessment and Plan - Plan Possible MDR Gram negative UTI Possible Pneumonia vs component pulm edema. COPD exacerbation CAD Morbid obesity Sleep apnea Recs: Continue Meropenem IV (covers PNA and MDR UTI given patients allergy to penicillin. Not a candidate for desensitization at present time due to resp status will reassess later if need be) Continue Zyvox IV (for possible HCAP) Elevated procalcitonin will treat as infection. Will trend to follow and deescalate. Follow clinical course. alberto dominguez Patient
--- NOTE | 2018-04-03 13:25 | P.PN ---
Subjective Interval history: Follow up for hypercapnic respiratory failure, UTI with MDR organism. At the time of this interview, patient is doing well. She reports no CP, SOB, fever, chills. She is doing well on 3L of O2 via NC - saturating around 93% or better. Speaking in full sentences. I had a long conversation with her. She would really like to go home and just stay in her bed, watch tv and have some interaction with her grandchildren. We discussed about home hospice option - she will discuss further with her son and daughter in law. Physical Exam Vital signs: Vital Signs 04/02/18 14:00 04/02/18 14:41 04/02/18 16:00 Temperature 98.2 F Pulse Rate 90 98 H 79 Respiratory Rate 16 Blood Pressure 135/56 L Pulse Oximetry 97 04/02/18 17:00 04/02/18 17:07 04/02/18 17:18 Temperature Pulse Rate 75 80 Respiratory Rate Blood Pressure Pulse Oximetry 97 04/02/18 19:00 04/02/18 20:00 04/02/18 20:29 Temperature 98.5 F Pulse Rate 82 76 85 Respiratory Rate 19 Blood Pressure 122/50 L Pulse Oximetry 96 04/02/18 21:00 04/02/18 21:51 04/02/18 22:00 Temperature Pulse Rate 78 72 Respiratory Rate 19 Blood Pressure Pulse Oximetry 04/02/18 23:00 04/02/18 23:51 04/03/18 00:00 Temperature 98.3 F Pulse Rate 75 76 73 Respiratory Rate 17 Blood Pressure 147/57 H Pulse Oximetry 98 04/03/18 00:10 04/03/18 01:00 04/03/18 02:00 Temperature Pulse Rate 68 76 Respiratory Rate Blood Pressure Pulse Oximetry 96 04/03/18 03:00 04/03/18 03:40 04/03/18 04:00 Temperature 97.8 F Pulse Rate 73 69 76 Respiratory Rate 16 Blood Pressure 118/54 L Pulse Oximetry 97 04/03/18 05:00 04/03/18 06:13 04/03/18 07:00 Temperature Pulse Rate 78 73 78 Respiratory Rate Blood Pressure Pulse Oximetry 04/03/18 08:00 04/03/18 09:00 04/03/18 10:00 Temperature 98.1 F Pulse Rate 88 86 88 Respiratory Rate 18 Blood Pressure 149/64 H Pulse Oximetry 94 L 04/03/18 11:24 04/03/18 11:49 Temperature 98.7 F Pulse Rate 87 Respiratory Rate 18 Blood Pressure 153/58 H Pulse Oximetry 94 L 99 Intake & Output 04/02/18 04/03/18 04/03/18 18:59 06:59 18:59 Intake Total 1720 / 1720 600 / 600 200 / 200 Output Total 1300 / 1300 400 / 400 Balance 420 / 420 200 / 200 200 / 200 Weight 102.5 kg Intake: IV 1000 / 1000 500 / 500 200 / 200 Azactam Inj 1,000 MG In NS Inj 200 / 200 100 / 100 100 / 100 100 ML @ 200 mls/hr IV.SIG Q8H BEBETO Rx#:[id number] Zyvox 600 mg Premix 300 ML @ 600 / 600 300 / 300 300 mls/hr IV.SIG Q12H BEBETO Rx#: [id number] Merrem Inj 500 MG In NS Inj 100 200 / 200 100 / 100 100 / 100 ML @ 200 mls/hr IV.SIG Q8H BEBETO Rx#:[id number] Oral 720 / 720 100 / 100 Output: Urine 1300 / 1300 400 / 400 Other: Date of Last Bowel Movement 03/31/18 Narrative: GENERAL: Alert, NAD. SKIN: Warm and dry. HEAD: Normocephalic. EYES: No scleral icterus. No injection or drainage. NECK: Supple, trachea midline. No JVD or lymphadenopathy. CARDIOVASCULAR: Regular rate and rhythm without murmurs, gallops, or rubs. RESPIRATORY: Moderate air entry. No appreciable wheezing noted. No accessory muscle use. GASTROINTESTINAL: Abdomen soft, non-tender, nondistended. MUSCULOSKELETAL: No cyanosis, or edema. BACK: Nontender without obvious deformity. No CVA tenderness. - Urinary Catheter Management Indwelling Urethral Catheter Cath placed during this visit: yes, but has since been removed by the nurse Reason for continuing: Not indwelling catheter Insertion date: 03/24/18 Insertion time: 05:48 Removal date: 03/25/18 Removal time: 18:50 Results - Labs CBC & Chem 7: 04/02/18 04:49 03/27/18 06:36 Laboratory Results - last 24 hr 04/02/18 04/02/18 04/02/18 15:17 20:31 23:51 POC Glucose 116 H 198 H 138 H 04/03/18 04/03/18 04/03/18 04:59 07:57 11:51 POC Glucose 103 131 H 160 H Microbiology 04/01/18 11:30 Catheterized Urine Urine Culture - Preliminary Group D Enterococcus - Imaging Impressions Chest X-Ray 04/03/18 10:42 CONCLUSION: No significant change Assessment and Plan - Plan 62 YEARS OLD Acute on chronic hypercapnic and hypoxemic respiratory failure - 02 dependent -Status post intubation and self extubation. -continue with oxygen as needed to keep O2 sat 88-92%. -BiPaP at night. -Chest x-ray repeated today - shows possible bilateral edema. -Will start Lasix IV for a day or so. -May need to consider CT chest or CT PE study although PE is not high on the differential. -on Spiriva -continue neb treatment. COPD- on 4L at home. -Dropped O2 to 3L and patient was saturating well. Will titrate. -Pulm following. Continue breathing tx, abx. Goal O2 sat > 88%. Urinary tract infection.- with Persistent pyuria Probable HCAP -repeat UA- straight cath specimen 03/29 now E coli MDR -previous Urine cultures with proteus - US-kidneys - unremarkqable -ID consulted for recommendation- started on Merpenem and Zyvox 04/01 -Will need ID recs prior to discharging patient back to [facility]. Diabetes mellitus -Currently on sliding scale insulin. -will add 7 units of Levemir Full code. Heparin SQ.
--- NOTE | 2018-04-03 18:57 | P.PN ---
Subjective Interval history: She is still SOB . Desats easily. Now on N/c at 5 L Used BiPAP at HS. Physical Exam Vital signs: Vital Signs 04/02/18 19:00 04/02/18 20:00 04/02/18 20:29 Temperature 98.5 F Pulse Rate 82 76 85 Respiratory Rate 19 Blood Pressure 122/50 L Pulse Oximetry 96 04/02/18 21:00 04/02/18 21:51 04/02/18 22:00 Temperature Pulse Rate 78 72 Respiratory Rate 19 Blood Pressure Pulse Oximetry 04/02/18 23:00 04/02/18 23:51 04/03/18 00:00 Temperature 98.3 F Pulse Rate 75 76 73 Respiratory Rate 17 Blood Pressure 147/57 H Pulse Oximetry 98 04/03/18 00:10 04/03/18 01:00 04/03/18 02:00 Temperature Pulse Rate 68 76 Respiratory Rate Blood Pressure Pulse Oximetry 96 04/03/18 03:00 04/03/18 03:40 04/03/18 04:00 Temperature 97.8 F Pulse Rate 73 69 76 Respiratory Rate 16 Blood Pressure 118/54 L Pulse Oximetry 97 04/03/18 05:00 04/03/18 06:13 04/03/18 07:00 Temperature Pulse Rate 78 73 78 Respiratory Rate Blood Pressure Pulse Oximetry 04/03/18 08:00 04/03/18 09:00 04/03/18 10:00 Temperature 98.1 F Pulse Rate 88 86 88 Respiratory Rate 18 Blood Pressure 149/64 H Pulse Oximetry 94 L 04/03/18 11:00 04/03/18 11:24 04/03/18 11:49 Temperature 98.7 F Pulse Rate 90 87 Respiratory Rate 18 Blood Pressure 153/58 H Pulse Oximetry 94 L 99 04/03/18 12:00 04/03/18 13:00 04/03/18 14:00 Temperature Pulse Rate 82 84 86 Respiratory Rate Blood Pressure Pulse Oximetry 96 04/03/18 15:00 04/03/18 16:00 04/03/18 17:00 Temperature 98.7 F Pulse Rate 82 85 88 Respiratory Rate 18 Blood Pressure 154/56 H Pulse Oximetry 98 04/03/18 18:00 Temperature Pulse Rate 88 Respiratory Rate Blood Pressure Pulse Oximetry Intake & Output 04/02/18 04/03/18 04/03/18 18:59 06:59 18:59 Intake Total 1720 / 1720 600 / 600 1540 / 1540 Output Total 1300 / 1300 400 / 400 1800 / 1800 Balance 420 / 420 200 / 200 -260 / -260 Weight 102.5 kg Intake: IV 1000 / 1000 500 / 500 600 / 600 Azactam Inj 1,000 MG In NS Inj 200 / 200 100 / 100 100 / 100 100 ML @ 200 mls/hr IV.SIG Q8H [facility] Rx#:[id number] Zyvox 600 mg Premix 300 ML @ 600 / 600 300 / 300 300 / 300 300 mls/hr IV.SIG Q12H [facility] Rx#: [id number] Merrem Inj 500 MG In NS Inj 100 200 / 200 100 / 100 200 / 200 ML @ 200 mls/hr IV.SIG Q8H [facility] Rx#:[id number] Oral 720 / 720 100 / 100 940 / 940 Output: Urine 1300 / 1300 400 / 400 Urine Amount (Catheter) 1800 / 1800 Indwelling Urethral Catheter 1800 / 1800 Other: # Voids 2 Date of Last Bowel Movement 03/31/18 Narrative: awake and alert,and dyspneic at rest HEENT : unremarkable neck supple lungs- Occ Bilateral wheezes, decreased breath sounds Heart: regular rhythm abdomen soft, nontender extremities- no edema Neuro ; has some weakness of legs. - Urinary Catheter Management Indwelling Urethral Catheter Cath placed during this visit: yes, but has since been removed by the nurse Reason for continuing: Not indwelling catheter Insertion date: 03/24/18 Insertion time: 05:48 Removal date: 03/25/18 Removal time: 18:50 Results - Labs CBC & Chem 7: 04/02/18 04:49 03/27/18 06:36 Laboratory Results - last 24 hr 04/02/18 04/02/18 04/03/18 20:31 23:51 04:59 POC Glucose 198 H 138 H 103 04/03/18 04/03/18 04/03/18 07:57 11:51 16:03 POC Glucose 131 H 160 H 118 H Microbiology 04/01/18 11:30 Catheterized Urine Urine Culture - Preliminary Enterococcus faecalis Yeast species - Imaging Impressions Chest X-Ray 04/03/18 10:42 CONCLUSION: No significant change Assessment and Plan - Assessment (1) COPD (chronic obstructive pulmonary disease) with acute bronchitis Code(s): J44.0 - Chronic obstructive pulmonary disease with acute lower respiratory infection; J20.9 - Acute bronchitis, unspecified Status: Acute (2) UTI (urinary tract infection) Code(s): N39.0 - Urinary tract infection, site not specified Status: Acute (3) DVT prophylaxis Status: Acute (4) Healthcare-associated pneumonia Code(s): J18.9 - Pneumonia, unspecified organism Status: Acute (5) Fibromyalgia Code(s): M79.7 - Fibromyalgia Status: Chronic (6) Diabetes mellitus Code(s): E11.9 - Type 2 diabetes mellitus without complications Status: Chronic (7) Hypertension Code(s): I10 - Essential (primary) hypertension Status: Chronic (8) Coronary artery disease Code(s): I25.10 - Atherosclerotic heart disease of [place] coronary artery without angina pectoris Status: Chronic (9) Major depressive disorder Code(s): F32.9 - Major depressive disorder, single episode, unspecified Status : Chronic (10) COPD (chronic obstructive pulmonary disease) Code(s): J44.9 - Chronic obstructive pulmonary disease, unspecified Status: Chronic (11) Respiratory failure Code(s): J96.90 - Respiratory failure, unspecified, unspecified whether with hypoxia or hypercapnia Status: Acute - Plan 1. O2 at 4 L N/C and wean 2. bIPAP 12/5 CM at HS , with FIO2 35% 3. Nebs qid , duoneb 4. Continue antibiotics per ID 5. CBC,BMP 6. PT Evaluation (6) Diabetes mellitus Qualifiers: Diabetes mellitus type: type 2
[2018-04-03] MEDS: LORazepam 0.5 MG Tablet PO PRN (20:38)
[2018-04-04] MEDS: Insulin NovoLOG Aspart Correctional Sugar Inj SQ SCH ×7 (00:22→23:48)
[2018-04-04] MEDS: Tiotropium Bromide 18 MCG/ACT Inhaler INH SCH (09:11)
[2018-04-04] MEDS: Heparin - SQ 10,000 UNITS/ML Vial SQ SCH ×2 (09:13→20:55)
[2018-04-04] MEDS: Senna/Docusate Sodium 8.6/50 MG Tablet PO SCH ×2 (09:14→20:54)
[2018-04-04] MEDS: Famotidine PF Inj 20 MG/2 ML Vial IV.PUSH SCH ×2 (09:14→20:58)
[2018-04-04] MEDS: FLUoxetine 20 MG Capsule PO SCH (09:14)
[2018-04-04] MEDS: dilTIAZem 60 MG Tablet PO SCH ×4 (09:14→20:54)
[2018-04-04] MEDS: Lisinopril 10 MG Tablet PO SCH (09:15)
[2018-04-04] MEDS: buPROPion 150 MG 12 HR Tablet PO SCH (09:15)
--- NOTE | 2018-04-04 11:10 | P.PN ---
Subjective Interval history: Follow up for hypercapnic respiratory failure, UTI with MDR organism. Patient is resting in bed, on 4L of O2 via NC. No acute concerns. No fever, chills. She has not discussed with her son, [id number] regarding hospice option. Physical Exam Vital signs: Vital Signs 04/03/18 11:24 04/03/18 11:49 04/03/18 12:00 Temperature 98.7 F Pulse Rate 87 82 Respiratory Rate 18 Blood Pressure 153/58 H Pulse Oximetry 94 L 99 96 04/03/18 13:00 04/03/18 14:00 04/03/18 15:00 Temperature Pulse Rate 84 86 82 Respiratory Rate Blood Pressure Pulse Oximetry 04/03/18 16:00 04/03/18 17:00 04/03/18 18:00 Temperature 98.7 F Pulse Rate 85 88 88 Respiratory Rate 18 Blood Pressure 154/56 H Pulse Oximetry 98 04/03/18 19:00 04/03/18 19:11 04/03/18 19:47 Temperature 98.4 F Pulse Rate 87 90 Respiratory Rate 20 Blood Pressure 125/51 L Pulse Oximetry 92 L 95 04/03/18 20:00 04/03/18 21:00 04/03/18 21:15 Temperature Pulse Rate 86 83 Respiratory Rate 17 Blood Pressure Pulse Oximetry 04/03/18 21:55 04/03/18 22:00 04/03/18 23:00 Temperature Pulse Rate 81 78 Respiratory Rate Blood Pressure Pulse Oximetry 96 04/03/18 23:03 04/04/18 00:00 04/04/18 00:26 Temperature 98.0 F Pulse Rate 83 78 Respiratory Rate 17 Blood Pressure 133/55 L Pulse Oximetry 96 97 04/04/18 01:00 04/04/18 02:00 04/04/18 03:00 Temperature Pulse Rate 78 76 72 Respiratory Rate Blood Pressure Pulse Oximetry 04/04/18 04:00 04/04/18 04:47 04/04/18 05:01 Temperature 97.8 F Pulse Rate 78 70 75 Respiratory Rate 16 Blood Pressure 102/49 L Pulse Oximetry 99 04/04/18 06:00 04/04/18 07:00 04/04/18 07:30 Temperature 98.4 F Pulse Rate 72 70 78 Respiratory Rate 18 Blood Pressure 155/64 H Pulse Oximetry 98 Intake & Output 04/03/18 04/04/18 04/04/18 18:59 06:59 18:59 Intake Total 1540 / 1540 700 / 700 100 / 100 Output Total 1800 / 1800 1200 / 1200 Balance -260 / -260 -500 / -500 100 / 100 Weight 102.5 kg Intake: IV 600 / 600 500 / 500 100 / 100 Azactam Inj 1,000 MG In NS Inj 100 / 100 100 / 100 100 ML @ 200 mls/hr IV.SIG Q8H [facility] Rx#:[id number] Zyvox 600 mg Premix 300 ML @ 300 / 300 300 / 300 300 mls/hr IV.SIG Q12H [facility] Rx#: [id number] Merrem Inj 500 MG In NS Inj 100 200 / 200 100 / 100 100 / 100 ML @ 200 mls/hr IV.SIG Q8H [facility] Rx#:[id number] Oral 940 / 940 200 / 200 Output: Urine 1200 / 1200 Urine Amount (Catheter) 1800 / 1800 Indwelling Urethral Catheter 1800 / 1800 Other: # Voids 2 Date of Last Bowel Movement 03/31/18 03/31/18 Narrative: GENERAL: Alert, NAD. SKIN: Warm and dry. HEAD: Normocephalic. EYES: No scleral icterus. No injection or drainage. NECK: Supple, trachea midline. No JVD or lymphadenopathy. CARDIOVASCULAR: Regular rate and rhythm without murmurs, gallops, or rubs. RESPIRATORY: Moderate air entry. No appreciable wheezing noted. No accessory muscle use. GASTROINTESTINAL: Abdomen soft, non-tender, nondistended. MUSCULOSKELETAL: No cyanosis, or edema. BACK: Nontender without obvious deformity. No CVA tenderness. - Urinary Catheter Management Indwelling Urethral Catheter Cath placed during this visit: yes, but has since been removed by the nurse Reason for continuing: Not indwelling catheter Insertion date: 03/24/18 Insertion time: 05:48 Removal date: 03/25/18 Removal time: 18:50 Results - Labs CBC & Chem 7: 04/02/18 04:49 03/27/18 06:36 Laboratory Results - last 24 hr 04/03/18 04/03/18 04/03/18 11:51 16:03 20:18 POC Glucose 160 H 118 H 266 H 04/04/18 04/04/18 04/04/18 00:09 04:39 07:33 POC Glucose 99 109 133 H Microbiology 04/01/18 11:30 Catheterized Urine Urine Culture - Preliminary Enterococcus faecalis Yeast species - Imaging Impressions Chest X-Ray 04/03/18 10:42 CONCLUSION: No significant change Assessment and Plan - Plan Ms. Baldwin is a pleasant 62-year-old female with a past medical history of COPD , coronary artery disease, hypertension, diabetes mellitus, GERD, morbid obesity , who presented to [facility] ED by EMS from [facility] with respiratory distress. She was intubated, ABG showed 7.31/65/78/32 on vent. Acute on chronic hypercapnic and hypoxemic respiratory failure - 02 dependent -Status post intubation and self extubation. -continue with oxygen as needed to keep O2 sat 88-92%. -BiPaP at night. -Chest x-ray repeated on 04/04/2018 - shows possible bilateral edema. -Continue IV lasix 40mg BID for now. -on Spiriva -continue neb treatment. COPD- on 3L at home. -Currently on 3-4L via NC. -Pulm following. Continue breathing tx, abx. Goal O2 sat > 88%. -Start incentive spirometer. Urinary tract infection.- with Persistent pyuria Probable HCAP -Urine cx from 03/24 --> Proteus, 03/29/2018 --> MDR E. Coli, 04/01/2018 --> E. Faecalis, Yeast. -US-kidneys - unremarkable -ID consulted for recommendation- started on Merpenem and Zyvox 04/01 -Will need ID recs prior to discharging patient back to [facility]. Diabetes mellitus -Currently on sliding scale insulin. -Levemir 7 units QHS. Full code. Heparin SQ.
--- NOTE | 2018-04-04 13:03 | P.PN ---
Subjective Interval history: Alert and resting comfortably. On O2 4 L. Used BIPAP at HS Physical Exam Vital signs: Vital Signs 04/03/18 14:00 04/03/18 15:00 04/03/18 16:00 Temperature 98.7 F Pulse Rate 86 82 85 Respiratory Rate 18 Blood Pressure 154/56 H Pulse Oximetry 98 04/03/18 17:00 04/03/18 18:00 04/03/18 19:00 Temperature Pulse Rate 88 88 87 Respiratory Rate Blood Pressure Pulse Oximetry 04/03/18 19:11 04/03/18 19:47 04/03/18 20:00 Temperature 98.4 F Pulse Rate 90 86 Respiratory Rate 20 Blood Pressure 125/51 L Pulse Oximetry 92 L 95 04/03/18 21:00 04/03/18 21:15 04/03/18 21:55 Temperature Pulse Rate 83 Respiratory Rate 17 Blood Pressure Pulse Oximetry 96 04/03/18 22:00 04/03/18 23:00 04/03/18 23:03 Temperature 98.0 F Pulse Rate 81 78 83 Respiratory Rate 17 Blood Pressure 133/55 L Pulse Oximetry 96 04/04/18 00:00 04/04/18 00:26 04/04/18 01:00 Temperature Pulse Rate 78 78 Respiratory Rate Blood Pressure Pulse Oximetry 97 04/04/18 02:00 04/04/18 03:00 04/04/18 04:00 Temperature Pulse Rate 76 72 78 Respiratory Rate Blood Pressure Pulse Oximetry 04/04/18 04:47 04/04/18 05:01 04/04/18 06:00 Temperature 97.8 F Pulse Rate 70 75 72 Respiratory Rate 16 Blood Pressure 102/49 L Pulse Oximetry 99 04/04/18 07:00 04/04/18 07:30 04/04/18 08:00 Temperature 98.4 F Pulse Rate 70 78 Respiratory Rate 18 Blood Pressure 155/64 H Pulse Oximetry 98 98 Intake & Output 04/03/18 04/04/18 04/04/18 18:59 06:59 18:59 Intake Total 1540 / 1540 700 / 700 100 / 100 Output Total 1800 / 1800 1200 / 1200 Balance -260 / -260 -500 / -500 100 / 100 Weight 102.5 kg Intake: IV 600 / 600 500 / 500 100 / 100 Azactam Inj 1,000 MG In NS Inj 100 / 100 100 / 100 100 ML @ 200 mls/hr IV.SIG Q8H [facility] Rx#:[id number] Zyvox 600 mg Premix 300 ML @ 300 / 300 300 / 300 300 mls/hr IV.SIG Q12H [facility] Rx#: [id number] Merrem Inj 500 MG In NS Inj 100 200 / 200 100 / 100 100 / 100 ML @ 200 mls/hr IV.SIG Q8H [facility] Rx#:[id number] Oral 940 / 940 200 / 200 Output: Urine 1200 / 1200 Urine Amount (Catheter) 1800 / 1800 Indwelling Urethral Catheter 1800 / 1800 Other: # Voids 2 Date of Last Bowel Movement 03/31/18 03/31/18 Narrative: GENERAL:Obese Mid aged w/F Alert, NAD. SKIN: Warm and dry. HEAD: Normocephalic. EYES: No scleral icterus. No injection or drainage. NECK: Supple, trachea midline. No JVD or lymphadenopathy. CARDIOVASCULAR: Regular rate and rhythm without murmurs, gallops, or rubs. RESPIRATORY: Distant breath sounds noted. No accessory muscle use.Occ wheeze. GASTROINTESTINAL: Abdomen soft, non-tender, nondistended. MUSCULOSKELETAL: No cyanosis, or edema. BACK: Nontender without obvious deformity. No CVA tenderness. - Urinary Catheter Management Indwelling Urethral Catheter Cath placed during this visit: yes, but has since been removed by the nurse Reason for continuing: Not indwelling catheter Insertion date: 03/24/18 Insertion time: 05:48 Removal date: 03/25/18 Removal time: 18:50 Results - Labs CBC & Chem 7: 04/02/18 04:49 03/27/18 06:36 Laboratory Results - last 24 hr 04/03/18 04/03/18 04/04/18 16:03 20:18 00:09 POC Glucose 118 H 266 H 99 04/04/18 04/04/18 04/04/18 04:39 07:33 12:06 POC Glucose 109 133 H 140 H Microbiology 04/01/18 11:30 Catheterized Urine Urine Culture - Preliminary Enterococcus faecalis Yeast species Assessment and Plan - Assessment (1) COPD (chronic obstructive pulmonary disease) with acute bronchitis Code(s): J44.0 - Chronic obstructive pulmonary disease with acute lower respiratory infection; J20.9 - Acute bronchitis, unspecified Status: Acute (2) UTI (urinary tract infection) Code(s): N39.0 - Urinary tract infection, site not specified Status: Acute (3) DVT prophylaxis Status: Acute (4) Healthcare-associated pneumonia Code(s): J18.9 - Pneumonia, unspecified organism Status: Acute (5) Fibromyalgia Code(s): M79.7 - Fibromyalgia Status: Chronic (6) Diabetes mellitus Code(s): E11.9 - Type 2 diabetes mellitus without complications Status: Chronic (7) Hypertension Code(s): I10 - Essential (primary) hypertension Status: Chronic (8) Coronary artery disease Code(s): I25.10 - Atherosclerotic heart disease of [place] coronary artery without angina pectoris Status: Chronic (9) Major depressive disorder Code(s): F32.9 - Major depressive disorder, single episode, unspecified Status : Chronic (10) COPD (chronic obstructive pulmonary disease) Code(s): J44.9 - Chronic obstructive pulmonary disease, unspecified Status: Chronic (11) Respiratory failure Code(s): J96.90 - Respiratory failure, unspecified, unspecified whether with hypoxia or hypercapnia Status: Acute - Plan 1. O2 at 4 L N/C and wean 2. BIPAP 12/5 CM at HS , with FIO2 30% 3. Nebs qid , duoneb 4. Continue antibiotics per ID 5. Cont symbicort 160/4.5 mcg 2 puffs BID 6. PT Evaluation (6) Diabetes mellitus Qualifiers: Diabetes mellitus type: type 2
[2018-04-04] MEDS: Insulin Detemir Inj 1,000 UNIT/10 ML Vial SQ SCH (20:56)
[2018-04-04] MEDS: LORazepam 0.5 MG Tablet PO PRN (20:59)
[2018-04-04] MEDS: Budesonide-Formoterol 160/4.5 MCG 6 GM Inhaler INH SCH (21:07)
[2018-04-05] MEDS: Insulin NovoLOG Aspart Correctional Sugar Inj SQ SCH ×5 (04:51→20:50)
[2018-04-05] MEDS: Heparin - SQ 10,000 UNITS/ML Vial SQ SCH ×2 (08:39→20:37)
[2018-04-05] MEDS: Tiotropium Bromide 18 MCG/ACT Inhaler INH SCH (08:39)
[2018-04-05] MEDS: buPROPion 150 MG 12 HR Tablet PO SCH (08:40)
[2018-04-05] MEDS: dilTIAZem 60 MG Tablet PO SCH ×4 (08:40→20:35)
[2018-04-05] MEDS: Lisinopril 10 MG Tablet PO SCH (08:40)
[2018-04-05] MEDS: FLUoxetine 20 MG Capsule PO SCH (08:40)
[2018-04-05] MEDS: Senna/Docusate Sodium 8.6/50 MG Tablet PO SCH ×2 (08:41→20:35)
[2018-04-05] MEDS: Famotidine PF Inj 20 MG/2 ML Vial IV.PUSH SCH ×2 (08:41→20:34)
[2018-04-05] MEDS: Budesonide-Formoterol 160/4.5 MCG 6 GM Inhaler INH SCH ×2 (08:47→20:34)
[2018-04-05] MEDS ORDERED: levoFLOXacin Liq 25 MG/ML 100 ML Bottle PO SCH (11:00)
[2018-04-05] MEDS: levoFLOXacin 500 MG Tablet PO SCH (13:04)
[2018-04-05] MEDS ORDERED: levoFLOXacin 500 MG Tablet PO SCH (13:15)
--- NOTE | 2018-04-05 18:17 | P.PN ---
Subjective Interval history: C/O some nausea. On a NRB mask today. used BiPAP last Night . Physical Exam Vital signs: Vital Signs 04/04/18 19:00 04/04/18 20:00 04/04/18 21:00 Temperature 98.1 F Pulse Rate 84 79 81 Respiratory Rate 18 Blood Pressure 117/47 L Pulse Oximetry 95 04/04/18 22:00 04/04/18 23:00 04/05/18 00:00 Temperature 98.3 F Pulse Rate 89 87 85 Respiratory Rate 18 Blood Pressure 137/57 L Pulse Oximetry 97 04/05/18 01:00 04/05/18 02:00 04/05/18 03:00 Temperature Pulse Rate 88 81 80 Respiratory Rate Blood Pressure Pulse Oximetry 04/05/18 04:00 04/05/18 05:00 04/05/18 05:55 Temperature 98 F Pulse Rate 86 82 79 Respiratory Rate 20 Blood Pressure 131/52 L Pulse Oximetry 95 04/05/18 07:00 04/05/18 08:00 04/05/18 08:41 Temperature 98.2 F Pulse Rate 74 90 Respiratory Rate 22 Blood Pressure 137/53 L Pulse Oximetry 94 L 95 04/05/18 09:00 04/05/18 10:00 04/05/18 11:00 Temperature Pulse Rate 86 86 80 Respiratory Rate Blood Pressure Pulse Oximetry 04/05/18 12:00 04/05/18 13:00 04/05/18 16:00 Temperature 98.3 F 97.9 F Pulse Rate 80 84 93 H Respiratory Rate 20 24 Blood Pressure 98/46 L 98/49 L Pulse Oximetry 94 L 94 L Intake & Output 04/04/18 04/05/18 04/05/18 18:59 06:59 18:59 Intake Total 900 / 900 500 / 500 Output Total 1400 / 1400 1200 / 1200 Balance -500 / -500 -700 / -700 Weight 97.5 kg Intake: IV 100 / 100 Merrem Inj 500 MG In NS Inj 100 100 / 100 ML @ 200 mls/hr IV.SIG Q8H [facility] Rx#:[id number] Oral 800 / 800 500 / 500 Output: Urine 1400 / 1400 1200 / 1200 Stool 0 / 0 Other: Date of Last Bowel Movement 03/31/18 Narrative: GENERAL:Obese Mid aged w/F Alert, dyspneic SKIN: Warm and dry. HEAD: Normocephalic. EYES: No scleral icterus. No injection or drainage. NECK: Supple, trachea midline. No JVD or lymphadenopathy. CARDIOVASCULAR: Regular rate and rhythm without murmurs, gallops, or rubs. RESPIRATORY: Distant breath sounds noted. No accessory muscle use.Occ bilat wheeze. GASTROINTESTINAL: Abdomen soft, non-tender, nondistended. MUSCULOSKELETAL: No cyanosis, or edema. BACK: Nontender without obvious deformity. No CVA tenderness. - Urinary Catheter Management Indwelling Urethral Catheter Cath placed during this visit: yes, but has since been removed by the nurse Reason for continuing: Not indwelling catheter Insertion date: 03/24/18 Insertion time: 05:48 Removal date: 03/25/18 Removal time: 18:50 Results - Labs CBC & Chem 7: 04/02/18 04:49 03/27/18 06:36 Laboratory Results - last 24 hr 04/04/18 04/05/18 04/05/18 20:52 03:41 08:32 POC Glucose 161 H 113 H 120 H 04/05/18 04/05/18 12:13 16:50 POC Glucose 181 H 140 H Microbiology 04/01/18 11:30 Catheterized Urine Urine Culture - Final Enterococcus faecalis [facility] Assessment and Plan - Assessment (1) COPD (chronic obstructive pulmonary disease) with acute bronchitis Code(s): J44.0 - Chronic obstructive pulmonary disease with acute lower respiratory infection; J20.9 - Acute bronchitis, unspecified Status: Acute (2) UTI (urinary tract infection) Code(s): N39.0 - Urinary tract infection, site not specified Status: Acute (3) DVT prophylaxis Status: Acute (4) Healthcare-associated pneumonia Code(s): J18.9 - Pneumonia, unspecified organism Status: Acute (5) Fibromyalgia Code(s): M79.7 - Fibromyalgia Status: Chronic (6) Diabetes mellitus Code(s): E11.9 - Type 2 diabetes mellitus without complications Status: Chronic (7) Hypertension Code(s): I10 - Essential (primary) hypertension Status: Chronic (8) Coronary artery disease Code(s): I25.10 - Atherosclerotic heart disease of [place] coronary artery without angina pectoris Status: Chronic (9) Major depressive disorder Code(s): F32.9 - Major depressive disorder, single episode, unspecified Status : Chronic (10) COPD (chronic obstructive pulmonary disease) Code(s): J44.9 - Chronic obstructive pulmonary disease, unspecified Status: Chronic (11) Respiratory failure Code(s): J96.90 - Respiratory failure, unspecified, unspecified whether with hypoxia or hypercapnia Status: Acute - Plan 1. O2 at 40 % ventimask. 2. BIPAP 12/5 CM at HS , with FIO2 35% 3. Nebs qid , duoneb 4. Continue antibiotics per ID 5. Cont symbicort 160/4.5 mcg 2 puffs BID 6. PT Evaluation 7. CXR ,BMP in am (6) Diabetes mellitus Qualifiers: Diabetes mellitus type: type 2
--- NOTE | 2018-04-05 19:20 | P.PN ---
Subjective Interval history: Follow up for hypercapnic respiratory failure, UTI with MDR organism. Patient is resting in bed comfortably. No acute concerns. She would like to discuss with her son and [id number] regarding posthospitalization plan. Physical Exam Vital signs: Vital Signs 04/04/18 20:00 04/04/18 21:00 04/04/18 22:00 Temperature 98.1 F Pulse Rate 79 81 89 Respiratory Rate 18 Blood Pressure 117/47 L Pulse Oximetry 95 04/04/18 23:00 04/05/18 00:00 04/05/18 01:00 Temperature 98.3 F Pulse Rate 87 85 88 Respiratory Rate 18 Blood Pressure 137/57 L Pulse Oximetry 97 04/05/18 02:00 04/05/18 03:00 04/05/18 04:00 Temperature 98 F Pulse Rate 81 80 86 Respiratory Rate 20 Blood Pressure 131/52 L Pulse Oximetry 95 04/05/18 05:00 04/05/18 05:55 04/05/18 07:00 Temperature Pulse Rate 82 79 74 Respiratory Rate Blood Pressure Pulse Oximetry 04/05/18 08:00 04/05/18 08:41 04/05/18 09:00 Temperature 98.2 F Pulse Rate 90 86 Respiratory Rate 22 Blood Pressure 137/53 L Pulse Oximetry 94 L 95 04/05/18 10:00 04/05/18 11:00 04/05/18 12:00 Temperature 98.3 F Pulse Rate 86 80 80 Respiratory Rate 20 Blood Pressure 98/46 L Pulse Oximetry 94 L 04/05/18 13:00 04/05/18 16:00 Temperature 97.9 F Pulse Rate 84 93 H Respiratory Rate 24 Blood Pressure 98/49 L Pulse Oximetry 94 L Intake & Output 04/05/18 04/05/18 04/06/18 06:59 18:59 06:59 Intake Total 500 / 500 Output Total 1200 / 1200 Balance -700 / -700 Weight 97.5 kg Intake: Oral 500 / 500 Output: Urine 1200 / 1200 Stool 0 / 0 - Urinary Catheter Management Indwelling Urethral Catheter Cath placed during this visit: yes, but has since been removed by the nurse Reason for continuing: Not indwelling catheter Insertion date: 03/24/18 Insertion time: 05:48 Removal date: 03/25/18 Removal time: 18:50 Results - Labs CBC & Chem 7: 04/02/18 04:49 03/27/18 06:36 Laboratory Results - last 24 hr 04/04/18 04/05/18 04/05/18 20:52 03:41 08:32 POC Glucose 161 H 113 H 120 H 04/05/18 04/05/18 12:13 16:50 POC Glucose 181 H 140 H Assessment and Plan - Plan Ms. Baldwin is a pleasant 62-year-old female with a past medical history of COPD , coronary artery disease, hypertension, diabetes mellitus, GERD, morbid obesity , who presented to [facility] ED by EMS from [facility] with respiratory distress. She was intubated, ABG showed 7.31/65/78/32 on vent. Acute on chronic hypercapnic and hypoxemic respiratory failure - 02 dependent -Status post intubation and self extubation. -continue with oxygen as needed to keep O2 sat 88-92%. -BiPaP at night. -Chest x-ray repeated on 04/04/2018 - shows possible bilateral edema. -Continue IV lasix 40mg BID for now. -on Spiriva -continue neb treatment. COPD- on 3L at home. -Currently on 3-4L via NC. -Pulm following. Continue breathing tx, abx. Goal O2 sat > 88%. -Continue incentive spirometer. Urinary tract infection.- with Persistent pyuria Probable HCAP -Urine cx from 03/24 --> Proteus, 03/29/2018 --> MDR E. Coli, 04/01/2018 --> E. Faecalis, Yeast. -US-kidneys - unremarkable -ID consulted for recommendation- started on Merpenem and Zyvox 04/01 -After discussing with ID we switched antibiotics to Levaquin only. Diabetes mellitus -Currently on sliding scale insulin. -Levemir 7 units QHS. Full code. Heparin SQ.
[2018-04-05] MEDS: Insulin Detemir Inj 1,000 UNIT/10 ML Vial SQ SCH (20:35)
[2018-04-06] MEDS: buPROPion 150 MG 12 HR Tablet PO SCH (08:57)
[2018-04-06] MEDS: Senna/Docusate Sodium 8.6/50 MG Tablet PO SCH (08:58)
[2018-04-06] MEDS: Heparin - SQ 10,000 UNITS/ML Vial SQ SCH (08:58)
[2018-04-06] MEDS: dilTIAZem 60 MG Tablet PO SCH ×2 (08:58→13:04)
[2018-04-06] MEDS: FLUoxetine 20 MG Capsule PO SCH (08:58)
[2018-04-06] MEDS: Lisinopril 10 MG Tablet PO SCH (08:58)
[2018-04-06] MEDS: Famotidine PF Inj 20 MG/2 ML Vial IV.PUSH SCH (08:59)
[2018-04-06] MEDS: Tiotropium Bromide 18 MCG/ACT Inhaler INH SCH (09:02)
[2018-04-06] MEDS: Budesonide-Formoterol 160/4.5 MCG 6 GM Inhaler INH SCH (09:02)
[2018-04-06] MEDS: Insulin NovoLOG Aspart Correctional Sugar Inj SQ SCH ×2 (09:05→13:04)
--- NOTE | 2018-04-06 12:59 | P.PN ---
Physical Exam Vital signs: Vital Signs 04/05/18 13:00 04/05/18 14:00 04/05/18 15:00 Temperature Pulse Rate 84 92 H 93 H Respiratory Rate Blood Pressure Pulse Oximetry 04/05/18 16:00 04/05/18 17:00 04/05/18 18:00 Temperature 97.9 F Pulse Rate 84 86 84 Respiratory Rate 24 Blood Pressure 98/49 L Pulse Oximetry 94 L 04/05/18 19:00 04/05/18 19:37 04/05/18 20:00 Temperature 98 F Pulse Rate 81 84 79 Respiratory Rate 18 22 Blood Pressure 118/47 L Pulse Oximetry 97 96 04/05/18 21:00 04/05/18 22:00 04/05/18 23:00 Temperature Pulse Rate 85 90 89 Respiratory Rate Blood Pressure Pulse Oximetry 04/06/18 00:00 04/06/18 01:00 04/06/18 02:00 Temperature 97.9 F Pulse Rate 95 H 96 H 92 H Respiratory Rate 24 Blood Pressure 141/57 H Pulse Oximetry 95 04/06/18 03:00 04/06/18 04:00 04/06/18 05:00 Temperature 98.2 F Pulse Rate 89 90 91 H Respiratory Rate 22 Blood Pressure 151/63 H Pulse Oximetry 95 04/06/18 05:48 04/06/18 07:00 04/06/18 08:00 Temperature 97.9 F Pulse Rate 89 80 87 Respiratory Rate 18 Blood Pressure 155/71 H Pulse Oximetry 93 L 04/06/18 10:07 04/06/18 12:00 Temperature 98.4 F Pulse Rate 83 Respiratory Rate 22 Blood Pressure 107/44 L Pulse Oximetry 92 L 96 Intake & Output 04/05/18 04/06/18 04/06/18 18:59 06:59 18:59 Intake Total 600 / 600 720 / 720 Output Total 1450 / 1450 1999 Balance -850 / -850 -1280 / -1280 Weight 96 kg Intake: Oral 600 / 600 720 / 720 Output: Urine 1450 / 1450 1999 Other: # Bowel Movements 0 0 - Urinary Catheter Management Indwelling Urethral Catheter Cath placed during this visit: yes, but has since been removed by the nurse Reason for continuing: Not indwelling catheter Insertion date: 03/24/18 Insertion time: 05:48 Removal date: 03/25/18 Removal time: 18:50 Results - Labs CBC & Chem 7: 04/02/18 04:49 03/27/18 06:36 Laboratory Results - last 24 hr 04/05/18 04/05/18 04/06/18 16:50 20:40 09:05 POC Glucose 140 H 156 H 114 H 04/06/18 12:49 POC Glucose 224 H Assessment and Plan - Plan Ms. Baldwin is a pleasant 62-year-old female with a past medical history of COPD , coronary artery disease, hypertension, diabetes mellitus, GERD, morbid obesity , who presented to [facility] ED by EMS from [facility] with respiratory distress. She was intubated, ABG showed 7.31/65/78/32 on vent. Acute on chronic hypercapnic and hypoxemic respiratory failure - 02 dependent -Status post intubation and self extubation. -continue with oxygen as needed to keep O2 sat 88-92%. -BiPaP at night. -Chest x-ray repeated on 04/04/2018 - shows possible bilateral edema. -Continue IV lasix 40mg BID for now. -on Spiriva -continue neb treatment. COPD- on 3L at home. -Currently on 3-4L via NC. -Pulm following. Continue breathing tx, abx. Goal O2 sat > 88%. -Continue incentive spirometer. Urinary tract infection.- with Persistent pyuria Probable HCAP -Urine cx from 03/24 --> Proteus, 03/29/2018 --> MDR E. Coli, 04/01/2018 --> E. Faecalis, Yeast. -US-kidneys - unremarkable -ID consulted for recommendation- started on Merpenem and Zyvox 04/01 -After discussing with ID we switched antibiotics to Levaquin only. Diabetes mellitus -Currently on sliding scale insulin. -Levemir 7 units QHS. Full code. Heparin SQ.
[2018-04-06] MEDS: levoFLOXacin 500 MG Tablet PO SCH (13:04)
--- NOTE | 2018-04-06 15:05 | P.PN ---
Subjective Interval history: Alert and on o2 3 l C/O back pains. No fever. Physical Exam Vital signs: Vital Signs 04/05/18 16:00 04/05/18 17:00 04/05/18 18:00 Temperature 97.9 F Pulse Rate 84 86 84 Respiratory Rate 24 Blood Pressure 98/49 L Pulse Oximetry 94 L 04/05/18 19:00 04/05/18 19:37 04/05/18 20:00 Temperature 98 F Pulse Rate 81 84 79 Respiratory Rate 18 22 Blood Pressure 118/47 L Pulse Oximetry 97 96 04/05/18 21:00 04/05/18 22:00 04/05/18 23:00 Temperature Pulse Rate 85 90 89 Respiratory Rate Blood Pressure Pulse Oximetry 04/06/18 00:00 04/06/18 01:00 04/06/18 02:00 Temperature 97.9 F Pulse Rate 95 H 96 H 92 H Respiratory Rate 24 Blood Pressure 141/57 H Pulse Oximetry 95 04/06/18 03:00 04/06/18 04:00 04/06/18 05:00 Temperature 98.2 F Pulse Rate 89 90 91 H Respiratory Rate 22 Blood Pressure 151/63 H Pulse Oximetry 95 04/06/18 05:48 04/06/18 07:00 04/06/18 08:00 Temperature 97.9 F Pulse Rate 89 80 84 Respiratory Rate 18 Blood Pressure 155/71 H Pulse Oximetry 93 L 04/06/18 09:00 04/06/18 10:00 04/06/18 10:07 Temperature Pulse Rate 90 98 H Respiratory Rate Blood Pressure Pulse Oximetry 92 L 04/06/18 11:00 04/06/18 12:00 04/06/18 13:00 Temperature 98.4 F Pulse Rate 88 84 84 Respiratory Rate 22 Blood Pressure 107/44 L Pulse Oximetry 96 04/06/18 14:00 Temperature Pulse Rate 82 Respiratory Rate Blood Pressure Pulse Oximetry Intake & Output 04/05/18 04/06/18 04/06/18 18:59 06:59 18:59 Intake Total 600 / 600 720 / 720 Output Total 1450 / 1450 1999 Balance -850 / -850 -1280 / -1280 Weight 96 kg Intake: Oral 600 / 600 720 / 720 Output: Urine 1450 / 1450 1999 Other: # Bowel Movements 0 0 Narrative: GENERAL:Obese Mid aged w/F Alert, not dyspneic SKIN: Warm and dry. HEAD: Normocephalic. EYES: No scleral icterus. No injection or drainage. NECK: Supple, trachea midline. No JVD or lymphadenopathy. CARDIOVASCULAR: Regular rate and rhythm without murmurs, gallops, or rubs. RESPIRATORY: Distant breath sounds noted. No accessory muscle use.Occ wheeze. GASTROINTESTINAL: Abdomen soft, non-tender,BS + and nondistended. MUSCULOSKELETAL: No cyanosis, or edema. BACK: Nontender without obvious deformity. No CVA tenderness. - Urinary Catheter Management Indwelling Urethral Catheter Cath placed during this visit: yes, but has since been removed by the nurse Reason for continuing: Not indwelling catheter Insertion date: 03/24/18 Insertion time: 05:48 Removal date: 03/25/18 Removal time: 18:50 Results - Labs CBC & Chem 7: 04/02/18 04:49 03/27/18 06:36 Laboratory Results - last 24 hr 04/05/18 04/05/18 04/06/18 16:50 20:40 09:05 POC Glucose 140 H 156 H 114 H 04/06/18 12:49 POC Glucose 224 H Assessment and Plan - Assessment (1) COPD (chronic obstructive pulmonary disease) with acute bronchitis Code(s): J44.0 - Chronic obstructive pulmonary disease with acute lower respiratory infection; J20.9 - Acute bronchitis, unspecified Status: Acute (2) UTI (urinary tract infection) Code(s): N39.0 - Urinary tract infection, site not specified Status: Acute (3) DVT prophylaxis Status: Acute (4) Healthcare-associated pneumonia Code(s): J18.9 - Pneumonia, unspecified organism Status: Acute (5) Fibromyalgia Code(s): M79.7 - Fibromyalgia Status: Chronic (6) Diabetes mellitus Code(s): E11.9 - Type 2 diabetes mellitus without complications Status: Chronic (7) Hypertension Code(s): I10 - Essential (primary) hypertension Status: Chronic (8) Coronary artery disease Code(s): I25.10 - Atherosclerotic heart disease of [place] coronary artery without angina pectoris Status: Chronic (9) Major depressive disorder Code(s): F32.9 - Major depressive disorder, single episode, unspecified Status : Chronic (10) COPD (chronic obstructive pulmonary disease) Code(s): J44.9 - Chronic obstructive pulmonary disease, unspecified Status: Chronic (11) Respiratory failure Code(s): J96.90 - Respiratory failure, unspecified, unspecified whether with hypoxia or hypercapnia Status: Acute - Plan 1. O2 at 3 L N/C 2. BIPAP 12/5 CM at HS 3. Nebs qid , duoneb 4. Continue antibiotics per ID 5. Cont symbicort 160/4.5 mcg 2 puffs BID 6. PT Evaluation 7. To rehab per Dr Alvarado (6) Diabetes mellitus Qualifiers: Diabetes mellitus type: type 2
--- NOTE | 2018-04-08 13:57 | P.DS ---
Date of admission: 03/24/18 06:29 Primary care physician: UNKNOWN Brief History from admission: Patient is a 62-year-old female with a past medical history of COPD, coronary artery disease, hypertension, diabetes mellitus, GERD, morbid obesity, who presented to [facility] ED by EMS from [facility] with respiratory distress. Per EMS, the patient had [id number] in the 70s. She was intubated and placed on mechanical ventilation. Also, Diprivan was started for sedation. ABG post intubation showed acute hypercapnic respiratory acidosis with a pH of 7.31, CO2 of 65, PaO2 of 78, bicarbonate 32 and saturation of 93% on PRVC mode with rate of 18, tidal volume 600, PEEP of 5, and 50% FiO2. Chest x-ray post intubation showed ET tube above the romario, bibasilar pleural parenchymal opacities similar to prior studies, and lower lung zone interstitial opacities. The patient received DuoNeb treatment and Levaquin in the ER. DS: Medications - Discharge Medications Prescriptions: hydrocodone-acetaminophen 1 tab PO Q6H PRN #12 tab PRN Reason: pain 4-10 levofloxacin 500 mg PO DAILY@1300 #5 tab pantoprazole [Protonix] 40 mg PO DAILY #30 tab torsemide 10 mg PO DAILY #30 tab DS: Summary Hospital Course: Ms. Baldwin is a pleasant 62-year-old female with a past medical history of COPD , coronary artery disease, hypertension, diabetes mellitus, GERD, morbid obesity , who presented to [facility] ED by EMS from [facility] with respiratory distress. She was intubated, ABG showed 7.31/65/78/32 on vent. Acute on chronic hypercapnic and hypoxemic respiratory failure - 02 dependent -Status post intubation and self extubation. -continue with oxygen as needed to keep O2 sat 88-92%. -BiPaP at night. -Chest x-ray repeated on 04/04/2018 - shows possible bilateral edema. -Continued IV lasix 40mg BID. Torsemide upon discharge. -on Spiriva -continue neb treatment. COPD- on 3L at home. -Currently on 3-4L via NC. -Pulm following. Continue breathing tx, abx. Goal O2 sat > 88%. -Continue incentive spirometer. -Pulmonary is okay with discharging patient. Discussed with Dr. Sanduh. Urinary tract infection.- with Persistent pyuria Probable HCAP -Urine cx from 03/24 --> Proteus, 03/29/2018 --> MDR E. Coli, 04/01/2018 --> E. Faecalis, Yeast. -US-kidneys - unremarkable -ID consulted for recommendation- started on Merpenem and Zyvox 04/01 -After discussing with ID we switched antibiotics to Levaquin only. Diabetes mellitus -sliding scale insulin. -Levemir 7 units QHS. Full code. Heparin SQ. - Time Spent with Patient Total time spent providing and/or coordinating discharge services: Greater than 30 minutes Exam Narrative: GENERAL: Alert, NAD. SKIN: Warm and dry. HEAD: Normocephalic. EYES: No scleral icterus. No injection or drainage. NECK: Supple, trachea midline. No JVD or lymphadenopathy. CARDIOVASCULAR: Regular rate and rhythm without murmurs, gallops, or rubs. RESPIRATORY: Moderate air entry. No appreciable wheezing noted. No accessory muscle use. GASTROINTESTINAL: Abdomen soft, non-tender, nondistended. MUSCULOSKELETAL: No cyanosis, or edema. BACK: Nontender without obvious deformity. No CVA tenderness. Results Procedures completed during hospitalization: None. - Impressions ITS Impressions Abdomen/Bladder Ultrasound 03/31/18 00:00 CONCLUSION: 1. Unremarkable kidneys. 2. The spleen appears mildly prominent and measures up to 13.6 cm. Chest X-Ray 04/03/18 10:42 CONCLUSION: No significant change Discharge Plan - Discharge Disposition Patient Disposition: 03 Discharge to SNF - Discharge Condition Condition: Stable - Discharge Order Discharge Orders: Discharge Order (Routine); Ordered 04/06/18 Ordered By: Thomas Biswas - Discharge Details Anticipated Discharge Date: 04/06/18 - Physicians Team Primary Care Provider: UNKNOWN, Attending Provider: Thomas Biswas Other Providers: Edgard Ca MD ; Re Kovacs ; Madeline Craig MD ; Aryan Ramirez MD
== END 2018-04-06 19:25 ==
LOC: NEPC 04:41 → NEDA 06:29 → HIMC 08:00 → N05 03-26 22:46 → HCIS 03-27 18:35
PROVIDERS: ADMIT Hospitalist; ATTEND Hospitalist